=== PATIENT | male | born 1960 | race Caucasian/White ===

== ENCOUNTER 2021-06-10 13:29 | Inpatient (IN) | payer MEDICARE, SELFPAY ==
[2021-06-10] VITALS (10 sets, daily range): BP systolic 93–127; BP diastolic 69–94; PULSE 98–105; RESP 18–36; TEMP 35.2–36.3; O2SAT 90–99; BMI 30.8; BMI 28.4
--- NOTE | 2021-06-10 14:07 | EKG12_ITS ---
Test Reason : Blood Pressure : / mmHG Vent. Rate : 103 BPM Atrial Rate : 103 BPM P-R Int : 170 ms QRS Dur : 156 ms QT Int : 418 ms P-R-T Axes : 070 -75 091 degrees QTc Int : 547 ms Sinus tachycardia with occasional Premature ventricular complexes Left axis deviation Non-specific intra-ventricular conduction block Abnormal ECG Confirmed by CAROL JOSEPH, MACHELLE ([id number]), make up editor GERI CAPELLAN ([id number]) on 06/12/2021 10:31:13 AM Referred By: SABRINA Confirmed By:MACHELLE MEDINA MD
--- NOTE | 2021-06-10 14:08 | EDS_ITS ---
HPI History of Present Illness Chief Complaint: Shortness of Breath Informant: patient Narrative Narrative: 61-year-old male arriving to the emergency department chief complaint of shortness of breath. Patient tells me that he tested positive for Covid a couple weeks ago. He does not know where he tested. He states that he thought he would get better but over the past several days is some progressive worsening of his shortness of breath. He notes feeling off balance/lightheaded as well as confusion. Decreased p.o. He notes leg swelling. He cannot tell me prior medical conditions or medications that he is on. I was able to obtain records from his primary care provider. I see that he tested positive at [facility] having it on the and being reported positive on the . Reportedly his chest x-ray is clear and he was given prescriptions for Augmentin doxycycline and albuterol MDI as well as some Phenergan. [facility] Medical History (Updated 06/10/21 @ 16:[address] Blue Horton DO) Cardiomyopathy Congestive heart failure (CHF) Diabetes HTN (hypertension) Hyperlipidemia Home Medications ascorbic acid (vitamin C) [Vitamin C] 500 mg PO DAILY@0800 05/30/13 [History Last Taken 05/30/13] coenzyme Q10 [Co Q-10] 100 mg PO DAILY 05/30/13 [History Last Taken 05/30/13 08:00] vitamin B complex 1 ea PO DAILY 05/30/13 [History Last Taken 05/30/13 08:00] aspirin 81 mg PO DAILY@0800 #30 tablet 06/01/13 [Rx Last Taken Unknown] atorvastatin 10 mg PO QHS #30 tablet 06/01/13 [Rx Last Taken Unknown] carvedilol 3.125 mg PO BID #60 tablet 06/01/13 [Rx Last Taken 06/07/13] furosemide 40 mg PO BIDLX #60 tablet 06/01/13 [Rx Last Taken 06/07/13] lisinopril 5 mg PO DAILY #60 tablet 06/01/13 [Rx Last Taken Unknown] Allergy/AdvReac Type Severity Reaction Status Date / Time No Known Allergies Allergy Verified 06/10/21 13:34 Social History (Updated 06/10/21 @ 14:[address] Blue Horton DO) Smoking Status: Current every day smoker tobacco type: cigarettes substance use type: does not use ROS ROS ED ROS Narrative Generalized fatigue and lightheadedness Constitutional Constitutional ED: Denies chills, fever(s) or weight loss Eyes Eyes: Denies change in vision or diplopia ENT ENT ED: Reports rhinorrhea; Denies ear pain or sore throat Cardiovascular Cardiovascular: Denies chest pain, orthopnea, palpitations or racing heartbeat Respiratory/Chest Respiratory/Chest: Reports cough, dyspnea and dyspnea on exertion; Denies orth opnea Gastrointestinal Gastrointestinal: Reports nausea; Denies abdominal pain, diarrhea or vomiting Genitourinary Genitourinary ED: Denies dysuria, hematuria or urinary frequency Musculoskeletal Musculoskeletal: Denies arthralgias or myalgias Integumentary Denies abscess or rash Neurologic Neurologic: Denies headache(s) or weakness Psychiatric Psychiatric: Denies anxiety, depression, suicidal ideation or suicidal thoughts Endocrine Endocrinology: Denies polydipsia, polyphagia or polyuria Allergic/Immunologic Allergic/Immunologic ED: Denies mouth swelling, tongue swelling or urticaria EXAM Physical Exam Narrative Exam Narrative: Patient is tachypneic at rest Const Vital Signs: 06/10/21 13:30 06/10/21 13:34 06/10/21 13:44 Temperature 96.2 F L 96.2 F L Temperature Source Temporal Temporal Pulse Rate 104 H 104 H Respiratory Rate 22 H 22 H Respiratory Effort Short of Breath Labored Respiratory Depth Shallow Respiratory Pattern Tachypnea Blood Pressure 127/94 H 127/94 H Blood Pressure Mean 105 105 Pulse Ox 97 97 Oxygen Delivery Method Nasal Cannula Nasal Cannula Nasal Cannula Oxygen Flow Rate (L/min) 2 2 3 06/10/21 14:24 06/10/21 15:18 Temperature 97.3 F L Temperature Source Oral Pulse Rate 103 H Respiratory Rate 30 H Respiratory Effort Respiratory Depth Respiratory Pattern Blood Pressure 104/73 Blood Pressure Mean 83 Pulse Ox 99 94 Oxygen Delivery Method Room Air Nasal Cannula Oxygen Flow Rate (L/min) 3 Positive well nourished and well developed General Appearance ED: well developed HEENT Reports normocephalic, head/scalp atraumatic, TM's clear and moist mucous membranes Negative for trauma Tympanic Membrane ED: Yes TM's clear Eyes PERRL and EOMs intact bilaterally Neck no lymphadenopathy, supple and no JVD Resp normal respiratory effort and clear to auscultation bilaterally Cardio regular rate and no murmurs Rate: tachycardic GI normal to inspection, nondistended, normoactive bowel sounds and non-tender Palpation: soft Back/Spine no CVA tenderness and normal ROM Extremity normal to inspection Extremity Narrative: 2+ pitting edema of the lower extremity bilaterally General Extremety ED: Yes edema General Extremity: edema Neuro oriented x3 and CN's II-XII intact bilaterally Sensorium / Orientation: alert Motor Exam: strength 5/5 throughout Psych mental status grossly normal Mood & Affect: Negative for depressed or tearful Skin no rashes or lesions noted and no wounds MDM MDM MDM Narrative Medical decision making narrative: Basic blood work was obtained. White count 6.9 with a platelet count of 146. Creatinine 1.16. Beta natruretic peptide is elevated at 823 lactic acid is 4.3 which I suspect is elevated due to his hypoxemia rather than a shock state. Total bilirubin is noted to be elevated at 5.2. CT roosters does not demonstrate obvious pulmonary embolism but does show significant pneumonitis consistent with COVID-19 infection. Patient is requiring supplemental oxygen currently about 4 L. He is dyspneic even at rest. With ambulation the patient drops to 86% on 4 L. Patient received dexamethasone. I will discuss with hospitalist regarding admission Lab Data Attestation: I reviewed the patient's lab results. Labs: Laboratory Results - last 24 hr 06/10/21 06/10/21 06/10/21 13:45 13:45 13:45 WBC 6.9 RBC 5.16 Hgb 16.0 Hct 45.3 MCV 87.8 MCH 31.0 MCHC 35.3 RDW Std Deviation 43.8 RDW Coeff of Tony 13.4 Plt Count 146 L MPV 12.3 H Immature Gran % (Auto) 0.900 Neut % (Auto) 88.8 H Lymph % (Auto) 7.8 L O[place]Brien % (Auto) 2.2 Eos % (Auto) 0.0 Baso % (Auto) 0.3 Absolute Neuts (auto) 6.2 Absolute Lymphs (auto) 0.54 L Nucleated RBC % 0 PT 19.5 H INR 1.7 APTT 34.0 Sodium 133 L Potassium 3.6 Chloride 95 L Carbon Dioxide 26.0 Anion Gap 12 BUN 28 H Creatinine 1.16 Estim Creat Clear Calc 69.92 Est GFR (MDRD) Af Amer 83 Est GFR (MDRD) Non-Af 68 BUN/Creatinine Ratio 24.1 H Glucose 239 H Lactic Acid Calcium 8.9 Total Bilirubin 5.20 H AST 72 H ALT 43 Alkaline Phosphatase 86 Troponin I High Sens 33 B-Natriuretic Peptide Total Protein 7.5 Albumin 2.4 L Globulin 5.1 H Albumin/Globulin Ratio 0.5 L 06/10/21 06/10/21 13:45 13:45 WBC RBC Hgb Hct MCV MCH MCHC RDW Std Deviation RDW Coeff of Tony Plt Count MPV Immature Gran % (Auto) Neut % (Auto) Lymph % (Auto) O[place]Brien % (Auto) Eos % (Auto) Baso % (Auto) Absolute Neuts (auto) Absolute Lymphs (auto) Nucleated RBC % PT INR APTT Sodium Potassium Chloride Carbon Dioxide Anion Gap BUN Creatinine Estim Creat Clear Calc Est GFR (MDRD) Af Amer Est GFR (MDRD) Non-Af BUN/Creatinine Ratio Glucose Lactic Acid 4.3 H* Calcium Total Bilirubin AST ALT Alkaline Phosphatase Troponin I High Sens B-Natriuretic Peptide 823.0 H Total Protein Albumin Globulin Albumin/Globulin Ratio Radiography Diagnostic Testing: Clinical Impression(s) from Imaging Studies Chest CTA 06/10/21 14:42 IMPRESSION: Diffuse bilateral pulmonary infiltrates involving both upper and lower lobes. No evidence of pulmonary embolism. Electronically Signed: Inder Melendez MD at 15:26 EST , Service support , EKG Initial EKG: Attestation: I personally reviewed and interpreted this EKG as follows: Comments: Sinus tachycardia with a ventricular rate of 103 bpm. Noted PVCs Discharge Plan Triage Chief Complaint: Shortness of Breath ED Provider: Blue Horton Dx/Rx/DC Orders Clinical Impression: COVID-19, Acute hypoxemic respiratory failure due to COVID-19 Prescriptions: No Action vitamin B complex 1 EACH capsule 1 ea PO DAILY RF: 0 ascorbic acid (vitamin C) [Vitamin C] 500 MG tablet 500 mg PO DAILY@0800 RF: 0 coenzyme Q10 [Co Q-10] 100 MG capsule 100 mg PO DAILY RF: 0 furosemide 40 MG tablet 40 mg PO BIDLX Qty: 60 RF: 0 atorvastatin 10 MG tablet 10 mg PO QHS Qty: 30 RF: 0 aspirin 81 MG tablet 81 mg PO DAILY@0800 Qty: 30 RF: 0 carvedilol 3.125 MG tablet 3.125 mg PO BID Qty: 60 RF: 0 lisinopril 5 MG tablet 5 mg PO DAILY Qty: 60 RF: 0 Primary Care Provider: Care Physician,No Primary Referrals: Care Physician,No Primary [Primary Care Provider] - Disposition Disposition: Acute Care Hospital [facility]
[2021-06-10 14:23] LABS: Absolute Lymphocyte Count 0.54 X10^3/uL (0.83-4.51); Absolute Neutrophil Count 6.2 X10^3/uL (2.0-7.7); Basophil# 0.02 X10^3/uL; Basophil% 0.3 % (0-1); Hematocrit 45.3 % (40-54); Lymphocyte # 0.54 X10^3/ul (0.83-4.51); Lymphocyte % 7.8 % (19-41); Mean Corp Hgb Conc 35.3 g/dL (32-36); Mean Corpuscular Volume 87.8 fL (80-94); Mean Platelet Vol. 12.3 fl (6.2-12.0); Monocyte# 0.15 X10^3/uL; Monocyte% 2.2 % (0-10); NRBC Flagged by Analyzer 0 % (0-5); Neutrophil # 6.17 X10^3/uL (2.7-7.7); Neutrophil % 88.8 % (47-70); POSITIVE DIFFERENTIAL YES; POSITIVE MORPHOLOGY YES; Platelet Count 146 K/mm3 (150-450); RBC Distribution Width CV 13.4 % (11.6-14.6); RBC Distribution Width SD 43.8 fl (35.1-43.9); Red Blood Count 5.16 M/mm3 (4.6-6.2); White Blood Count 6.9 K/mm3 (4.4-11.0)
[2021-06-10 14:24] LABS: Differential Indicated SCAN CRITERIA MET
[2021-06-10 14:25] LABS: International Normalized Ratio 1.7; Prothrombin Time (Protime)PT. 19.5 SECONDS (11.7-14.9)
[2021-06-10 14:35] LABS: ALB/GLOB Ratio 0.5 RATIO (0.9-2.4); AST(SGOT) 72 U/L (15-37); Alanine Aminotransfer ALT/SGPT 43 U/L (16-61); Albumin, Serum 2.4 g/dL (3.2-5.0); Alkaline Phosphatase 86 U/L (45-117); Anion Gap 12 (5-15); BUN 28 mg/dL (7-18); BUN/Creat Ratio 24.1 RATIO (10-20); Calcium,Total 8.9 mg/dL (8.5-10.1); Chloride 95 mmol/L (98-107); Creatinine, Serum 1.16 mg/dL (0.70-1.30); EST Glomerular Filtration Rate 68 mL/min (>60); Est Glom Filt Rate - Afr Amer 83 mL/min (>60); Estimated Creatinine Clearance 69.92 ml/min; Globulin 5.1 g/dL (2.2-4.2); Glucose 239 mg/dL (74-106); Potassium 3.6 mmol/L (3.5-5.1); Protein, Total 7.5 g/dL (6.4-8.2); Sodium Level 133 mmol/L (136-145); Troponin-I HS 33 pg/mL (3.0-78.0)
--- NOTE | 2021-06-10 14:42 | CT_ITS ---
STUDY: CTA CHEST REASON FOR EXAM: Male, 61 years old. covid 19 pulmonary embolism. Shortness of breath. RADIATION DOSAGE (If Supplied By Facility): CTDIvol = ( 15.79 ) mGy, DLP = ( 437.42 ) mGycm TECHNIQUE: The examination was performed with the intravenous administration of IV 100mL Isovue-370. Post-processing of the angiographic images was performed, with multiplanar reformation and 3D reconstruction. Individualized dose optimization techniques were used for this CT. COMPARISON: None. FINDINGS: Normal enhancement of the main pulmonary artery and right and left pulmonary arteries. Normal enhancement of the bilateral peripheral pulmonary arteries. There is no demonstrated pulmonary embolism. There is atherosclerotic calcification of the aortic arch with tortuosity. There is no demonstrated aortic dissection. Normal heart and pericardium. Normal mediastinum. Normal hilar regions. Normal visualized trachea and bronchi. The lungs are well expanded. Diffuse bilateral consolidation involving both lungs worse in the upper lobes. Normal pleura. Normal chest wall structures. Normal osseous structures. Mild adrenal hyperplasia. CT/CTA Chest W/WO Contrast IMPRESSION: Diffuse bilateral pulmonary infiltrates involving both upper and lower lobes. No evidence of pulmonary embolism. Electronically Signed: Inder Melendez MD at 15:26 EST , Service support ,
[2021-06-10 14:46] LABS: Lactic Acid 4.3 mmol/L (0.4-1.9)
[2021-06-10] MEDS: dexAMETHasone 10 MG/ML Vial 6 MG IV (15:19)
[2021-06-10 18:18] LABS: Reflex Lactate? Y
[2021-06-10 19:30] LABS: Lactic Acid 2.8 mmol/L (0.4-1.9)
--- NOTE | 2021-06-10 19:33 | ED.RN ---
Crystal RN from [facility] called with critical lactic of 2.4. Pt pending clean room on [facility].
--- NOTE | 2021-06-10 19:41 | HP.PCM.HOS_ITS ---
HPI - General General Date of Admission: 06/10/21 HPI Narrative INDU ROD, is a 61 M who presents to the hospital with worsening shortness of breath. He started having symptoms approximately 10 days prior to June 03 when he had a positive Covid test on outside hospital. Since then he has been getting progressively more short of breath. He does have a history of heart failure, he had an echo back in 2013 with an EF of 40% however there is no further echoes in our system. His BNP in the ER was elevated to over 800 and he does have some lower extremity edema. He is on Lasix at baseline he has been taking this every day. He followed up with his PCP as an outpatient for his shortness of breath and was started on antibiotics as well as albuterol in the setting of a normal chest x-ray at that time. In the ER he was found to have a low elevated lactic acid of 4.3 this is likely due to the hypoxia as he was in the mid 80s on room air. This has decreased. He was also noted to be a little bit jaundiced and to have an elevated total bilirubin and elevated AST both of which are higher than the last reading in 2013. He denies any abdominal pain. Also of note his INR is elevated to 1.7 despite not being on any Coumadin. [facility] Medical History (Updated 06/10/21 @ 16:[address] Blue Horton, ) Cardiomyopathy Congestive heart failure (CHF) Diabetes HTN (hypertension) Hyperlipidemia Home Medications ascorbic acid (vitamin C) [Vitamin C] 500 mg PO DAILY@0800 05/30/13 [History Last Taken 2 Weeks Ago ~05/27/21] aspirin 81 mg PO DAILY@0800 #30 tablet 06/01/13 [Rx Last Taken 3 Days Ago ~06/07/21] furosemide 40 mg PO BIDLX #60 tablet 06/01/13 [Rx Last Taken 3 Days Ago ~06/07/21] carvedilol 25 mg PO BID 06/10/21 [History Last Taken 3 Days Ago ~06/07/21] glimepiride 1 mg PO BID 06/10/21 [History Last Taken 3 Days Ago ~06/07/21] lisinopril 5 mg PO DAILY 06/10/21 [History Last Taken 3 Days Ago ~06/07/21] metformin 1,000 mg PO BID 06/10/21 [History Last Taken 3 Days Ago ~06/07/21] Allergy/AdvReac Type Severity Reaction Status Date / Time No Known Allergies Allergy Verified 06/10/21 13:34 Family History (Updated 06/10/21 @ 19:[address] Jaun Doe MD) Other COPD (chronic obstructive pulmonary disease) Surgical History no surgical history no surgical history Social History (Updated 06/10/21 @ 14:[address] Blue Horton DO) Smoking Status: Current every day smoker tobacco type: cigarettes substance use type: does not use ROS Constitutional Constitutional: Denies chills, fatigue, fever(s) or malaise Eyes Eyes: Denies blurry vision ENT HEENT: Denies headache(s) or nasal discharge Cardiovascular Cardiovascular: Denies chest pain, dyspnea on exertion or syncope Respiratory/Chest Respiratory/Chest: Reports cough and shortness of breath at rest; Denies s hortness of breath with exertion Gastrointestinal Gastrointestinal: Denies constipation, diarrhea, nausea or vomiting Genitourinary Genitourinary: Denies dysuria Neurologic Neurologic: Denies focal weakness, numbness or tremor(s) Psychiatric Psychiatric: Denies anxiety or depression Vital Signs Vital Signs Vital Signs: 06/10/21 13:30 06/10/21 13:34 06/10/21 13:44 Temperature 96.2 F L 96.2 F L Temperature Source Temporal Temporal Pulse Rate 104 H 104 H Respiratory Rate 22 H 22 H Respiratory Effort Short of Breath Labored Respiratory Depth Shallow Respiratory Pattern Tachypnea Blood Pressure 127/94 H 127/94 H Blood Pressure Mean 105 105 Pulse Ox 97 97 Oxygen Delivery Method Nasal Cannula Nasal Cannula Nasal Cannula Oxygen Flow Rate (L/min) 2 2 3 06/10/21 14:24 06/10/21 15:18 06/10/21 16:13 Temperature 97.3 F L 97.3 F L Temperature Source Oral Axillary Pulse Rate 103 H 103 H Respiratory Rate 30 H 30 H Respiratory Effort Respiratory Depth Respiratory Pattern Blood Pressure 104/73 111/72 Blood Pressure Mean 83 85 Pulse Ox 99 94 95 Oxygen Delivery Method Room Air Nasal Cannula Nasal Cannula Oxygen Flow Rate (L/min) 3 3 06/10/21 16:58 06/10/21 18:06 Temperature 97.3 F L Temperature Source Axillary Pulse Rate 105 H 103 H Respiratory Rate 18 33 H Respiratory Effort Respiratory Depth Respiratory Pattern Blood Pressure 93/69 104/79 Blood Pressure Mean 77 87 Pulse Ox 96 95 Oxygen Delivery Method Nasal Cannula Nasal Cannula Oxygen Flow Rate (L/min) 4 3 Weight Weight: 215 lb Body Mass Index (BMI) 30.8 Physical Exam Const alert, oriented x3 and no apparent distress General Appearance: cooperative HEENT normocephalic and moist oral mucous membranes Eyes PERRL, EOMs intact bilaterally and conjunctivae normal Neck supple and no JVD Resp normal respiratory effort, no retractions and no use of accessory muscles Auscultation: crackles; Negative for rales, rhonchi or wheezes Cardio regular rhythm, S1 normal heart sound, S2 normal heart sound and no murmurs Rate: tachycardic GI soft to palpation, non-tender and non-distended; Negative for hepatosplenomegaly Extremity General Extremity: edema bilateral; Negative for clubbing or cyanosis Skin no rashes or lesions noted General Skin Exam: jaundice Neuro no focal motor deficits and no sensory deficits noted Psych affect normal Appearance: appropriate Results Lab / Micro Data Result Diagrams: 06/10/21 13:45 06/10/21 13:45 Labs: Laboratory Results - last 24 hr 06/10/21 13:45: WBC 6.9, RBC 5.16, Hgb 16.0, Hct 45.3, MCV 87.8, MCH 31.0, MCHC 35.3, RDW Std Deviation 43.8, RDW Coeff of Tony 13.4, Plt Count 146 L, MPV 12.3 H , Immature Gran % (Auto) 0.900, Neut % (Auto) 88.8 H, Lymph % (Auto) 7.8 L, [place] % (Auto) 2.2, Eos % (Auto) 0.0, Baso % (Auto) 0.3, Absolute Neuts (auto) 6.2, Absolute Lymphs (auto) 0.54 L, Nucleated RBC % 0 06/10/21 13:45: PT 19.5 H, INR 1.7, APTT 34.0 06/10/21 13:45: Sodium 133 L, Potassium 3.6, Chloride 95 L, Carbon Dioxide 26.0, Anion Gap 12, BUN 28 H, Creatinine 1.16, Estim Creat Clear Calc 69.92, Est GFR (MDRD) Af Amer 83, Est GFR (MDRD) Non-Af 68, BUN/Creatinine Ratio 24.1 H, Glucose 239 H, Calcium 8.9, Total Bilirubin 5.20 H, AST 72 H, ALT 43, Alkaline Phosphatase 86, Troponin I High Sens 33, Total Protein 7.5, Albumin 2.4 L, Globulin 5.1 H, Albumin/Globulin Ratio 0.5 L 06/10/21 13:45: Lactic Acid 4.3 H* 06/10/21 13:45: B-Natriuretic Peptide 823.0 H 06/10/21 18:31: Lactic Acid 2.8 H* Radiology Impression Chest CTA 06/10/21 14:42 IMPRESSION: Diffuse bilateral pulmonary infiltrates involving both upper and lower lobes. No evidence of pulmonary embolism. Electronically Signed: Inder Melendez MD at 15:26 EST , Service support , Assessment & Plan Assessment/Plan (1) Acute hypoxemic respiratory failure due to COVID-19: PLAN: 1. Acute hypoxic respiratory failure secondary to COVID-19 pneumonia ?He should come out of quarantine on 06/13/2021 ?Since he is outside of the window for remdesivir we will continue with just Decadron ?Currently only on 4 L if he worsens will likely need baricitinib ?Positive test was obtained on 06/03/2021 ?CT of the chest shows significant bilateral pneumonia no PEs 2. Chronic systolic CHF/HTN/HLD ?He had an echo with a heart cath back in 2013 with an EF of 40% ?We will continue with his Lasix IV ?Continue with aspirin, Coreg, lisinopril 3. DM2 ?We will hold his glimepiride and his metformin and place him on sliding scale insulin as well as long-acting insulin ?Accu-Cheks AC at bedtime ?We will make adjustments as Seri 4. Jaundice without abdominal pain and an elevated total bilirubin and INR ?We will repeat a CMP and an INR in the morning ?There is some contrast in the liver from the CTA which was not commented on may be beneficial to discuss with radiology ?He is not complaining of any abdominal pain, if bilirubin remains elevated or continues to climb may benefit from liver specific imaging and a possible GI consult DVT: Lovenox Charges/Coding Visit Charges Inpatient E&M: 35751 Init Hosp L3
[2021-06-10] MEDS: Carvedilol 25 MG Tablet PO (23:17)
[2021-06-10] MEDS: Furosemide 40 MG/4 ML Vial IV (23:17)
[2021-06-10] MEDS: Insulin Lispro 100 UNIT/ML INSULN.PEN SC (23:19)
[2021-06-10] MEDS: 0.9% Saline Lock 10 ML Syringe IV (23:25)
[2021-06-10 23:46] LABS: Bedside Glucose 348 mg/dL (70-110)
[2021-06-11] VITALS (13 sets, daily range): BP systolic 92–107; BP diastolic 60–74; PULSE 76–82; RESP 24–32; TEMP 36.1–36.6; O2SAT 90–96
--- NOTE | 2021-06-11 00:38 | PCS.PANDOC ---
PANDEMIC DOCUMENTATION INITIATED: Date: 02/18/2021 Time: 1900 Emergency documentation initiated 06/10/21 @ 0000
[2021-06-11] MEDS: Insulin Lispro 100 UNIT/ML INSULN.PEN SC ×4 (05:34→22:41)
[2021-06-11 05:38] LABS: Absolute Lymphocyte Count 0.47 X10^3/uL (0.83-4.51); Absolute Neutrophil Count 5.6 X10^3/uL (2.0-7.7); Basophil# 0.02 X10^3/uL; Basophil% 0.3 % (0-1); Hematocrit 40.7 % (40-54); Hemoglobin 14.1 g/dL (13.0-16.5); Lymphocyte # 0.47 X10^3/ul (0.83-4.51); Lymphocyte % 7.4 % (19-41); Mean Corp Hgb Conc 34.6 g/dL (32-36); Mean Corpuscular Hgb 30.2 pg (27.0-32.0); Mean Corpuscular Volume 87.2 fL (80-94); Mean Platelet Vol. 11.9 fl (6.2-12.0); Monocyte# 0.16 X10^3/uL; Monocyte% 2.5 % (0-10); NRBC Flagged by Analyzer 0 % (0-5); Neutrophil # 5.63 X10^3/uL (2.7-7.7); Neutrophil % 89.2 % (47-70); POSITIVE DIFFERENTIAL YES; POSITIVE MORPHOLOGY YES; Platelet Count 109 K/mm3 (150-450); RBC Distribution Width CV 13.4 % (11.6-14.6); RBC Distribution Width SD 42.7 fl (35.1-43.9); Red Blood Count 4.67 M/mm3 (4.6-6.2); White Blood Count 6.3 K/mm3 (4.4-11.0)
[2021-06-11 05:39] LABS: Differential Indicated SCAN CRITERIA MET
[2021-06-11 05:43] LABS: International Normalized Ratio 1.9; Prothrombin Time (Protime)PT. 20.8 SECONDS (11.7-14.9)
[2021-06-11 05:50] LABS: Bedside Glucose 351 mg/dL (70-110)
[2021-06-11 06:07] LABS: Differential Comment SCANNED
[2021-06-11 06:13] LABS: ALB/GLOB Ratio 0.4 RATIO (0.9-2.4); AST(SGOT) 43 U/L (15-37); Alanine Aminotransfer ALT/SGPT 30 U/L (16-61); Albumin, Serum 1.8 g/dL (3.2-5.0); Alkaline Phosphatase 65 U/L (45-117); Anion Gap 11 (5-15); BUN 28 mg/dL (7-18); BUN/Creat Ratio 29.7 RATIO (10-20); Chloride 98 mmol/L (98-107); Creatinine, Serum 0.94 mg/dL (0.70-1.30); EST Glomerular Filtration Rate 87 mL/min (>60); Est Glom Filt Rate - Afr Amer 105 mL/min (>60); Estimated Creatinine Clearance 83.57 ml/min; Globulin 4.2 g/dL (2.2-4.2); Glucose 378 mg/dL (74-106); Potassium 3.7 mmol/L (3.5-5.1); Sodium Level 134 mmol/L (136-145)
--- NOTE | 2021-06-11 07:23 | US_ITS ---
STUDY: ABDOMINAL ULTRASOUND - RIGHT UPPER QUADRANT REASON FOR VISIT: Male, 61 years old elevated bilirubin -- TECHNIQUE: Ultrasound evaluation of the right upper quadrant was performed with real-time and static medina-scale imaging. TECHNICAL QUALITY: Adequate. COMPARISON: None. FINDINGS: Liver: The liver measures 18.6 cm. There is normal echogenicity of the liver. The bile ducts are within normal limits. There is hepatic color flow. The direction of portal flow is hepatopetal. There is no demonstrated mass lesion. Gallbladder: Normal distended gallbladder. The gallbladder wall measures 2 mm. There is a negative sonographic Orellana''s sign. There is no pericholecystic fluid. There are no gallstones. Common Bile Duct (C.B.D.): The common bile duct measures 5 mm. Pancreas: Normal size of the head and body of the pancreas. Limited visualization of the pancreatic tail. There is normal echogenicity of the pancreas. There is no demonstrated pancreatic mass or cyst. Right Kidney: Normal size of the right kidney. The right kidney measures 11.9 x 5.4 x 4.6 cm. Normal renal cortex. The right cortex measures 1.2 cm. There is no demonstrated renal mass or cyst. There is no right hydronephrosis. US/Liver IMPRESSION: Hepatomegaly. Electronically Signed: Mike Schmidt DO at 23:31 EST Tel [phone], Service support ,
[2021-06-11] MEDS: Furosemide 40 MG/4 ML Vial IV ×2 (11:24→17:25)
[2021-06-11] MEDS: Enoxaparin 40 MG/0.4 ML Syringe SC (11:24)
[2021-06-11] MEDS: 0.9% Saline Lock 10 ML Syringe IV ×2 (11:24→17:25)
[2021-06-11 12:00] LABS: Bedside Glucose 446 mg/dL (70-110)
--- NOTE | 2021-06-11 12:50 | CASEMGMT ---
RN CM [employer]PA[employer] SUPERVISOR CM to room to meet with patient for initial transition planning/care coordination assessment. MARIETTA BUTLER introduced self and role at [facility]. Pt voices understanding and consents to assessment at this time. Pt resting in bed in no distress at this time. Pt is A/O at this time and answers all questions appropriately. Care providers, pharmacy, and demographics verified/updated at this time. COVID testing done @ [facility] in [place] 06/03 PCP: Dr Draper. Pt states he also recently saw Christiana Hastings in [place] recently. He is interested in switching PCP's and would like list of local PCP's. RNLakesha, provided w/list of local PCP's to take into pt's room. Pt made aware. Specialists: none Preferred Pharmacy: [facility] [place] Insurance: [employer]hing[employer] Prescription Benefit: None Living Will/HPOA: Pt does not currently have LW/HCPOA and declines info at this time. LNOK:, [place] Living Arrangements: Lives w/ and 29-yr-old son. They are both ill w/COVID. Pt states his informed him she may need to be evaluated d/t worsening symptoms. Son is doing pretty good. Pt independent @ home prior to illness. Transportation: Pt states drives self and states no transportation concerns at this time. also drives DME: Denies having any DME. Encouraged to get a pulse ox. Pt aware he may need O2 @ D/C. Reviewed list of local DME companies. Pt states okay w/[employer]. Made aware approx cost for 30-day supply of O2 is $200. He states this is affordable. Denies need for further DME. HHC/SNF: No hx of either. Does not think he will need HHC. Pt wishes to return home and states has no concerns with going home at time of discharge. CM to follow for home oxygen needs and any further discharge planning/needs. Pt voices no further concerns/needs at this time. Advised pt to ask for CM if any further questions/concerns/needs arise. Voices understanding. PLAN: Home. Follow for any O2 needs @ discharge. No Rx coverage. Follow for cost of meds @ d/c and affordability. Krystal ESPINOZA RN, CM
--- NOTE | 2021-06-11 13:32 | PN.HOSP_ITS ---
Subjective Subjective Breathing ok. No prior history of liver problems. Objective Data Objective Data Vital Signs: Vital Signs Temp Pulse Resp BP Pulse Ox 36.5 C L 80 26 H 97/69 95 06/11/21 12:16 06/11/21 12:16 06/11/21 12:16 06/11/21 12:16 06/11/21 12:45 Oxygen Flow Rate (L/min) 7 Oxygen Delivery Method Nasal Cannula Weight: 86.7 kg Body Mass Index (BMI) 28.4 Intake & Output: Intake and Output for Last 24 Hours 06/09/21 06/10/21 06/11/21 23:59 23:59 23:59 Intake Total 150 / 150 Output Total 1200 / 1200 Balance -1050 / -1050 Lab / Micro Data Result Diagrams: 06/11/21 05:15 06/11/21 05:15 Labs: Laboratory Results - last 24 hr 06/10/21 13:45: WBC 6.9, RBC 5.16, Hgb 16.0, Hct 45.3, MCV 87.8, MCH 31.0, MCHC 35.3, RDW Std Deviation 43.8, RDW Coeff of Tony 13.4, Plt Count 146 L, MPV 12.3 H , Immature Gran % (Auto) 0.900, Neut % (Auto) 88.8 H, Lymph % (Auto) 7.8 L, [place] % (Auto) 2.2, Eos % (Auto) 0.0, Baso % (Auto) 0.3, Absolute Neuts (auto) 6.2, Absolute Lymphs (auto) 0.54 L, Nucleated RBC % 0 06/10/21 13:45: PT 19.5 H, INR 1.7, APTT 34.0 06/10/21 13:45: Sodium 133 L, Potassium 3.6, Chloride 95 L, Carbon Dioxide 26.0, Anion Gap 12, BUN 28 H, Creatinine 1.16, Estim Creat Clear Calc 69.92, Est GFR (MDRD) Af Amer 83, Est GFR (MDRD) Non-Af 68, BUN/Creatinine Ratio 24.1 H, Glucose 239 H, Calcium 8.9, Total Bilirubin 5.20 H, AST 72 H, ALT 43, Alkaline Phosphatase 86, Troponin I High Sens 33, Total Protein 7.5, Albumin 2.4 L, Globulin 5.1 H, Albumin/Globulin Ratio 0.5 L 06/10/21 13:45: Lactic Acid 4.3 H* 06/10/21 13:45: B-Natriuretic Peptide 823.0 H 06/10/21 18:31: Lactic Acid 2.8 H* 06/10/21 23:15: POC Glucose 348 H 06/11/21 05:15: WBC 6.3, RBC 4.67, Hgb 14.1, Hct 40.7, MCV 87.2, MCH 30.2, MCHC 34.6, RDW Std Deviation 42.7, RDW Coeff of Tony 13.4, Plt Count 109 L, MPV 11.9, Immature Gran % (Auto) 0.600, Neut % (Auto) 89.2 H, Lymph % (Auto) 7.4 L, [place] % (Auto) 2.5, Eos % (Auto) 0.0, Baso % (Auto) 0.3, Absolute Neuts (auto) 5.6, Absolute Lymphs (auto) 0.47 L, Nucleated RBC % 0, Differential Comment SCANNED 06/11/21 05:15: PT 20.8 H, INR 1.9 06/11/21 05:15: Sodium 134 L, Potassium 3.7, Chloride 98, Carbon Dioxide 25.0, Anion Gap 11, BUN 28 H, Creatinine 0.94, Estim Creat Clear Calc 83.57, Est GFR (MDRD) Af Amer 105, Est GFR (MDRD) Non-Af 87, BUN/Creatinine Ratio 29.7 H, Glucose 378 H, Calcium 8.0 L, Total Bilirubin 4.00 H, AST 43 H, ALT 30, Alkaline Phosphatase 65, Total Protein 6.0 L, Albumin 1.8 L, Globulin 4.2, Albumin/Globulin Ratio 0.4 L 06/11/21 05:24: POC Glucose 351 H 06/11/21 11:31: POC Glucose 446 H Radiography Diagnostic Testing: Radiology Impression Chest CTA 06/10/21 14:42 IMPRESSION: Diffuse bilateral pulmonary infiltrates involving both upper and lower lobes. No evidence of pulmonary embolism. Electronically Signed: Inder Melendez MD at 15:26 EST , Service support , Physical Exam Const alert and no apparent distress Resp normal respiratory effort, no retractions, no use of accessory muscles and clear to auscultation bilaterally Cardio regular rate, regular rhythm, S1 normal heart sound and S2 normal heart sound GI normal to inspection, nondistended, normoactive bowel sounds, soft to palpation, non-tender and non-distended Skin Skin Narrative: jaundice Assessment & Plan Assessment/Plan (1) Acute hypoxemic respiratory failure due to COVID-19: PLAN: 1. Acute hypoxic respiratory failure secondary to COVID-19 pneumonia ?He should come out of quarantine on 06/13/2021 ?Since he is outside of the window for remdesivir we will continue with just Decadron ?Currently only on 4 L if he worsens will likely need baricitinib ?Positive test was obtained on 06/03/2021 ?CT of the chest shows significant bilateral pneumonia no PEs 2. Chronic systolic CHF/HTN/HLD ?He had an echo with a heart cath back in 2013 with an EF of 40% ?We will continue with his Lasix IV ?Continue with aspirin, Coreg, lisinopril 3. DM2 ?uncontrolled -We will hold his glimepiride and his metformin and place him on sliding scale insulin as well as long-acting insulin ?Accu-Cheks AC at bedtime ?We will make adjustments as Seri 4. Jaundice without abdominal pain and an elevated total bilirubin and INR ?ongoing -We will repeat a CMP and an INR in the morning ?There is some contrast in the liver from the CTA which was not commented on may be beneficial to discuss with radiology ?He is not complaining of any abdominal pain, if bilirubin remains elevated or continues to climb may benefit from liver specific imaging and a possible GI consult -Check US DVT: Lovenox Charges/Coding Visit Charges Inpatient E&M: 52358 Subs Hosp L2
[2021-06-11 16:21] LABS: Bedside Glucose 390 mg/dL (70-110)
[2021-06-11] MEDS: dexAMETHasone 4 MG Tablet 6 MG PO (17:23)
[2021-06-11] MEDS: Aspirin E.C. 81 MG Tablet PO (17:25)
[2021-06-11] MEDS: Ascorbic Acid 500 MG Tablet PO (17:25)
[2021-06-11 23:01] LABS: Bedside Glucose 438 mg/dL (70-110)
[2021-06-12] VITALS (10 sets, daily range): BP systolic 78–120; BP diastolic 46–88; PULSE 75–90; RESP 22–26; TEMP 36.1–36.4; O2SAT 93–98
--- NOTE | 2021-06-12 06:13 | PCM.PN.BLA ---
Progress Note A.m. blood glucose of 475. On high medium correction scale. Extra dose of short acting insulin given. Patient on Lantus 5 units at night. Last Lantus received overnight. Escalate dose of Lantus beginning now.
[2021-06-12 06:19] LABS: Absolute Lymphocyte Count 0.43 X10^3/uL (0.83-4.51); Absolute Neutrophil Count 9.9 X10^3/uL (2.0-7.7); Basophil# 0.02 X10^3/uL; Basophil% 0.2 % (0-1); Hematocrit 39.7 % (40-54); Hemoglobin 14.1 g/dL (13.0-16.5); Lymphocyte # 0.43 X10^3/ul (0.83-4.51); Mean Corp Hgb Conc 35.5 g/dL (32-36); Mean Corpuscular Hgb 30.7 pg (27.0-32.0); Mean Corpuscular Volume 86.3 fL (80-94); Mean Platelet Vol. 11.3 fl (6.2-12.0); Monocyte# 0.36 X10^3/uL; Monocyte% 3.3 % (0-10); NRBC Flagged by Analyzer 0 % (0-5); Neutrophil # 9.89 X10^3/uL (2.7-7.7); Neutrophil % 91.9 % (47-70); POSITIVE DIFFERENTIAL YES; POSITIVE MORPHOLOGY YES; Platelet Count 132 K/mm3 (150-450); RBC Distribution Width CV 13.3 % (11.6-14.6); RBC Distribution Width SD 42.5 fl (35.1-43.9); White Blood Count 10.8 K/mm3 (4.4-11.0)
[2021-06-12] MEDS: Insulin Lispro 100 UNIT/ML INSULN.PEN 14 UNIT SC (06:19)
[2021-06-12 06:33] LABS: Differential Indicated SCAN CRITERIA MET; International Normalized Ratio 1.7; Prothrombin Time (Protime)PT. 19.5 SECONDS (11.7-14.9)
[2021-06-12 06:56] LABS: ALB/GLOB Ratio 0.5 RATIO (0.9-2.4); AST(SGOT) 34 U/L (15-37); Alanine Aminotransfer ALT/SGPT 30 U/L (16-61); Albumin, Serum 1.9 g/dL (3.2-5.0); Alkaline Phosphatase 76 U/L (45-117); Anion Gap 9 (5-15); BUN 35 mg/dL (7-18); BUN/Creat Ratio 30.2 RATIO (10-20); Calcium,Total 8.1 mg/dL (8.5-10.1); Chloride 101 mmol/L (98-107); Creatinine, Serum 1.16 mg/dL (0.70-1.30); EST Glomerular Filtration Rate 68 mL/min (>60); Est Glom Filt Rate - Afr Amer 83 mL/min (>60); Estimated Creatinine Clearance 67.72 ml/min; Glucose 496 mg/dL (74-106); Potassium 3.5 mmol/L (3.5-5.1); Protein, Total 5.9 g/dL (6.4-8.2); Sodium Level 138 mmol/L (136-145)
[2021-06-12 07:17] LABS: Atypical Lymphocyte 1+ %; Differential Comment SCANNED
[2021-06-12 08:36] LABS: Bedside Glucose > 500 mg/dL (70-110)
[2021-06-12 08:36] LABS: Bedside Glucose 475 mg/dL (70-110)
[2021-06-12] MEDS: Aspirin E.C. 81 MG Tablet PO (08:59)
[2021-06-12] MEDS: Ascorbic Acid 500 MG Tablet PO (09:00)
[2021-06-12] MEDS: Carvedilol 25 MG Tablet PO (09:06)
[2021-06-12] MEDS: Lisinopril 5 MG Tablet PO (09:06)
[2021-06-12] MEDS: dexAMETHasone 4 MG Tablet 6 MG PO (09:07)
[2021-06-12] MEDS: Furosemide 40 MG/4 ML Vial IV (09:10)
[2021-06-12] MEDS: 0.9% Saline Lock 10 ML Syringe IV (09:11)
[2021-06-12 11:35] LABS: Bedside Glucose 463 mg/dL (70-110)
[2021-06-12] MEDS: Insulin Lispro 100 UNIT/ML INSULN.PEN SC ×3 (12:26→21:53)
--- NOTE | 2021-06-12 13:32 | PCM.PN.HOSP ---
Subjective Subjective Breathing well. Objective Data Objective Data Vital Signs: Vital Signs Temp Pulse Resp BP Pulse Ox 36.4 C L 90 26 H 120/88 H 94 06/12/21 09:01 06/12/21 09:01 06/12/21 09:01 06/12/21 09:01 06/12/21 09:01 Oxygen Flow Rate (L/min) 7 Oxygen Delivery Method Nasal Cannula Weight: 84 kg Body Mass Index (BMI) 28.4 Intake & Output: Intake and Output for Last 24 Hours 06/10/21 06/11/21 06/12/21 23:59 23:59 23:59 Intake Total 150 / 150 Output Total 1200 / 1200 Balance -1050 / -1050 Medical Nutrition Assessment Dietitian: Malnutrition Criteria Met Start: 06/11/21 17:05 Freq: Status: Active Protocol: Document 06/11/21 17:05 RMA (Rec: 06/11/21 17:06 RMA [id number]) Nutrition Malnutrition Evidence of Malnutrition Exists Yes Malnutrition (severe): Acute Illness/Injury Evidenced By Suboptimal Energy Intake ( Severe),Weight Loss (Severe) Clinical Problem Acute Disease or Injury Related Malnutrition Etiology Severe protein-calorie malnutrition in the context of acute illness related to ongoing poor appetite and inadequate oral intake Signs/Symptoms as evidenced by ~9% wt loss x 1 month and inadequate oral intake meeting less than 50% estimated nutrition needs x past 2 weeks Status Active Problem Recommendation Dietitian Recommendations/Changes Recommend resume PO nutrition as able with Carbohydrate- Controlled/Sodium-Restricted diet; FR as needed. Add 120ml kayleigh glucerna shake TID with meals as diet resumed from NPO. Adjust ONS and diet as able to optimize oral intake when diet advanced. Will d/c glucerna shake w/ medpass for now and add to meal trays due to covid isolation. Lab / Micro Data Result Diagrams: 06/12/21 06:05 06/12/21 06:05 Labs: Laboratory Results - last 24 hr 06/11/21 15:56: POC Glucose 390 H 06/11/21 22:40: POC Glucose 438 H 06/12/21 05:52: POC Glucose > 500 H* 06/12/21 05:54: POC Glucose 475 H* 06/12/21 06:05: WBC 10.8, RBC 4.60, Hgb 14.1, Hct 39.7 L, MCV 86.3, MCH 30.7, MCHC 35.5, RDW Std Deviation 42.5, RDW Coeff of Tony 13.3, Plt Count 132 L, MPV 11.3, Immature Gran % (Auto) 0.600, Neut % (Auto) 91.9 H, Lymph % (Auto) 4.0 L, [place] % (Auto) 3.3, Eos % (Auto) 0.0, Baso % (Auto) 0.2, Absolute Neuts (auto) 9.9 H, Absolute Lymphs (auto) 0.43 L, Nucleated RBC % 0, Differential Comment SCANNED, Atypical Lymphocytes 1+ 06/12/21 06:05: PT 19.5 H, INR 1.7 06/12/21 06:05: Sodium 138, Potassium 3.5, Chloride 101, Carbon Dioxide 28.0, Anion Gap 9, BUN 35 H, Creatinine 1.16, Estim Creat Clear Calc 67.72, Est GFR (MDRD) Af Amer 83, Est GFR (MDRD) Non-Af 68, BUN/Creatinine Ratio 30.2 H, Glucose 496 H*, Calcium 8.1 L, Total Bilirubin 4.00 H, AST 34, ALT 30, Alkaline Phosphatase 76, Total Protein 5.9 L, Albumin 1.9 L, Globulin 4.0, Albumin/Globulin Ratio 0.5 L 06/12/21 06:05: Glucose Cancelled 06/12/21 11:30: POC Glucose 463 H* Radiography Diagnostic Testing: Radiology Impression Liver Ultrasound 06/11/21 07:23 IMPRESSION: Hepatomegaly. Electronically Signed: Mike Schmidt DO at 23:31 EST Tel [phone], Service support , Physical Exam Const alert and no apparent distress HEENT head/scalp atraumatic Head and Scalp: normocephalic Resp normal respiratory effort, no retractions, no use of accessory muscles and clear to auscultation bilaterally Cardio regular rate, regular rhythm, S1 normal heart sound and S2 normal heart sound GI normal to inspection, nondistended, normoactive bowel sounds, soft to palpation, non-tender and non-distended Extremity General Extremity: edema Skin Skin Narrative: jaundice Assessment & Plan Assessment/Plan (1) COVID-19: (2) Acute hypoxemic respiratory failure due to COVID-19: PLAN: 1. Acute hypoxic respiratory failure secondary to COVID-19 pneumonia He should come out of quarantine on 06/13/2021 Since he is outside of the window for remdesivir we will continue with just Decadron On 7L Positive test was obtained on 06/03/2021 CT of the chest shows significant bilateral pneumonia no PEs 2. Chronic systolic CHF/HTN/HLD ?He had an echo with a heart cath back in 2013 with an EF of 40% ?We will continue with his Lasix IV ?Continue with aspirin, Coreg, lisinopril 3. DM2 uncontrolled We will hold his glimepiride and his metformin and place him on sliding scale insulin as well as long-acting insulin Accu-Cheks AC at bedtime We will make adjustments as Seri glargine check a1c 4. Jaundice without abdominal pain and an elevated total bilirubin and INR ongoing US unremarkable concerned for underlying cirrhosis consult GI check acute hep profile, CORKY, NH3 5.DVT: DC Lovenox given coagulopathy. SCDs Charges/Coding Visit Charges Inpatient E&M: 18099 Subs Hosp L2
[2021-06-12 14:44] LABS: Hemoglobin A1c 8.5 % (3.8-5.6)
[2021-06-12 16:01] LABS: Bedside Glucose 495 mg/dL (70-110)
[2021-06-12] MEDS: 0.9% Normal Saline 1,000 ML 150 ML IV (16:18)
--- NOTE | 2021-06-12 17:20 | CON.PCM.GI_ITS ---
HPI Consult Data Date of Consult: 06/12/21 HPI Narrative HPI Narrative: 61-year-old male arriving to the emergency department chief complaint of shortness of breath. Patient tells me that he tested positive for Covid a couple weeks ago. He does not know where he tested. He states that he thought he would get better but over the past several days is some progressive worsening of his shortness of breath. He notes feeling off balance/lightheaded as well as confusion. Decreased p.o. He notes leg swelling. He cannot tell me prior medical conditions or medications that he is on. I was able to obtain records from his primary care provider. I see that he tested positive at [facility] having it on the and being reported positive on the . Reportedly his chest x-ray is clear and he was given prescriptions for Augmentin doxycycline and albuterol MDI as well as some Phenergan. [facility] Medical History (Updated 06/12/21 @ 17:[address] Xiao Friend, DO) Cardiomyopathy Congestive heart failure (CHF) Diabetes HTN (hypertension) Hyperlipidemia Home Medications ascorbic acid (vitamin C) [Vitamin C] 500 mg PO DAILY@0800 05/30/13 [History Last Taken 2 Weeks Ago ~05/27/21] aspirin 81 mg PO DAILY@0800 #30 tablet 06/01/13 [Rx Last Taken 3 Days Ago ~06/07/21] furosemide 40 mg PO BIDLX #60 tablet 06/01/13 [Rx Last Taken 3 Days Ago ~ 1] carvedilol 25 mg PO BID 06/10/21 [History Last Taken 3 Days Ago ~06/07/21] glimepiride 1 mg PO BID 06/10/21 [History Last Taken 3 Days Ago ~06/07/21] lisinopril 5 mg PO DAILY 06/10/21 [History Last Taken 3 Days Ago ~06/07/21] metformin 1,000 mg PO BID 06/10/21 [History Last Taken 3 Days Ago ~06/07/21] Allergy/AdvReac Type Severity Reaction Status Date / Time No Known Allergies Allergy Verified 06/10/21 13:34 Family History (Updated 06/10/21 @ 19:[address] Jaun Doe MD) Other COPD (chronic obstructive pulmonary disease) Surgical History no surgical history Social History (Updated 06/10/21 @ 14:[address] Blue Horton, DO) Smoking Status: Former smoker substance use type: does not use ROS Review of Systems ROS Unobtainable: other Constitutional Constitutional: Denies fatigue, fever(s), poor appetite, weight gain or weight loss ENT HEENT: Denies mouth lesions Cardiovascular Cardiovascular: Denies abdominal bloating, abdominal edema or abdominal pain Respiratory/Chest Respiratory/Chest: Denies change in mental status, change in phlegm color, chest congestion or chest tightness Gastrointestinal Gastrointestinal: Denies belching, bloating, change in bowel habits, change in stool character, chewing difficulty, coffee ground emesis, constipation, cramping, diarrhea, dyspepsia, dysphagia, early satiety, excessive flatus, fecal incontinence, heartburn, hematemesis, hematochezia, hemorrhoids, loose stools, melena, nausea, odynophagia, rectal bleeding, tenesmus, vomiting or weight ch anges Genitourinary Genitourinary: Denies abdominal discomfort, burning urination or itching Musculoskeletal Musculoskeletal: Reports as per HPI; Denies muscle weakness or myalgias Integumentary Integumentary: Denies jaundice Neurologic Neurologic: Denies lack of coordination or weakness Psychiatric Psychiatric: Denies confusion, depression, memory loss, mood swings, paranoia or suicidal ideation Endocrine Endocrinology: Denies systems reviewed and no addt'l complaints, except as documented Hematologic/Lymphatic Hematologic/Lymphatic: Denies anemia, easy bleeding, easy bruising or lymphadenopathy Allergic/Immunologic Allergic/Immunologic: Denies systems reviewed and no addt'l complaints, except as documented Physical Exam Const alert General Appearance: cooperative Orientation / Consciousness: oriented to person HEENT hearing grossly normal bilaterally Head and Scalp: normal to inspection Face and Sinus: face symmetric Nose: external nose normal Mouth: oral and palatal mucosa normal Eyes conjunctivae normal General Eye: normal appearance of both eyes Neck full ROM General: normal visual inspection Lymph Lymphatic: no lymphadenopathy noted Chest inspection of chest normal and palpation of chest normal Chest: symmetrical chest wall rise Resp normal respiratory effort Effort and Inspection: able to speak in complete sentences Cardio regular rate GI non-distended Percussion: normal to percussion Rectal Exam: deferred Neuro Speech: speech normal Gait (Neuro): normal gait Medical Records Data Medical Nutrition Assessment Dietitian: Malnutrition Criteria Met Start: 06/11/21 17:05 Freq: Status: Active Protocol: Document 06/11/21 17:05 RMA (Rec: 06/11/21 17:06 RMA [id number]) Nutrition Malnutrition Evidence of Malnutrition Exists Yes Malnutrition (severe): Acute Illness/Injury Evidenced By Suboptimal Energy Intake ( Severe),Weight Loss (Severe) Clinical Problem Acute Disease or Injury Related Malnutrition Etiology Severe protein-calorie malnutrition in the context of acute illness related to ongoing poor appetite and inadequate oral intake Signs/Symptoms as evidenced by ~9% wt loss x 1 month and inadequate oral intake meeting less than 50% estimated nutrition needs x past 2 weeks Status Active Problem Recommendation Dietitian Recommendations/Changes Recommend resume PO nutrition as able with Carbohydrate- Controlled/Sodium-Restricted diet; FR as needed. Add 120ml kayleigh glucerna shake TID with meals as diet resumed from NPO. Adjust ONS and diet as able to optimize oral intake when diet advanced. Will d/c glucerna shake w/ medpass for now and add to meal trays due to covid isolation. Lab / Micro Data Result Diagrams: 06/12/21 06:05 06/12/21 06:05 Labs: Laboratory Results - last 24 hr 06/11/21 22:40: POC Glucose 438 H 06/12/21 05:52: POC Glucose > 500 H* 06/12/21 05:54: POC Glucose 475 H* 06/12/21 06:05: WBC 10.8, RBC 4.60, Hgb 14.1, Hct 39.7 L, MCV 86.3, MCH 30.7, MCHC 35.5, RDW Std Deviation 42.5, RDW Coeff of Tony 13.3, Plt Count 132 L, MPV 11.3, Immature Gran % (Auto) 0.600, Neut % (Auto) 91.9 H, Lymph % (Auto) 4.0 L, [place] % (Auto) 3.3, Eos % (Auto) 0.0, Baso % (Auto) 0.2, Absolute Neuts (auto) 9.9 H, Absolute Lymphs (auto) 0.43 L, Nucleated RBC % 0, Differential Comment SCANNED, Atypical Lymphocytes 1+ 06/12/21 06:05: PT 19.5 H, INR 1.7 06/12/21 06:05: Sodium 138, Potassium 3.5, Chloride 101, Carbon Dioxide 28.0, Anion Gap 9, BUN 35 H, Creatinine 1.16, Estim Creat Clear Calc 67.72, Est GFR (MDRD) Af Amer 83, Est GFR (MDRD) Non-Af 68, BUN/Creatinine Ratio 30.2 H, Glucose 496 H*, Calcium 8.1 L, Total Bilirubin 4.00 H, AST 34, ALT 30, Alkaline Phosphatase 76, Total Protein 5.9 L, Albumin 1.9 L, Globulin 4.0, Albumin/Globulin Ratio 0.5 L 06/12/21 06:05: Glucose Cancelled 06/12/21 11:30: POC Glucose 463 H* 06/12/21 14:13: Ammonia 24.0 06/12/21 14:13: Hemoglobin A1c 8.5 H 06/12/21 15:48: POC Glucose 495 H* Micro: Microbiology 06/10/21 13:45 Blood Culture (Wb) - Anticubital Left Blood Culture - Preliminary No growth in 48 hours. 06/10/21 13:55 Blood Culture (Wb) - Anticubital Right Blood Culture - Preliminary No growth in 48 hours. Radiology Impression Liver Ultrasound 06/11/21 07:23 IMPRESSION: Hepatomegaly. Electronically Signed: Mike Schmidt DO at 23:31 EST Tel [phone], Service support , Assessment & Plan Assessment/Plan (1) Jaundice: PLAN: I suspect that his jaundice is from hyperbilirubinemia associated with Gilbert's syndrome. Gilbert syndrome is a chronic liver disorder characterized by non-hemolytic unconjugated hyperbilirubinemia due to defect in the hepatic uptake of unconjugated bilirubin. GS is also called simple familial jaundice or icterus intermittent juvenilis, affects 5?10% of general population, being most common in male. There has been report of Covid-19 showing a rapid cl inical improvement and short hospital stay as compared with a Covid-19 patient. This is because bilirubin exerts potent antioxidant effects which might alleviates Covid-19 induced-oxidative stress. In this syndrome patients, the TSB is usually below 3 mg/dl with <20% conjugated bilirubin. Only when associated with other pathological conditions, which increase hemolysis, TSB can be higher, but even then levels are usually below 6 mg/dl. Chronic ultrasound of the liver did not show any signs of cirrhosis or much chronic liver disease. I suspect that he does have some fatty liver disease seco ndary to previous alcohol usage however there is no sign of scarring in the liver. Is very rare syndrome should not have any effect on his liver. I am not sure why he is an elevated INR and low platelets. Those things in itself can be signs of portal hypertension. There also can be signs of an acute phase reactant in a acute infection.
[2021-06-12 17:35] LABS: Glucose 541 mg/dL (74-106)
[2021-06-12] MEDS: Insulin Lispro 100 UNIT/ML INSULN.PEN 10 UNIT SC (18:05)
[2021-06-12 22:06] LABS: Bedside Glucose 409 mg/dL (70-110)
[2021-06-13 03:14] VITALS: PULSE 77; O2SAT 92
[2021-06-13 05:13] VITALS: BP 109/78; PULSE 81; RESP 22; TEMP 36.6; O2SAT 94
[2021-06-13] MEDS: Insulin Lispro 100 UNIT/ML INSULN.PEN SC ×4 (05:18→21:12)
[2021-06-13 05:25] LABS: Bedside Glucose 286 mg/dL (70-110)
[2021-06-13 07:41] LABS: Absolute Lymphocyte Count 0.63 X10^3/uL (0.83-4.51); Absolute Neutrophil Count 13.3 X10^3/uL (2.0-7.7); Basophil# 0.02 X10^3/uL; Basophil% 0.1 % (0-1); Hematocrit 41.9 % (40-54); Hemoglobin 14.3 g/dL (13.0-16.5); Lymphocyte # 0.63 X10^3/ul (0.83-4.51); Lymphocyte % 4.4 % (19-41); Mean Corp Hgb Conc 34.1 g/dL (32-36); Mean Corpuscular Hgb 29.9 pg (27.0-32.0); Mean Corpuscular Volume 87.7 fL (80-94); Mean Platelet Vol. 11.6 fl (6.2-12.0); Monocyte# 0.38 X10^3/uL; Monocyte% 2.6 % (0-10); NRBC Flagged by Analyzer 0.1 % (0-5); Neutrophil # 13.25 X10^3/uL (2.7-7.7); Platelet Count 128 K/mm3 (150-450); RBC Distribution Width CV 13.6 % (11.6-14.6); RBC Distribution Width SD 43.8 fl (35.1-43.9); Red Blood Count 4.78 M/mm3 (4.6-6.2); White Blood Count 14.4 K/mm3 (4.4-11.0)
[2021-06-13 08:06] LABS: International Normalized Ratio 1.9; Prothrombin Time (Protime)PT. 21.3 SECONDS (11.7-14.9)
[2021-06-13 08:26] LABS: ALB/GLOB Ratio 0.5 RATIO (0.9-2.4); AST(SGOT) 35 U/L (15-37); Alanine Aminotransfer ALT/SGPT 29 U/L (16-61); Alkaline Phosphatase 87 U/L (45-117); Anion Gap 7 (5-15); BUN 33 mg/dL (7-18); Calcium,Total 8.3 mg/dL (8.5-10.1); Chloride 107 mmol/L (98-107); Creatinine, Serum 0.87 mg/dL (0.70-1.30); EST Glomerular Filtration Rate 95 mL/min (>60); Est Glom Filt Rate - Afr Amer 115 mL/min (>60); Estimated Creatinine Clearance 90.29 ml/min; Globulin 4.1 g/dL (2.2-4.2); Glucose 247 mg/dL (74-106); Potassium 3.3 mmol/L (3.5-5.1); Protein, Total 6.1 g/dL (6.4-8.2); Sodium Level 143 mmol/L (136-145)
[2021-06-13 10:24] VITALS: BP 116/73; PULSE 92; RESP 22; TEMP 36.7; O2SAT 94
[2021-06-13] MEDS: Carvedilol 6.25 MG Tablet PO ×2 (10:33→21:12)
[2021-06-13] MEDS: dexAMETHasone 4 MG Tablet 6 MG PO (10:33)
[2021-06-13] MEDS: Aspirin E.C. 81 MG Tablet PO (10:33)
[2021-06-13] MEDS: Ascorbic Acid 500 MG Tablet PO (10:33)
[2021-06-13 12:35] LABS: Bedside Glucose 281 mg/dL (70-110)
[2021-06-13 16:31] LABS: Bedside Glucose 254 mg/dL (70-110)
--- NOTE | 2021-06-13 16:40 | PN.HOSP_ITS ---
Subjective Subjective Breathing better, but still on 8l/m. Objective Data Objective Data Vital Signs: Vital Signs Temp Pulse Resp BP Pulse Ox 36.7 C 92 22 H 116/73 94 06/13/21 10:24 06/13/21 10:24 06/13/21 10:24 06/13/21 10:24 06/13/21 10:24 Oxygen Flow Rate (L/min) 8 Oxygen Delivery Method Nasal Cannula Weight: 84.3 kg Body Mass Index (BMI) 28.4 Intake & Output: Intake and Output for Last 24 Hours 06/11/21 06/12/21 06/13/21 23:59 23:59 23:59 Intake Total 150 / 150 1580 / 1580 200 / 200 Output Total 1200 / 1200 Balance -1050 / -1050 1580 / 1580 200 / 200 Medical Nutrition Assessment Dietitian: Malnutrition Criteria Met Start: 06/11/21 17:05 Freq: Status: Active Protocol: Document 06/11/21 17:05 RMA (Rec: 06/11/21 17:06 RMA [id number]) Nutrition Malnutrition Evidence of Malnutrition Exists Yes Malnutrition (severe): Acute Illness/Injury Evidenced By Suboptimal Energy Intake ( Severe),Weight Loss (Severe) Clinical Problem Acute Disease or Injury Related Malnutrition Etiology Severe protein-calorie malnutrition in the context of acute illness related to ongoing poor appetite and inadequate oral intake Signs/Symptoms as evidenced by ~9% wt loss x 1 month and inadequate oral intake meeting less than 50% estimated nutrition needs x past 2 weeks Status Active Problem Recommendation Dietitian Recommendations/Changes Recommend resume PO nutrition as able with Carbohydrate- Controlled/Sodium-Restricted diet; FR as needed. Add 120ml kayleigh glucerna shake TID with meals as diet resumed from NPO. Adjust ONS and diet as able to optimize oral intake when diet advanced. Will d/c glucerna shake w/ medpass for now and add to meal trays due to covid isolation. Lab / Micro Data Result Diagrams: 06/13/21 07:15 06/13/21 07:15 Labs: Laboratory Results - last 24 hr 06/12/21 16:40: Glucose 541 H* 06/12/21 21:52: POC Glucose 409 H 06/13/21 05:17: POC Glucose 286 H 06/13/21 06:55: PT 21.3 H, INR 1.9 06/13/21 07:15: WBC 14.4 H, RBC 4.78, Hgb 14.3, Hct 41.9, MCV 87.7, MCH 29.9, MCHC 34.1, RDW Std Deviation 43.8, RDW Coeff of Tony 13.6, Plt Count 128 L, MPV 11.6, Immature Gran % (Auto) 0.900, Neut % (Auto) 92.0 H, Lymph % (Auto) 4.4 L, [place] % (Auto) 2.6, Eos % (Auto) 0.0, Baso % (Auto) 0.1, Absolute Neuts (auto) 13.3 H, Absolute Lymphs (auto) 0.63 L, Nucleated RBC % 0.1 06/13/21 07:15: Sodium 143, Potassium 3.3 L, Chloride 107, Carbon Dioxide 29.0, Anion Gap 7, BUN 33 H, Creatinine 0.87, Estim Creat Clear Calc 90.29, Est GFR (MDRD) Af Amer 115, Est GFR (MDRD) Non-Af 95, BUN/Creatinine Ratio 38.0 H, Gluc ose 247 H, Calcium 8.3 L, Total Bilirubin 4.60 H, AST 35, ALT 29, Alkaline Phosphatase 87, Total Protein 6.1 L, Albumin 2.0 L, Globulin 4.1, Albumin/Globulin Ratio 0.5 L 06/13/21 12:27: POC Glucose 281 H 06/13/21 16:19: POC Glucose 254 H Micro: Microbiology 06/10/21 13:45 Blood Culture (Wb) - Anticubital Left Blood Culture - Preliminary No growth in 48 hours. 06/10/21 13:55 Blood Culture (Wb) - Anticubital Right Blood Culture - Preliminary No growth in 48 hours. Physical Exam Const alert, oriented x3 and no apparent distress Constitutional Narrative: up in chair. no respiratory distress. Resp normal respiratory effort, no retractions, no use of accessory muscles and clear to auscultation bilaterally Cardio regular rate, regular rhythm, S1 normal heart sound and S2 normal heart sound GI normal to inspection, nondistended, normoactive bowel sounds, non-tender and non-distended Skin Skin Narrative: slight jaundice. Assessment & Plan Assessment/Plan (1) COVID-19: (2) Acute hypoxemic respiratory failure due to COVID-19: PLAN: 1. Acute hypoxic respiratory failure secondary to COVID-19 pneumonia He should come out of quarantine on 06/13/2021 Since he is outside of the window for remdesivir we will continue with just Decadron On 8L Positive test was obtained on 06/03/2021 CT of the chest shows significant bilateral pneumonia no PEs 2. Chronic systolic CHF/HTN/HLD He had an echo with a heart cath back in 2013 with an EF of 40% 3. DM2 uncontrolled and exacerbated by steroids We will hold his glimepiride and his metformin and place him on sliding scale insulin as well as long-acting insulin Accu-Cheks AC at bedtime We will make adjustments as Seri glargine a1c 8.5 4. Hyperbilirubinemia Appreciete GI input. Suspected Gilbert's monitor follow up with GI as outpt US showed hepatomegaly 5. Coagulopathy unclear etiology ?DIC from COVID 19 v portal HTN v hepatic does have some mild thrombocytopenia check fibrinogen and D-dimer (no need for CTA if elevated as he already had one) 6.DVT: DC Lovenox given coagulopathy. SCDs Charges/Coding Visit Charges Inpatient E&M: 11205 Subs Hosp L2
[2021-06-13 16:58] VITALS: BP 111/77; PULSE 93; RESP 22; TEMP 36.6; O2SAT 94
[2021-06-13] MEDS: Furosemide 40 MG Tablet PO (18:03)
--- NOTE | 2021-06-13 19:18 | EX.PCM.PN.GI ---
Subjective Subjective Patient is doing well without any new complaints. He is tolerating diet. He was having yellow urine but that has improved. He is not have any problems breathing. He denies any chest pain or shortness of breath. Objective Data Objective Data Vital Signs: Vital Signs Temp Pulse Resp BP Pulse Ox 97.8 F 93 22 H 111/77 94 06/13/21 16:58 06/13/21 16:58 06/13/21 16:58 06/13/21 16:58 06/13/21 16:58 Oxygen Flow Rate (L/min) 8 Oxygen Delivery Method Nasal Cannula Weight: 185 lb 13.595 oz Body Mass Index (BMI) 28.4 Intake & Output: Intake and Output for Last 24 Hours 06/11/21 06/12/21 06/13/21 23:59 23:59 23:59 Intake Total 150 / 150 1580 / 1580 420 / 420 Output Total 1200 / 1200 Balance -1050 / -1050 1580 / 1580 420 / 420 Medical Nutrition Assessment Dietitian: Malnutrition Criteria Met Start: 06/11/21 17:05 Freq: Status: Active Protocol: Document 06/11/21 17:05 RMA (Rec: 06/11/21 17:06 RMA [id number]) Nutrition Malnutrition Evidence of Malnutrition Exists Yes Malnutrition (severe): Acute Illness/Injury Evidenced By Suboptimal Energy Intake ( Severe),Weight Loss (Severe) Clinical Problem Acute Disease or Injury Related Malnutrition Etiology Severe protein-calorie malnutrition in the context of acute illness related to ongoing poor appetite and inadequate oral intake Signs/Symptoms as evidenced by ~9% wt loss x 1 month and inadequate oral intake meeting less than 50% estimated nutrition needs x past 2 weeks Status Active Problem Recommendation Dietitian Recommendations/Changes Recommend resume PO nutrition as able with Carbohydrate- Controlled/Sodium-Restricted diet; FR as needed. Add 120ml kayleigh glucerna shake TID with meals as diet resumed from NPO. Adjust ONS and diet as able to optimize oral intake when diet advanced. Will d/c glucerna shake w/ medpass for now and add to meal trays due to covid isolation. Lab / Micro Data Result Diagrams: 06/13/21 07:15 06/13/21 07:15 Labs: Laboratory Results - last 24 hr 06/12/21 21:52: POC Glucose 409 H 06/13/21 05:17: POC Glucose 286 H 06/13/21 06:55: PT 21.3 H, INR 1.9 06/13/21 07:15: WBC 14.4 H, RBC 4.78, Hgb 14.3, Hct 41.9, MCV 87.7, MCH 29.9, MCHC 34.1, RDW Std Deviation 43.8, RDW Coeff of Tony 13.6, Plt Count 128 L, MPV 11.6, Immature Gran % (Auto) 0.900, Neut % (Auto) 92.0 H, Lymph % (Auto) 4.4 L, [place] % (Auto) 2.6, Eos % (Auto) 0.0, Baso % (Auto) 0.1, Absolute Neuts (auto) 13.3 H, Absolute Lymphs (auto) 0.63 L, Nucleated RBC % 0.1 06/13/21 07:15: Sodium 143, Potassium 3.3 L, Chloride 107, Carbon Dioxide 29.0, Anion Gap 7, BUN 33 H, Creatinine 0.87, Estim Creat Clear Calc 90.29, Est GFR (MDRD) Af Amer 115, Est GFR (MDRD) Non-Af 95, BUN/Creatinine Ratio 38.0 H, Glucose 247 H, Calcium 8.3 L, Total Bilirubin 4.60 H, AST 35, ALT 29, Alkaline Phosphatase 87, Total Protein 6.1 L, Albumin 2.0 L, Globulin 4.1, Albumin/Globulin Ratio 0.5 L 06/13/21 12:27: POC Glucose 281 H 06/13/21 16:19: POC Glucose 254 H Micro: Microbiology 06/10/21 13:45 Blood Culture (Wb) - Anticubital Left Blood Culture - Preliminary No growth in 48 hours. 06/10/21 13:55 Blood Culture (Wb) - Anticubital Right Blood Culture - Preliminary No growth in 48 hours. Physical Exam Const alert General Appearance: cooperative Orientation / Consciousness: oriented to person HEENT hearing grossly normal bilaterally Head and Scalp: normal to inspection Face and Sinus: face symmetric Nose: external nose normal Mouth: oral and palatal mucosa normal Eyes conjunctivae normal General Eye: normal appearance of both eyes Neck full ROM General: normal visual inspection Lymph Lymphatic: no lymphadenopathy noted Chest inspection of chest normal and palpation of chest normal Chest: symmetrical chest wall rise Resp normal respiratory effort Effort and Inspection: able to speak in complete sentences Cardio regular rate GI non-distended Percussion: normal to percussion Rectal Exam: deferred Neuro Speech: speech normal Gait (Neuro): normal gait Assessment & Plan Assessment/Plan (1) Jaundice: PLAN: Patient is less jaundiced today. He is having problems such as itching and his urine is clearing up. He is doing well from a GI standpoint. (2) Hepatomegaly: PLAN: Talk with him and told him that his enlarged liver is likely secondary to fatty liver disease. As an outpatient we can get an elastography along with biochemical work-up to see if he needs medication recommendations for fatty liver. (3) Gilbert's syndrome: PLAN: I had a conversation with him and explained to him Gilbert's disease in the setting of Covid and a good prognosis it has with. Patient expresses full understanding. Charges/Coding Visit Charges Inpatient E&M: 62841 Subs Hosp L2
[2021-06-13 21:06] VITALS: BP 116/83; PULSE 98; RESP 22; TEMP 36.8; O2SAT 94
[2021-06-13 22:31] LABS: Bedside Glucose 259 mg/dL (70-110)
[2021-06-14] VITALS (20 sets, daily range): BP systolic 77–124; BP diastolic 47–84; PULSE 54–116; RESP 20–28; TEMP 36.3–36.7; O2SAT 87–100
--- NOTE | 2021-06-14 01:20 | NURSING ---
Patient instructed to prone at this time, patient needed lots of encouragement and step by step direction to accomplish this. Patient desated with activity. 02 increased from 8L HF to 10L HF (84%) to now 12L HF. Will continue to monitor.
[2021-06-14 07:15] LABS: Absolute Lymphocyte Count 0.68 X10^3/uL (0.83-4.51); Absolute Neutrophil Count 15.5 X10^3/uL (2.0-7.7); Basophil# 0.02 X10^3/uL; Basophil% 0.1 % (0-1); Eosinophil# 0.02 X10^3/uL; Eosinophils% 0.1 % (0-5); Hematocrit 44.8 % (40-54); Hemoglobin 15.7 g/dL (13.0-16.5); Lymphocyte # 0.68 X10^3/ul (0.83-4.51); Mean Corpuscular Hgb 30.8 pg (27.0-32.0); Mean Platelet Vol. 10.6 fl (6.2-12.0); Monocyte# 0.35 X10^3/uL; Monocyte% 2.1 % (0-10); NRBC Flagged by Analyzer 0.1 % (0-5); Neutrophil # 15.53 X10^3/uL (2.7-7.7); POSITIVE COUNT YES; Platelet Count 90 K/mm3 (150-450); RBC Distribution Width CV 13.9 % (11.6-14.6); RBC Distribution Width SD 44.5 fl (35.1-43.9); Red Blood Count 5.09 M/mm3 (4.6-6.2); White Blood Count 16.9 K/mm3 (4.4-11.0)
[2021-06-14 07:25] LABS: Differential Indicated SCAN CRITERIA MET
[2021-06-14 07:41] LABS: Bedside Glucose 72 mg/dL (70-110)
[2021-06-14 07:41] LABS: Bedside Glucose 69 mg/dL (70-110)
[2021-06-14 07:47] LABS: ALB/GLOB Ratio 0.5 RATIO (0.9-2.4); AST(SGOT) 48 U/L (15-37); Alanine Aminotransfer ALT/SGPT 30 U/L (16-61); Albumin, Serum 2.3 g/dL (3.2-5.0); Alkaline Phosphatase 100 U/L (45-117); Anion Gap 6 (5-15); BUN 28 mg/dL (7-18); BUN/Creat Ratio 34.9 RATIO (10-20); Calcium,Total 8.6 mg/dL (8.5-10.1); Chloride 104 mmol/L (98-107); EST Glomerular Filtration Rate 104 mL/min (>60); Est Glom Filt Rate - Afr Amer 126 mL/min (>60); Estimated Creatinine Clearance 98.19 ml/min; Globulin 4.3 g/dL (2.2-4.2); Glucose 73 mg/dL (74-106); Potassium 3.3 mmol/L (3.5-5.1); Protein, Total 6.6 g/dL (6.4-8.2); Sodium Level 143 mmol/L (136-145)
[2021-06-14 07:56] LABS: International Normalized Ratio 1.7; Prothrombin Time (Protime)PT. 19.4 SECONDS (11.7-14.9)
[2021-06-14 07:59] LABS: Platelet Estimate SLT DEC (ADEQ)
[2021-06-14 08:04] LABS: Fibrinogen 136 mg/dl (203-444)
[2021-06-14 08:08] LABS: D-Dimer Quantitative (DVT/PE) > 20.00 FEU/ug/m (0.27-0.49)
[2021-06-14 08:09] LABS: HEPATITIS B SURFACE AG Negative (Negative); Hepatitis A IgM Antibody Negative (Negative); Hepatitis B Core AB IgM Negative (Negative)
[2021-06-14] MEDS: Aspirin E.C. 81 MG Tablet PO (08:12)
[2021-06-14] MEDS: Furosemide 40 MG Tablet PO ×2 (08:12→18:44)
[2021-06-14] MEDS: Carvedilol 6.25 MG Tablet PO ×2 (08:12→22:40)
[2021-06-14] MEDS: dexAMETHasone 4 MG Tablet 6 MG PO (08:12)
[2021-06-14] MEDS: Ascorbic Acid 500 MG Tablet PO (08:12)
[2021-06-14] MEDS: Insulin Lispro 100 UNIT/ML INSULN.PEN SC ×2 (11:55→18:43)
--- NOTE | 2021-06-14 11:58 | PN.HOSP_ITS ---
Subjective Subjective Breathing ok. Objective Data Objective Data Vital Signs: Vital Signs Temp Pulse Resp BP Pulse Ox 36.4 C L 89 28 H 95/57 L 91 06/14/21 11:48 06/14/21 11:48 06/14/21 11:48 06/14/21 11:48 06/14/21 11:48 Oxygen Flow Rate (L/min) 8 Oxygen Delivery Method High Flow Weight: 84.8 kg Body Mass Index (BMI) 28.4 Intake & Output: Intake and Output for Last 24 Hours 06/12/21 06/13/21 06/14/21 23:59 23:59 23:59 Intake Total 1580 / 1580 420 / 420 120 / 120 Output Total 200 / 200 Balance 1580 / 1580 220 / 220 120 / 120 Medical Nutrition Assessment Dietitian: Malnutrition Criteria Met Start: 06/11/21 1 7:05 Freq: Status: Active Protocol: Document 06/11/21 17:05 RMA (Rec: 06/11/21 17:06 RMA [id number]) Nutrition Malnutrition Evidence of Malnutrition Exists Yes Malnutrition (severe): Acute Illness/Injury Evidenced By Suboptimal Energy Intake ( Severe),Weight Loss (Severe) Clinical Problem Acute Disease or Injury Related Malnutrition Etiology Severe protein-calorie malnutrition in the context of acute illness related to ongoing poor appetite and inadequate oral intake Signs/Symptoms as evidenced by ~9% wt loss x 1 month and inadequate oral intake meeting less than 50% estimated nutrition needs x past 2 weeks Status Active Problem Recommendation Dietitian Recommendations/Changes Recommend resume PO nutrition as able with Carbohydrate- Controlled/Sodium-Restricted diet; FR as needed. Add 120ml kayleigh glucerna shake TID with meals as diet resumed from NPO. Adjust ONS and diet as able to optimize oral intake when diet advanced. Will d/c glucerna shake w/ medpass for now and add to meal trays due to covid isolation. Lab / Micro Data Result Diagrams: 06/14/21 06:41 06/14/21 06:41 Labs: Laboratory Results - last 24 hr 06/13/21 12:27: POC Glucose 281 H 06/13/21 16:19: POC Glucose 254 H 06/13/21 21:11: POC Glucose 259 H 06/14/21 06:25: POC Glucose 69 L 06/14/21 06:37: POC Glucose 72 06/14/21 06:41: WBC 16.9 H, RBC 5.09, Hgb 15.7, Hct 44.8, MCV 88.0, MCH 30.8, MCHC 35.0, RDW Std Deviation 44.5 H, RDW Coeff of Tony 13.9, Plt Count 90 L, MPV 10.6, Immature Gran % (Auto) 1.700 H, Neut % (Auto) 92.0 H, Lymph % (Auto) 4.0 L , [place] % (Auto) 2.1, Eos % (Auto) 0.1, Baso % (Auto) 0.1, Absolute Neuts (auto) 15.5 H, Absolute Lymphs (auto) 0.68 L, Nucleated RBC % 0.1, Platelet Estimate SLT 06/14/21 06:41: PT 19.4 H, INR 1.7, Fibrinogen 136 L, D-Dimer Quant (PE/DVT) > 20.00 H* 06/14/21 06:41: Sodium 143, Potassium 3.3 L, Chloride 104, Carbon Dioxide 33.0 H , Anion Gap 6, BUN 28 H, Creatinine 0.80, Estim Creat Clear Calc 98.19, Est GFR (MDRD) Af Amer 126, Est GFR (MDRD) Non-Af 104, BUN/Creatinine Ratio 34.9 H, Glucose 73 L, Calcium 8.6, Total Bilirubin 7.00 H, AST 48 H, ALT 30, Alkaline Phosphatase 100, Total Protein 6.6, Albumin 2.3 L, Globulin 4.3 H, Albumin/Globulin Ratio 0.5 L Micro: Microbiology 06/10/21 13:45 Blood Culture (Wb) - Anticubital Left Blood Culture - Preliminary No growth in 48 hours. 06/10/21 13:55 Blood Culture (Wb) - Anticubital Right Blood Culture - Preliminary No growth in 48 hours. Physical Exam Const alert and no apparent distress Eyes Eyes Narrative: icterus Resp normal respiratory effort, no retractions, no use of accessory muscles and clear to auscultation bilaterally Cardio regular rate, regular rhythm, S1 normal heart sound and S2 normal heart sound Skin Skin Narrative: jaundice Assessment & Plan Assessment/Plan (1) COVID-19: (2) Acute hypoxemic respiratory failure due to COVID-19: PLAN: 1. Acute hypoxic respiratory failure secondary to COVID-19 pneumonia He should come out of quarantine on 06/13/2021 Since he is outside of the window for remdesivir we will continue with just Decadron On 8L Positive test was obtained on 06/03/2021 CT of the chest shows significant bilateral pneumonia no PEs 2. Chronic systolic CHF/HTN/HLD He had an echo with a heart cath back in 2013 with an EF of 40% 3. DM2 uncontrolled and exacerbated by steroids We will hold his glimepiride and his metformin and place him on sliding scale insulin as well as long-acting insulin Accu-Cheks AC at bedtime We will make adjustments as Seri glargine a1c 8.5 had some low BGT, scale back glargine 4. Hyperbilirubinemia Appreciete GI input. Suspected Gilbert's monitor follow up with GI as outpt US showed hepatomegaly check LDH, haptoglobin 5. Coagulopathy unclear etiology ?DIC from COVID 19 v portal HTN v hepatic does have some mild thrombocytopenia check fibrinogen and D-dimer (no need for CTA if elevated as he already had one) 6.DVT: DC Lovenox given coagulopathy. SCDs Charges/Coding Visit Charges Inpatient E&M: 41241 Subs Hosp L2
--- NOTE | 2021-06-14 12:06 | NURSING ---
This nurse made pt use his I.S x10 reps and his PEP. Pt also assisted into chair at this time. spo2 92% on 9L [place].
[2021-06-14 12:45] LABS: Bedside Glucose 188 mg/dL (70-110)
[2021-06-14 12:49] LABS: ANTINUCLEAR ANTIBODIES DIRECT Negative (Negative)
[2021-06-14 13:02] LABS: LDH 1051 U/L (87-241)
[2021-06-14] MEDS: Potassium Chloride Oral Tablet 20 MEQ 40 MEQ PO (15:10)
[2021-06-14 15:46] LABS: Bedside Glucose 228 mg/dL (70-110)
[2021-06-14 16:20] LABS: Hep C Antibodies <0.1 s/co ratio (0.0-0.9)
[2021-06-14 19:05] LABS: Bedside Glucose 343 mg/dL (70-110)
[2021-06-14] MEDS: 0.9% Saline Lock 10 ML Syringe IV (22:40)
[2021-06-14 23:00] LABS: Bedside Glucose 136 mg/dL (70-110)
[2021-06-15] VITALS (11 sets, daily range): BP systolic 95–108; BP diastolic 61–71; PULSE 50–102; RESP 18–24; TEMP 36.4–37.2; O2SAT 89–95
[2021-06-15 07:00] LABS: Bedside Glucose 71 mg/dL (70-110)
[2021-06-15 07:32] LABS: Absolute Lymphocyte Count 0.69 X10^3/uL (0.83-4.51); Absolute Neutrophil Count 13.4 X10^3/uL (2.0-7.7); Basophil# 0.03 X10^3/uL; Basophil% 0.2 % (0-1); Eosinophil# 0.03 X10^3/uL; Eosinophils% 0.2 % (0-5); Hematocrit 42.1 % (40-54); Hemoglobin 14.3 g/dL (13.0-16.5); Lymphocyte # 0.69 X10^3/ul (0.83-4.51); Lymphocyte % 4.7 % (19-41); Mean Corpuscular Hgb 30.5 pg (27.0-32.0); Mean Corpuscular Volume 89.8 fL (80-94); Mean Platelet Vol. 12.7 fl (6.2-12.0); Monocyte# 0.38 X10^3/uL; Monocyte% 2.6 % (0-10); NRBC Flagged by Analyzer 0.1 % (0-5); Neutrophil # 13.44 X10^3/uL (2.7-7.7); Neutrophil % 90.6 % (47-70); Platelet Count 119 K/mm3 (150-450); RBC Distribution Width CV 14.2 % (11.6-14.6); RBC Distribution Width SD 46.5 fl (35.1-43.9); Red Blood Count 4.69 M/mm3 (4.6-6.2); White Blood Count 14.8 K/mm3 (4.4-11.0)
[2021-06-15 07:52] LABS: International Normalized Ratio 1.6; Prothrombin Time (Protime)PT. 17.9 SECONDS (11.7-14.9)
[2021-06-15 08:07] LABS: ALB/GLOB Ratio 0.5 RATIO (0.9-2.4); AST(SGOT) 43 U/L (15-37); Alanine Aminotransfer ALT/SGPT 26 U/L (16-61); Alkaline Phosphatase 89 U/L (45-117); Anion Gap 5 (5-15); BUN 28 mg/dL (7-18); BUN/Creat Ratio 32.2 RATIO (10-20); Calcium,Total 8.1 mg/dL (8.5-10.1); Chloride 104 mmol/L (98-107); Creatinine, Serum 0.87 mg/dL (0.70-1.30); EST Glomerular Filtration Rate 95 mL/min (>60); Est Glom Filt Rate - Afr Amer 115 mL/min (>60); Estimated Creatinine Clearance 90.29 ml/min; Glucose 66 mg/dL (74-106); Potassium 3.8 mmol/L (3.5-5.1); Sodium Level 142 mmol/L (136-145)
[2021-06-15] MEDS: Aspirin E.C. 81 MG Tablet PO (09:32)
[2021-06-15] MEDS: Furosemide 40 MG Tablet PO ×2 (09:32→17:26)
[2021-06-15] MEDS: dexAMETHasone 4 MG Tablet 6 MG PO (09:33)
[2021-06-15] MEDS: Ascorbic Acid 500 MG Tablet PO (09:33)
[2021-06-15] MEDS: Insulin Lispro 100 UNIT/ML INSULN.PEN SC ×3 (12:06→21:21)
[2021-06-15 12:26] LABS: Bedside Glucose 163 mg/dL (70-110)
--- NOTE | 2021-06-15 13:38 | PN.HOSP_ITS ---
Subjective Subjective Breathing ok. On 11 l/m. Objective Data Objective Data Vital Signs: Vital Signs Temp Pulse Resp BP Pulse Ox 36.7 C 92 18 95/61 92 06/15/21 09:13 06/15/21 09:13 06/15/21 09:13 06/15/21 09:13 06/15/21 09:13 Oxygen Flow Rate (L/min) 11 Oxygen Delivery Method High Flow Weight: 82.3 kg Body Mass Index (BMI) 28.4 Intake & Output: Intake and Output for Last 24 Hours 06/13/21 06/14/21 06/15/21 23:59 23:59 23:59 Intake Total 420 / 420 860 / 860 Output Total 200 / 200 225 / 225 Balance 220 / 220 635 / 635 Medical Nutrition Assessment Dietitian: Malnutrition Criteria Met Start: 06/11/21 17:05 Freq: Status: Active Protocol: Document 06/14/21 15:06 RMA (Rec: 06/14/21 15:06 RMA [id number]) Nutrition Malnutrition Evidence of Malnutrition Exists Yes Malnutrition (severe): Acute Illness/Injury Evidenced By Suboptimal Energy Intake ( Severe),Weight Loss (Severe) Clinical Problem Acute Disease or Injury Related Malnutrition Etiology Severe protein-calorie malnutrition in the context of acute illness related to ongoing poor appetite and inadequate oral intake Signs/Symptoms as evidenced by ~9% wt loss x 1 month and inadequate oral intake meeting less than 50% estimated nutrition needs x past 2 weeks Status Active Problem Recommendation Dietitian Recommendations/Changes 2000 calorie; consistent carbohydrate/cardiac; sodium- restricted diet. Will add 120ml kayleigh glucerna shake TID with meals. Lab / Micro Data Result Diagrams: 06/15/21 06:30 06/15/21 06:30 Labs: Laboratory Results - last 24 hr 06/12/21 14:13: Hepatitis A IgM Ab Negative, Hep Bs Antigen Negative, Hep B Core IgM Ab Negative, Hepatitis C Ab (EIA) <0.1 06/12/21 14:13: WEN-1 Antibody Not Reportable, SS-A/Ro IgG Antibody Not Reportable, SS-B/La IgG Antibody Not Reportable, Sm (Jose) Antibody Not Repo rtable, PIT STEWARD Antibody Not Reportable, Scl-70 Scleroderma Ab Not Reportable, Double Strand DNA Ab Not Reportable, Centromere B Antibody Not Reportable 06/14/21 15:15: POC Glucose 228 H 06/14/21 18:42: POC Glucose 343 H 06/14/21 22:13: POC Glucose 136 H 06/15/21 06:21: POC Glucose 71 06/15/21 06:30: WBC 14.8 H, RBC 4.69, Hgb 14.3, Hct 42.1, MCV 89.8, MCH 30.5, MCHC 34.0, RDW Std Deviation 46.5 H, RDW Coeff of Tony 14.2, Plt Count 119 L, MPV 12.7 H, Immature Gran % (Auto) 1.700 H, Neut % (Auto) 90.6 H, Lymph % (Auto) 4.7 L, [place] % (Auto) 2.6, Eos % (Auto) 0.2, Baso % (Auto) 0.2, Absolute Neuts (auto) 13.4 H, Absolute Lymphs (auto) 0.69 L, Nucleated RBC % 0.1 06/15/21 06:30: PT 17.9 H, INR 1.6 06/15/21 06:30: Sodium 142, Potassium 3.8, Chloride 104, Carbon Dioxide 33.0 H, Anion Gap 5, BUN 28 H, Creatinine 0.87, Estim Creat Clear Calc 90.29, Est GFR (MDRD) Af Amer 115, Est GFR (MDRD) Non-Af 95, BUN/Creatinine Ratio 32.2 H, Glucose 66 L, Calcium 8.1 L, Total Bilirubin 4.80 H, AST 43 H, ALT 26, Alkaline Phosphatase 89, Total Protein 6.0 L, Albumin 2.0 L, Globulin 4.0, Albumin/Globulin Ratio 0.5 L 06/15/21 12:04: POC Glucose 163 H Micro: Microbiology 06/10/21 13:45 Blood Culture (Wb) - Anticubital Left Blood Culture - Preliminary No growth in 48 hours. 06/10/21 13:55 Blood Culture (Wb) - Anticubital Right Blood Culture - Preliminary No growth in 48 hours. Physical Exam Const alert and no apparent distress HEENT Head and Scalp: normocephalic Resp normal respiratory effort and no retractions Resp Narrative: coarse breath sounds bilaterally. Cardio regular rate, regular rhythm, S1 normal heart sound and S2 normal heart sound GI normal to inspection, nondistended, normoactive bowel sounds, soft to palpation, non-tender and non-distended Assessment & Plan Assessment/Plan (1) COVID-19: (2) Acute hypoxemic respiratory failure due to COVID-19: (3) Gilbert's syndrome: (4) Coagulopathy: PLAN: 1. Acute hypoxic respiratory failure secondary to COVID-19 pneumonia He should come out of quarantine on 06/13/2021 Since he is outside of the window for remdesivir we will continue with just Decadron On 8L Positive test was obtained on 06/03/2021 CTA of the chest shows significant bilateral pneumonia no PEs 2. Chronic systolic CHF/HTN/HLD He had an echo with a heart cath back in 2013 with an EF of 40% 3. DM2 uncontrolled and exacerbated by steroids We will hold his glimepiride and his metformin and place him on sliding scale insulin as well as long-acting insulin Accu-Cheks AC at bedtime We will make adjustments as Seri glargine a1c 8.5 had some low BGT, scale back glargine 4. Hyperbilirubinemia Appreciete GI input. Suspected Gilbert's monitor follow up with GI as outpt US showed hepatomegaly check LDH, haptoglobin 5. Coagulopathy slightly improved unclear etiology: ?DIC from COVID 19 v portal HTN v hepatic does have some mild thrombocytopenia fibrinogen low and D-dimer eleveated (no need for CTA if elevated as he already had one) 6.DVT: DC Lovenox given coagulopathy. SCDs Patient stating today but would happen if he went home. [place] will be going home immediately AGAINST MEDICAL ADVICE and if you do so then we will try to arrange oxygen but would not be sufficient given the high levels of oxygen is currently on. Pump he were to go home with oxygen therapy limit and he would not be able to meet the limit with him on oxygen he currently requires. And if he does go home its chance of the of or rehospitalization amongst other issues. When asked if he was going to leave AGAINST MEDICAL ADVICE he did not answer in the affirmative in yes or no. Charges/Coding Visit Charges Inpatient E&M: 48196 Subs Hosp L2
[2021-06-15 17:01] LABS: Bedside Glucose 168 mg/dL (70-110)
[2021-06-15] MEDS: 0.9% Saline Lock 10 ML Syringe IV (21:17)
[2021-06-15 22:55] LABS: Bedside Glucose 312 mg/dL (70-110)
[2021-06-16] VITALS (10 sets, daily range): BP systolic 104–122; BP diastolic 63–74; PULSE 65–99; RESP 18–24; TEMP 36.6–37.4; O2SAT 91–96
[2021-06-16 06:50] LABS: Bedside Glucose 61 mg/dL (70-110)
[2021-06-16 06:51] LABS: Bedside Glucose 85 mg/dL (70-110)
[2021-06-16 08:01] LABS: International Normalized Ratio 1.5; Prothrombin Time (Protime)PT. 17.3 SECONDS (11.7-14.9)
[2021-06-16 08:11] LABS: ALB/GLOB Ratio 0.5 RATIO (0.9-2.4); AST(SGOT) 37 U/L (15-37); Alanine Aminotransfer ALT/SGPT 22 U/L (16-61); Albumin, Serum 1.8 g/dL (3.2-5.0); Alkaline Phosphatase 82 U/L (45-117); Anion Gap 8 (5-15); BUN 26 mg/dL (7-18); BUN/Creat Ratio 33.5 RATIO (10-20); Calcium,Total 7.7 mg/dL (8.5-10.1); Chloride 102 mmol/L (98-107); Creatinine, Serum 0.78 mg/dL (0.70-1.30); EST Glomerular Filtration Rate 109 mL/min (>60); Est Glom Filt Rate - Afr Amer 131 mL/min (>60); Estimated Creatinine Clearance 100.71 ml/min; Globulin 3.7 g/dL (2.2-4.2); Glucose 117 mg/dL (74-106); Potassium 3.7 mmol/L (3.5-5.1); Protein, Total 5.5 g/dL (6.4-8.2); Sodium Level 140 mmol/L (136-145)
[2021-06-16] MEDS: Carvedilol 6.25 MG Tablet PO ×2 (10:35→21:10)
[2021-06-16] MEDS: dexAMETHasone 4 MG Tablet 6 MG PO (10:35)
[2021-06-16] MEDS: Aspirin E.C. 81 MG Tablet PO (10:36)
[2021-06-16] MEDS: Furosemide 40 MG Tablet PO ×2 (10:36→17:25)
[2021-06-16] MEDS: Ascorbic Acid 500 MG Tablet PO (10:36)
[2021-06-16] MEDS: Insulin Lispro 100 UNIT/ML INSULN.PEN SC ×3 (11:23→21:12)
[2021-06-16 12:00] LABS: Bedside Glucose 209 mg/dL (70-110)
[2021-06-16] MEDS: 0.9% Saline Lock 10 ML Syringe IV (13:02)
[2021-06-16] MEDS: Furosemide 20 MG/2 ML VIAL IV (13:02)
--- NOTE | 2021-06-16 15:02 | PCM.PN.HOSP ---
Subjective Subjective No new events. Tolerating oxygen at 8l/m at rest Objective Data Objective Data Vital Signs: Vital Signs Temp Pulse Resp BP Pulse Ox 37.1 C 94 18 104/63 94 06/16/21 10:27 06/16/21 10:27 06/16/21 10:27 06/16/21 10:27 06/16/21 10:29 Oxygen Flow Rate (L/min) 8 Oxygen Delivery Method High Flow Weight: 82 kg Body Mass Index (BMI) 28.4 Intake & Output: Intake and Output for Last 24 Hours 06/14/21 06/15/21 06/16/21 23:59 23:59 23:59 Intake Total 860 / 860 200 / 200 Output Total 225 / 225 200 / 200 Balance 635 / 635 -200 / -200 200 / 200 Medical Nutrition Assessment Dietitian: Malnutrition Criteria Met Start: 06/11/21 17:05 Freq: Status: Active Protocol: Document 06/14/21 15:06 RMA (Rec: 06/14/21 15:06 RMA [id number]) Nutrition Malnutrition Evidence of Malnutrition Exists Yes Malnutrition (severe): Acute Illness/Injury Evidenced By Suboptimal Energy Intake ( Severe),Weight Loss (Severe) Clinical Problem Acute Disease or Injury Related Malnutrition Etiology Severe protein-calorie malnutrition in the context of acute illness related to ongoing poor appetite and inadequate oral intake Signs/Symptoms as evidenced by ~9% wt loss x 1 month and inadequate oral intake meeting less than 50% estimated nutrition needs x past 2 weeks Status Active Problem Recommendation Dietitian Recommendations/Changes 2000 calorie; consistent carbohydrate/cardiac; sodium- restricted diet. Will add 120ml kayleigh glucerna shake TID with meals. Lab / Micro Data Result Diagrams: 06/15/21 06:30 06/16/21 07:23 Labs: Laboratory Results - last 24 hr 06/15/21 15:41: POC Glucose 168 H 06/15/21 21:01: POC Glucose 312 H 06/16/21 06:18: POC Glucose 61 L 06/16/21 06:34: POC Glucose 85 06/16/21 07:23: PT 17.3 H, INR 1.5 06/16/21 07:23: Sodium 140, Potassium 3.7, Chloride 102, Carbon Dioxide 30.0, Anion Gap 8, BUN 26 H, Creatinine 0.78, Estim Creat Clear Calc 100.71, Est GFR (MDRD) Af Amer 131, Est GFR (MDRD) Non-Af 109, BUN/Creatinine Ratio 33.5 H, Glucose 117 H, Calcium 7.7 L, Total Bilirubin 3.80 H, AST 37, ALT 22, Alkaline Phosphatase 82, Total Protein 5.5 L, Albumin 1.8 L, Globulin 3.7, Albumin/Globulin Ratio 0.5 L 06/16/21 11:23: POC Glucose 209 H Micro: Microbiology 06/10/21 13:45 Blood Culture (Wb) - Anticubital Left Blood Culture - Final No growth in 5 days. 06/10/21 13:55 Blood Culture (Wb) - Anticubital Right Blood Culture - Final No growth in 5 days. Physical Exam Const alert and no apparent distress Resp normal respiratory effort, no retractions, no use of accessory muscles and clear to auscultation bilaterally Cardio regular rate, regular rhythm, S1 normal heart sound and S2 normal heart sound GI normal to inspection, nondistended, normoactive bowel sounds, soft to palpation, non-tender and non-distended Extremity General Extremity: edema Assessment & Plan Assessment/Plan (1) COVID-19: (2) Acute hypoxemic respiratory failure due to COVID-19: (3) Gilbert's syndrome: (4) Coagulopathy: PLAN: 1. Acute hypoxic respiratory failure secondary to COVID-19 pneumonia Since he is outside of the window for remdesivir we will continue with just Decadron On 8L Positive test was obtained on 06/03/2021, onset around the . Will dc isolation. CTA of the chest shows significant bilateral pneumonia no PEs Furosemide challenge today as his BP is overall improved 2. Chronic systolic CHF/HTN/HLD He had an echo with a heart cath back in 2013 with an EF of 40% 3. DM2 uncontrolled and exacerbated by steroids We will hold his glimepiride and his metformin and place him on sliding scale insulin as well as long-acting insulin Accu-Cheks AC at bedtime We will make adjustments as Seri glargine a1c 8.5 had some low BGT, scale back glargine 4. Hyperbilirubinemia Appreciate GI input, who suspects Gilbert's slightly improving follow up with GI as outpt US showed hepatomegaly LDH elevated, haptoglobin pending (though I doubt hemolytic anemia) follow up with GI as outpt. 5. Coagulopathy slightly improved suspect a low-grade DIC from COVID 19 rather than portal HTN does have some mild thrombocytopenia fibrinogen low and D-dimer elevated (no need for CTA if elevated as he already had one) 6.DVT: DC Lovenox given coagulopathy. SCDs Charges/Coding Visit Charges Inpatient E&M: 59272 Subs Hosp L2
[2021-06-16 17:25] LABS: Bedside Glucose 314 mg/dL (70-110)
[2021-06-16 23:36] LABS: Bedside Glucose 320 mg/dL (70-110)
[2021-06-17 03:24] VITALS: BP 95/67; PULSE 87; RESP 20; TEMP 36.4; O2SAT 98
[2021-06-17 03:40] VITALS: PULSE 86; O2SAT 95
[2021-06-17 06:15] VITALS: O2SAT 97
[2021-06-17 06:41] LABS: Bedside Glucose 87 mg/dL (70-110)
[2021-06-17 08:05] LABS: ALB/GLOB Ratio 0.4 RATIO (0.9-2.4); AST(SGOT) 34 U/L (15-37); Alanine Aminotransfer ALT/SGPT 23 U/L (16-61); Albumin, Serum 1.9 g/dL (3.2-5.0); Alkaline Phosphatase 92 U/L (45-117); Anion Gap 5 (5-15); BUN 30 mg/dL (7-18); BUN/Creat Ratio 35.5 RATIO (10-20); Calcium,Total 8.2 mg/dL (8.5-10.1); Chloride 102 mmol/L (98-107); Creatinine, Serum 0.85 mg/dL (0.70-1.30); EST Glomerular Filtration Rate 98 mL/min (>60); Est Glom Filt Rate - Afr Amer 119 mL/min (>60); Estimated Creatinine Clearance 92.42 ml/min; Globulin 4.5 g/dL (2.2-4.2); Glucose 67 mg/dL (74-106); Potassium 3.9 mmol/L (3.5-5.1); Protein, Total 6.4 g/dL (6.4-8.2); Sodium Level 139 mmol/L (136-145)
[2021-06-17 08:20] LABS: International Normalized Ratio 1.5
[2021-06-17] MEDS: Furosemide 40 MG Tablet PO ×2 (08:28→16:51)
[2021-06-17] MEDS: Aspirin E.C. 81 MG Tablet PO (08:28)
[2021-06-17] MEDS: Ascorbic Acid 500 MG Tablet PO (08:28)
[2021-06-17] MEDS: Carvedilol 6.25 MG Tablet PO ×2 (08:29→21:04)
[2021-06-17] MEDS: dexAMETHasone 4 MG Tablet 6 MG PO (08:29)
[2021-06-17 08:31] VITALS: BP 103/54; PULSE 105; RESP 20; TEMP 36.7; O2SAT 93
[2021-06-17 11:55] LABS: Bedside Glucose 322 mg/dL (70-110)
[2021-06-17] MEDS: Insulin Lispro 100 UNIT/ML INSULN.PEN SC ×3 (12:24→22:54)
--- NOTE | 2021-06-17 12:28 | PN.HOSP_ITS ---
Subjective Subjective Patient seen and examined. He was alert but appeared weak. He had no active complaints. He was mildly tachycardic. He had been weaned down to 4 L of oxygen at time I reviewed him. Review of systems otherwise negative. Objective Data Objective Data Vital Signs: Vital Signs Temp Pulse Resp BP Pulse Ox 98.0 F 105 H 20 H 103/54 L 93 06/17/21 08:31 06/17/21 08:31 06/17/21 08:31 06/17/21 08:31 06/17/21 08:31 Oxygen Flow Rate (L/min) 4 Oxygen Delivery Method High Flow Weight: 177 lb 14.609 oz Body Mass Index (BMI) 28.4 Intake & Output: Intake and Output for Last 24 Hours 06/15/21 06/16/21 06/17/21 23:59 23:59 23:59 Intake Total 200 / 200 50 / 50 Output Total 200 / 200 Balance -200 / -200 200 / 200 50 / 50 Medical Nutrition Assessment Dietitian: Malnutrition Criteria Met Start: 06/11/21 17:05 Freq: Status: Active Protocol: Document 06/14/21 15:06 RMA (Rec: 06/14/21 15:06 RMA [id number]) Nutrition Malnutrition Evidence of Malnutrition Exists Yes Malnutrition (severe): Acute Illness/Injury Evidenced By Suboptimal Energy Intake ( Severe),Weight Loss (Severe) Clinical Problem Acute Disease or Injury Related Malnutrition Etiology Severe protein-calorie malnutrition in the context of acute illness related to ongoing poor appetite and inadequate oral intake Signs/Symptoms as evidenced by ~9% wt loss x 1 month and inadequate oral intake meeting less than 50% estimated nutrition needs x past 2 weeks Status Active Problem Recommendation Dietitian Recommendations/Changes 2000 calorie; consistent carbohydrate/cardiac; sodium- restricted diet. Will add 120ml kayleigh glucerna shake TID with meals. Lab / Micro Data Result Diagrams: 06/15/21 06:30 06/17/21 07:00 Labs: Laboratory Results - last 24 hr 06/16/21 16:02: POC Glucose 314 H 06/16/21 21:12: POC Glucose 320 H 06/17/21 06:21: POC Glucose 87 06/17/21 07:00: PT 17.0 H, INR 1.5 06/17/21 07:00: Sodium 139, Potassium 3.9, Chloride 102, Carbon Dioxide 32.0, Anion Gap 5, BUN 30 H, Creatinine 0.85, Estim Creat Clear Calc 92.42, Est GFR (MDRD) Af Amer 119, Est GFR (MDRD) Non-Af 98, BUN/Creatinine Ratio 35.5 H, Glucose 67 L, Calcium 8.2 L, Total Bilirubin 3.70 H, AST 34, ALT 23, Alkaline Phosphatase 92, Total Protein 6.4, Albumin 1.9 L, Globulin 4.5 H, Albumin/Globulin Ratio 0.4 L 06/17/21 11:46: POC Glucose 322 H Micro: Microbiology 06/16/21 22:30 Urine, Clean Catch Legionella Antigen - Final 06/16/21 22:30 Urine, Clean Catch Streptococcus pneumoniae Antigen (M - Final 06/10/21 13:45 Blood Culture (Wb) - Anticubital Left Blood Culture - Final No growth in 5 days. 06/10/21 13:55 Blood Culture (Wb) - Anticubital Right Blood Culture - Final No growth in 5 days. Physical Exam Const alert and oriented x3 Orientation / Consciousness: lethargic HEENT head/scalp atraumatic Head and Scalp: normocephalic Mouth: dry mucous membranes Eyes PERRL, EOMs intact bilaterally and conjunctivae normal Neck no lymphadenopathy Resp Resp Narrative: Diminished breath sounds bibasilarly. No wheezes or crackles. On 4 L of oxygen. Cardio regular rate, regular rhythm, S1 normal heart sound, S2 normal heart sound and no murmurs GI normal to inspection, nondistended, normoactive bowel sounds, soft to palpation, non-tender and non-distended Extremity normal to inspection, full ROM and no clubbing, cyanosis or edema Peripheral Pulses: Yes pulses 2+ throughout Skin no rashes or lesions noted Neuro oriented x3, CN's II-XII intact bilaterally and moves all extremities Sensorium / Orientation: awake and alert Psych affect normal Assessment & Plan Assessment/Plan (1) Acute hypoxemic respiratory failure due to COVID-19: PLAN: #Acute hypoxic respiratory failure due to COVID-19 pneumonia * Has been weaned down to 4 L of oxygen today * Titrate oxygen to maintain saturation above 90%. On Decadron. * Breathing treatments bronchodilators. Out of isolation. * #Type 2 diabetes mellitus * Blood sugars poorly controlled as he has been on steroids. Glimepiride and Metformin on hold and patient on long-acting insulin. Also on insulin sliding scale. Accu-Cheks AC at bedtime. * A1c was 8.5. * On Lantus 20 units twice daily. * #Hyperbilirubinemia * Ultrasound done showed hepatomegaly and GI was consulted who suspected it was Gilbert's syndrome. * follow up with gastroenterology on outpatient basis * Bilirubin today is 3.7. * #Hypercoagulopathy * was thought to be due to a low grade DIC. Fibrinogen as low, and D dimer elevated, with mild thrombocytopenia * INR today is 1.5. Will trend. * Liver disease may also be playing a role * #Heart failure with preserved ejection fraction: * On furosemide 40 mg twice daily. Monitor intake and output. Also on carvedilol. * has known EF of 40% * DVT prophylaxis: SCDs Charges/Coding Visit Charges Inpatient E&M: 97803 Subs Hosp L2
[2021-06-17 15:36] VITALS: BP 105/55; PULSE 105; RESP 20; TEMP 37.1; O2SAT 93
[2021-06-17 17:11] LABS: Bedside Glucose 311 mg/dL (70-110)
[2021-06-17 20:54] VITALS: BP 127/79; PULSE 95; RESP 20; TEMP 37.2; O2SAT 92
[2021-06-17 21:11] LABS: Bedside Glucose > 500 mg/dL (70-110)
[2021-06-17 22:46] LABS: Glucose 515 mg/dL (74-106)
[2021-06-18] VITALS (9 sets, daily range): BP systolic 99–120; BP diastolic 66–75; PULSE 53–102; RESP 18–22; TEMP 36.1–37.4; O2SAT 4–97
[2021-06-18 05:07] LABS: Absolute Lymphocyte Count 0.64 X10^3/uL (0.83-4.51); Absolute Neutrophil Count 13.5 X10^3/uL (2.0-7.7); Basophil# 0.02 X10^3/uL; Basophil% 0.1 % (0-1); Eosinophil# 0.01 X10^3/uL; Eosinophils% 0.1 % (0-5); Hematocrit 39.7 % (40-54); Hemoglobin 13.2 g/dL (13.0-16.5); Lymphocyte # 0.64 X10^3/ul (0.83-4.51); Lymphocyte % 4.2 % (19-41); Mean Corp Hgb Conc 33.2 g/dL (32-36); Mean Corpuscular Hgb 30.1 pg (27.0-32.0); Mean Corpuscular Volume 90.4 fL (80-94); Mean Platelet Vol. 10.6 fl (6.2-12.0); Monocyte# 0.86 X10^3/uL; Monocyte% 5.7 % (0-10); NRBC Flagged by Analyzer 0 % (0-5); Neutrophil # 13.52 X10^3/uL (2.7-7.7); Neutrophil % 89.1 % (47-70); Platelet Count 196 K/mm3 (150-450); RBC Distribution Width CV 14.1 % (11.6-14.6); RBC Distribution Width SD 46.4 fl (35.1-43.9); Red Blood Count 4.39 M/mm3 (4.6-6.2); White Blood Count 15.2 K/mm3 (4.4-11.0)
[2021-06-18 05:19] LABS: International Normalized Ratio 1.4; Prothrombin Time (Protime)PT. 16.5 SECONDS (11.7-14.9)
[2021-06-18 05:31] LABS: ALB/GLOB Ratio 0.4 RATIO (0.9-2.4); AST(SGOT) 27 U/L (15-37); Alanine Aminotransfer ALT/SGPT 25 U/L (16-61); Albumin, Serum 1.7 g/dL (3.2-5.0); Alkaline Phosphatase 104 U/L (45-117); Anion Gap 5 (5-15); BUN 28 mg/dL (7-18); BUN/Creat Ratio 34.7 RATIO (10-20); Chloride 102 mmol/L (98-107); Creatinine, Serum 0.81 mg/dL (0.70-1.30); EST Glomerular Filtration Rate 104 mL/min (>60); Est Glom Filt Rate - Afr Amer 125 mL/min (>60); Estimated Creatinine Clearance 96.98 ml/min; Globulin 4.4 g/dL (2.2-4.2); Glucose 240 mg/dL (74-106); Potassium 4.1 mmol/L (3.5-5.1); Protein, Total 6.1 g/dL (6.4-8.2); Sodium Level 137 mmol/L (136-145)
[2021-06-18] MEDS: Insulin Lispro 100 UNIT/ML INSULN.PEN SC ×4 (06:32→21:01)
[2021-06-18 06:40] LABS: Bedside Glucose 202 mg/dL (70-110)
[2021-06-18] MEDS: Aspirin E.C. 81 MG Tablet PO (10:06)
[2021-06-18] MEDS: dexAMETHasone 4 MG Tablet 6 MG PO (10:06)
[2021-06-18] MEDS: Ascorbic Acid 500 MG Tablet PO (10:07)
[2021-06-18] MEDS: Furosemide 40 MG Tablet PO (10:07)
[2021-06-18 11:35] LABS: Bedside Glucose 270 mg/dL (70-110)
--- NOTE | 2021-06-18 14:51 | PN.HOSP_ITS ---
Subjective Subjective Patient seen and examined. He is feeling better today. His shortness of breath is improved. He is on 4 L of oxygen. Review of systems otherwise negative. Objective Data Objective Data Vital Signs: Vital Signs Temp Pulse Resp BP Pulse Ox 97.0 F L 102 H 18 107/70 95 06/18/21 14:06 06/18/21 14:06 06/18/21 14:06 06/18/21 14:06 06/18/21 14:06 Oxygen Flow Rate (L/min) 4 Oxygen Delivery Method High Flow Weight: 182 lb 15.739 oz Body Mass Index (BMI) 28.4 Intake & Output: Intake and Output for Last 24 Hours 06/16/21 06/17/21 06/18/21 23:59 23:59 23:59 Intake Total 200 / 200 580 / 830 550 / 550 Output Total 300 / 600 550 / 550 Balance 200 / 200 280 / 230 0 / 0 Medical Nutrition Assessment Dietitian: Malnutrition Criteria Met Start: 06/11/21 17:05 Freq: Status: Active Protocol: Document 06/14/21 15:06 RMA (Rec: 06/14/21 15:06 RMA [id number]) Nutrition Malnutrition Evidence of Malnutrition Exists Yes Malnutrition (severe): Acute Illness/Injury Evidenced By Suboptimal Energy Intake ( Severe),Weight Loss (Severe) Clinical Problem Acute Disease or Injury Related Malnutrition Etiology Severe protein-calorie malnutrition in the context of acute illness related to ongoing poor appetite and inadequate oral intake Signs/Symptoms as evidenced by ~9% wt loss x 1 month and inadequate oral intake meeting less than 50% estimated nutrition needs x past 2 weeks Status Active Problem Recommendation Dietitian Recommendations/Changes 2000 calorie; consistent carbohydrate/cardiac; sodium- restricted diet. Will add 120ml kayleigh glucerna shake TID with meals. Lab / Micro Data Result Diagrams: 06/18/21 04:54 06/18/21 04:54 Labs: Laboratory Results - last 24 hr 06/17/21 16:49: POC Glucose 311 H 06/17/21 21:03: POC Glucose > 500 H* 06/17/21 21:42: Glucose 515 H* 06/18/21 04:54: PT 16.5 H, INR 1.4 06/18/21 04:54: Sodium 137, Potassium 4.1, Chloride 102, Carbon Dioxide 30.0, Anion Gap 5, BUN 28 H, Creatinine 0.81, Estim Creat Clear Calc 96.98, Est GFR (MDRD) Af Amer 125, Est GFR (MDRD) Non-Af 104, BUN/Creatinine Ratio 34.7 H, Glucose 240 H, Calcium 8.0 L, Total Bilirubin 2.70 H, AST 27, ALT 25, Alkaline Phosphatase 104, Total Protein 6.1 L, Albumin 1.7 L, Globulin 4.4 H, Albumin/Globulin Ratio 0.4 L 06/18/21 04:54: WBC 15.2 H, RBC 4.39 L, Hgb 13.2, Hct 39.7 L, MCV 90.4, MCH 30.1, MCHC 33.2, RDW Std Deviation 46.4 H, RDW Coeff of Tony 14.1, Plt Count 196, MPV 10.6, Immature Gran % (Auto) 0.800, Neut % (Auto) 89.1 H, Lymph % (Auto) 4.2 L, [place]ady % (Auto) 5.7, Eos % (Auto) 0.1, Baso % (Auto) 0.1, Absolute Neuts (auto) 13.5 H, Absolute Lymphs (auto) 0.64 L, Nucleated RBC % 0 06/18/21 06:31: POC Glucose 202 H 06/18/21 11:26: POC Glucose 270 H Micro: Microbiology 06/16/21 22:30 Urine, Clean Catch Legionella Antigen - Final 06/16/21 22:30 Urine, Clean Catch Streptococcus pneumoniae Antigen (M - Final 06/10/21 13:45 Blood Culture (Wb) - Anticubital Left Blood Culture - Final No growth in 5 days. 06/10/21 13:55 Blood Culture (Wb) - Anticubital Right Blood Culture - Final No growth in 5 days. Physical Exam Const alert, oriented x3 and no apparent distress General Appearance: cooperative Exam Limitations: no limitations HEENT normocephalic, head/scalp atraumatic and moist oral mucous membranes Head and Scalp: normocephalic Eyes PERRL, EOMs intact bilaterally and conjunctivae normal Neck no lymphadenopathy, supple and no JVD Resp Resp Narrative: Diminished breath sounds bibasilarly. No wheezes or crackles. On 4 L of oxygen. Auscultation: Negative for rales, rhonchi or wheezes Cardio regular rate, regular rhythm, S1 normal heart sound, S2 normal heart sound and no murmurs Rate: tachycardic GI normal to inspection, nondistended, normoactive bowel sounds, soft to palpation, non-tender and non-distended; Negative for hepatosplenomegaly Extremity normal to inspection, full ROM and no clubbing, cyanosis or edema General Extremity: edema bilateral; Negative for clubbing or cyanosis Peripheral Pulses: Yes pulses 2+ throughout Skin no rashes or lesions noted General Skin Exam: jaundice Neuro oriented x3, CN's II-XII intact bilaterally, moves all extremities, no focal motor deficits and no sensory deficits noted Sensorium / Orientation: awake and alert Psych affect normal Appearance: appropriate Assessment & Plan Assessment/Plan (1) Acute hypoxemic respiratory failure due to COVID-19: PLAN: #Acute hypoxic respiratory failure due to COVID-19 pneumonia * still on 4L of oxygen. * Titrate oxygen to maintain saturation above 90%. On Decadron. * Breathing treatments bronchodilators. Out of isolation. * #Type 2 diabetes mellitus * Blood sugars poorly controlled as he has been on steroids. Glimepiride and Metformin on hold and patient on long-acting insulin. Also on insulin sliding scale. Accu-Cheks AC at bedtime. * A1c was 8.5. * On Lantus 20 units twice daily. * #Hyperbilirubinemia * Ultrasound done showed hepatomegaly and GI was consulted who suspected it was Gilbert's syndrome. * follow up with gastroenterology on outpatient basis * Bilirubin today is 2.7. * #Hypercoagulopathy * was thought to be due to a low grade DIC. Fibrinogen as low, and D dimer elevated, with mild thrombocytopenia * Liver disease may also be playing a role * #Heart failure with preserved ejection fraction: * On furosemide 40 mg twice daily. Monitor intake and output. Also on carvedilol. * has known EF of 40% * DVT prophylaxis: SCDs Disposition: for likely DC home tomorrow Charges/Coding Visit Charges Inpatient E&M: 51108 Subs Hosp L2
[2021-06-18 17:06] LABS: Bedside Glucose 296 mg/dL (70-110)
[2021-06-18 21:10] LABS: Bedside Glucose 316 mg/dL (70-110)
[2021-06-19] VITALS (8 sets, daily range): BP systolic 103–123; BP diastolic 60–74; PULSE 89–99; RESP 18–20; TEMP 36.6–36.7; O2SAT 87–100
[2021-06-19 06:13] LABS: Absolute Lymphocyte Count 0.83 X10^3/uL (0.83-4.51); Absolute Neutrophil Count 12.3 X10^3/uL (2.0-7.7); Basophil# 0.01 X10^3/uL; Basophil% 0.1 % (0-1); Eosinophil# 0.02 X10^3/uL; Eosinophils% 0.1 % (0-5); Hematocrit 37.6 % (40-54); Hemoglobin 12.5 g/dL (13.0-16.5); Lymphocyte # 0.83 X10^3/ul (0.83-4.51); Lymphocyte % 5.8 % (19-41); Mean Corp Hgb Conc 33.2 g/dL (32-36); Mean Corpuscular Hgb 30.4 pg (27.0-32.0); Mean Corpuscular Volume 91.5 fL (80-94); Mean Platelet Vol. 10.9 fl (6.2-12.0); Monocyte# 1.02 X10^3/uL; Monocyte% 7.1 % (0-10); NRBC Flagged by Analyzer 0 % (0-5); Neutrophil # 12.32 X10^3/uL (2.7-7.7); Neutrophil % 86.2 % (47-70); Platelet Count 240 K/mm3 (150-450); Red Blood Count 4.11 M/mm3 (4.6-6.2); White Blood Count 14.3 K/mm3 (4.4-11.0)
[2021-06-19 06:25] LABS: International Normalized Ratio 1.4; Prothrombin Time (Protime)PT. 16.1 SECONDS (11.7-14.9)
[2021-06-19 06:31] LABS: Bedside Glucose 141 mg/dL (70-110)
[2021-06-19 06:54] LABS: ALB/GLOB Ratio 0.3 RATIO (0.9-2.4); AST(SGOT) 24 U/L (15-37); Alanine Aminotransfer ALT/SGPT 27 U/L (16-61); Albumin, Serum 1.5 g/dL (3.2-5.0); Alkaline Phosphatase 102 U/L (45-117); Anion Gap 4 (5-15); BUN 26 mg/dL (7-18); Chloride 104 mmol/L (98-107); Creatinine, Serum 0.72 mg/dL (0.70-1.30); EST Glomerular Filtration Rate 118 mL/min (>60); Est Glom Filt Rate - Afr Amer 142 mL/min (>60); Globulin 4.4 g/dL (2.2-4.2); Glucose 161 mg/dL (74-106); Protein, Total 5.9 g/dL (6.4-8.2); Sodium Level 139 mmol/L (136-145)
[2021-06-19] MEDS: dexAMETHasone 4 MG Tablet 6 MG PO (10:11)
[2021-06-19] MEDS: Carvedilol 6.25 MG Tablet PO ×2 (10:11→21:54)
[2021-06-19] MEDS: Aspirin E.C. 81 MG Tablet PO (10:12)
[2021-06-19] MEDS: Ascorbic Acid 500 MG Tablet PO (10:12)
[2021-06-19] MEDS: Furosemide 40 MG Tablet PO ×2 (10:12→17:03)
--- NOTE | 2021-06-19 11:30 | PN.HOSP_ITS ---
Subjective Subjective Patient seen and examined. He felt well and had no active complaints. Review of systems is otherwise negative. He was on 4L of oxygen at time of review. He has otherwise remained hemodynamically stable. Objective Data Objective Data Vital Signs: Vital Signs Temp Pulse Resp BP Pulse Ox 97.8 F 99 20 H 106/62 90 06/19/21 10:08 06/19/21 10:08 06/19/21 10:08 06/19/21 10:08 06/19/21 10:08 Oxygen Flow Rate (L/min) [ 8 AMBULATING with Oxygen #2] Oxygen Flow Rate (L/min) [ 4 AMBULATING with Oxygen #1] Oxygen Flow Rate (L/min) [At 4 REST with Oxygen] Oxygen Flow Rate (L/min) 4 Oxygen Delivery Method Nasal Cannula Weight: 182 lb 8.684 oz Body Mass Index (BMI) 28.4 Intake & Output: Intake and Output for Last 24 Hours 06/17/21 06/18/21 06/19/21 23:59 23:59 23:59 Intake Total 580 / 830 550 / 550 Output Total 300 / 600 550 / 550 Balance 280 / 230 0 / 0 Medical Nutrition Assessment Dietitian: Malnutrition Criteria Met Start: 06/11/21 17:05 Freq: Status: Active Protocol: Document 06/14/21 15:06 RMA (Rec: 06/14/21 15:06 RMA [id number]) Nutrition Malnutrition Evidence of Malnutrition Exists Yes Malnutrition (severe): Acute Illness/Injury Evidenced By Suboptimal Energy Intake ( Severe),Weight Loss (Severe) Clinical Problem Acute Disease or Injury Related Malnutrition Etiology Severe protein-calorie malnutrition in the context of acute illness related to ongoing poor appetite and inadequate oral intake Signs/Symptoms as evidenced by ~9% wt loss x 1 month and inadequate oral intake meeting less than 50% estimated nutrition needs x past 2 weeks Status Active Problem Recommendation Dietitian Recommendations/Changes 2000 calorie; consistent carbohydrate/cardiac; sodium- restricted diet. Will add 120ml kayleigh glucerna shake TID with meals. Lab / Micro Data Result Diagrams: 06/19/21 05:58 06/19/21 05:58 Labs: Laboratory Results - last 24 hr 06/18/21 11:26: POC Glucose 270 H 06/18/21 16:43: POC Glucose 296 H 06/18/21 21:00: POC Glucose 316 H 06/19/21 05:58: PT 16.1 H, INR 1.4 06/19/21 05:58: Sodium 139, Potassium 4.0, Chloride 104, Carbon Dioxide 31.0, An ion Gap 4 L, BUN 26 H, Creatinine 0.72, Estim Creat Clear Calc 109.10, Est GFR (MDRD) Af Amer 142, Est GFR (MDRD) Non-Af 118, BUN/Creatinine Ratio 36.0 H, Glucose 161 H, Calcium 8.0 L, Total Bilirubin 2.50 H, AST 24, ALT 27, Alkaline Phosphatase 102, Total Protein 5.9 L, Albumin 1.5 L, Globulin 4.4 H, Albumin/Globulin Ratio 0.3 L 06/19/21 05:58: WBC 14.3 H, RBC 4.11 L, Hgb 12.5 L, Hct 37.6 L, MCV 91.5, MCH 30.4, MCHC 33.2, RDW Std Deviation 47.0 H, RDW Coeff of Tony 14.0, Plt Count 240, MPV 10.9, Immature Gran % (Auto) 0.700, Neut % (Auto) 86.2 H, Lymph % (Auto) 5.8 L, [place] % (Auto) 7.1, Eos % (Auto) 0.1, Baso % (Auto) 0.1, Absolute Neuts (auto) 12.3 H, Absolute Lymphs (auto) 0.83, Nucleated RBC % 0 06/19/21 06:25: POC Glucose 141 H Micro: Microbiology 06/16/21 22:30 Urine, Clean Catch Legionella Antigen - Final 06/16/21 22:30 Urine, Clean Catch Streptococcus pneumoniae Antigen (M - Final 06/10/21 13:45 Blood Culture (Wb) - Anticubital Left Blood Culture - Final No growth in 5 days. 06/10/21 13:55 Blood Culture (Wb) - Anticubital Right Blood Culture - Final No growth in 5 days. Physical Exam Const alert, oriented x3 and no apparent distress General Appearance: cooperative Exam Limitations: no limitations HEENT normocephalic, head/scalp atraumatic and moist oral mucous membranes Head and Scalp: normocephalic Eyes PERRL, EOMs intact bilaterally and conjunctivae normal Eyes Narrative: icterus Neck no lymphadenopathy, supple and no JVD Resp normal respiratory effort, no retractions, no use of accessory muscles and clear to auscultation bilaterally Resp Narrative: Diminished breath sounds bibasilarly. No wheezes or crackles. still on 4 L of oxygen. Auscultation: Negative for rales, rhonchi or wheezes Cardio regular rate, regular rhythm, S1 normal heart sound, S2 normal heart sound and no murmurs Rate: tachycardic GI normal to inspection, nondistended, normoactive bowel sounds, soft to palpation, non-tender and non-distended; Negative for hepatosplenomegaly Extremity normal to inspection, full ROM and no clubbing, cyanosis or edema General Extremity: edema bilateral; Negative for clubbing or cyanosis Peripheral Pulses: Yes pulses 2+ throughout Skin no rashes or lesions noted Skin Narrative: jaundice General Skin Exam: jaundice Neuro oriented x3, CN's II-XII intact bilaterally, moves all extremities, no focal motor deficits and no sensory deficits noted Sensorium / Orientation: awake and alert Psych affect normal Appearance: appropriate Assessment & Plan Assessment/Plan (1) Acute hypoxemic respiratory failure due to COVID-19: PLAN: #Acute hypoxic respiratory failure due to COVID-19 pneumonia * still on 4L of oxygen. * Titrate oxygen to maintain saturation above 90%. On Decadron. * Breathing treatments bronchodilators. Out of isolation. * failed walking pulse ox today, as he required 8L of oxygen with ambulation. * #Type 2 diabetes mellitus * Blood sugars poorly controlled as he has been on steroids. Glimepiride and Metformin on hold and patient on long-acting insulin. Also on insulin sliding scale. Accu-Cheks AC at bedtime. * A1c was 8.5. * On Lantus 20 units twice daily. * #Hyperbilirubinemia * Ultrasound done showed hepatomegaly and GI was consulted who suspected it was Gilbert's syndrome. * follow up with gastroenterology on outpatient basis * Bilirubin today is 2.5. * #Hypercoagulopathy * was thought to be due to a low grade DIC. Fibrinogen as low, and D dimer elevated, with mild thrombocytopenia * Liver disease may also be playing a role * #Heart failure with preserved ejection fraction: * On furosemide 40 mg twice daily. Monitor intake and output. Also on carvedilol. * has known EF of 40% * DVT prophylaxis: SCDs Disposition: failed walking pulse ox today, as he required 8L of oxygen with ambulation. Will therefore hold off on discharge today. Charges/Coding Visit Charges Inpatient E&M: 49542 Subs Hosp L2
[2021-06-19 11:56] LABS: Bedside Glucose 255 mg/dL (70-110)
[2021-06-19] MEDS: Insulin Lispro 100 UNIT/ML INSULN.PEN SC ×3 (13:04→21:55)
[2021-06-19 15:04] LABS: Haptoglobin 43
[2021-06-19 17:10] LABS: Bedside Glucose 390 mg/dL (70-110)
[2021-06-19 20:25] LABS: Bedside Glucose > 500 mg/dL (70-110)
[2021-06-19 21:10] LABS: Glucose 460 mg/dL (74-106)
[2021-06-20] VITALS (7 sets, daily range): BP systolic 96–108; BP diastolic 64–78; PULSE 70–93; RESP 18–20; TEMP 36.3–37; O2SAT 80–99
[2021-06-20 03:26] LABS: Bedside Glucose 256 mg/dL (70-110)
[2021-06-20 05:04] LABS: Absolute Lymphocyte Count 1.06 X10^3/uL (0.83-4.51); Absolute Neutrophil Count 12.6 X10^3/uL (2.0-7.7); Basophil# 0.03 X10^3/uL; Basophil% 0.2 % (0-1); Hematocrit 36.2 % (40-54); Hemoglobin 11.9 g/dL (13.0-16.5); Lymphocyte # 1.06 X10^3/ul (0.83-4.51); Lymphocyte % 7.1 % (19-41); Mean Corp Hgb Conc 32.9 g/dL (32-36); Mean Corpuscular Hgb 30.1 pg (27.0-32.0); Mean Corpuscular Volume 91.4 fL (80-94); Mean Platelet Vol. 10.3 fl (6.2-12.0); Monocyte# 1.07 X10^3/uL; Monocyte% 7.2 % (0-10); NRBC Flagged by Analyzer 0 % (0-5); Neutrophil # 12.61 X10^3/uL (2.7-7.7); Neutrophil % 84.8 % (47-70); Platelet Count 252 K/mm3 (150-450); RBC Distribution Width CV 13.6 % (11.6-14.6); RBC Distribution Width SD 46.2 fl (35.1-43.9); Red Blood Count 3.96 M/mm3 (4.6-6.2); White Blood Count 14.9 K/mm3 (4.4-11.0)
[2021-06-20] MEDS: Insulin Lispro 100 UNIT/ML INSULN.PEN SC ×3 (06:38→21:38)
[2021-06-20 06:45] LABS: Bedside Glucose 175 mg/dL (70-110)
[2021-06-20] MEDS: dexAMETHasone 4 MG Tablet 6 MG PO (09:23)
[2021-06-20] MEDS: Carvedilol 6.25 MG Tablet PO (09:23)
[2021-06-20] MEDS: Ascorbic Acid 500 MG Tablet PO (09:23)
[2021-06-20] MEDS: Aspirin E.C. 81 MG Tablet PO (09:24)
[2021-06-20] MEDS: Furosemide 40 MG Tablet PO ×2 (09:24→16:57)
[2021-06-20 11:45] LABS: Bedside Glucose 378 mg/dL (70-110)
--- NOTE | 2021-06-20 14:26 | CASEMGMT ---
Addendum entered by Elsie Valdivia 06/20/21 14:30: TC to [facility], received information that pt is to be billed for services and then pt will submit the bill. No preauths are needed. This is not an insurance, it is a cost sharing benefit. Original Note: MARIETTA BUTLER in to pt room to discuss dc planning. Pt states he would like to go directly home as he is not sure that his insurance covers therapy in a SNF. He states he has been up in the halls using walker but gets very sob. Received order for therapy. MARIETTA BUTLER to follow.
--- NOTE | 2021-06-20 14:48 | PN.HOSP_ITS ---
Subjective Subjective Patient seen and examined. He has no active complaints and wants to go home. He was on 3L of oxygen at time of review. He has otherwise remained hemodynamically stable. However, he got easily tired with walking pulse ox and was saturating at 86% on 6L of oxygen. Patient therefore cannot be discharged home today. Objective Data Objective Data Vital Signs: Vital Signs Temp Pulse Resp BP Pulse Ox 98.3 F 90 20 H 102/78 98 06/20/21 08:27 06/20/21 09:00 06/20/21 09:00 06/20/21 08:27 06/20/21 12:54 Oxygen Flow Rate (L/min) [ 4 AMBULATING with Oxygen #2] Oxygen Flow Rate (L/min) [ 6 AMBULATING with Oxygen #1] Oxygen Flow Rate (L/min) [At 4 REST with Oxygen] Oxygen Flow Rate (L/min) 3 Oxygen Delivery Method Nasal Cannula Weight: 180 lb 1.883 oz Body Mass Index (BMI) 28.4 Intake & Output: Intake and Output for Last 24 Hours 06/18/21 06/19/21 06/20/21 23:59 23:59 23:59 Intake Total 550 / 550 Output Total 550 / 550 Balance 0 / 0 Medical Nutrition Assessment Dietitian: Malnutrition Criteria Met Start: 06/11/21 17:05 Freq: Status: Active Protocol: Document 06/19/21 16:16 [email or web address] (Rec: 06/19/21 16:16 [email or web address] [id number]) Nutrition Malnutrition Evidence of Malnutrition Exists Yes Malnutrition (severe): Acute Illness/Injury Evidenced By Suboptimal Energy Intake ( Severe),Weight Loss (Severe) Clinical Problem Acute Disease or Injury Related Malnutrition Etiology Severe protein-calorie malnutrition in the context of acute illness related to ongoing poor appetite and inadequate oral intake Signs/Symptoms as evidenced by ~5.3% wt loss since adm and inadequate oral intake meeting <50% estimated nutrition needs x past 2 weeks Status Active Problem Recommendation Dietitian Recommendations/Changes Will change diet to liberal CHO CONTROL / No Added Salt d/ t s/s of malnutrition Will continue 120ml kayleigh or strawberry glucerna shake TID with meals. Will provide fortified pudding w/ lunch and dinner for increased nutrition if consumed. Lab / Micro Data Result Diagrams: 06/20/21 04:54 06/19/21 20:42 Labs: Laboratory Results - last 24 hr 06/14/21 : Haptoglobin 43 06/19/21 17:01: POC Glucose 390 H 06/19/21 20:20: POC Glucose > 500 H* 06/19/21 20:42: Glucose 460 H* 06/20/21 03:13: POC Glucose 256 H 06/20/21 04:54: WBC 14.9 H, RBC 3.96 L, Hgb 11.9 L, Hct 36.2 L, MCV 91.4, MCH 30.1, MCHC 32.9, RDW Std Deviation 46.2 H, RDW Coeff of Tony 13.6, Plt Count 252, MPV 10.3, Immature Gran % (Auto) 0.700, Neut % (Auto) 84.8 H, Lymph % (Auto) 7.1 L, [place] % (Auto) 7.2, Eos % (Auto) 0.0, Baso % (Auto) 0.2, Absolute Neuts (auto) 12.6 H, Absolute Lymphs (auto) 1.06, Nucleated RBC % 0 06/20/21 06:37: POC Glucose 175 H 06/20/21 11:21: POC Glucose 378 H Micro: Microbiology 06/16/21 22:30 Urine, Clean Catch Legionella Antigen - Final 06/16/21 22:30 Urine, Clean Catch Streptococcus pneumoniae Antigen (M - Final 06/10/21 13:45 Blood Culture (Wb) - Anticubital Left Blood Culture - Final No growth in 5 days. 06/10/21 13:55 Blood Culture (Wb) - Anticubital Right Blood Culture - Final No growth in 5 days. Physical Exam Const alert, oriented x3 and no apparent distress General Appearance: cooperative Orientation / Consciousness: lethargic Exam Limitations: no limitations HEENT normocephalic, head/scalp atraumatic and moist oral mucous membranes Head and Scalp: normocephalic Eyes PERRL, EOMs intact bilaterally and conjunctivae normal Neck no lymphadenopathy, supple and no JVD Resp normal respiratory effort, no retractions, no use of accessory muscles and clear to auscultation bilaterally Resp Narrative: Diminished breath sounds bibasilarly. No wheezes or crackles. on 3 L of oxygen. Auscultation: Negative for rales, rhonchi or wheezes Cardio regular rate, regular rhythm, S1 normal heart sound, S2 normal heart sound and no murmurs Rate: tachycardic GI normal to inspection, nondistended, normoactive bowel sounds, soft to palpation, non-tender and non-distended; Negative for hepatosplenomegaly Extremity normal to inspection, full ROM and no clubbing, cyanosis or edema General Extremity: edema bilateral; Negative for clubbing or cyanosis Peripheral Pulses: Yes pulses 2+ throughout Skin no rashes or lesions noted Skin Narrative: jaundice General Skin Exam: jaundice Neuro oriented x3, CN's II-XII intact bilaterally, moves all extremities, no focal motor deficits and no sensory deficits noted Sensorium / Orientation: awake and alert Psych affect normal Appearance: appropriate Assessment & Plan Assessment/Plan (1) Acute hypoxemic respiratory failure due to COVID-19: PLAN: #Acute hypoxic respiratory failure due to COVID-19 pneumonia * still on 4L of oxygen. * Titrate oxygen to maintain saturation above 90%. On Decadron. * Breathing treatments bronchodilators. Out of isolation. * failed walking pulse ox again today, as he was saturating at only 86% even on 6L of oxygen. * #Type 2 diabetes mellitus * Blood sugars poorly controlled as he has been on steroids. Glimepiride and Metformin on hold and patient on long-acting insulin. Also on insulin sliding scale. Accu-Cheks AC at bedtime. * A1c was 8.5. * On Lantus 20 units twice daily. * #Hyperbilirubinemia * Ultrasound done showed hepatomegaly and GI was consulted who suspected it was Gilbert's syndrome. * follow up with gastroenterology on outpatient basis * . * #Hypercoagulopathy * was thought to be due to a low grade DIC. Fibrinogen as low, and D dimer elevated, with mild thrombocytopenia * Liver disease may also be playing a role * stable * #Heart failure with preserved ejection fraction: * On furosemide 40 mg twice daily. Monitor intake and output. Also on carvedilol. * has known EF of 40% * DVT prophylaxis: SCDs Disposition: failed walking pulse ox again today. PT/OT to evaluate to see if he will benefit from placement. Charges/Coding Visit Charges Inpatient E&M: 66685 Subs Hosp L2
[2021-06-20] MEDS: Insulin Lispro 100 UNIT/ML INSULN.PEN 15 UNIT SC (16:56)
[2021-06-20 17:01] LABS: Bedside Glucose 466 mg/dL (70-110)
[2021-06-20 17:42] LABS: Glucose 472 mg/dL (74-106)
[2021-06-20 18:05] LABS: Bedside Glucose 472 mg/dL (70-110)
[2021-06-20] MEDS: Insulin Lispro 100 UNIT/ML INSULN.PEN 20 UNIT SC (19:11)
[2021-06-20 21:46] LABS: Bedside Glucose 272 mg/dL (70-110)
[2021-06-21 03:26] VITALS: BP 108/68; PULSE 72; RESP 20; TEMP 36.3; O2SAT 96
[2021-06-21 06:32] LABS: Absolute Lymphocyte Count 1.43 X10^3/uL (0.83-4.51); Absolute Neutrophil Count 14.7 X10^3/uL (2.0-7.7); Basophil# 0.04 X10^3/uL; Basophil% 0.2 % (0-1); Eosinophil# 0.05 X10^3/uL; Eosinophils% 0.3 % (0-5); Hematocrit 39.4 % (40-54); Hemoglobin 12.8 g/dL (13.0-16.5); Lymphocyte # 1.43 X10^3/ul (0.83-4.51); Lymphocyte % 8.1 % (19-41); Mean Corp Hgb Conc 32.5 g/dL (32-36); Mean Corpuscular Hgb 29.7 pg (27.0-32.0); Mean Corpuscular Volume 91.4 fL (80-94); Mean Platelet Vol. 10.4 fl (6.2-12.0); Monocyte# 1.25 X10^3/uL; Monocyte% 7.1 % (0-10); NRBC Flagged by Analyzer 0 % (0-5); Neutrophil # 14.71 X10^3/uL (2.7-7.7); Neutrophil % 83.2 % (47-70); Platelet Count 286 K/mm3 (150-450); RBC Distribution Width CV 13.6 % (11.6-14.6); RBC Distribution Width SD 45.8 fl (35.1-43.9); Red Blood Count 4.31 M/mm3 (4.6-6.2); White Blood Count 17.7 K/mm3 (4.4-11.0)
[2021-06-21 08:03] VITALS: RESP 18; O2SAT 94
[2021-06-21 08:07] VITALS: O2SAT 91; O2SAT 94
[2021-06-21 08:25] VITALS: BP 110/74; PULSE 86; RESP 20; TEMP 36.6; O2SAT 94
--- NOTE | 2021-06-21 09:52 | CASEMGMT ---
Addendum entered by Elsie Valdivia 06/21/21 16:00: 1230- Faxed referral to [facility] [place], emailed Gila for acceptance. Addendum entered by Elsie Valdivia 06/21/21 11:28: made aware of pt request. Addendum entered by Elsie Valdivia 06/21/21 11:25: MARIETTA BUTLER back into the pt room. Pt states he has spoke with his and is asking to stay a couple of more nights until she is out of quarantine and feeling better. Pt aware he did not qualify for home O2 and is ready for dc. Discussed HHC again, he declines the need for it if he is not going to be on O2. Explained what HHC could offer, pt declined. Provided pt with local DME companies for his walker. Pt denies preference. Original Note: MARIETTA BUTLER in to pt room. Pt sitting up in chair. Discussed dc planning. Pt did not qualify for home O2. Pt does not have a pulse ox at home. Encouraged pt to purchase pulse ox at pharmacy. Pt would like a walker for home. Patient was provided a list of HHC providers including quality and resource use data and consistent with the patient?s preferred geographic region and medical needs. Pt states he would like to discuss with his . He is unsure how his insurance covers this. Explained to him what this MARIETTA BUTLER learned from phone call to insurance yesterday, that pt would be billed and then he would be responsible to submit the bill to his insurance. MARIETTA BUTLER to check back.
[2021-06-21] MEDS: Furosemide 40 MG Tablet PO (10:55)
[2021-06-21] MEDS: dexAMETHasone 4 MG Tablet 6 MG PO (10:55)
[2021-06-21] MEDS: Carvedilol 6.25 MG Tablet PO (10:56)
[2021-06-21] MEDS: Aspirin E.C. 81 MG Tablet PO (10:56)
[2021-06-21] MEDS: Ascorbic Acid 500 MG Tablet PO (10:57)
[2021-06-21 11:10] LABS: Bedside Glucose 262 mg/dL (70-110)
--- NOTE | 2021-06-21 11:57 | NURSING ---
spoke w/ about pt d/c-pt awaiting a walker for home-reviewed home care w/ -instructed her to call his PCP and get him an appt early next week (prior to holiday) for reyna-pt has been off o2 since 729 this am and pox ranges from 91-96 on room air, with or without activity
--- NOTE | 2021-06-21 12:10 | PCM.DC.SUM ---
Providers Date of Admission: 06/10/21 Primary Care Physician: Dr. Alana Draper MD Consultations 06/12/21 10:37 Consult: Gastroenterology Routine Consulting Provider: [facility] Reason for Consult: abnormal bilirubin and INR EMERGENT Consult: No MD Notified: Yes Date Notified: 06/12/21 Time Notified: 10:37 Method of Notification: Text Reason For Visit: COVID Diagnosis Discharge Diagnosis (1) Acute hypoxemic respiratory failure due to COVID-19: Status: Acute Code(s): U07.1 - COVID-19; J96.01 - Acute respiratory failure with hypoxia Medications at Discharge Home Medications ascorbic acid (vitamin C) [Vitamin C] 500 mg PO DAILY@0800 05/30/13 aspirin 81 mg PO DAILY@0800 #30 tablet 06/01/13 furosemide 40 mg PO BIDLX #60 tablet 06/01/13 carvedilol 25 mg PO BID 06/10/21 glimepiride 1 mg PO BID 06/10/21 lisinopril 5 mg PO DAILY 06/10/21 metformin 1,000 mg PO BID 06/10/21 Hospital Course Operations None Procedures None Summary of Care Provided Minutes Spent on Discharge: 45 Hospital Course: Patient is a 61-year-old male with a past medical history as outlined was admitted through the ED on 06/10/2021 with a complaint of worsening shortness of breath. His symptoms started about 10 days prior on June 03 with a complaint of shortness of breath and had a positive Covid test done on outpatient basis. He was saturating in the 80s on room air in the ED. He was also noted to be jaundiced with elevated bilirubin and AST and INR was also 1.7. CTA of the chest showed diffuse bilateral pulmonary infiltrates involving both upper and lower lobes but no evidence of pulmonary embolism. He was admitted and managed for acute hypoxic respiratory failure due to COVID-19 pneumonia. He was outside window for remdesivir. He completed a course of Decadron. Ultrasound done of the liver showed hepatomegaly and GI was consulted. GI thought it could possibly be Gilbert's syndrome and recommended follow-up on outpatient basis. Was also thought to possibly have low-grade DIC as his fibrinogen was low and D-dimer was elevated and he also had some mild thrombocytopenia. Patient had a long protracted course of respiratory failure and was gradually weaned off of oxygen. Was gradually weaned to room air and on 06/21/2021, he had a walking pulse ox and he did not require any home oxygen. Patient remained stable and was discharged home on 06/21/2021 and is to follow-up with us PCP and gastroenterology. Patient seen and examined prior to discharge. He had no complaints and felt much better. Review of systems otherwise negative. Labs and vitals reviewed. Home medication reviewed and reconciled. Physical Exam Const alert, oriented x3 and no apparent distress Constitutional Narrative: up in chair. no respiratory distress. General Appearance: cooperative Orientation / Consciousness: lethargic Exam Limitations: no limitations HEENT normocephalic, head/scalp atraumatic and moist oral mucous membranes Eyes PERRL, EOMs intact bilaterally and conjunctivae normal Eyes Narrative: icterus Neck no lymphadenopathy, supple and no JVD Resp normal respiratory effort, no retractions, no use of accessory muscles and clear to auscultation bilaterally Resp Narrative: Diminished breath sounds bibasilarly. No wheezes or crackles. on room air. Auscultation: Negative for rales, rhonchi or wheezes Cardio regular rate, regular rhythm, S1 normal heart sound, S2 normal heart sound and no murmurs Rate: tachycardic GI normal to inspection, nondistended, normoactive bowel sounds, soft to palpation, non-tender and non-distended; Negative for hepatosplenomegaly Extremity normal to inspection, full ROM and no clubbing, cyanosis or edema General Extremity: edema bilateral; Negative for clubbing or cyanosis Skin no rashes or lesions noted Skin Narrative: jaundice General Skin Exam: jaundice Neuro oriented x3, CN's II-XII intact bilaterally, moves all extremities, no focal motor deficits and no sensory deficits noted Sensorium / Orientation: awake and alert Psych affect normal Appearance: appropriate Medical Records Data Medical Nutrition Assessment Dietitian: Malnutrition Criteria Met Start: 06/11/21 17:05 Freq: Status: Active Protocol: Document 06/19/21 16:16 JEIMY (Rec: 06/19/21 16:16 [email or web address] [id number]) Nutrition Malnutrition Evidence of Malnutrition Exists Yes Malnutrition (severe): Acute Illness/Injury Evidenced By Suboptimal Energy Intake ( Severe),Weight Loss (Severe) Clinical Problem Acute Disease or Injury Related Malnutrition Etiology Severe protein-calorie malnutrition in the context of acute illness related to ongoing poor appetite and inadequate oral intake Signs/Symptoms as evidenced by ~5.3% wt loss since adm and inadequate oral intake meeting <50% estimated nutrition needs x past 2 weeks Status Active Problem Recommendation Dietitian Recommendations/Changes Will change diet to liberal CHO CONTROL / No Added Salt d/ t s/s of malnutrition Will continue 120ml kayleigh or strawberry glucerna shake TID with meals. Will provide fortified pudding w/ lunch and dinner for increased nutrition if consumed. Weight / BMI Weight Weight: 186 lb 8.177 oz Body Mass Index (BMI) 28.4 ABG / Lab / Microbiology Data Result Diagrams: 06/21/21 06:15 06/20/21 17:20 Laboratory: Laboratory Results - last 24 hr 06/20/21 16:50: POC Glucose 466 H* 06/20/21 17:20: Glucose 472 H* 06/20/21 17:55: POC Glucose 472 H* 06/20/21 21:38: POC Glucose 272 H 06/21/21 06:15: WBC 17.7 H, RBC 4.31 L, Hgb 12.8 L, Hct 39.4 L, MCV 91.4, MCH 29.7, MCHC 32.5, RDW Std Deviation 45.8 H, RDW Coeff of Tony 13.6, Plt Count 286, MPV 10.4, Immature Gran % (Auto) 1.100 H, Neut % (Auto) 83.2 H, Lymph % (Auto) 8.1 L, [place] % (Auto) 7.1, Eos % (Auto) 0.3, Baso % (Auto) 0.2, Absolute Neuts (auto) 14.7 H, Absolute Lymphs (auto) 1.43, Nucleated RBC % 0 06/21/21 11:01: POC Glucose 262 H Microbiology: Microbiology 06/16/21 22:30 Urine, Clean Catch Legionella Antigen - Final 06/16/21 22:30 Urine, Clean Catch Streptococcus pneumoniae Antigen (M - Final 06/10/21 13:45 Blood Culture (Wb) - Anticubital Left Blood Culture - Final No growth in 5 days. 06/10/21 13:55 Blood Culture (Wb) - Anticubital Right Blood Culture - Final No growth in 5 days. D/C Instructions Discharge Diet: Low fat / Low cholesterol Discharge Activity: Return to Normal Activity Weight Bearing Status: Weight bearing as tolerated Call your doctor if you observe: Fever of 101 or Higher, Shortness of breath, Dizziness, Swelling in the ankles, Chest pain and Increased palpitations (irregular heartbeat) Meaningful Use Info Meaningful Use Diagnoses (Choose all that apply): None applicable Discharge Plan Admission Admit Date/Time: 06/10/21 16:58 Primary Reason for Your Visit: acute hypoxic respiratory failure due to covid Attending Provider: Alison Barr Primary Care Provider: Alana Draper Discharge Orders/Prescriptions Prescriptions: Continued ascorbic acid (vitamin C) [Vitamin C] 500 MG tablet 500 mg PO DAILY@0800 RF: 0 furosemide 40 MG tablet 40 mg PO BIDLX Qty: 60 RF: 0 aspirin 81 MG tablet 81 mg PO DAILY@0800 Qty: 30 RF: 0 carvedilol 12.5 mg tablet 25 mg PO BID RF: 0 glimepiride 1 mg tablet 1 mg PO BID RF: 0 metformin 500 mg tablet extended release 24 hr 1,000 mg PO BID RF: 0 lisinopril 5 MG tablet 5 mg PO DAILY RF: 0 Referrals / Follow Up: Alana Draper MD [Primary Care Provider] - Within 2 Weeks Dameon Carrion DO [STAFF PHYSICIAN] - Within 1 Month Care Physician,No Primary [NON-STAFF] - Disposition Disposition (needs filled in before D/C Order can be placed): Home, Self Care Charges/Coding Visit Charges Inpatient E&M: 61939 Disch Hosp
--- NOTE | 2021-06-21 14:08 | NURSING ---
still awaiting abdi from supplier to come for pt d/c
[2021-06-21 18:15] LABS: Bedside Glucose 127 mg/dL (70-110)
== END 2021-06-21 16:24 | disposition home or self-care (01) | DRG 177 ==
LOC: ED 16:19 → MS3 17:58
PROVIDERS: Admitting Provider Family Medicine; Emergency Provider Emergency Medicine; PCP Internal Medicine; Visit Provider Student in an Organized Health Care Education/Training Program
DX: U07.1 COVID-19 (principal); J12.82 Pneumonia due to coronavirus disease 2019; J96.01 Acute respiratory failure with hypoxia; E43 Unspecified severe protein-calorie malnutrition; D65 Disseminated intravascular coagulation [defibrination syndrome]; I50.32 Chronic diastolic (congestive) heart failure; R17 Unspecified jaundice; E80.4 Gilbert syndrome; I11.0 Hypertensive heart disease with heart failure; E11.65 Type 2 diabetes mellitus with hyperglycemia; T38.0X5A Adverse effect of glucocorticoids and synthetic analogues, initial encounter; E78.5 Hyperlipidemia, unspecified; F17.210 Nicotine dependence, cigarettes, uncomplicated; R16.0 Hepatomegaly, not elsewhere classified; Z79.82 Long term (current) use of aspirin; Z79.4 Long term (current) use of insulin; Z79.84 Long term (current) use of oral hypoglycemic drugs; Z79.899 Other long term (current) drug therapy
CPT/HCPCS: 36415; 71275; 76705; 80053; 80074; 82140; 82947; 82962; 83010; 83036; 83605; 83615; 83880; 84484; 85025; 85379; 85384; 85610; 85730; 86038; 86225; 86235; 87040; 87449; 93005; 94667; 94668; 94762; 97162; 97802; 99251; 99285; 99406; J7030; Q9967; A4216; G0463; J1940

== ENCOUNTER 2021-09-06 16:51 | Emergency (ER) | payer SELFPAY ==
[2021-09-06] VITALS (7 sets, daily range): BP systolic 100–117; BP diastolic 76–87; PULSE 83–96; RESP 14–20; TEMP 36–36.5; O2SAT 96–98; BMI 31.0
--- NOTE | 2021-09-06 17:14 | EKG12_ITS ---
Test Reason : SOB Blood Pressure : / mmHG Vent. Rate : 091 BPM Atrial Rate : 091 BPM P-R Int : 190 ms QRS Dur : 152 ms QT Int : 426 ms P-R-T Axes : 074 257 066 degrees QTc Int : 523 ms Sinus rhythm with occasional Premature ventricular complexes Non-specific intra-ventricular conduction block Inferior infarct , age undetermined Abnormal ECG Confirmed by MANA JOSEPH, BRI ([id number]), loan expeditor GERI CAPELLAN ([id number]) on 09/09/2021 10:56:31 AM Referred By: TL Confirmed By:BRI ADAIR MD
--- NOTE | 2021-09-06 17:15 | ED.VIS.DYS ---
HPI History of Present Illness Chief Complaint: Shortness of Breath Informant: patient Narrative Narrative: Patient presents progressive dyspnea for 2 weeks. No cough. States increased swelling legs into his abdomen. History of CHF on Lasix twice a day with no missed doses. Denies any liver cirrhosis history. Patient used to see cardiology Dr. Mariano in the past. Denies any chest pains. He does admit to orthopnea along with exertional dyspnea. No recent travel, surgeries, or immobilizations. No history of PE or DVT. Normal bowel movements with denies any black tarry or bloody stools. No home oxygen. Reports baseline typical weight is 210 pounds. He does not check his weight often. Prior similar symptoms: Yes PFSH [facility] Medical History (Updated 09/06/21 @ 20:[address] Wayne Cornejo DO) Cardiomyopathy Coagulopathy Congestive heart failure (CHF) Diabetes Gilbert's syndrome Hepatomegaly HTN (hypertension) Hyperlipidemia Jaundice Home Medications ascorbic acid (vitamin C) [Vitamin C] 500 mg PO DAILY@0800 05/30/13 [History Last Taken 2 Weeks Ago ~05/27/21] aspirin 81 mg PO DAILY@0800 #30 tablet 06/01/13 [Rx Last Taken 3 Days Ago ~06/07/21] furosemide 40 mg PO BIDLX #60 tablet 06/01/13 [Rx Last Taken 3 Days Ago ~06/07/21] carvedilol 25 mg PO BID 06/10/21 [History Last Taken 3 Days Ago ~06/07/21] glimepiride 1 mg PO BID 06/10/21 [History Last Taken 3 Days Ago ~06/07/21] lisinopril 5 mg PO DAILY 06/10/21 [History Last Taken 3 Days Ago ~06/07/21] metformin 1,000 mg PO BID 06/10/21 [History Last Taken 3 Days Ago ~06/07/21] Allergy/AdvReac Type Severity Reaction Status Date / Time No Known Allergies Allergy Verified 09/06/21 16:54 Family History (Updated 06/10/21 @ 19:[address] Jaun Doe MD) Other COPD (chronic obstructive pulmonary disease) Social History (Updated 06/10/21 @ 14:[address] Blue Horton DO) Smoking Status: Former smoker substance use type: does not use ROS ROS ED Constitutional Constitutional ED: Denies chills, fever(s) or sweats Eyes Eyes: Denies change in vision ENT ENT ED: Denies dysphagia or sore throat Cardiovascular Cardiovascular: Reports orthopnea; Denies chest pain, leg edema, palpitations or racing heartbeat Respiratory/Chest Respiratory/Chest: Reports dyspnea, dyspnea on exertion and orthopnea; Denies cough Gastrointestinal Gastrointestinal: Denies abdominal pain, diarrhea, nausea or vomiting Genitourinary Genitourinary ED: Denies dysuria, hematuria or urinary frequency Musculoskeletal Musculoskeletal: Denies back pain, extremity pain or neck pain Integumentary Denies rash or wounds Neurologic Neurologic: Denies headache(s), paresthesias or weakness EXAM Physical Exam Const Vital Signs: 09/06/21 16:52 09/06/21 17:09 09/06/21 17:10 Temperature 97.7 F L 97.7 F L Temperature Source Temporal Temporal Pulse Rate 96 90 Respiratory Rate 18 20 H Respiratory Effort Short of Breath Labored Respiratory Depth Normal Respiratory Pattern Normal Blood Pressure 100/76 100/76 Blood Pressure Mean 84 84 Pulse Ox 97 96 Oxygen Delivery Method Room Air Room Air Room Air 09/06/21 18:10 09/06/21 19:04 09/06/21 20:14 Temperature 96.8 F L Temperature Source Temporal Pulse Rate 93 83 83 Respiratory Rate 18 17 14 Respiratory Effort Respiratory Depth Respiratory Pattern Blood Pressure 104/81 H 117/87 H Blood Pressure Mean 88 Pulse Ox 96 96 98 Oxygen Delivery Method Room Air Room Air Positive well nourished and well developed General Appearance ED: well developed and NAD HEENT Reports moist mucous membranes normocephalic and atraumatic Eyes PERRL, EOMs intact bilaterally and conjunctivae normal Eyes Narrative: Mild pallor conjunctiva General Eye ED: Yes normal appearance of both eyes Neck no lymphadenopathy and supple General: Negative for tenderness Chest Wall Chest: Negative for tenderness Resp normal respiratory effort and normal air movement Effort and Inspection: symmetric chest movement; Negative for respiratory distress Cardio regular rate, regular rhythm and no murmurs Peripheral Pulses: pulses 2+ throughout GI normal to inspection, nondistended, normoactive bowel sounds and non-tender Palpation: Negative for guarding or rebound tenderness present Back/Spine no CVA tenderness and no thoracic nor lumbar tenderness Extremity normal to inspection Extremity Narrative: 2+ lower extremity pitting edema bilaterally. General Extremety ED: Yes edema; Negative for tenderness General Extremity: edema Neuro oriented x3 and no sensory deficits noted Sensorium / Orientation: awake and alert Skin no rashes or lesions noted and no wounds MDM MDM MDM Narrative Medical decision making narrative: Patient EKG with chronic findings. Approximately 10 pound weight gain from his baseline. He has had 2+ pitting edema. CHF work-up initiated BNP 828 creatinine 1.35 today. Is a hemolyzed potassium 5.8 rechecked at 3.7 hemoglobin 15.6. Chest x-ray reviewed by myself and read by radiology notes a right pleural effusion. Pulse ox at 97%, he was ambulated pulse ox down to 92% with mild dyspnea. Is not hypoxic this time. Is currently on Lasix 40 mg twice a day. Currently not hypoxic therefore plan will to try outpatient therapy. He is given 40 mg IV Lasix discussed increasing his Lasix to 80 mg twice a day for next 3 to 5 days. Discussed if significant improvement to go back down to 40 mg twice a day. Strict return precautions discussed with the patient. Patient understands agrees with plan. All questions were answered. Lab Data Attestation: I reviewed the patient's lab results. Labs: Laboratory Results - last 24 hr 09/06/21 09/06/21 09/06/21 17:19 17:19 17:19 WBC 10.4 RBC 5.14 Hgb 15.6 Hct 48.1 MCV 93.6 MCH 30.4 MCHC 32.4 RDW Std Deviation 50.7 H RDW Coeff of Tony 14.8 H Plt Count 289 MPV 10.3 Immature Gran % (Auto) 0.600 Neut % (Auto) 71.9 H Lymph % (Auto) 16.2 L [place] % (Auto) 9.6 Eos % (Auto) 0.8 Baso % (Auto) 0.9 Absolute Neuts (auto) 7.5 Absolute Lymphs (auto) 1.68 Nucleated RBC % 0 Sodium 136 Potassium 5.8 H Chloride 107 Carbon Dioxide 24.0 Anion Gap 5 BUN 26 H Creatinine 1.35 H Estim Creat Clear Calc 58.19 Est GFR (MDRD) Af Amer 69 Est GFR (MDRD) Non-Af 57 L BUN/Creatinine Ratio 19.3 Glucose 165 H Calcium 8.9 Total Bilirubin 1.20 H AST 59 H ALT 22 Alkaline Phosphatase 72 Troponin I High Sens 18 B-Natriuretic Peptide 820.5 H Total Protein 7.1 Albumin 2.9 L Globulin 4.2 Albumin/Globulin Ratio 0.7 L 09/06/21 19:03 WBC RBC Hgb Hct MCV MCH MCHC RDW Std Deviation RDW Coeff of Tony Plt Count MPV Immature Gran % (Auto) Neut % (Auto) Lymph % (Auto) [place] % (Auto) Eos % (Auto) Baso % (Auto) Absolute Neuts (auto) Absolute Lymphs (auto) Nucleated RBC % Sodium Potassium 3.7 Chloride Carbon Dioxide Anion Gap BUN Creatinine Estim Creat Clear Calc Est GFR (MDRD) Af Amer Est GFR (MDRD) Non-Af BUN/Creatinine Ratio Glucose Calcium Total Bilirubin AST ALT Alkaline Phosphatase Troponin I High Sens B-Natriuretic Peptide Total Protein Albumin Globulin Albumin/Globulin Ratio Radiography Chest X-Ray - ED: 1 View, Read by ED Physician and Read by Radiologist Diagnostic Testing: Clinical Impression(s) from Imaging Studies Chest X-Ray 09/06/21 17:25 IMPRESSION: 1. Mild cardiomegaly. 2. Right pleural effusion and atelectasis not previously seen.. Electronically Signed: Russell Majano DO at 18:04 EST Reading Location ID and State: [address] [place] [address] Tel [phone], Service support , EKG Initial EKG: Attestation: I personally reviewed and interpreted this EKG as follows: Comments: Sinus rhythm 91, widening QRS consistent with left bundle branch block however similar findings from June 2021. Discharge Plan Triage Chief Complaint: Shortness of Breath ED Provider: Wayne Cornejo Dx/Rx/DC Orders Clinical Impression: CHF (congestive heart failure), Dyspnea, Pleural effusion on right, Acute renal insufficiency Instructions: Heart Failure Dc Prescriptions: No Action ascorbic acid (vitamin C) [Vitamin C] 500 MG tablet 500 mg PO DAILY@0800 RF: 0 furosemide 40 MG tablet 40 mg PO BIDLX Qty: 60 RF: 0 aspirin 81 MG tablet 81 mg PO DAILY@0800 Qty: 30 RF: 0 carvedilol 12.5 mg tablet 25 mg PO BID RF: 0 glimepiride 1 mg tablet 1 mg PO BID RF: 0 metformin 500 mg tablet extended release 24 hr 1,000 mg PO BID RF: 0 lisinopril 5 MG tablet 5 mg PO DAILY RF: 0 Primary Care Provider: Gil Sevilla Referrals: Gil Sevilla MD [Primary Care Provider] - 3-5 Days Activity Restrictions/Additional Instructions: Chest x-ray right pleural effusion, creatinine 1.35 today. BNP 820. With ambulation your oxygen stable at 92%. Status post IV Lasix in the ED. Increase your oral Lasix at home to 80 mg (2 tabs ) twice a day for the next 3 to 5 days, especially improved go back to 1 tab twice a day. If symptoms worsen after the weekend return to the ED for reevaluation. Disposition Disposition: Home, Self Care Discharge Date/Time: 09/06/21 20:21
--- NOTE | 2021-09-06 17:25 | RAD_ITS ---
STUDY: X-RAY CHEST REASON FOR EXAM: Male, 61 years old. Shortness of breath since June when he had COVID. Swelling of the legs and abdomen. TECHNIQUE: Single AP portable view of the chest. COMPARISON: 06/01/2013. FINDINGS: Small right pleural effusion with subsegmental atelectasis. Lungs appear otherwise clear. Mild cardiomegaly. Normal mediastinum and adin. Normal visualized pulmonary arteries. Normal visualized aortic arch and descending thoracic aorta. Normal visualized thoracic spine. Normal visualized ribs, clavicles, and shoulders. There is no demonstrated abnormality of the visualized soft tissue structures of the upper abdomen. RAD/Chest 1 View (Portable) IMPRESSION: 1. Mild cardiomegaly. 2. Right pleural effusion and atelectasis not previously seen.. Electronically Signed: Russell Majano DO at 18:04 EST ,
[2021-09-06 17:34] LABS: Absolute Lymphocyte Count 1.68 X10^3/uL (0.83-4.51); Absolute Neutrophil Count 7.5 X10^3/uL (2.0-7.7); Basophil# 0.09 X10^3/uL; Basophil% 0.9 % (0-1); Eosinophil# 0.08 X10^3/uL; Eosinophils% 0.8 % (0-5); Hematocrit 48.1 % (40-54); Hemoglobin 15.6 g/dL (13.0-16.5); Lymphocyte # 1.68 X10^3/ul (0.83-4.51); Lymphocyte % 16.2 % (19-41); Mean Corp Hgb Conc 32.4 g/dL (32-36); Mean Corpuscular Hgb 30.4 pg (27.0-32.0); Mean Corpuscular Volume 93.6 fL (80-94); Mean Platelet Vol. 10.3 fl (6.2-12.0); Monocyte% 9.6 % (0-10); NRBC Flagged by Analyzer 0 % (0-5); Neutrophil # 7.47 X10^3/uL (2.7-7.7); Neutrophil % 71.9 % (47-70); Platelet Count 289 K/mm3 (150-450); RBC Distribution Width CV 14.8 % (11.6-14.6); RBC Distribution Width SD 50.7 fl (35.1-43.9); Red Blood Count 5.14 M/mm3 (4.6-6.2); White Blood Count 10.4 K/mm3 (4.4-11.0)
[2021-09-06 18:03] LABS: BNP,B-Type NATRIURETIC PEPTIDE 820.5 pg/mL (0-100)
[2021-09-06 18:29] LABS: ALB/GLOB Ratio 0.7 RATIO (0.9-2.4); AST(SGOT) 59 U/L (15-37); Alanine Aminotransfer ALT/SGPT 22 U/L (16-61); Albumin, Serum 2.9 g/dL (3.2-5.0); Alkaline Phosphatase 72 U/L (45-117); Anion Gap 5 (5-15); BUN 26 mg/dL (7-18); BUN/Creat Ratio 19.3 RATIO (10-20); Calcium,Total 8.9 mg/dL (8.5-10.1); Chloride 107 mmol/L (98-107); Creatinine, Serum 1.35 mg/dL (0.70-1.30); EST Glomerular Filtration Rate 57 mL/min (>60); Est Glom Filt Rate - Afr Amer 69 mL/min (>60); Estimated Creatinine Clearance 58.19 ml/min; Globulin 4.2 g/dL (2.2-4.2); Glucose 165 mg/dL (74-106); Potassium 5.8 mmol/L (3.5-5.1); Protein, Total 7.1 g/dL (6.4-8.2); Sodium Level 136 mmol/L (136-145); Troponin-I HS 18 pg/mL (3.0-78.0)
[2021-09-06 19:28] LABS: Potassium 3.7 mmol/L (3.5-5.1)
[2021-09-06] MEDS: Furosemide 40 MG/4 ML Vial IV (20:12)
== END 2021-09-06 20:21 | disposition home or self-care (01) ==
PROVIDERS: Emergency Provider Emergency Medicine; PCP Internal Medicine; Visit Provider Emergency Medicine
DX: I11.0 Hypertensive heart disease with heart failure (principal); I50.9 Heart failure, unspecified; E11.9 Type 2 diabetes mellitus without complications; N28.9 Disorder of kidney and ureter, unspecified; E78.5 Hyperlipidemia, unspecified; Z79.82 Long term (current) use of aspirin; Z79.84 Long term (current) use of oral hypoglycemic drugs; Z79.899 Other long term (current) drug therapy; Z87.891 Personal history of nicotine dependence
CPT/HCPCS: 36415; 71045; 80053; 83880; 84132; 84484; 85025; 87426; 93005; 96374; 99285; A4216; J1940

== ENCOUNTER 2021-10-03 16:47 | Inpatient (IN) | payer SELFPAY ==
[2021-10-03] VITALS (8 sets, daily range): BP systolic 94–106; BP diastolic 73–92; PULSE 65–109; RESP 14–97; TEMP 36.1–36.8; O2SAT 17–98; BMI 28.6
--- NOTE | 2021-10-03 17:30 | EKG12_ITS ---
Test Reason : Blood Pressure : / mmHG Vent. Rate : 082 BPM Atrial Rate : 082 BPM P-R Int : 182 ms QRS Dur : 140 ms QT Int : 428 ms P-R-T Axes : 075 268 071 degrees QTc Int : 500 ms Sinus rhythm with Blocked Premature atrial complexes with Premature supraventricular complexes Non-specific intra-ventricular conduction block Inferior infarct , age undetermined Abnormal ECG Confirmed by MANA JOSEPH, BRI ([id number]), editorial assistant GERI CAPELLAN ([id number]) on 10/04/2021 2:47:13 PM Referred By: CHRISTINA Confirmed By:BRI ADAIR MD
--- NOTE | 2021-10-03 17:32 | EDS_ITS ---
HPI History of Present Illness Chief Complaint: Shortness of Breath Informant: patient Onset/Context/Timing Onset: Month(s) Narrative Narrative: Patient states he was having an outpatient echocardiogram done at [facility] today. They told her it was abnormal and he needed to come to the emergency room. Patient reports shortness of breath since having COVID in May or June of last year. He denies chest pain. [facility] Medical History Cardiomyopathy Coagulopathy Congestive heart failure (CHF) Diabetes Gilbert's syndrome Hepatomegaly HTN (hypertension) Hyperlipidemia Jaundice Home Medications ascorbic acid (vitamin C) [Vitamin C] 500 mg PO DAILY@0800 05/30/13 [History Last Taken 10/02/21] aspirin 81 mg PO DAILY@0800 #30 tablet 06/01/13 [Rx Last Taken 10/02/21] furosemide 40 mg PO BIDLX #60 tablet 06/01/13 [Rx Last Taken 10/02/21] metformin 1,000 mg PO BID 06/10/21 [History Last Taken 10/02/21] cephalexin 500 mg PO TID 10/03/21 [History Last Taken 10/02/21] glimepiride 4 mg PO DAILY 10/03/21 [History Last Taken 10/02/21] spironolactone 25 mg PO BID 10/03/21 [History Last Taken 10/02/21] Allergy/AdvReac Type Severity Reaction Status Date / Time No Known Allergies Allergy Verified 10/03/21 16:55 Family History Other COPD (chronic obstructive pulmonary disease) Social History Smoking Status: Former smoker substance use type: does not use ROS ROS ED Constitutional Constitutional ED: Denies chills or fever(s) Eyes Eyes: Denies change in vision ENT ENT ED: Denies sore throat Cardiovascular Cardiovascular: Denies chest pain Respiratory/Chest Respiratory/Chest: Reports dyspnea; Denies cough Gastrointestinal Gastrointestinal: Denies abdominal pain, nausea or vomiting Genitourinary Genitourinary ED: Denies dysuria Musculoskeletal Musculoskeletal: Denies back pain Integumentary Reports other Details: Right lower extremity wounds ; Denies rash Neurologic Neurologic: Denies headache(s) or weakness Allergic/Immunologic Allergic/Immunologic ED: Denies urticaria EXAM Physical Exam Const Vital Signs: 10/03/21 16:54 10/03/21 17:47 10/03/21 19:43 Temperature 97.0 F L Temperature Source Temporal Pulse Rate 99 107 H 109 H Respiratory Rate 14 16 18 Respiratory Effort Normal Non-Labored Respiratory Depth Normal Respiratory Pattern Normal Blood Pressure 103/75 94/73 106/92 H Blood Pressure Mean 84 80 96 Pulse Ox 95 98 95 Oxygen Delivery Method Room Air Room Air Room Air Positive well nourished and well developed General Appearance ED: well developed HEENT Reports moist mucous membranes Eyes PERRL and EOMs intact bilaterally Neck supple Chest Wall inspection of chest normal and palpation of chest normal Resp normal respiratory effort and clear to auscultation bilaterally Cardio Rate: tachycardic Rhythm: abnormal rhythm GI non-tender Palpation: soft Extremity Extremity Narrative: Mild edema to the lower extremities. Scabbed wounds to the right lower extremity without sign of secondary infection. Neuro oriented x3 Sensorium / Orientation: alert Psych mental status grossly normal MDM MDM MDM Narrative Medical decision making narrative: Patient placed on security monitor. EKG, chest x-ray, lab work obtained. Lab Data Attestation: I reviewed the patient's lab results. Labs: Laboratory Results - last 24 hr 10/03/21 10/03/21 10/03/21 18:00 18:00 18:00 WBC 8.5 RBC 5.36 Hgb 15.2 Hct 45.8 MCV 85.4 MCH 28.4 MCHC 33.2 RDW Std Deviation 45.8 H RDW Coeff of Tony 14.6 Plt Count 299 MPV 10.1 Immature Gran % (Auto) 0.200 Neut % (Auto) 76.0 H Lymph % (Auto) 12.7 L [place] % (Auto) 9.8 Eos % (Auto) 0.7 Baso % (Auto) 0.6 Absolute Neuts (auto) 6.4 Absolute Lymphs (auto) 1.08 Nucleated RBC % 0 PT 16.6 H INR 1.4 APTT 31.7 D-Dimer Quant (PE/DVT) 3.53 H* Sodium 140 Potassium 3.9 Chloride 103 Carbon Dioxide 27.0 Anion Gap 10 BUN 21 H Creatinine 1.27 Estim Creat Clear Calc 63.87 Est GFR (MDRD) Af Amer 74 Est GFR (MDRD) Non-Af 61 BUN/Creatinine Ratio 16.5 Glucose 214 H Calcium 9.3 Troponin I High Sens 22 B-Natriuretic Peptide 10/03/21 18:00 WBC RBC Hgb Hct MCV MCH MCHC RDW Std Deviation RDW Coeff of Tony Plt Count MPV Immature Gran % (Auto) Neut % (Auto) Lymph % (Auto) [place] % (Auto) Eos % (Auto) Baso % (Auto) Absolute Neuts (auto) Absolute Lymphs (auto) Nucleated RBC % PT INR APTT D-Dimer Quant (PE/DVT) Sodium Potassium Chloride Carbon Dioxide Anion Gap BUN Creatinine Estim Creat Clear Calc Est GFR (MDRD) Af Amer Est GFR (MDRD) Non-Af BUN/Creatinine Ratio Glucose Calcium Troponin I High Sens B-Natriuretic Peptide 1849.0 H Radiography Chest X-Ray - ED: 1 View and - (Loculated effusion on the right lung.) Diagnostic Testing: Clinical Impression(s) from Imaging Studies Chest X-Ray 10/03/21 18:21 IMPRESSION: Pulmonary findings appear worse. Electronically Signed: Jose Carlos Orozco MD at 18:42 EDT , Chest CTA 10/03/21 19:01 IMPRESSION: Suspect segmental pulmonary embolus within right upper lobe pulmonary artery. Mediastinal lymphadenopathy is nonspecific. Diffuse heterogeneous appearance of right lung with scarring/atelectasis and moderate loculated effusion. Pneumonia should be excluded clinically. Electronically Signed: Archie Wallace MD at 20:43 EDT , ADDENDUM: 10/03/212100 IMPRESSION: Suspect segmental pulmonary embolus within right upper lobe pulmonary artery. Mediastinal lymphadenopathy is nonspecific. Diffuse heterogeneous appearance of right lung with scarring/atelectasis and moderate loculated effusion. Pneumonia should be excluded clinically. N.B. : The above Results were Read Back by Archie Wallace MD to Keyonna Reardon MD, and understanding confirmed on 10/03/2021 20:54:17 (ET). Electronically Signed: Archie Wallace MD at 20:43 EDT , EKG Initial EKG: Attestation: I personally reviewed and interpreted this EKG as follows: Interpretation: Sinus Rhythm (Sinus at 82 with PACs. No acute ischemia.) Treatment and Re-Evaluation Narrative: Lab work reveals normal CBC and chemistry studies. BNP is 1800. Troponin is normal at 22. D-dimer is elevated at 3.5. CTA of the chest is ob tained. This does reveal evidence of a segmental PE in the right upper lobe. There is a moderate loculated effusion on the right. Test results are discussed with the patient. He has had significant dyspnea at home especially with any exertion. His BNP is elevated with a loculated effusion. He will be given a dose of Lasix to see if we can diurese any of this fluid off. He is also given a dose of Lovenox for PE. I will discuss with hospitalist regarding observation overnight for treatment and evaluation for improvement. Discharge Plan Triage Chief Complaint: Shortness of Breath ED Provider: Keyonna Lopez Dx/Rx/DC Orders Clinical Impression: Pulmonary embolism, Loculated pleural effusion, Dyspnea Prescriptions: No Action ascorbic acid (vitamin C) [Vitamin C] 500 MG tablet 500 mg PO DAILY@0800 RF: 0 furosemide 40 MG tablet 40 mg PO BIDLX Qty: 60 RF: 0 aspirin 81 MG tablet 81 mg PO DAILY@0800 Qty: 30 RF: 0 metformin 500 mg tablet extended release 24 hr 1,000 mg PO BID RF: 0 spironolactone 25 mg tablet 25 mg PO BID RF: 0 cephalexin 500 mg capsule 500 mg PO TID RF: 0 glimepiride 4 mg tablet 4 mg PO DAILY RF: 0 Primary Care Provider: Gil Sevilla Referrals: Gil Sevilla MD [Primary Care Provider] - Disposition Disposition: Acute Care Hospital [facility]
[2021-10-03 18:13] LABS: Absolute Lymphocyte Count 1.08 X10^3/uL (0.83-4.51); Absolute Neutrophil Count 6.4 X10^3/uL (2.0-7.7); Basophil# 0.05 X10^3/uL; Basophil% 0.6 % (0-1); Eosinophil# 0.06 X10^3/uL; Eosinophils% 0.7 % (0-5); Hematocrit 45.8 % (40-54); Hemoglobin 15.2 g/dL (13.0-16.5); Lymphocyte # 1.08 X10^3/ul (0.83-4.51); Lymphocyte % 12.7 % (19-41); Mean Corp Hgb Conc 33.2 g/dL (32-36); Mean Corpuscular Hgb 28.4 pg (27.0-32.0); Mean Corpuscular Volume 85.4 fL (80-94); Mean Platelet Vol. 10.1 fl (6.2-12.0); Monocyte# 0.83 X10^3/uL; Monocyte% 9.8 % (0-10); NRBC Flagged by Analyzer 0 % (0-5); Neutrophil # 6.44 X10^3/uL (2.7-7.7); Platelet Count 299 K/mm3 (150-450); RBC Distribution Width CV 14.6 % (11.6-14.6); RBC Distribution Width SD 45.8 fl (35.1-43.9); Red Blood Count 5.36 M/mm3 (4.6-6.2); White Blood Count 8.5 K/mm3 (4.4-11.0)
--- NOTE | 2021-10-03 18:21 | RAD_ITS ---
STUDY: X-RAY CHEST REASON FOR EXAM: Male, 61 years old. CHEST PAIN sob TECHNIQUE: XR Chest 1 View COMPARISON: 3.4. FINDINGS: There is a right pleural effusions. There is a right infiltrates. There is moderate cardiac enlargement. Normal mediastinum and adin. Normal visualized pulmonary arteries. There is atherosclerotic calcification of the aortic arch with tortuosity. There are diffuse degenerative changes of the visualized thoracic spine. There is degenerative osteoarthritis of the bilateral shoulders. There is no demonstrated abnormality of the visualized soft tissue structures of the upper abdomen. RAD/Chest 1 View (Portable) IMPRESSION: Pulmonary findings appear worse. Electronically Signed: Jose Carlos Orozco MD at 18:42 EDT ,
[2021-10-03 18:24] LABS: International Normalized Ratio 1.4; Prothrombin Time (Protime)PT. 16.6 SECONDS (11.7-14.9)
[2021-10-03 18:25] LABS: Partial Thromboplast Time 31.7 Seconds (24.1-36.2)
[2021-10-03 18:35] LABS: Anion Gap 10 (5-15); BUN 21 mg/dL (7-18); BUN/Creat Ratio 16.5 RATIO (10-20); Calcium,Total 9.3 mg/dL (8.5-10.1); Chloride 103 mmol/L (98-107); Creatinine, Serum 1.27 mg/dL (0.70-1.30); EST Glomerular Filtration Rate 61 mL/min (>60); Est Glom Filt Rate - Afr Amer 74 mL/min (>60); Estimated Creatinine Clearance 63.87 ml/min; Glucose 214 mg/dL (74-106); Potassium 3.9 mmol/L (3.5-5.1); Sodium Level 140 mmol/L (136-145); Troponin-I HS 22 pg/mL (3.0-78.0)
--- NOTE | 2021-10-03 19:01 | CT_ITS ---
We are attempting to reach an attending provider to discuss findings. An addendum with communication details will be sent when the communication is complete. STUDY: CTA CHEST REASON FOR EXAM: Male, 61 years old. Sob RADIATION DOSAGE (If Supplied By Facility): CTDIvol = ( 18.40 ) mGy, DLP = ( 446.37 ) mGycm TECHNIQUE: The examination was performed with the intravenous administration of IV 100mL Isovue-370. Post-processing of the angiographic images was performed, with multiplanar reformation and 3D reconstruction. Individualized dose optimization techniques were used for this CT. COMPARISON: 06/10/2021 FINDINGS: Normal enhancement of the main pulmonary artery and right and left pulmonary arteries. Normal enhancement of the bilateral peripheral pulmonary arteries. Heterogeneous opacification of branch of the pulmonary artery to the anterior right upper lobe best seen series 2 image 120. Normal thoracic aorta and visualized great vessels. Limited evaluation for dissection based on poor opacification of the aorta. There is cardiomegaly. Multiple enlarged lymph nodes are noted predominantly within the superior right mediastinum. Normal hilar regions. Normal visualized trachea and bronchi. Extensive consolidation and atelectasis of the right lung with a moderate right effusion and loculated fluid collections. Small left effusion. Normal chest wall structures. Normal osseous structures. Upper abdomen demonstrates small amount of ascites and cirrhosis. CT/CTA Chest W/WO Contrast IMPRESSION: Suspect segmental pulmonary embolus within right upper lobe pulmonary artery. Mediastinal lymphadenopathy is nonspecific. Diffuse heterogeneous appearance of right lung with scarring/atelectasis and moderate loculated effusion. Pneumonia should be excluded clinically. Electronically Signed: Archie Wallace MD at 20:43 EDT ,
[2021-10-03 19:19] LABS: D-Dimer Quantitative (DVT/PE) 3.53 FEU/ug/m (0.27-0.49)
--- NOTE | 2021-10-03 21:51 | PCM.HP.STD ---
[facility] - General General Date of Admission: 10/03/21 HPI Narrative INDU ROD, is a 61 M with a significant history of congestive heart failure diagnosed many years ago who presents to the emergency department with persistent shortness of breath that started from late May to June 2021 with developing covid. He also reported that with Covid he developed Covid toes. Because of his persistent shortness of breath, his PCP ordered an echocardiogram that was done on the same day of presentation. Reportedly information technology account manager realized that patient ejection fraction had dropped from previous value. Patient was short of breath while echocardiogram was being done. Also reportedly patient was found to be in A. fib. Patient was instructed come to emergency department. At the emergent department CTA found the patient has a loculated pleural effusion and pulmonary embolism. [facility] Medical History Cardiomyopathy Coagulopathy Congestive heart failure (CHF) CPAP (continuous positive airway pressure) dependence Diabetes Former smoker Gilbert's syndrome Hepatomegaly HTN (hypertension) Hyperlipidemia Jaundice Sleep apnea Home Medications ascorbic acid (vitamin C) [Vitamin C] 500 mg PO DAILY@0800 05/30/13 [History Last Taken 10/02/21 500 mg] aspirin 81 mg PO DAILY@0800 #30 tablet 06/01/13 [Rx Last Taken 10/02/21 81 mg] furosemide 40 mg PO BIDLX #60 tablet 06/01/13 [Rx Last Taken 10/02/21 40 mg] metformin 1,000 mg PO BID 06/10/21 [History Last Taken 10/02/21 500 mg] cephalexin 500 mg PO TID 10/03/21 [History Last Taken 10/02/21 500 mg] glimepiride 4 mg PO DAILY 10/03/21 [History Last Taken 10/02/21 4 mg] spironolactone 25 mg PO BID 10/03/21 [History Last Taken 10/02/21 25 mg] Allergy/AdvReac Type Severity Reaction Status Date / Time No Known Allergies Allergy Verified 10/03/21 16:55 Family History Other COPD (chronic obstructive pulmonary disease) Surgical History no surgical history no surgical history Social History Smoking Status: Former smoker substance use type: does not use ROS ROS Narrative Constitutional: Reports fatigue and anorexia. Reports that he has gained about 2030 pounds in the past 2 to 3 weeks. Denies fever, chills. Eyes: Denies blurry vision, change in eye color, change in vision, discharge from eye(s), double vision, erythema, eye pain, loss of vision or other HEENT: Denies abnormal hearing, dysphagia, ear pain, epistaxis, headache(s), hearing loss, nasal congestion, nasal discharge, post nasal drip, sinus pressure, sore throat or other Cardiovascular: Denies chest pain or palpitations. Reports orthopnea and paroxysmal nocturnal dyspnea Respiratory/Chest: Denies cough, excessive phlegm production. Reports shortness of breath. Reports bilateral leg swelling and abdominal swelling. Gastrointestinal: Denies abdominal pain, coffee ground emesis, constipation, diarrhea, dyspepsia, hematemesis, hematochezia, loose stools, melena, nausea, vomiting or other Genitourinary: Denies burning urination, difficulty urinating, dysuria, hematuria, nocturia, urinary frequency, urinary hesitancy, urinary incontinence, urinary urgency or other Musculoskeletal: Denies arthralgias, back pain, joint pain, joint stiffness, joint swelling, myalgias, neck pain or other Neurologic: Denies abnormal gait, abnormal speech, confusion, disequilibrium, dizziness, focal weakness, headache(s), numbness, paresthesias, seizure-like activity, seizures, syncope, tingling, tremor(s) or other Psychiatric: Denies anxiety, depression, homicidal ideation, suicidal ideation or other Endocrinology: Denies change in body appearance, cold intolerance, excessive sweating, heat intolerance, polydipsia, polyuria or other Hematologic/Lymphatic: Denies anemia, easy bleeding, easy bruising, lymphadenopathy or other Integumentary: Reports wounds on right leg. Allergic/Immunologic: Denies rhinitis, hives, eczema, or other Vital Signs Vital Signs Vital Signs: 10/03/21 16:54 10/03/21 17:47 10/03/21 19:43 Temperature 97.0 F L Temperature Source Temporal Pulse Rate 99 107 H 109 H Respiratory Rate 14 16 18 Respiratory Effort Normal Non-Labored Respiratory Depth Normal Respiratory Pattern Normal Blood Pressure 103/75 94/73 106/92 H Blood Pressure Mean 84 80 96 Pulse Ox 95 98 95 Oxygen Delivery Method Room Air Room Air Room Air Weight Weight: 95 kg Body Mass Index (BMI) 30.0 Physical Exam Narrative Physical exam: General: Well-nourished, well-developed. Head: Normocephalic, atraumatic, no tenderness Eyes: Vision is grossly intact. EOMI ENT, no trauma, moist mucous membranes, no rhinorrhea Neck: Nontender, full range of motion, no spinal tenderness, deformities, step-off CVS: Regular rate and rhythm. S1-S2 present. No murmur, gallop or rub. Respiratory : Rales. Chest wall nontender, no wheezing Abdomen: Soft, nontender, nondistended, normal bowel sounds, no masses : Deferred Back: Nontender, no CVA tenderness, no midline spinal tenderness, deformities, step-offs Extremities: 2+ edema on bilateral legs. Nontender full range of motion, no trauma Skin: Wounds and erythema of right leg. Normal color Neuro: Alert, oriented, cranial nerves II through XII grossly intact. Psychiatry: Normal mood. Normal affect. Not depressed. Not anxious. Results Lab / Micro Data Result Diagrams: 10/03/21 18:00 10/03/21 18:00 Labs: Laboratory Results - last 24 hr 10/03/21 18:00: WBC 8.5, RBC 5.36, Hgb 15.2, Hct 45.8, MCV 85.4, MCH 28.4, MCHC 33.2, RDW Std Deviation 45.8 H, RDW Coeff of Tony 14.6, Plt Count 299, MPV 10.1, Immature Gran % (Auto) 0.200, Neut % (Auto) 76.0 H, Lymph % (Auto) 12.7 L, [place] % (Auto) 9.8, Eos % (Auto) 0.7, Baso % (Auto) 0.6, Absolute Neuts (auto) 6.4, Absolute Lymphs (auto) 1.08, Nucleated RBC % 0 10/03/21 18:00: PT 16.6 H, INR 1.4, APTT 31.7, D-Dimer Quant (PE/DVT) 3.53 H* 10/03/21 18:00: Sodium 140, Potassium 3.9, Chloride 103, Carbon Dioxide 27.0, Anion Gap 10, BUN 21 H, Creatinine 1.27, Estim Creat Clear Calc 63.87, Est GFR (MDRD) Af Amer 74, Est GFR (MDRD) Non-Af 61, BUN/Creatinine Ratio 16.5, Glucose 214 H, Calcium 9.3, Troponin I High Sens 22 10/03/21 18:00: B-Natriuretic Peptide 1849.0 H Radiology Impression Chest X-Ray 10/03/21 18:21 IMPRESSION: Pulmonary findings appear worse. Electronically Signed: Jose Carlos Orozco MD at 18:42 EDT , Chest CTA 10/03/21 19:01 IMPRESSION: Suspect segmental pulmonary embolus within right upper lobe pulmonary artery. Mediastinal lymphadenopathy is nonspecific. Diffuse heterogeneous appearance of right lung with scarring/atelectasis and moderate loculated effusion. Pneumonia should be excluded clinically. Electronically Signed: Archie Wallace MD at 20:43 EDT , ADDENDUM: 10/03/21 210 IMPRESSION: Suspect segmental pulmonary embolus within right upper lobe pulmonary artery. Mediastinal lymphadenopathy is nonspecific. Diffuse heterogeneous appearance of right lung with scarring/atelectasis and moderate loculated effusion. Pneumonia should be excluded clinically. N.B. : The above Results were Read Back by Archie Wallace MD to Keyonna Reardon MD, and understanding confirmed on 10/03/2021 20:54:17 (ET). Electronically Signed: Archie Wallace MD at 20:43 EDT , Assessment & Plan Assessment/Plan (1) Pulmonary embolism: QUALIFIERS: Acute cor pulmonale presence: without acute cor pulmonale Chronicity: acute Pulmonary embolism type: other Qualified Code(s): I26.99 - Other pulmonary embolism without acute cor pulmonale (2) Loculated pleural effusion: (3) CHF (congestive heart failure): QUALIFIERS: Heart failure chronicity: acute Heart failure type: systolic Qualified Code(s): I50.21 - Acute systolic (congestive) heart failure PLAN: Pulmonary embolism D-dimer on presentation was 3.53 Chest CTA was visualized and independently interpreted and agree radiology interpretation. Received Lovenox at the emergency department. Follow-up echocardiogram reportedly done outpatient. Hold on anticoagulation for now for thoracentesis and consider resuming. Chest x-ray was visualized and independently interpreted. Chest x-ray showed right pleural effusion; opacity and consolidation of right lung. Previous chest x-ray images reviewed showed chronic right-sided pleural effusion. Acute Congestive heart failure with loculated pleural effusion Order to obtain records from where patient had his echocardiogram on 10/02/2021. Review of labs showed BNP of 1,849. His BNP on 09/06/2021 was 820.5. Review of record showed an echocardiogram on 11/11/2013: Ejection fraction was 40%. Echocardiogram on 07/26/2013 showed ejection fraction of 30%. Thoracentesis with fluid studies and cytology ordered for diagnostic and therapeutic purposes. Serum LDH and protein ordered. Lasix IV push received in the emergency department and continued. Supplement potassium. Continue Aldactone. Fluid restriction ordered. Strict intake and output. Daily weights. John wrap to bilateral lower legs. Review of records show that previously patient was on lisinopril 5 mg and Coreg 25 mg twice daily. Unclear while patient does not have this on home med list. Blood pressures are soft. Lisinopril 12.5 mg ordered. Coreg 3.125 mg twice daily ordered. Right leg wounds infection and cellulitis Patient stated that this is from COVID Continue home antibiotics Diabetes mellitus Patient with hyperglycemia on presentation Glimepiride continued. Hold Metformin. Accu-Chek QA [facility] with correction scale insulin ordered. DVT prophylaxis Patient is here for acute PE. Treatment as in PE. Charges/Coding Visit Charges OBSV E&M: 74524 Initial observation care L3
[2021-10-03] MEDS: Enoxaparin 100 MG/ML Syringe 90 MG SC (22:32)
[2021-10-03] MEDS: Furosemide 40 MG/4 ML Vial IV (22:32)
--- NOTE | 2021-10-03 23:05 | EKG12_ITS ---
Test Reason : ADMIT EKG Blood Pressure : / mmHG Vent. Rate : 100 BPM Atrial Rate : 100 BPM P-R Int : 182 ms QRS Dur : 146 ms QT Int : 408 ms P-R-T Axes : 065 257 072 degrees QTc Int : 526 ms Normal sinus rhythm Non-specific intra-ventricular conduction block Abnormal ECG Confirmed by CAROL JOSEPH, MACHELLE ([id number]), metropolitan editor GARTH ERVIN ([id number]) on 10/08/2021 1:16:23 PM Referred By: DR PATTON Confirmed By:MACHELLE MEDINA MD
[2021-10-04] VITALS (15 sets, daily range): BP systolic 84–119; BP diastolic 60–87; PULSE 78–120; RESP 12–20; TEMP 36.3–36.7; O2SAT 93–99
--- NOTE | 2021-10-04 01:27 | US_ITS ---
PROCEDURE: ULTRASOUND GUIDED THORACENTESIS. DATE: 10/04/2021. INDICATION: Male, 61 years old. Right pleural effusion. PHYSICIAN: Inder Melendez M.D. PROCEDURE: The risks, benefits, and alternatives to the procedure were explained to the patient. The specific risks of bleeding, infection, and pneumothorax requiring chest tube insertion were discussed and accepted. Written informed consent was obtained. Ultrasonographic evaluation of the right lower pleural space was carried out. An adequate pocket was identified. The patient was placed in the sitting, upright position. The overlying skin was prepped and draped in sterile fashion. 1% lidocaine was administered subcutaneously for local anesthesia. Under ultrasound guidance, a5 Dominican thoracentesis needle/catheter system was advanced into the right posterior lower pleural fluid collection. Approximately 250 mL of gloria-colored fluid was drained. The catheter was removed, and a sterile dressing was applied. A specimen was collected and sent to the laboratory for analysis, as requested by the referring clinician. The patient tolerated the procedure well. A chest x-ray was ordered. US/Thoracentesis W US IMPRESSION: Ultrasound-guided right thoracentesis. Electronically Signed: Inder Melendez MD at 13:56 EDT ,
[2021-10-04] MEDS: Cephalexin 500 MG Capsule PO ×3 (06:14→21:15)
[2021-10-04] MEDS: Insulin Lispro 100 UNIT/ML INSULN.PEN SC ×4 (06:35→21:24)
[2021-10-04 06:46] LABS: Bedside Glucose 166 mg/dL (74-106)
[2021-10-04 07:12] LABS: Absolute Lymphocyte Count 1.51 X10^3/uL (0.83-4.51); Absolute Neutrophil Count 5.3 X10^3/uL (2.0-7.7); Basophil# 0.07 X10^3/uL; Basophil% 0.9 % (0-1); Eosinophil# 0.03 X10^3/uL; Eosinophils% 0.4 % (0-5); Hematocrit 47.5 % (40-54); Hemoglobin 15.4 g/dL (13.0-16.5); Lymphocyte # 1.51 X10^3/ul (0.83-4.51); Lymphocyte % 19.1 % (19-41); Mean Corp Hgb Conc 32.4 g/dL (32-36); Mean Corpuscular Hgb 27.8 pg (27.0-32.0); Mean Corpuscular Volume 85.9 fL (80-94); Mean Platelet Vol. 10.5 fl (6.2-12.0); Monocyte% 12.6 % (0-10); NRBC Flagged by Analyzer 0 % (0-5); Neutrophil # 5.26 X10^3/uL (2.7-7.7); Neutrophil % 66.5 % (47-70); Platelet Count 295 K/mm3 (150-450); RBC Distribution Width CV 14.7 % (11.6-14.6); Red Blood Count 5.53 M/mm3 (4.6-6.2); White Blood Count 7.9 K/mm3 (4.4-11.0)
[2021-10-04 07:43] LABS: ALB/GLOB Ratio 0.8 RATIO (0.9-2.4); Globulin 3.9 g/dL (2.2-4.2); LDH 221 U/L (87-241)
[2021-10-04] MEDS: Aspirin E.C. 81 MG Tablet PO (08:40)
[2021-10-04] MEDS: Potassium Chloride Oral Tablet 20 MEQ 40 MEQ PO (08:40)
[2021-10-04] MEDS: Spironolactone 25 MG Tablet PO (08:40)
[2021-10-04] MEDS: Furosemide 40 MG/4 ML Vial IV (08:41)
[2021-10-04] MEDS: Glimepiride 4 MG Tablet PO (08:41)
[2021-10-04] MEDS: Lisinopril 2.5 MG Tablet PO (08:41)
[2021-10-04] MEDS: Ascorbic Acid 500 MG Tablet PO (08:41)
[2021-10-04] MEDS: Carvedilol 3.125 MG TABLET PO (08:41)
[2021-10-04] MEDS: Glucerna Shake 120 ML LIQUID PO ×4 (08:49→21:14)
[2021-10-04 09:02] LABS: Anion Gap 7 (5-15); BUN 22 mg/dL (7-18); BUN/Creat Ratio 18.8 RATIO (10-20); Calcium,Total 9.1 mg/dL (8.5-10.1); Chloride 102 mmol/L (98-107); Creatinine, Serum 1.17 mg/dL (0.70-1.30); EST Glomerular Filtration Rate 68 mL/min (>60); Est Glom Filt Rate - Afr Amer 82 mL/min (>60); Estimated Creatinine Clearance 69.33 ml/min; Glucose 149 mg/dL (74-106); Potassium 3.6 mmol/L (3.5-5.1); Sodium Level 139 mmol/L (136-145)
--- NOTE | 2021-10-04 10:23 | PCM.PN.HOSP ---
Documented by User: Jorge A CARVER 10/04/21 10:58 Subjective Subjective Patient is a 61-year-old male comfortably resting in bed, alert and orient x3. Patient reports that his shortness of breath has improved as he is no longer requiring oxygen to assist him in breathing. Denies development of any new symptoms overnight. Does not appear in acute distress. Objective Data Objective Data Vital Signs: Vital Signs Temp Pulse Resp BP Pulse Ox 97.3 F L 94 18 114/87 H 93 10/04/21 08:34 10/04/21 08:34 10/04/21 08:34 10/04/21 08:34 10/04/21 08:34 Oxygen Delivery Method Room Air Weight: 200 lb 2.876 oz Body Mass Index (BMI) 28.6 Intake & Output: Intake and Output for Last 24 Hours 10/02/21 10/03/21 10/04/21 23:59 23:59 23:59 Intake Total 200 / 200 940 / 940 Output Total 225 / 225 Balance 200 / 200 715 / 715 Lab / Micro Data Result Diagrams: 10/04/21 05:50 10/04/21 05:50 Labs: Laboratory Results - last 24 hr 10/03/21 18:00: WBC 8.5, RBC 5.36, Hgb 15.2, Hct 45.8, MCV 85.4, MCH 28.4, MCHC 33.2, RDW Std Deviation 45.8 H, RDW Coeff of Tony 14.6, Plt Count 299, MPV 10.1, Immature Gran % (Auto) 0.200, Neut % (Auto) 76.0 H, Lymph % (Auto) 12.7 L, [place] % (Auto) 9.8, Eos % (Auto) 0.7, Baso % (Auto) 0.6, Absolute Neuts (auto) 6.4, Absolute Lymphs (auto) 1.08, Nucleated RBC % 0 10/03/21 18:00: PT 16.6 H, INR 1.4, APTT 31.7, D-Dimer Quant (PE/DVT) 3.53 H* 10/03/21 18:00: Sodium 140, Potassium 3.9, Chloride 103, Carbon Dioxide 27.0, Anion Gap 10, BUN 21 H, Creatinine 1.27, Estim Creat Clear Calc 63.87, Est GFR (MDRD) Af Amer 74, Est GFR (MDRD) Non-Af 61, BUN/Creatinine Ratio 16.5, Glucose 214 H, Calcium 9.3, Troponin I High Sens 22 10/03/21 18:00: B-Natriuretic Peptide 1849.0 H 10/04/21 05:50: WBC 7.9, RBC 5.53, Hgb 15.4, Hct 47.5, MCV 85.9, MCH 27.8, MCHC 32.4, RDW Std Deviation 46.0 H, RDW Coeff of Tony 14.7 H, Plt Count 295, MPV 10.5, Immature Gran % (Auto) 0.500, Neut % (Auto) 66.5, Lymph % (Auto) 19.1, [place] % (Auto) 12.6 H, Eos % (Auto) 0.4, Baso % (Auto) 0.9, Absolute Neuts (auto) 5.3, Absolute Lymphs (auto) 1.51, Nucleated RBC % 0 10/04/21 05:50: Sodium 139, Potassium 3.6, Chloride 102, Carbon Dioxide 30.0, Anion Gap 7, BUN 22 H, Creatinine 1.17, Estim Creat Clear Calc 69.33, Est GFR (MDRD) Af Amer 82, Est GFR (MDRD) Non-Af 68, BUN/Creatinine Ratio 18.8, Glucose 149 H, Calcium 9.1 10/04/21 05:50: Lactate Dehydrogenase 221, Total Protein 7.0, Globulin 3.9, Albumin/Globulin Ratio 0.8 L 10/04/21 06:32: POC Glucose 166 H Radiography Diagnostic Testing: Radiology Impression Chest X-Ray 10/03/21 18:21 IMPRESSION: Pulmonary findings appear worse. Electronically Signed: Jose Carlos Orozco MD at 18:42 EDT , Chest CTA 10/03/21 19:01 IMPRESSION: Suspect segmental pulmonary embolus within right upper lobe pulmonary artery. Mediastinal lymphadenopathy is nonspecific. Diffuse heterogeneous appearance of right lung with scarring/atelectasis and moderate loculated effusion. Pneumonia should be excluded clinically. Electronically Signed: Archie Wallace MD at 20:43 EDT , ADDENDUM: 10/03/212100 IMPRESSION: Suspect segmental pulmonary embolus within right upper lobe pulmonary artery. Mediastinal lymphadenopathy is nonspecific. Diffuse heterogeneous appearance of right lung with scarring/atelectasis and moderate loculated effusion. Pneumonia should be excluded clinically. N.B. : The above Results were Read Back by Archie Wallace MD to Keyonna Reardon MD, and understanding confirmed on 10/03/2021 20:54:17 (ET). Electronically Signed: Archie Wallace MD at 20:43 EDT , Physical Exam Const alert, oriented x3 and no apparent distress HEENT head/scalp atraumatic and moist oral mucous membranes Head and Scalp: normocephalic Eyes PERRL, EOMs intact bilaterally and conjunctivae normal Neck no lymphadenopathy, supple and no JVD Resp normal air movement, no retractions and no use of accessory muscles Effort and Inspection: labored Auscultation: diminished lung sounds Cardio regular rate, regular rhythm and no JVD GI normal to inspection, nondistended, normoactive bowel sounds Extremity normal to inspection, full ROM and no clubbing, cyanosis or edema Skin no rashes or lesions noted Neuro CN's II-XII intact bilaterally Psych affect normal Assessment & Plan Assessment/Plan (1) Dyspnea: (2) Loculated pleural effusion: (3) Pulmonary embolism: QUALIFIERS: Acute cor pulmonale presence: without acute cor pulmonale Chronicity: acute Pulmonary embolism type: other Qualified Code(s): I26.99 - Other pulmonary embolism without acute cor pulmonale PLAN: Day 1 Discharge planning: Current plan is for patient to discharge home when medically ready. 1) acute on chronic HFrEF with loculated pleural effusion Previous echocardiogram from 2013 demonstrated an EF of 40% with moderate global left ventricular systolic dysfunction, no comment on diastolic dysfunction. Chest x-ray with moderate cardiomegaly and right-sided pleural effusion with infiltrates on the ipsilateral side. Scheduled for thoracentesis on 10/04 at 1300. We will continue Lasix, Coreg, lisinopril and spironolactone. Supplement oxygen as needed, wean as tolerated. Thoracentesis with fluid studies and cytology ordered for diagnostic and therapeutic purposes. Serum LDH and protein ordered. 2) pulmonary embolism CT-A with suspected segmental PE with in right upper lobe pulmonary artery. Was initiated on Lovenox on admission, Lovenox held given pleural effusion. Will anticoagulate after procedure. 3) RLE cellulitis Continue home Keflex. 4) DM2 Patient's home glimepiride continued, Accu-Cheks assigned scale insulin ordered, hold metformin. DVT prophylaxis - SCDs. Patient seen by Jorge A Ching PA-C, under the supervision of Dr. Braga. Time spent on patient care: 10 minutes. Documented by User: Dr. Yolanda Braga MD 10/04/21 17:10 Objective Data Lab / Micro Data Result Diagrams: 10/04/21 05:50 10/04/21 05:50 Charges/Coding Addendum Addendum: This patient was seen in conjunction with MEHUL Sam. I have independently interviewed and examined the patient and reviewed pertinent historical, laboratory, and other data. Please refer to MEHUL Sam's note for his patient's presentation, findings, and recommendations. I have reviewed and his note and concur with his documentation Patient was seen and examined. He underwent thoracocentesis today. 250 mils of gloria-colored fluid were drained. Postprocedure, he denied any chest pain or dizziness. Informed by case management and patient is unable to afford copayment of any novel oral anticoagulants at discharge Gen: Looks in some discomfort, disabled, not pale, not jaundiced CVS:HS I +II, regular, no murmurs RESP: Diminished at lung bases GI: BS present and normal, soft, nontender, no palpable organs EXT:No edema ASSESSMENT: 1. Acute hypoxic respiratory failure 2. Acute PE 3. Acute on chronic heart failure with reduced EF, previous EF of 30%(2013) 4. Loculated pleural effusion 5. Bilateral leg cellulitis/ulcers 6. Type II DM Plan: Will get 2d-echo Continue on therapeutic Lovenox Start warfarin 10 mg p.o. x1 Daily INR Encourage use of incentive spirometer Continue IV Lasix 20 mg IV twice daily Continue with Coreg with holding parameters Repeat 2d-ECHO Visit Charges Inpatient E&M: 84024 Subs Hosp L2
--- NOTE | 2021-10-04 11:08 | CASEMGMT ---
MAR[place]ET[place] BUTLER assesment: Face to Face with patient for initial transition planning/care coordination assessment. RN CARRIE introduced self and role at [facility], pt voices understanding and consents to assessment. Pt is sitting up in bed on room air. Pt is A/Ox4 and answers all questions appropriately. Care providers, pharmacy, and demographics verified. Presentation: Pt sent from [place] for 'abn ECHO'-pt isn't sure why he had ECHO in 1st place but c/o lethargy/SOB Admitting dx: CHF, Loculated pleural effusion, PE PCP: Roel Specialists: None Preferred Pharmacy: [facility] Insurance: [facility] [employer] Prescription Benefit: Self pay-Dr. Braga updated as pt will need to go on anti-coag and she states she will likely start pt on coumadin d/t same but pt may also need lovenox at discharge. CM to follow. Living Will/HPOA: Pt states no LW/HPOA but would like AD info and this was provided with [employer] card. LNOK: Mague Bonner, Living Arrangements: Pt lives in 2 story house and states no concerns at home. Pt is independent with ADL's. Transportation: Pt drives self and states no transportation concerns. DME/HHC: Pt states no current DME or need for any further DME. Pt states no hx of HHC or SNF in the past. Pt states no concerns with going home at time of discharge. Pt works multimedia coordinator. Pt does not smoke cigarettes or drink ETOH. Pt voices no further concerns/needs. CM to follow for any further discharge planning/needs. Advised pt to ask for CM if any further questions/concerns/needs arise, voices understanding. Pt Goal: Home Plan[place] BUTL[place]
[2021-10-04 11:56] LABS: Bedside Glucose 220 mg/dL (74-106)
[2021-10-04] MEDS: Lidocaine 2% (20 ml mdv) 20 ML Vial INFILT (13:05)
--- NOTE | 2021-10-04 13:15 | RAD_ITS ---
STUDY: X-RAY CHEST REASON FOR EXAM: Male, 61 years old. Post thora TECHNIQUE: AP inspiration and expiration views following a right thoracentesis. COMPARISON: Comparison is made with prior study of 10/03/2021. FINDINGS: The patient is status post right thoracentesis. No evidence of pneumothorax. Residual pleural parenchymal changes in the right hemithorax. RAD/Chest Insp/Exp 2 View IMPRESSION: No evidence of pneumothorax on the post right thoracentesis examination. Electronically Signed: Inder Melendez MD at 13:34 EDT ,
--- NOTE | 2021-10-04 13:15 | FLU_PTH ---
PATIENT: INDU ROD LOC: [facility] U#:[id number] AGE/SX: 61/M ROOM: [facility] RE10/03/[address]: Dr. Yolanda Braga MD : 1960 BED: 1 DIS: 10/07/2021 SPEC #: [id number] RECD: 10/04/21 13:27 STATUS: [place] #: [id number] AMBER: 10/04/21 13:[address]: Yolanda Braga DEPT: CYTOLOGY RECD BY: Nilam Yepez ENTERED: 10/07/21 12:18 SP TYPE: Fluid OTHR DR: MD Dr. Casa Vazquez MD Dr. Victor Velasquez, MD Tissues: Pleural fluid, NOS Procedures: Special Stain Group II Surgery Specimen Level IV Cytospin Fluid HEADER OPERATION: Ultrasound-guided thoracentesis, right PRE-OP DIAGNOSIS: Right pleural effusion TISSUE SUBMITTED: Thoracentesis fluid for cytology DIAGNOSIS CYTOLOGY Thoracentesis fluid for cytology (cytospin and cell block): Negative for malignant cells. See comment. LIU:rodo 10/08/2021 COMMENT Clinical correlation and appropriate follow up are necessary. CYTOLOGY STUDY Slides are reviewed. CYTOLOGY GROSS Received is 100 ml of red cloudy fluid labeled with the patient's name and and designated per the requisition as thoracentesis. Submitted for cytology preparation including cell block. / rodo 10/07/2021 TC:5 CPT: 05037, 51166
[2021-10-04 13:29] LABS: Cytology, Body Fluid / CSF SEE PATHOLOGY REPORT
[2021-10-04 13:56] LABS: Body Fluid Mononuclear WBC # 0.189 10^3/uL; Body Fluid Mononuclear WBC % 96.4 %; Body Fluid Polynuclear WBC # 0.007 10^3/uL; Body Fluid Polynuclear WBC % 3.6 %; Body Fluid Total Cells Counted 0.197 10^3/ul; Red Cell Count/Body Fluid 0.006 10^6/ul; White Blood Count/Body Fluid 0.196 10^3/uL
[2021-10-04 14:03] LABS: Auto B Fluid Analyzer BKGD Ct COUNTS W/IN LIMITS (W/IN LIMITS); Source- Body Fluid THORACENTESIS
[2021-10-04 14:04] LABS: Appearance/Body Fluid SL CLDY; Color/Body Fluid YELLOW
[2021-10-04 14:42] LABS: Lymphocytes 98 %; Monocytes 1 %; Neutrophil (Segs) 1 %
[2021-10-04 15:16] LABS: Glucose, Body Fluid 139 mg/dL (40-70); LDH,Body Fluid 70 Units/l (Not Establ.); Protein, Body Fluid 1.1 g/dL (Not Establ.)
[2021-10-04 16:41] LABS: Bedside Glucose 247 mg/dL (74-106)
--- NOTE | 2021-10-04 17:04 | ECHOCS_ITS ---
Reason For Study: Dyspnea/SOB Procedure This was a 2D Doppler, Color Flow transthoracic echocardiogram. The study was technically difficult. Contrast injection was performed. Exam performed portable in patient room. Left Ventricle Moderately dilated left ventricle. Apical false tendon noted. Severe global left ventricular systolic dysfunction. The estimated ejection fraction is 15 %. Unable to assess diastolic dysfunction. Right Ventricle Normal RV size. Mild global right ventricular systolic dysfunction. Atria The left atrium is moderately enlarged. The right atrium is moderately enlarged. No doppler evidence for ASD. Mitral Valve There is no mitral annular calcification. Mild diffuse mitral valve thickening. Mild papillary muscle dysfunction of the mitral valve. Moderate (2+) mitral valve insufficiency. Tricuspid Valve Poor coaptation of the tricuspid valve apparatus. Moderately severe (3+) tricuspid valve insufficiency. Right ventricular systolic pressure estimated to be 56 mmHg. Aortic Valve Trisinus/trileaflet aortic valve. Mild diffuse aortic valve thickening. Pulmonic Valve The pulmonic valve is not well visualized. Great Vessels Normal sized aortic root. Pericardium/Pleural Trivial pericardial effusion. There are no echocardiographic indications of cardiac tamponade. Medication Diluted definity 4ml given slow IV push to enhance endocardial definition. MMode/2D Measurements & Calculations LVIDd: 5.7 cm IVSd: 1.2 cm Ao root diam: 2.8 cm LVIDs: 5.6 cm LVPWd: 1.0 cm RVDd: 4.6 cm FS: 1.7 % LAV(MOD-bp): 91.7 ml LVAd ap4: 44.6 cm2 SV(MOD-sp4): 20.4 ml LAV(MOD-bp) Indexed: 43.9 ml/m2 LVLd ap4: 9.1 cm LAV(MOD-sp2): 90.0 ml EDV(MOD-sp4): 179.4 ml LAV(MOD-sp4): 91.7 ml EDV(sp4-el): 186.1 ml LVAs ap4: 40.5 cm2 LVLs ap4: 8.5 cm ESV(MOD-sp4): 159.0 ml ESV(sp4-el): 163.0 ml EF(MOD-sp4): 11.4 % EF(sp4-el): 12.4 % SV(sp4-el): 23.1 ml LA A4 area: 27.7 cm2 LA dimension(2D): 5.3 cm RA A4 area: 26.1 cm2 Doppler Measurements & Calculations MV E max rita: 70.0 cm/sec Ao V2 max: 91.5 cm/sec LV V1 max: 62.7 cm/sec Ao max P.3 mmHg LV V1 max P.6 mmHg Ao V2 mean: 66.7 cm/sec Ao mean P.9 mmHg Ao V2 VTI: 11.8 cm PA V2 max: 56.9 cm/sec TR max rita: 318.4 cm/sec TR max P.5 mmHg ECHO/Echo Complete W/ Contrast Interpretation Summary The study was technically difficult. Contrast injection was performed. Moderately dilated left ventricle. Severe global left ventricular systolic dysfunction. The estimated ejection fraction is 15 %. Apical false tendon noted. Mild global right ventricular systolic dysfunction. The left atrium is moderately enlarged. The right atrium is moderately enlarged. Mild diffuse mitral valve thickening. Mild papillary muscle dysfunction of the mitral valve. Moderate (2+) mitral valve insufficiency. Moderately severe (3+) tricuspid valve insufficiency. Mild diffuse aortic valve thickening. Trivial pericardial effusion. There are no echocardiographic indications of cardiac tamponade. Right ventricular systolic pressure estimated to be 56 mmHg c/w pulmonary hyper tension. Unable to assess diastolic dysfunction. Comment: 2D echocardiographic and contrast enhanced images appearing compatible with a left ventricular apical thrombus. Ordering Physician: Yolanda Braga Referring Physician: Gil Sevilla Performed By: Lety Stoddard, RDCS, RVT
[2021-10-04] MEDS: Enoxaparin 100 MG/ML Syringe 90 MG SC (17:46)
[2021-10-04] MEDS: Spironolactone 25 MG Tablet 12.5 MG PO (21:16)
[2021-10-04 23:51] LABS: Bedside Glucose 210 mg/dL (74-106)
[2021-10-05] VITALS (10 sets, daily range): BP systolic 92–108; BP diastolic 71–78; PULSE 85–106; RESP 18; TEMP 36.5–36.8; O2SAT 93–100
[2021-10-05] MEDS: 0.9% Saline Lock 10 ML Syringe IV ×2 (00:23→09:25)
--- NOTE | 2021-10-05 01:39 | NURSING ---
Pt c/o feeling sob when lying down flat in bed assessment completed lungs sounds diminished anterior and posterior. Sp02 96 RA applied oxygen for comfort 2L denies chest pain or cough pt states this has been going on for awhile. Pt has been up and down in the chair will continue to monitor.
[2021-10-05] MEDS: Enoxaparin 100 MG/ML Syringe 90 MG SC ×2 (06:06→17:05)
[2021-10-05] MEDS: Cephalexin 500 MG Capsule PO ×3 (06:06→21:50)
[2021-10-05] MEDS: Insulin Lispro 100 UNIT/ML INSULN.PEN SC ×4 (06:11→21:50)
[2021-10-05 06:21] LABS: Bedside Glucose 154 mg/dL (74-106)
[2021-10-05 06:31] LABS: Absolute Lymphocyte Count 1.46 X10^3/uL (0.83-4.51); Absolute Neutrophil Count 5.1 X10^3/uL (2.0-7.7); Basophil# 0.07 X10^3/uL; Basophil% 0.9 % (0-1); Eosinophil# 0.08 X10^3/uL; Eosinophils% 1.1 % (0-5); Hematocrit 45.8 % (40-54); Hemoglobin 14.9 g/dL (13.0-16.5); Lymphocyte # 1.46 X10^3/ul (0.83-4.51); Lymphocyte % 19.3 % (19-41); Mean Corp Hgb Conc 32.5 g/dL (32-36); Mean Corpuscular Hgb 27.8 pg (27.0-32.0); Mean Corpuscular Volume 85.4 fL (80-94); Mean Platelet Vol. 10.6 fl (6.2-12.0); Monocyte# 0.83 X10^3/uL; NRBC Flagged by Analyzer 0 % (0-5); Neutrophil # 5.09 X10^3/uL (2.7-7.7); Neutrophil % 67.3 % (47-70); Platelet Count 264 K/mm3 (150-450); RBC Distribution Width CV 14.7 % (11.6-14.6); RBC Distribution Width SD 45.5 fl (35.1-43.9); Red Blood Count 5.36 M/mm3 (4.6-6.2); White Blood Count 7.6 K/mm3 (4.4-11.0)
[2021-10-05 06:43] LABS: International Normalized Ratio 1.4; Prothrombin Time (Protime)PT. 16.1 SECONDS (11.7-14.9)
[2021-10-05 06:59] LABS: Anion Gap 7 (5-15); BUN 25 mg/dL (7-18); BUN/Creat Ratio 21.4 RATIO (10-20); Calcium,Total 8.7 mg/dL (8.5-10.1); Chloride 105 mmol/L (98-107); Creatinine, Serum 1.17 mg/dL (0.70-1.30); EST Glomerular Filtration Rate 67 mL/min (>60); Est Glom Filt Rate - Afr Amer 82 mL/min (>60); Estimated Creatinine Clearance 69.33 ml/min; Glucose 139 mg/dL (74-106); Sodium Level 139 mmol/L (136-145)
[2021-10-05] MEDS: Glucerna Shake 120 ML LIQUID PO ×3 (09:17→17:12)
[2021-10-05] MEDS: Spironolactone 25 MG Tablet 12.5 MG PO ×2 (09:20→21:50)
[2021-10-05] MEDS: Aspirin E.C. 81 MG Tablet PO (09:21)
[2021-10-05] MEDS: Glimepiride 4 MG Tablet PO (09:21)
[2021-10-05] MEDS: Furosemide 20 MG/2 ML VIAL IV (09:21)
[2021-10-05] MEDS: Ascorbic Acid 500 MG Tablet PO (09:21)
[2021-10-05] MEDS: Carvedilol 3.125 MG TABLET PO (09:21)
[2021-10-05] MEDS: Potassium Chloride Oral Tablet 20 MEQ 40 MEQ PO (09:21)
--- NOTE | 2021-10-05 10:10 | RAD_ITS ---
STUDY: X-RAY CHEST REASON FOR EXAM: Male, 61 years old. Shortness of breath TECHNIQUE: Single AP portable view of the chest. COMPARISON: 10/04/2021. FINDINGS: Persistent right lower lung infiltrates and atelectatic changes unchanged prior examination. Moderate right pleural effusion. The left lung is essentially clear. Stable cardiomediastinal silhouette Unchanged osseous structures. There is no demonstrated abnormality of the visualized soft tissue structures of the upper abdomen. RAD/Chest 1 View (Portable) IMPRESSION: No significant change since the previous exam. Electronically Signed: Cody Frazier MD at 10:29 EDT ,
--- NOTE | 2021-10-05 11:02 | PCM.PN.HOSP ---
Documented by User: Jorge A CARVER 10/05/21 11:09 Subjective Subjective Patient is a 61-year-old male comfortably resting in bed, alert and oriented x3. Patient denies development of any new symptoms overnight. Does not appear in acute distress. Objective Data Objective Data Vital Signs: Vital Signs Temp Pulse Resp BP Pulse Ox 98.2 F 85 18 95/74 100 10/05/21 09:09 10/05/21 09:09 10/05/21 09:09 10/05/21 09:09 10/05/21 09:09 Oxygen Flow Rate (L/min) 2 Oxygen Delivery Method [5] Room Air Oxygen Delivery Method [4] Room Air Oxygen Delivery Method [3] Room Air Oxygen Delivery Method [2] Room Air Oxygen Delivery Method [1 ( Room Air Initial Baseline)] Oxygen Delivery Method Nasal Cannula Weight: 199 lb 15.348 oz Body Mass Index (BMI) 28.6 Intake & Output: Intake and Output for Last 24 Hours 10/03/21 10/04/21 10/05/21 23:59 23:59 23:59 Intake Total 200 / 200 2260 / 2260 120 / 120 Output Total 1550 / 1550 250 / 250 Balance 200 / 200 710 / 710 -130 / -130 Medical Nutrition Assessment Dietitian: Malnutrition Criteria Met Start: 10/04/21 14:39 Freq: Status: Active Protocol: Document 10/04/21 14:40 JEIMY (Rec: 10/04/21 14:40 [facility] [id number]) Nutrition Malnutrition Evidence of Malnutrition Exists Yes Malnutrition (moderate): Chronic Evidenced By Suboptimal Energy Intake ( Severe),Physical Changes ( Moderate) Clinical Problem Chronic Disease or Condition Related Malnutrition Etiology related to having COVID and Dec w/ pt still with decreased appetite making it difficult to consume adequate nutrition Signs/Symptoms as evidenced by pt self report of only eating ~ 50% of usual since COVID and possible wt loss that has been masked by fluid status. NFPA indicates fat/muscle loss in tempral/ orbital areas and clavicle/ acromion areas. Status Active Problem Unintended Weight Gain Etiology related to CHF and stomach bloated Signs/Symptoms as evidenced by wt gain of at least 7.3% in past 2-3 wks - wt gain likely fluid. Status Active Problem Recommendation Dietitian Recommendations/Changes Change diet to CHO Control ( limit to 3-4 cho/meal) / Cardiac, Sodium Restricted - small portions per pt request Rec fluid restriction if indicated. Will continue ONS w/ medpass 4x/day Lab / Micro Data Result Diagrams: 10/05/21 05:38 10/05/21 05:38 Labs: Laboratory Results - last 24 hr 10/04/21 11:38: POC Glucose 220 H 10/04/21 13:15: Fluid Glucose 139 H, Fluid Total Protein 1.1, Fluid LDH 70 10/04/21 13:15: Fluid Source THORACENTESIS, Fluid Color YELLOW, Fluid Appearance SL CLDY, Fluid WBC 0.196, Fluid RBC 0.006, Fluid Tot Cell Count 0.197, Fld Polynuclear WBCs # 0.007, Fld Polynuclear WBCs % 3.6, Fluid Mononuclear WBCs 0.189, Fld Mononuclear WBCs % 96.4, Fluid Neutrophils 1, Fluid Lymphocytes 98, Fluid Monocytes 1, Fl Pathologist Comment May follow, Fluid Comment 2 SEE COMMENT 10/04/21 16:21: POC Glucose 247 H 10/04/21 21:22: POC Glucose 210 H 10/05/21 05:38: WBC 7.6, RBC 5.36, Hgb 14.9, Hct 45.8, MCV 85.4, MCH 27.8, MCHC 32.5, RDW Std Deviation 45.5 H, RDW Coeff of Tony 14.7 H, Plt Count 264, MPV 10.6, Immature Gran % (Auto) 0.400, Neut % (Auto) 67.3, Lymph % (Auto) 19.3, [place] % (Auto) 11.0 H, Eos % (Auto) 1.1, Baso % (Auto) 0.9, Absolute Neuts (auto) 5.1, Absolute Lymphs (auto) 1.46, Nucleated RBC % 0 10/05/21 05:38: Sodium 139, Potassium 4.0, Chloride 105, Carbon Dioxide 27.0, Anion Gap 7, BUN 25 H, Creatinine 1.17, Estim Creat Clear Calc 69.33, Est GFR (MDRD) Af Amer 82, Est GFR (MDRD) Non-Af 67, BUN/Creatinine Ratio 21.4 H, Glucose 139 H, Calcium 8.7, Magnesium 2.0 10/05/21 05:38: PT 16.1 H, INR 1.4 10/05/21 06:10: POC Glucose 154 H Radiography Diagnostic Testing: Radiology Impression Thoracentesis Ultrasound 10/04/21 01:27 IMPRESSION: Ultrasound-guided right thoracentesis. Electronically Signed: Inder Melendez MD at 13:56 EDT , Chest X-Ray 10/04/21 13:15 IMPRESSION: No evidence of pneumothorax on the post right thoracentesis examination. Electronically Signed: Inder Melendez MD at 13:34 EDT , Chest X-Ray 10/05/21 10:10 IMPRESSION: No significant change since the previous exam. Electronically Signed: Cody Frazier MD at 10:29 EDT , Physical Exam Const alert, oriented x3 and no apparent distress HEENT head/scalp atraumatic and moist oral mucous membranes Head and Scalp: normocephalic Eyes PERRL, EOMs intact bilaterally and conjunctivae normal Neck no lymphadenopathy, supple and no JVD Resp normal respiratory effort, no retractions and no use of accessory muscles Cardio regular rate, regular rhythm and no JVD GI normal to inspection, nondistended, normoactive bowel sounds and soft to palpation Extremity normal to inspection, full ROM and no clubbing, cyanosis or edema Skin no rashes or lesions noted, no wounds and skin turgor normal Neuro CN's II-XII intact bilaterally Psych affect normal Assessment & Plan Assessment/Plan (1) CHF (congestive heart failure): QUALIFIERS: Heart failure chronicity: acute Heart failure type: systolic Qualified Code(s): I50.21 - Acute systolic (congestive) heart failure (2) Pulmonary embolism: QUALIFIERS: Acute cor pulmonale presence: without acute cor pulmonale Chronicity: acute Pulmonary embolism type: other Qualified Code(s): I26.99 - Other pulmonary embolism without acute cor pulmonale (3) Loculated pleural effusion: (4) Dyspnea: PLAN: Day 2 Discharge planning: Current plan is for patient to discharge home when medically ready. 1) acute on chronic HFrEF with loculated pleural effusion Currently satting 96% on 2 L via nasal cannula. Previous echocardiogram from 2013 demonstrated an EF of 40% with moderate global left ventricular systolic dysfunction, no comment on diastolic dysfunction. Successful diagnostic/therapeutic thoracentesis completed on 10/04, fluid results pending. Updated echocardiogram ordered. We will continue Lasix, Coreg, lisinopril and spironolactone. Supplement oxygen as needed, wean as tolerated. 2) pulmonary embolism CT-A with suspected segmental PE with in right upper lobe pulmonary artery. Currently bridging from Lovenox to Coumadin, as patient does not have prescription coverage for NOAC. INR is subtherapeutic at 1.4, will continue to bridge until therapeutic. 3) RLE cellulitis Continue home Keflex. 4) DM2 Patient's home glimepiride continued, Accu-Cheks assigned scale insulin ordered, hold metformin. DVT prophylaxis - SCDs. Patient seen by Jorge A Ching PA-C, under the supervision of Dr. Braga. Time spent on patient care: 9 minutes. Documented by User: Dr. Yolanda Braga MD 10/05/21 13:26 Objective Data Lab / Micro Data Result Diagrams: 10/05/21 05:38 10/05/21 05:38 Charges/Coding Addendum Addendum: This patient was seen in conjunction with MEHUL Sam. I have independently interviewed and examined the patient and reviewed pertinent historical, laboratory, and other data. Please refer to MEHUL Sam's note for his patient's presentation, findings, and recommendations. I have reviewed and his note and concur with his documentation Patient was seen and examined. He denied any new complaints. His INR is subtherapeutic at 1.4. 2D echo is pending. Gen: Looks in some discomfort, disabled, not pale, not jaundiced CVS:HS I +II, regular, no murmurs RESP: Diminished at lung bases GI: BS present and normal, soft, nontender, no palpable organs EXT:No edema ASSESSMENT: 1. Acute hypoxic respiratory failure 2. Acute PE 3. Acute on chronic heart failure with reduced EF, previous EF of 30%(2013) 4. Loculated pleural effusion 5. Bilateral leg cellulitis/ulcers 6. Type II DM Plan: Continue on therapeutic Lovenox Warfarin 10 mg p.o. x1 Daily INR Encourage use of incentive spirometer Switch to oral lasix 40mg daily Dc Coreg Visit Charges Inpatient E&M: 39902 Subs Hosp L2
[2021-10-05 11:46] LABS: Bedside Glucose 244 mg/dL (74-106)
[2021-10-05 17:11] LABS: Bedside Glucose 231 mg/dL (74-106)
--- NOTE | 2021-10-05 18:24 | NURSING ---
Reviewed charting with Thee Koroma RN
[2021-10-05] MEDS: MELATONIN 3 MG TABLET PO (21:50)
[2021-10-05 22:01] LABS: Bedside Glucose 235 mg/dL (74-106)
[2021-10-06] VITALS (9 sets, daily range): BP systolic 96–106; BP diastolic 82–88; PULSE 88–104; RESP 18–20; TEMP 36.3–36.7; O2SAT 92–99
[2021-10-06] MEDS: Cephalexin 500 MG Capsule PO ×3 (06:42→21:43)
[2021-10-06] MEDS: Enoxaparin 100 MG/ML Syringe 90 MG SC ×2 (06:42→17:01)
[2021-10-06] MEDS: Insulin Lispro 100 UNIT/ML INSULN.PEN SC ×4 (06:44→21:43)
[2021-10-06 06:51] LABS: Bedside Glucose 178 mg/dL (74-106)
[2021-10-06 07:03] LABS: International Normalized Ratio 1.4; Prothrombin Time (Protime)PT. 16.9 SECONDS (11.7-14.9)
[2021-10-06 07:22] LABS: Anion Gap 7 (5-15); BUN 28 mg/dL (7-18); BUN/Creat Ratio 26.7 RATIO (10-20); Calcium,Total 8.8 mg/dL (8.5-10.1); Chloride 103 mmol/L (98-107); Creatinine, Serum 1.05 mg/dL (0.70-1.30); EST Glomerular Filtration Rate 76 mL/min (>60); Est Glom Filt Rate - Afr Amer 93 mL/min (>60); Estimated Creatinine Clearance 77.25 ml/min; Glucose 167 mg/dL (74-106); Potassium 3.9 mmol/L (3.5-5.1); Sodium Level 136 mmol/L (136-145)
[2021-10-06] MEDS: Potassium Chloride Oral Tablet 20 MEQ 40 MEQ PO (09:33)
[2021-10-06] MEDS: Spironolactone 25 MG Tablet 12.5 MG PO ×2 (09:33→21:43)
[2021-10-06] MEDS: Glucerna Shake 120 ML LIQUID 60 ML PO ×4 (09:33→21:47)
[2021-10-06] MEDS: Ascorbic Acid 500 MG Tablet PO (09:33)
[2021-10-06] MEDS: Glimepiride 4 MG Tablet PO (09:33)
[2021-10-06] MEDS: Aspirin E.C. 81 MG Tablet PO (09:33)
[2021-10-06] MEDS: 0.9% Saline Lock 10 ML Syringe IV ×2 (09:38→12:09)
[2021-10-06] MEDS: Furosemide 40 MG/4 ML Vial IV (09:50)
--- NOTE | 2021-10-06 10:07 | PN.HOSP_ITS ---
Documented by User: Jorge A CARVER 10/06/21 10:25 Subjective Subjective Patient is a 61-year-old male comfortably resting in a chair, alert and orient x3. Patient denies development of any new symptoms overnight. Does not appear in acute distress. Objective Data Objective Data Vital Signs: Vital Signs Temp Pulse Resp BP Pulse Ox 97.5 F L 93 18 96/84 H 95 10/06/21 09:28 10/06/21 09:28 10/06/21 09:28 10/06/21 09:28 10/06/21 09:28 Oxygen Flow Rate (L/min) 2 Oxygen Delivery Method [5] Room Air Oxygen Delivery Method [4] Room Air Oxygen Delivery Method [3] Room Air Oxygen Delivery Method [2] Room Air Oxygen Delivery Method [1 ( Room Air Initial Baseline)] Oxygen Delivery Method Room Air Weight: 202 lb 2.622 oz Body Mass Index (BMI) 28.6 Intake & Output: Intake and Output for Last 24 Hours 10/04/21 10/05/21 10/06/21 23:59 23:59 23:59 Intake Total 2260 / 2260 1400 / 1400 240 / 240 Output Total 1550 / 1550 675 / 675 250 / 250 Balance 710 / 710 725 / 725 -10 / -10 Medical Nutrition Assessment Dietitian: Malnutrition Criteria Met Start: 10/04/21 14:39 Freq: Status: Active Protocol: Document 10/05/21 13:59 AG (Rec: 10/05/21 13:59 AG [id number]) Nutrition Malnutrition Evidence of Malnutrition Exists Yes Malnutrition (moderate): Chronic Evidenced By Suboptimal Energy Intake ( Moderate),Physical Changes ( Mild) Clinical Problem Chronic Disease or Condition Related Malnutrition Etiology moderate, chronic malnutrition r/t inadequate energy intake s/p COVID infection and hospitalization Signs/Symptoms as evidenced by estimated PO intake meeting <75% of estimated energy needs x 3 months; mild muscle wasting/ fat loss evident in orbital, temporal, clavicle, and acromion areas Status Active Problem Unintended Weight Gain Etiology r/t fluid retention Signs/Symptoms as evidenced by reports of 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 Status Active Problem Recommendation Dietitian Recommendations/Changes Will adjust diet to carbohydrate controlled, cardiac and continue glucerna 120mL 4x/day w/ medpass d/t malnutrition. Lab / Micro Data Result Diagrams: 10/05/21 05:38 10/06/21 05:55 Labs: Laboratory Results - last 24 hr 10/05/21 11:43: POC Glucose 244 H 10/05/21 16:58: POC Glucose 231 H 10/05/21 21:46: POC Glucose 235 H 10/06/21 05:55: Sodium 136, Potassium 3.9, Chloride 103, Carbon Dioxide 26.0, Anion Gap 7, BUN 28 H, Creatinine 1.05, Estim Creat Clear Calc 77.25, Est GFR (MDRD) Af Amer 93, Est GFR (MDRD) Non-Af 76, BUN/Creatinine Ratio 26.7 H, Glucose 167 H, Calcium 8.8 10/06/21 05:55: PT 16.9 H, INR 1.4 10/06/21 06:39: POC Glucose 178 H Radiography Diagnostic Testing: Radiology Impression Echocardiogram 10/04/21 17:04 Interpretation Summary The study was technically difficult. Contrast injection was performed. Moderately dilated left ventricle. Severe global left ventricular systolic dysfunction. The estimated ejection fraction is 15 %. Apical false tendon noted. Mild global right ventricular systolic dysfunction. The left atrium is moderately enlarged. The right atrium is moderately enlarged. Mild diffuse mitral valve thickening. Mild papillary muscle dysfunction of the mitral valve. Moderate (2+) mitral valve insufficiency. Moderately severe (3+) tricuspid valve insufficiency. Mild diffuse aortic valve thickening. Trivial pericardial effusion. There are no echocardiographic indications of cardiac tamponade. Right ventricular systolic pressure estimated to be 56 mmHg c/w pulmonary hypertension. Unable to assess diastolic dysfunction. Comment: 2D echocardiographic and contrast enhanced images appearing compatible with a left ventricular apical thrombus. Ordering Physician: Yolanda Braga Referring Physician: Gil Sevilla Performed By: Lety Stoddard, ALETA, RVT Chest X-Ray 10/05/21 10:10 IMPRESSION: No significant change since the previous exam. Electronically Signed: Cody Frazier MD at 10:29 EDT , Physical Exam Const alert, oriented x3 and no apparent distress HEENT head/scalp atraumatic and moist oral mucous membranes Head and Scalp: normocephalic Eyes PERRL, EOMs intact bilaterally and conjunctivae normal Neck no lymphadenopathy, supple and no JVD Resp normal respiratory effort, no retractions and no use of accessory muscles Cardio regular rate, regular rhythm and no JVD GI normal to inspection, nondistended, normoactive bowel sounds Extremity Extremity Narrative: Ulcers about the lower extremities bilaterally, bilateral lower extremity cellulitis appears stable at this time. Skin Skin Narrative: Ulcers about the lower extremities bilaterally, appears stable. Neuro CN's II-XII intact bilaterally Psych affect normal Assessment & Plan Assessment/Plan (1) CHF (congestive heart failure): QUALIFIERS: Heart failure chronicity: acute Heart failure type: systolic Qualified Code(s): I50.21 - Acute systolic (congestive) heart failure (2) Dyspnea: (3) Loculated pleural effusion: PLAN: Day 3 Discharge planning: Current plan is for patient to discharge home when medically ready. 1) acute on chronic HFrEF with loculated pleural effusion Updated echocardiogram obtained on 10/04 demonstrated severe global left ventricular systolic dysfunction, an EF of 15%, and RVSP of 56 mmHg consistent with pulmonary hypertension and a new left ventricular apical thrombus. EF is noticeably worse from prior study obtained in 2014. Patient underwent diagnostic/therapeutic thoracentesis for right-sided pleural effusion on 10/04, fluid is transudative of by lights criteria likely secondary to patient's ongoing CHF. Will decrease Lasix to 40 mg p.o. twice daily. Continue Coreg, lisinopril and spironolactone. Cardiology consulted to establish care, Dr. Dominguez to see patient. 2) pulmonary embolism CT-A with suspected segmental PE with in right upper lobe pulmonary artery. Currently bridging from Lovenox to Coumadin. INR is still 1.4, same as yesterday. Will increase Coumadin to 15 mg p.o. daily and continue to trend INR. 3) RLE cellulitis Continue home Keflex. 4) DM2 Blood sugars are well controlled at this time. Patient's home glimepiride continued, Accu-Cheks assigned scale insulin ordered, hold metformin. DVT prophylaxis -not indicated, on therapeutic Lovenox to Coumadin bridge. Patient seen by Jorge A Ching PA-C, under the supervision of Dr. Braga. Time spent on patient care: 10 minutes. Documented by User: Dr. Yolanda Braga MD 10/06/21 12:29 Objective Data Lab / Micro Data Result Diagrams: 10/05/21 05:38 10/06/21 05:55 Charges/Coding Addendum Addendum: This patient was seen in conjunction with MEHUL Sam. I have independently interviewed and examined the patient and reviewed pertinent historical, laboratory, and other data. Please refer to MEHUL Sam's note for his patient's presentation, findings, and recommendations. I have reviewed and his note and concur with his documentation Patient was seen and examined. No new complaints. His INR remains subtherapeutic at 1.4. 2D echo showed EF of 15%, +3 tricuspid valve insufficiency, left apical thrombus Gen: Looks in some discomfort, disheveled, not pale, not jaundiced CVS:HS I +II, regular, no murmurs RESP: Diminished at lung bases GI: BS present and normal, soft, nontender, no palpable organs EXT:bilateral leg edema, chronic wounds on left lower leg ASSESSMENT: 1. Acute hypoxic respiratory failure 2. Acute PE 3. New apical thrombus, seen on 2d-echo 4. Acute on chronic heart failure with reduced EF, EF 15% 5. Loculated pleural effusion s/p thoracocentesis 6. Bilateral leg cellulitis/ulcers 7. Type II DM Plan: Continue on therapeutic Lovenox Warfarin 15mg PO x1 Daily INR Encourage use of incentive spirometer Time spent coordinating patient's care, discussing with nursing, discussing with cardiology: 25 minutes Visit Charges Inpatient E&M: [id number] Subs Hosp L2
[2021-10-06 11:41] LABS: Bedside Glucose 285 mg/dL (74-106)
[2021-10-06] MEDS: Ondansetron 4 MG/2 ML Vial IV (12:07)
--- NOTE | 2021-10-06 12:21 | PCM.CONS.C ---
Assessment & Plan Assessment/Plan (1) Cardiomyopathy: PLAN: The patient has a history of a non-CAD related cardiomyopathy. He has undergone noninvasive and invasive cardiovascular evaluation as noted above. At the present time it appears that both his recent [facility] and [facility] echocardiographic findings demonstrate severely diminished LV systolic function/LVEF with concerns of a left ventricular apical thrombus, continued evidence of valvular heart disease, and elevated RV systolic pressures. At the present time the patient will need to continue medical management with an attempt to optimize his medications as best as possible including agents such as beta-blockers and afterload reducing agents and diuretic agents-such as spironolactone/Aldactone in addition to other medications that may be required to assist with his clinical course. In the past there had been a discussion of possible ICD placement, however, as his LV systolic function/LVEF appeared to improve based upon his Nov, 2013 transthoracic echocardiogram, this was placed on hold. However, his overall LV systolic function/LVEF has significantly decreased and thus he does need to be considered once again for ICD placement which depending upon his electrocardiogram potentially could include consideration for a biventricular ICD. He also can be considered for a referral to a tertiary care center advanced heart failure team for consideration as to whether or not he is a candidate for additional therapies such as a ventricular assist device or a cardiac transplantation. (2) CHF (congestive heart failure): QUALIFIERS: Heart failure type: systolic Heart failure chronicity: acute Qualified Code(s): I50.21 - Acute systolic (congestive) heart failure PLAN: The patient does have symptoms and objective findings compatible with acute on chronic systolic mediated CHF. He will continue medical management with his diuretic therapy with adjustment over time. Hopefully as his volume status improves and his vital signs stabilized he can reinitiate medication such as beta-blockers as well as afterload reducing agents. He may also need follow-up chest x-rays to monitor his right-sided pleural effusion status post medical management and thoracentesis. (3) Left ventricular thrombus: PLAN: He will need to continue anticoagulant therapy. Over time follow-up echocardiographic studies should be considered to monitor his left ventricular wall motion, systolic function, and left ventricular apical thrombus. (4) Loculated pleural effusion: PLAN: Again he will need continued medical management as well as consideration for future follow-up chest x-rays to monitor his pleural effusion. (5) Pulmonary embolism: QUALIFIERS: Pulmonary embolism type: other Chronicity: acute Acute cor pulmonale presence: without acute cor pulmonale Qualified Code(s): I26.99 - Other pulmonary embolism without acute cor pulmonale PLAN: He will need to continue medical management with anticoagulant therapy. (6) HLD (hyperlipidemia): PLAN: He should continue risk factor evaluation care as deemed appropriate. (7) HTN (hypertension): PLAN: As his blood pressure stabilizes his medications can be adjusted to hopefully optimize his cardiovascular therapy. (8) Dyspnea: PLAN: He does note that his breathing has improved somewhat since his hospitalization. He will continue medical management and follow-up. Addt'l Comments The patient's case was reviewed and discussed at great length (60 minutes) with the patient and the [facility] staff. The patient is agreeable to continuing conservative medical management at this time. 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 He states he would be agreeable in the future to a referral to a tertiary care center advanced heart failure team for further evaluation of his case for additional advanced heart failure options, however, he states he is not sure he would want to be considered for a cardiac transplantation option. He states that he would be interested in being evaluated by social services designee as to what options he may have available if he cannot continue his current employment with respect to medical/health insurance, disability options, etc. This note was generated using a voice recognition system and there may be incorrect words, spelling or punctuation that were not noted when reviewing the office note prior to saving. HPI Consult Data Date of Consult: 10/06/21 HPI Narrative HPI Narrative: INDU ROD, is a 61 year old white male who presents for cardiovascular consultation based upon concerns of a non-CAD related cardiomyopathy, chronic systolic CHF, valvular heart disease, a left ventricular apical thrombus, pleural effusion, thromboembolic disease with pulmonary emboli, hyperlipidemia, hypertension, JES/CPAP therapy, COVID-19 (June,), with progressive shortness of breath/dyspnea. The patient states that since his COVID-19 event which he also states led to a diagnosis of Covid toe he has been followed by his [facility] primary care physician. Based upon concerns of progressive shortness of breath/dyspnea he underwent a recent F transthoracic echocardiogram and following such was referred to the [facility] emergency department for further evaluation and care. It appears at the time of his initial evaluation his [facility] transthoracic echocardiogram was unavailable for review. Status post his evaluation by the [facility] emergency department and the [facility] hospitalist team he was thought to have multiple concerns with respect to acute on chronic systolic mediated CHF, a pleural effusion, findings compatible with thromboembolic disease with pulmonary embolism, and right lower extremity/leg skin lesions/cellulitis. He was subsequently placed in the PCU for further evaluation and care including a right-sided thoracentesis procedure which was performed on 10-04-2021 with a report of approximately 250 mL of gloria-colored fluid being removed. He subsequently underwent further evaluation with a transthoracic echocardiogram with the results demonstrating, in brief, the left ventricle to be dilated and globally dysfunctional with an estimated LVEF of 15% with findings compatible with a left ventricular apical thrombus, right ventricular systolic dysfunction, biatrial enlargement, moderate MR, moderately severe TR, and an estimated RV systolic pressure 56 mmHg (please see official report below). The patient has been treated medically with diuretic therapy. He has also been placed on antibiotic therapy based on his lower extremity lesions. He has also been placed on anticoagulant therapy based upon his thromboembolic related issues. Since his hospitalization he does state that he feels that his breathing is somewhat improved. He believes overall his lower extremities have improved somewhat. He is not complaining of ongoing symptoms of angina pectoris. He does admit at home having symptoms of orthopnea. He has had symptoms of lower extremity peripheral pitting edema. He denies any near-syncope or syncope. The patient has been evaluated in the past locally at [facility]. In May 2013 he underwent evaluation with a transthoracic echocardiogram (please see the report below), stress nuclear imaging study (please see the report below), and subsequently was released home on medical therapy for further evaluation as an outpatient with diagnostic cardiac catheterization. The cardiac catheterization was performed on 06-07-2013 with the results as noted below. He then had outpatient cardiovascular follow-up which included follow-up transthoracic echocardiograms. Based upon his follow-up at the time and the appearance of overall improvement in his LV wall motion, systolic function, and LVEF, he did not proceed with additional evaluation and care with ICD therapy. It appears his last outpatient cardiovascular office visit was in October 2013. He states he continue to follow with his PCP. To the best of his knowledge he states he has not had outpatient cardiovascular follow-up anywhere since that time. He states he has been taking his medications for the most part as previously recommended. He does admit he does not take his diuretics on a regular basis. Of note, the patient's [facility] transthoracic echocardiogram from 10-03-2021 was subsequently received at [facility] for review. The results are noted below. [facility] Medical History (Updated 10/06/21 @ 12:[address] Casa Dominguez MD) Cardiomyopathy Cardiomyopathy Coagulopathy Congestive heart failure (CHF) CPAP (continuous positive airway pressure) dependence Diabetes Former smoker Gilbert's syndrome Hepatomegaly HLD (hyperlipidemia) HTN (hypertension) HTN (hypertension) Hyperlipidemia Jaundice Left ventricular thrombus Sleep apnea Home Medications ascorbic acid (vitamin C) [Vitamin C] 500 mg PO DAILY@0800 05/30/13 [History Last Taken 10/02/21 500 mg] aspirin 81 mg PO DAILY@0800 #30 tablet 06/01/13 [Rx Last Taken 10/02/21 81 mg] furosemide 40 mg PO BIDLX #60 tablet 06/01/13 [Rx Last Taken 10/02/21 40 mg] metformin 1,000 mg PO BID 06/10/21 [History Last Taken 10/02/21 500 mg] cephalexin 500 mg PO TID 10/03/21 [History Last Taken 10/02/21 500 mg] glimepiride 4 mg PO DAILY 10/03/21 [History Last Taken 10/02/21 4 mg] spironolactone 25 mg PO BID 10/03/21 [History Last Taken 10/02/21 25 mg] Allergy/AdvReac Type Severity Reaction Status Date / Time No Known Allergies Allergy Verified 10/03/21 16:55 Family History Other COPD (chronic obstructive pulmonary disease) Surgical History no surgical history Social History Smoking Status: Former smoker substance use type: does not use ROS Constitutional Constitutional: Reports fatigue Eyes Eyes: Reports as per HPI ENT HEENT: Reports as per HPI Cardiovascular Cardiovascular: Reports dyspnea, dyspnea at rest, dyspnea on exertion, edema and orthopnea Respiratory/Chest Respiratory/Chest: Reports dyspnea and dyspnea on exertion Gastrointestinal Gastrointestinal: Reports as per HPI Genitourinary Genitourinary: Reports as per HPI Musculoskeletal Musculoskeletal: Reports as per HPI Integumentary Integumentary: Reports sores Neurologic Neurologic: Reports as per HPI Psychiatric Psychiatric: Reports as per HPI Physical Exam Const alert, oriented x3 and no apparent distress Orientation / Consciousness: awake HEENT normocephalic, head/scalp atraumatic and hearing grossly normal bilaterally Eyes PERRL, EOMs intact bilaterally and conjunctivae normal Neck full ROM, supple and no JVD Resp Auscultation: diminished lung sounds right lower Cardio regular rate, regular rhythm, S1 normal heart sound and S2 normal heart sound GI normal to inspection, nondistended, normoactive bowel sounds Extremity General Extremity: edema bilateral lower extremity Details: moderate Skin Skin Narrative: Right leg: The anterior tibial surface: Skin lesions/sores Neuro oriented x3, moves all extremities, no focal motor deficits and no sensory deficits noted Psych mental status grossly normal Risk Stratification Risk Stratification Applicable: No Procedure Criteria Type of Procedure Procedure Type: Elective Elective Risks - COVID COVID Risk Discussion: The surgeon/proceduralist and patient have discussed in detail the risk of exposure to and/or potential harm posed by the COVID-19 virus with having a surgery/procedure at this time versus the risk of delaying the surgery/procedure. It is not possible to know either the risk of delaying the surgery or procedure or chance of getting an infection with perfect accuracy, but a joint decision was made between the patient and the surgeon/proceduralist to proceed at this time with the scheduled surgery/procedure as indicated on the consent form. Objective Data Vital Signs: Vital Signs Temp Pulse Resp BP Pulse Ox 97.5 F L 93 18 96/84 H 95 10/06/21 09:28 10/06/21 09:28 10/06/21 09:28 10/06/21 09:28 10/06/21 09:28 Oxygen Flow Rate (L/min) 2 Oxygen Delivery Method [5] Room Air Oxygen Delivery Method [4] Room Air Oxygen Delivery Method [3] Room Air Oxygen Delivery Method [2] Room Air Oxygen Delivery Method [1 ( Room Air Initial Baseline)] Oxygen Delivery Method Room Air Weight: 202 lb 2.622 oz Body Mass Index (BMI) 28.6 Intake & Output: Intake and Output for Last 24 Hours 10/04/21 10/05/21 10/06/21 23:59 23:59 23:59 Intake Total 2260 / 2260 1400 / 1400 460 / 460 Output Total 1550 / 1550 675 / 675 250 / 250 Balance 710 / 710 725 / 725 210 / 210 Lab / Micro Data Result Diagrams: 10/05/21 05:38 10/06/21 05:55 Labs: Laboratory Results - last 24 hr 10/05/21 16:58: POC Glucose 231 H 10/05/21 21:46: POC Glucose 235 H 10/06/21 05:55: Sodium 136, Potassium 3.9, Chloride 103, Carbon Dioxide 26.0, Anion Gap 7, BUN 28 H, Creatinine 1.05, Estim Creat Clear Calc 77.25, Est GFR (MDRD) Af Amer 93, Est GFR (MDRD) Non-Af 76, BUN/Creatinine Ratio 26.7 H, Glucose 167 H, Calcium 8.8 10/06/21 05:55: PT 16.9 H, INR 1.4 10/06/21 06:39: POC Glucose 178 H 10/06/21 11:18: POC Glucose 285 H Cardiology Labs/Tests 10/06/21 05:55: Sodium 136, Potassium 3.9, Chloride 103, Carbon Dioxide 26.0, Anion Gap 7, BUN 28 H, Creatinine 1.05, Est GFR (MDRD) Af Amer 93, Est GFR (MDRD) Non-Af 76, BUN/Creatinine Ratio 26.7 H, Glucose 167 H, Calcium 8.8 10/06/21 05:55: PT 16.9 H, INR 1.4 Rhythm: Sinus rhythm EKG: Sinus rhythm; nonspecific IVCD ECHO: 05-31-2013 Mildly dilated left ventricle Severe global left ventricular systolic dysfunction The estimated ejection fraction is 20% Apical false tendon noted Mild global right ventricular systolic dysfunction Moderate to severe left atrial large Mild diffuse mitral valve thickening Mild papillary muscle dysfunction of the mitral valve Moderate mitral valve insufficiency Mild tricuspid valve insufficiency Small pericardial effusion There are no echocardiographic indications of cardiac tamponade Echo lucency compatible with a pleural effusion Right ventricular systolic pressure estimated to be 36 mmHg 07-26-2013 Mildly dilated left ventricle Moderate global left ventricular systolic dysfunction The estimated ejection fraction is 30% Apical false tendon noted The left atrium is mildly enlarged Mild diffuse mitral valve thickening Mild papillary muscle dysfunction of the mitral valve Mild mitral valve insufficiency Trivial tricuspid valve insufficiency Mild diffuse aortic valve thickening Trivial pericardial effusion There are no echocardiographic indications of cardiac tamponade Right ventricular systolic pressure estimated to be 41 mmHg 11-11-2013 Interpretation Summary Borderline to mildly dilated left ventricle. Mild to moderate global left ventricular systolic dysfunction. The estimated ejection fraction is 40 %. Apical false tendon noted. The left atrium is mildly enlarged. Mild diffuse mitral valve thickening. Mild papillary muscle dysfunction of the mitral valve. Trivial mitral valve insufficiency. Trivial tricuspid valve insufficiency. Transmitral doppler flow suggestive of impaired relaxation of left ventricle 10-03-2021: [facility] The left ventricle is dilated Left ventricular systolic function is severely decreased EF of 15?5% (visual estimate) Left ventricular diastolic function was not evaluated due to atrial fibrillation There is a moderate fixed protruding left ventricular thrombus in the apex The right ventricle is dilated Right ventricular systolic function is mildly decreased The left atrial cavity is severely dilated The right atrial cavity is dilated There are no significant valvular abnormalities There is severe (3+-4+) tricuspid valve regurgitation Estimated right ventricular systolic pressure is 55 mmHg consistent with moderate pulmonary hypertension Estimated right atrial pressure is 8 mmHg (although IVC was not seen) Definity contrast could not be administered due to lack of staff Patient sent to ER per Dr. Sevilla Exam was compared with the prior cc echocardiographic exam performed on 09-03-2018, EF has decreased and the apical thrombus is now present 10-05-2021 The study was technically difficult. Contrast injection was performed. Moderately dilated left ventricle. Severe global left ventricular systolic dysfunction. The estimated ejection fraction is 15 %. Apical false tendon noted. Mild global right ventricular systolic dysfunction. The left atrium is moderately enlarged. The right atrium is moderately enlarged. Mild diffuse mitral valve thickening. Mild papillary muscle dysfunction of the mitral valve. Moderate (2+) mitral valve insufficiency. Moderately severe (3+) tricuspid valve insufficiency. Mild diffuse aortic valve thickening. Trivial pericardial effusion. There are no echocardiographic indications of cardiac tamponade. Right ventricular systolic pressure estimated to be 56 mmHg c/w pulmonary hypertension. Unable to assess diastolic dysfunction. Comment: 2D echocardiographic and contrast enhanced images appearing compatible with a left ventricular apical thrombus. Stress Test: 05-31-2013 MYOCARDIAL PERFUSION IMAGING STUDY: TECHNIQUE: The patient was injected with 11.6 mCi of Tc99m Cardiolite and subsequently rest SPECT Cardiolite nuclear imaging was obtained in the horizontal long, vertical long, and short axes views. Status post review of the patient's additional noninvasive studies (transthoracic echocardiogram) it was elected not to proceed with further evaluation with exercise tolerance test/imaging study and post stress nuclear imaging. Thus, the study was aborted at this point. INTERPRETATION: Rest SPECT Cardiolite nuclear imaging demonstrates diminished myocardial perfusion/tracer uptake in areas of the basal anteroseptum, basal inferior septum, and basal inferior segments. No post stress imaging studies were obtained. No gated Cardiolite imaging study was obtained. Thus, no further comments could be made at this time. IMPRESSION: Rest SPECT Cardiolite nuclear imaging demonstrates diminished myocardial perfusion/tracer uptake in portions of the basal anteroseptal, basal inferior septal, and basal inferior segments. As no subsequent exercise tolerance test/imaging study was obtained and thus no post stress nuclear imaging studies or gated Cardiolite imaging study was obtained, no further comments could be made at this time. Cardiac Cath: 06-07-2013 PROCEDURES: 1. Left heart catheterization. 2. Left ventriculography. 3. Selective coronary angiography. 4. Right heart catheterization. INDICATIONS: The patient is a 53-year-old man with a history of recently documented cardiomyopathy. The present cardiac catheterization is being undertaken to assess his anatomy and to guide therapy. DESCRIPTION OF PROCEDURE: After informed consent was obtained, the patient was brought to the cardiac catheterization lab in the postabsorptive nonsedated state. Xylocaine 1% was used to anesthetize the right femoral area. A 5-Senegalese right femoral arterial sheath was placed without difficulty and the side port flushed. A 7-Senegalese venous sheath was placed without difficulty and the side port flushed. A thermodilution catheter was then advanced into the inferior vena cava and negotiated to the right atrium, right ventricle and into the pulmonary capillary wedge position. Oximetry saturation and cardiac output were obtained. Pullback pressures were then obtained. A 5-Senegalese JL4 catheter was then advanced to ascending aorta, flushed and pressures recorded. The left coronary ostium was identified and engaged. Left angiography performed in multiple views. Following that, the catheter was removed and a 5-Senegalese JR4 catheter was inserted. It was then exchanged for a 5-Senegalese Grant right catheter. The right coronary ostium was identified and engaged. Right coronary angiography performed in multiple views. Following this, the catheter was removed and a pigtail catheter was inserted and left ventriculogram performed with 24 mL of contrast at 12 mL per second. Following this, all catheters were removed, the sheaths were removed, digital pressure applied and hemostasis achieved. HEMODYNAMICS: Baseline heart rate was 55-80 beats per minute in sinus rhythm. Right atrium 10/6, right ventricle 40/2. Pulmonary capillary wedge pressure 25/27. Pulmonary artery pressure is 38/11. Cardiac output by thermodilution technique was 3.7 L per minute. Cardiac index 1.7 L per minute per meter squared. Aortic pressures were 89/64, left ventricle pressure is 88/24. Post-angiogram left ventricular pressure was 88/22, aortic pressures were 87/60. Oximetry saturation, right atrium 64, pulmonary artery 67%, aorta 94%. CORONARY ARTERIOGRAPHY: 1. Left main: The left main coronary artery was noted to be angiographically normal. It trifurcated into a left anterior descending artery, ramus intermedius and a circumflex artery. No significant stenosis was noted in this vessel. 2. Ramus intermedius: The ramus intermedius was a large vessel. There was no significant stenosis noted in this vessel. 3. Left circumflex artery: Left circumflex artery was a large, dominant vessel. It gave off a first prominent obtuse marginal branch. The vessel then continued and gave off a posterior descending artery and 2 posterolateral vessels and a small AV groove branch. No significant stenosis was noted in this vessel. 4. Right coronary artery: The right coronary artery was a nondominant vessel. It gave a sinoatrial branch, a conus branch and acute marginal branch. No significant stenosis was noted in this vessel. 5. Left anterior descending artery: Left anterior descending artery was a medium to large sized vessel. It gave off a first small diagonal branch and a septal debt counselor. The vessel then continued and gave off another diagonal branch and a bifurcating septal debt counselor. The vessel continued further downstream and reached the apex of the left ventricle. No significant stenosis was noted in this vessel. LEFT VENTRICULOGRAM: The left ventriculogram demonstrated a dilated left ventricle with severe left ventricular systolic dysfunction, estimated ejection fraction of 15-20% was noted. Global hypokinesis was present. CONCLUSION: 1. Dilated cardiomyopathy. 2. Normal left main coronary artery. 3. Ramus intermedius with no significant stenosis. 4. Dominant right coronary artery with no significant stenosis. 5. Nondominant right coronary artery with no significant stenosis. 6. Severely reduced left ventricular ejection fraction. 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 Chest x-ray: 10-04-2021 PROCEDURE: The risks, benefits, and alternatives to the procedure were explained to the patient. The specific risks of bleeding, infection, and pneumothorax requiring chest tube insertion were discussed and accepted. Written informed consent was obtained. Ultrasonographic evaluation of the right lower pleural space was carried out. An adequate pocket was identified. The patient was placed in the sitting, upright position. The overlying skin was prepped and draped in sterile fashion. 1% lidocaine was administered subcutaneously for local anesthesia. Under ultrasound guidance, a5 Senegalese thoracentesis needle/catheter system was advanced into the right posterior lower pleural fluid collection. Approximately 250 mL of gloria-colored fluid was drained. The catheter was removed, and a sterile dressing was applied. A specimen was collected and sent to the laboratory for analysis, as requested by the referring clinician. The patient tolerated the procedure well. A chest x-ray was ordered. US/Thoracentesis W US IMPRESSION: Ultrasound-guided right thoracentesis. Electronically Signed: Inder Melendez MD at 13:56 EDT Chest x-ray: 10-05-2021 FINDINGS: Persistent right lower lung infiltrates and atelectatic changes unchanged prior examination. Moderate right pleural effusion. The left lung is essentially clear. Stable cardiomediastinal silhouette Unchanged osseous structures. There is no demonstrated abnormality of the visualized soft tissue structures of the upper abdomen. RAD/Chest 1 View (Portable) IMPRESSION: No significant change since the previous exam. Electronically Signed: Cody Frazier MD at 10:29 EDT Chest CTA: 10-03-2021 FINDINGS: Normal enhancement of the main pulmonary artery and right and left pulmonary arteries. Normal enhancement of the bilateral peripheral pulmonary arteries. Heterogeneous opacification of branch of the pulmonary artery to the anterior right upper lobe best seen series 2 image 120. Normal thoracic aorta and visualized great vessels. Limited evaluation for dissection based on poor opacification of the aorta. There is cardiomegaly. Multiple enlarged lymph nodes are noted predominantly within the superior right mediastinum. Normal hilar regions. Normal visualized trachea and bronchi. Extensive consolidation and atelectasis of the right lung with a moderate right effusion and loculated fluid collections. Small left effusion. Normal chest wall structures. Normal osseous structures. Upper abdomen demonstrates small amount of ascites and cirrhosis. 10/03/21 2043Date cc: Dr. Keyonna Lopez MD; Dr. Gil Sevilla MD ~*Signed ADDENDUM by Dr. Archie Wallace MD on 10/03/[address]/CTA Chest W/WO Contrast IMPRESSION: Suspect segmental pulmonary embolus within right upper lobe pulmonary artery. Mediastinal lymphadenopathy is nonspecific. Diffuse heterogeneous appearance of right lung with scarring/atelectasis and moderate loculated effusion. Pneumonia should be excluded clinically. N.B. : The above Results were Read Back by Archie Wallace MD to Keyonna Reardon MD, and understanding confirmed on 10/03/2021 20:54:17 (ET). Electronically Signed: Archie Wallace MD at 20:43 EDT Radiography Diagnostic Testing: Radiology Impression Echocardiogram 10/04/21 17:04 Interpretation Summary The study was technically difficult. Contrast injection was performed. Moderately dilated left ventricle. Severe global left ventricular systolic dysfunction. The estimated ejection fraction is 15 %. Apical false tendon noted. Mild global right ventricular systolic dysfunction. The left atrium is moderately enlarged. The right atrium is moderately enlarged. Mild diffuse mitral valve thickening. Mild papillary muscle dysfunction of the mitral valve. Moderate (2+) mitral valve insufficiency. Moderately severe (3+) tricuspid valve insufficiency. Mild diffuse aortic valve thickening. Trivial pericardial effusion. There are no echocardiographic indications of cardiac tamponade. Right ventricular systolic pressure estimated to be 56 mmHg c/w pulmonary hypertension. Unable to assess diastolic dysfunction. Comment: 2D echocardiographic and contrast enhanced images appearing compatible with a left ventricular apical thrombus. Ordering Physician: Yolanda Braga Referring Physician: Gil Sevilla Performed By: Lety Stoddard, ALETA, RVT
[2021-10-06] MEDS: Furosemide 20 MG Tablet PO (17:02)
[2021-10-06 17:21] LABS: Bedside Glucose 268 mg/dL (74-106)
--- NOTE | 2021-10-06 18:46 | NURSING ---
Reviewed charting with Thee Koroma RN
[2021-10-06] MEDS: MELATONIN 3 MG TABLET PO (21:43)
[2021-10-06 22:06] LABS: Bedside Glucose 152 mg/dL (74-106)
[2021-10-07] VITALS (7 sets, daily range): BP systolic 96–102; BP diastolic 78–84; PULSE 77–96; RESP 18; TEMP 36.1–36.6; O2SAT 89–96
[2021-10-07 05:38] LABS: International Normalized Ratio 2.2; Prothrombin Time (Protime)PT. 23.5 SECONDS (11.7-14.9)
[2021-10-07 05:48] LABS: Anion Gap 6 (5-15); BUN 32 mg/dL (7-18); BUN/Creat Ratio 25.6 RATIO (10-20); Calcium,Total 9.2 mg/dL (8.5-10.1); Chloride 102 mmol/L (98-107); Creatinine, Serum 1.25 mg/dL (0.70-1.30); EST Glomerular Filtration Rate 63 mL/min (>60); Est Glom Filt Rate - Afr Amer 76 mL/min (>60); Estimated Creatinine Clearance 64.89 ml/min; Glucose 149 mg/dL (74-106); Potassium 5.1 mmol/L (3.5-5.1); Sodium Level 133 mmol/L (136-145)
[2021-10-07] MEDS: Insulin Lispro 100 UNIT/ML INSULN.PEN SC ×2 (06:12→12:20)
[2021-10-07] MEDS: Cephalexin 500 MG Capsule PO ×2 (06:13→13:57)
[2021-10-07] MEDS: Enoxaparin 100 MG/ML Syringe 90 MG SC (06:13)
[2021-10-07 06:41] LABS: Bedside Glucose 153 mg/dL (74-106)
--- NOTE | 2021-10-07 08:34 | PCM.PN.CARD ---
Subjective Subjective The patient believes his breathing has improved overall since being admitted to the hospital. He states he was able to place his bed somewhat more supine last night. Objective Data Vital Signs: Vital Signs Temp Pulse Resp BP Pulse Ox 97.8 F 90 18 100/84 H 96 10/07/21 03:50 10/07/21 06:59 10/07/21 03:50 10/07/21 03:50 10/07/21 03:50 Oxygen Flow Rate (L/min) 2 Oxygen Delivery Method [5] Room Air Oxygen Delivery Method [4] Room Air Oxygen Delivery Method [3] Room Air Oxygen Delivery Method [2] Room Air Oxygen Delivery Method [1 ( Room Air Initial Baseline)] Oxygen Delivery Method Nasal Cannula Weight: 203 lb 11.314 oz Body Mass Index (BMI) 28.6 Intake & Output: Intake and Output for Last 24 Hours 10/05/21 10/06/21 10/07/21 23:59 23:59 23:59 Intake Total 1400 / 1400 960 / 960 200 / 200 Output Total 675 / 675 875 / 875 200 / 200 Balance 725 / 725 85 / 85 0 / 0 Lab / Micro Data Result Diagrams: 10/05/21 05:38 10/07/21 04:47 Labs: Laboratory Results - last 24 hr 10/06/21 11:18: POC Glucose 285 H 10/06/21 16:58: POC Glucose 268 H 10/06/21 21:33: POC Glucose 152 H 10/07/21 04:47: PT 23.5 H, INR 2.2 10/07/21 04:47: Sodium 133 L, Potassium 5.1, Chloride 102, Carbon Dioxide 25.0, Anion Gap 6, BUN 32 H, Creatinine 1.25, Estim Creat Clear Calc 64.89, Est GFR (MDRD) Af Amer 76, Est GFR (MDRD) Non-Af 63, BUN/Creatinine Ratio 25.6 H, Glucose 149 H, Calcium 9.2 10/07/21 06:09: POC Glucose 153 H Cardiology Labs/Tests 10/07/21 04:47: PT 23.5 H, INR 2.2 10/07/21 04:47: Sodium 133 L, Potassium 5.1, Chloride 102, Carbon Dioxide 25.0, Anion Gap 6, BUN 32 H, Creatinine 1.25, Est GFR (MDRD) Af Amer 76, Est GFR (MDRD) Non-Af 63, BUN/Creatinine Ratio 25.6 H, Glucose 149 H, Calcium 9.2 Rhythm: Sinus rhythm/intermittent episodes of sinus tachycardia ECHO: 05-31-2013 Mildly dilated left ventricle Severe global left ventricular systolic dysfunction The estimated ejection fraction is 20% Apical false tendon noted Mild global right ventricular systolic dysfunction Moderate to severe left atrial large Mild diffuse mitral valve thickening Mild papillary muscle dysfunction of the mitral valve Moderate mitral valve insufficiency Mild tricuspid valve insufficiency Small pericardial effusion There are no echocardiographic indications of cardiac tamponade Echo lucency compatible with a pleural effusion Right ventricular systolic pressure estimated to be 36 mmHg 07-26-2013 Mildly dilated left ventricle Moderate global left ventricular systolic dysfunction The estimated ejection fraction is 30% Apical false tendon noted The left atrium is mildly enlarged Mild diffuse mitral valve thickening Mild papillary muscle dysfunction of the mitral valve Mild mitral valve insufficiency Trivial tricuspid valve insufficiency Mild diffuse aortic valve thickening Trivial pericardial effusion There are no echocardiographic indications of cardiac tamponade Right ventricular systolic pressure estimated to be 41 mmHg 11-11-2013 Interpretation Summary Borderline to mildly dilated left ventricle. Mild to moderate global left ventricular systolic dysfunction. The estimated ejection fraction is 40 %. Apical false tendon noted. The left atrium is mildly enlarged. Mild diffuse mitral valve thickening. Mild papillary muscle dysfunction of the mitral valve. Trivial mitral valve insufficiency. Trivial tricuspid valve insufficiency. Transmitral doppler flow suggestive of impaired relaxation of left ventricle 10-03-2021: [facility] The left ventricle is dilated Left ventricular systolic function is severely decreased EF of 15?5% (visual estimate) Left ventricular diastolic function was not evaluated due to atrial fibrillation There is a moderate fixed protruding left ventricular thrombus in the apex The right ventricle is dilated Right ventricular systolic function is mildly decreased The left atrial cavity is severely dilated The right atrial cavity is dilated There are no significant valvular abnormalities There is severe (3+-4+) tricuspid valve regurgitation Estimated right ventricular systolic pressure is 55 mmHg consistent with moderate pulmonary hypertension Estimated right atrial pressure is 8 mmHg (although IVC was not seen) Definity contrast could not be administered due to lack of staff Patient sent to ER per Dr. Sevilla Exam was compared with the prior cc echocardiographic exam performed on 09-03-2018, EF has decreased and the apical thrombus is now present 10-05-2021 The study was technically difficult. Contrast injection was performed. Moderately dilated left ventricle. Severe global left ventricular systolic dysfunction. The estimated ejection fraction is 15 %. Apical false tendon noted. Mild global right ventricular systolic dysfunction. The left atrium is moderately enlarged. The right atrium is moderately enlarged. Mild diffuse mitral valve thickening. Mild papillary muscle dysfunction of the mitral valve. Moderate (2+) mitral valve insufficiency. Moderately severe (3+) tricuspid valve insufficiency. Mild diffuse aortic valve thickening. Trivial pericardial effusion. There are no echocardiographic indications of cardiac tamponade. Right ventricular systolic pressure estimated to be 56 mmHg c/w pulmonary hypertension. Unable to assess diastolic dysfunction. Comment: 2D echocardiographic and contrast enhanced images appearing compatible with a left ventricular apical thrombus. Stress Test: 05-31-2013 MYOCARDIAL PERFUSION IMAGING STUDY: TECHNIQUE: The patient was injected with 11.6 mCi of Tc99m Cardiolite and subsequently rest SPECT Cardiolite nuclear imaging was obtained in the horizontal long, vertical long, and short axes views. Status post review of the patient's additional noninvasive studies (transthoracic echocardiogram) it was elected not to proceed with further evaluation with exercise tolerance test/imaging study and post stress nuclear imaging. Thus, the study was aborted at this point. INTERPRETATION: Rest SPECT Cardiolite nuclear imaging demonstrates diminished myocardial perfusion/tracer uptake in areas of the basal anteroseptum, basal inferior septum, and basal inferior segments. No post stress imaging studies were obtained. No gated Cardiolite imaging study was obtained. Thus, no further comments could be made at this time. IMPRESSION: Rest SPECT Cardiolite nuclear imaging demonstrates diminished myocardial perfusion/tracer uptake in portions of the basal anteroseptal, basal inferior septal, and basal inferior segments. As no subsequent exercise tolerance test/imaging study was obtained and thus no post stress nuclear imaging studies or gated Cardiolite imaging study was obtained, no further comments could be made at this time. Cardiac Cath: 06-07-2013 PROCEDURES: 1. Left heart catheterization. 2. Left ventriculography. 3. Selective coronary angiography. 4. Right heart catheterization. INDICATIONS: The patient is a 53-year-old man with a history of recently documented cardiomyopathy. The present cardiac catheterization is being undertaken to assess his anatomy and to guide therapy. DESCRIPTION OF PROCEDURE: After informed consent was obtained, the patient was brought to the cardiac catheterization lab in the postabsorptive nonsedated state. Xylocaine 1% was used to anesthetize the right femoral area. A 5-[place] right femoral arterial sheath was placed without difficulty and the side port flushed. A 7-[place] venous sheath was placed without difficulty and the side port flushed. A thermodilution catheter was then advanced into the inferior vena cava and negotiated to the right atrium, right ventricle and into the pulmonary capillary wedge position. Oximetry saturation and cardiac output were obtained. Pullback pressures were then obtained. A 5-[place] JL4 catheter was then advanced to ascending aorta, flushed and pressures recorded. The left coronary ostium was identified and engaged. Left angiography performed in multiple views. Following that, the catheter was removed and a 5-[place] JR4 catheter was inserted. It was then exchanged for a 5-[place] Grant right catheter. The right coronary ostium was identified and engaged. Right coronary angiography performed in multiple views. Following this, the catheter was removed and a pigtail catheter was inserted and left ventriculogram performed with 24 mL of contrast at 12 mL per second. Following this, all catheters were removed, the sheaths were removed, digital pressure applied and hemostasis achieved. HEMODYNAMICS: Baseline heart rate was 55-80 beats per minute in sinus rhythm. Right atrium 10/6, right ventricle 40/2. Pulmonary capillary wedge pressure 25/27. Pulmonary artery pressure is 38/11. Cardiac output by thermodilution technique was 3.7 L per minute. Cardiac index 1.7 L per minute per meter squared. Aortic pressures were 89/64, left ventricle pressure is 88/24. Post-angiogram left ventricular pressure was 88/22, aortic pressures were 87/60. Oximetry saturation, right atrium 64, pulmonary artery 67%, aorta 94%. CORONARY ARTERIOGRAPHY: 1. Left main: The left main coronary artery was noted to be angiographically normal. It trifurcated into a left anterior descending artery, ramus intermedius and a circumflex artery. No significant stenosis was noted in this vessel. 2. Ramus intermedius: The ramus intermedius was a large vessel. There was no significant stenosis noted in this vessel. 3. Left circumflex artery: Left circumflex artery was a large, dominant vessel. It gave off a first prominent obtuse marginal branch. The vessel then continued and gave off a posterior descending artery and 2 posterolateral vessels and a small AV groove branch. No significant stenosis was noted in this vessel. 4. Right coronary artery: The right coronary artery was a nondominant vessel. It gave a sinoatrial branch, a conus branch and acute marginal branch. No significant stenosis was noted in this vessel. 5. Left anterior descending artery: Left anterior descending artery was a medium to large sized vessel. It gave off a first small diagonal branch and a septal lath hand. The vessel then continued and gave off another diagonal branch and a bifurcating septal lath hand. The vessel continued further downstream and reached the apex of the left ventricle. No significant stenosis was noted in this vessel. LEFT VENTRICULOGRAM: The left ventriculogram demonstrated a dilated left ventricle with severe left ventricular systolic dysfunction, estimated ejection fraction of 15-20% was noted. Global hypokinesis was present. CONCLUSION: 1. Dilated cardiomyopathy. 2. Normal left main coronary artery. 3. Ramus intermedius with no significant stenosis. 4. Dominant right coronary artery with no significant stenosis. 5. Nondominant right coronary artery with no significant stenosis. 6. Severely reduced left ventricular ejection fraction. RECOMMENDATIONS: Based on the above angiographic findings, I would recommend that the patient continue with current medications and would follow up with his primary professor of rhetoric for further recommendations, which may include placement of an implantable defibrillator at the appropriate time. Chest x-ray: 10-04-2021 PROCEDURE: The risks, benefits, and alternatives to the procedure were explained to the patient. The specific risks of bleeding, infection, and pneumothorax requiring chest tube insertion were discussed and accepted. Written informed consent was obtained. Ultrasonographic evaluation of the right lower pleural space was carried out. An adequate pocket was identified. The patient was placed in the sitting, upright position. The overlying skin was prepped and draped in sterile fashion. 1% lidocaine was administered subcutaneously for local anesthesia. Under ultrasound guidance, a5 [place] thoracentesis needle/catheter system was advanced into the right posterior lower pleural fluid collection. Approximately 250 mL of gloria-colored fluid was drained. The catheter was removed, and a sterile dressing was applied. A specimen was collected and sent to the laboratory for analysis, as requested by the referring clinician. The patient tolerated the procedure well. A chest x-ray was ordered. US/Thoracentesis W US IMPRESSION: Ultrasound-guided right thoracentesis. Electronically Signed: Inder Melendez MD at 13:56 EDT Chest x-ray: 10-05-2021 FINDINGS: Persistent right lower lung infiltrates and atelectatic changes unchanged prior examination. Moderate right pleural effusion. The left lung is essentially clear. Stable cardiomediastinal silhouette Unchanged osseous structures. There is no demonstrated abnormality of the visualized soft tissue structures of the upper abdomen. RAD/Chest 1 View (Portable) IMPRESSION: No significant change since the previous exam. Electronically Signed: Cody Frazier MD at 10:29 EDT Chest CTA: 10-03-2021 FINDINGS: Normal enhancement of the main pulmonary artery and right and left pulmonary arteries. Normal enhancement of the bilateral peripheral pulmonary arteries. Heterogeneous opacification of branch of the pulmonary artery to the anterior right upper lobe best seen series 2 image 120. Normal thoracic aorta and visualized great vessels. Limited evaluation for dissection based on poor opacification of the aorta. There is cardiomegaly. Multiple enlarged lymph nodes are noted predominantly within the superior right mediastinum. Normal hilar regions. Normal visualized trachea and bronchi. Extensive consolidation and atelectasis of the right lung with a moderate right effusion and loculated fluid collections. Small left effusion. Normal chest wall structures. Normal osseous structures. Upper abdomen demonstrates small amount of ascites and cirrhosis. 10/03/21 2043Date cc: Dr. Keyonna Lopez MD; Dr. Gil Sevilla MD ~*Signed ADDENDUM by Dr. Archie Wallace MD on 10/03/[address]/CTA Chest W/WO Contrast IMPRESSION: Suspect segmental pulmonary embolus within right upper lobe pulmonary artery. Mediastinal lymphadenopathy is nonspecific. Diffuse heterogeneous appearance of right lung with scarring/atelectasis and moderate loculated effusion. Pneumonia should be excluded clinically. N.B. : The above Results were Read Back by Archie Wallace MD to Keyonna Reardon MD, and understanding confirmed on 10/03/2021 20:54:17 (ET). Electronically Signed: Archie Wallace MD at 20:43 EDT Physical Exam Const alert, oriented x3 and no apparent distress Orientation / Consciousness: awake HEENT normocephalic, head/scalp atraumatic and hearing grossly normal bilaterally Eyes PERRL, EOMs intact bilaterally and conjunctivae normal Neck full ROM, supple and no JVD Resp Auscultation: diminished lung sounds right lower Cardio regular rate, regular rhythm, S1 normal heart sound and S2 normal heart sound GI normal to inspection, nondistended, normoactive bowel sounds Extremity General Extremity: edema bilateral lower extremity Details: moderate Skin Skin Narrative: Right leg: The anterior tibial surface: Skin lesions/sores Neuro oriented x3, moves all extremities, no focal motor deficits and no sensory deficits noted Psych mental status grossly normal Assessment & Plan Assessment/Plan (1) Cardiomyopathy: PLAN: The patient has a history of a non-CAD related cardiomyopathy. He has undergone noninvasive and invasive cardiovascular evaluation as noted above. At the present time it appears that both his recent [facility] and [facility] echocardiographic findings demonstrate severely diminished LV systolic function/LVEF with concerns of a left ventricular apical thrombus, continued evidence of valvular heart disease, and elevated RV systolic pressures. The patient's medications are being adjusted with an attempt to reinitiate beta-anthony therapy and over time if the patient's hemodynamics tolerate to hopefully initiate afterload reducing therapy as well. In the past there had been a discussion of possible ICD placement, however, as his LV systolic function/LVEF appeared to improve based upon his Nov, 2013 transthoracic echocardiogram, this was placed on hold. However, his overall LV systolic function/LVEF has significantly decreased and thus he does need to be considered once again for ICD placement which depending upon his electrocardiogram potentially could include consideration for a biventricular ICD. He also can be considered for a referral to a tertiary care center advanced heart failure team for consideration as to whether or not he is a candidate for additional therapies such as a ventricular assist device or a cardiac transplantation. (2) CHF (congestive heart failure): QUALIFIERS: Heart failure type: systolic Heart failure chronicity: acute Qualified Code(s): I50.21 - Acute systolic (congestive) heart failure PLAN: The patient does have symptoms and objective findings compatible with acute on chronic systolic mediated CHF. He will continue medical management with his diuretic therapy with adjustment over time. As his clinical course is changed and his diuretic dose is changing an attempt is being made to reinitiate beta-anthony therapy. He may also need follow-up chest x-rays to monitor his right-sided pleural effusion status post medical management and thoracentesis. (3) Left ventricular thrombus: PLAN: He will need to continue anticoagulant therapy. Over time follow-up echocardiographic studies should be considered to monitor his left ventricular wall motion, systolic function, and left ventricular apical thrombus. (4) Loculated pleural effusion: PLAN: Again he will need continued medical management as well as consideration for future follow-up chest x-rays to monitor his pleural effusion. (5) Pulmonary embolism: QUALIFIERS: Pulmonary embolism type: other Chronicity: acute Acute cor pulmonale presence: without acute cor pulmonale Qualified Code(s): I26.99 - Other pulmonary embolism without acute cor pulmonale PLAN: He will need to continue medical management with anticoagulant therapy. (6) HLD (hyperlipidemia): PLAN: He should continue risk factor evaluation care as deemed appropriate. (7) HTN (hypertension): PLAN: As his blood pressure stabilizes his medications can be adjusted to hopefully optimize his cardiovascular therapy. (8) Dyspnea: PLAN: He does note that his breathing has improved somewhat since his hospitalization. He will continue medical management and follow-up. Addt'l Comments The patient's case was discussed and reviewed with the patient and Dr. Braga. This note was generated using a voice recognition system and there may be incorrect words, spelling or punctuation that were not noted when reviewing the office note prior to saving.
[2021-10-07] MEDS: Ascorbic Acid 500 MG Tablet PO (08:42)
[2021-10-07] MEDS: Glimepiride 4 MG Tablet PO (08:42)
[2021-10-07] MEDS: Aspirin E.C. 81 MG Tablet PO (08:43)
[2021-10-07] MEDS: Carvedilol 3.125 MG TABLET PO (08:43)
[2021-10-07] MEDS: Potassium Chloride Oral Tablet 20 MEQ PO (08:43)
[2021-10-07] MEDS: Spironolactone 25 MG Tablet 12.5 MG PO (08:43)
[2021-10-07] MEDS: Furosemide 20 MG Tablet PO (08:43)
[2021-10-07] MEDS: Glucerna Shake 120 ML LIQUID 60 ML PO (08:45)
--- NOTE | 2021-10-07 09:21 | WOUNDNOTE ---
wound photo: right lower leg
--- NOTE | 2021-10-07 09:22 | WOUNDNOTE ---
wound photo: right foot
--- NOTE | 2021-10-07 10:51 | DCINST_ITS ---
Discharge Instructions Diet Discharge Diet: No restrictions Activity Discharge Activity: Return to Normal Activity Weight Bearing Status: Weight bearing as tolerated Dressing / Incision Call your doctor if you observe: Fever of 101 or Higher, Numbness or Tingling, Shortness of breath, Dizziness, Chest pain, Increased palpitations (irregular heartbeat) and Calf discomfort Follow Up Care Please Follow Up With: Primary care provider When: Within the next two weeks. Test Results: Test results from this visit will be discussed in further detail at your follow-up appointment, if applicable. Discharge Plan Admission Admit Date/Time: 10/03/21 22:03 Primary Reason for Your Visit: Shortness of breath Attending Provider: Yolanda Braga Primary Care Provider: Gil Sevilla Consulting Providers: Casa Dominguez Instructions Additional Instructions / Restrictions: * Your home Lasix prescription has been changed to 20mg, twice daily. Take half of your 40mg tablet, twice daily. * Your home Spironolactone prescription has been changed to 12.5mg, twice daily. Take half of your 25mg tablet, twice daily. * Obtain a PT/INR reading at the hospital or your primary doctors office in the next 5 days. * Follow up with your primary care physician about a coumadin clinic. 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 Discharge Orders/Prescriptions Prescriptions: New carvedilol 3.125 mg Tablet 3.125 mg PO BID Qty: 60 RF: 0 warfarin 5 mg tablet 5 mg PO DAILY Qty: 30 RF: 0 Continued ascorbic acid (vitamin C) [Vitamin C] 500 MG tablet 500 mg PO DAILY@0800 RF: 0 aspirin 81 MG tablet 81 mg PO DAILY@0800 Qty: 30 RF: 0 metformin 500 mg tablet extended release 24 hr 1,000 mg PO BID RF: 0 cephalexin 500 mg capsule 500 mg PO TID RF: 0 glimepiride 4 mg tablet 4 mg PO DAILY RF: 0 Changed furosemide 40 MG tablet 20 mg PO BIDLX Qty: 60 RF: 0 spironolactone 25 mg tablet 12.5 mg PO BID Qty: 0 RF: 0 Other Ambulatory Orders: Prothrombin Time w/INR (Routine) Timeframe: 5 Days Facility: [facility] - Location: Laboratory Ordered By: Jorge A CARVER Referrals / Follow Up: Casa Dominguez MD [STAFF PHYSICIAN] - Within 2 Weeks Gil Sevilla MD [Primary Care Provider] - 10/18/21 3:55 pm (This is an appointment Mr. Bonner had previously scheduled) Disposition Disposition (needs filled in before D/C Order can be placed): Home, Self Care
--- NOTE | 2021-10-07 12:05 | NURSING ---
Patient approached by NANCY Banda and NANCY Aviles about possible enrollment in [facility] Patient Link remote patient monitoring program at discharge. Program explained to patient, pamphlet provided explaining program. Patient agreeable to participation, aware can remove self from program at any time with no penalties. Will be enrolled in remote patient monitoring program for 30 days, starting ThursdayOctober 09, when kit is to be delivered to patient's house. Consent obtained and scanned.
[2021-10-07 12:36] LABS: Bedside Glucose 231 mg/dL (74-106)
[2021-10-07 12:48] LABS: Pathologist Comment/Body Fluid Reviewed
--- NOTE | 2021-10-07 13:04 | PCM.DC.SUM ---
Documented by User: Jorge A CARVER 10/07/21 13:20 Providers Date of Admission: 10/03/21 Date of Discharge: 10/07/21 Primary Care Physician: Dr. Gil Sevilla MD Consultations 10/05/21 16:41 Consult: Cardiology Routine Consulting Provider: Casa Dominguez Reason for Consult: Abnormal Echo EMERGENT Consult: No MD Notified: Yes Date Notified: 10/05/21 Time Notified: 16:41 Method of Notification: Verbal 10/06/21 21:49 Consult: Onc/Wound/rn baby Routine Comment: Reason for Consult:: non healing wounds on right leg Reason For Visit: PULMONARY EMBOLISM / ACUTE EXACERBATION OF CHF Diagnosis Discharge Diagnosis (1) Cardiomyopathy: Status: Acute Code(s): I42.9 - Cardiomyopathy, unspecified (2) CHF (congestive heart failure): Status: Acute Code(s): I50.9 - Heart failure, unspecified Qualifiers: Heart failure chronicity: acute Heart failure type: systolic Qualified Code(s): I50.21 - Acute systolic (congestive) heart failure (3) Left ventricular thrombus: Status: Acute Code(s): I51.3 - Intracardiac thrombosis, not elsewhere classified (4) Loculated pleural effusion: Status: Acute Code(s): J90 - Pleural effusion, not elsewhere classified (5) Pulmonary embolism: Status: Acute Code(s): I26.99 - Other pulmonary embolism without acute cor pulmonale Qualifiers: Acute cor pulmonale presence: without acute cor pulmonale Chronicity: acute Pulmonary embolism type: other Qualified Code(s): I26.99 - Other pulmonary embolism without acute cor pulmonale (6) HLD (hyperlipidemia): Status: Acute Code(s): E78.5 - Hyperlipidemia, unspecified (7) HTN (hypertension): Status: Chronic Code(s): I10 - Essential (primary) hypertension (8) Dyspnea: Status: Acute Code(s): R06.00 - Dyspnea, unspecified Medications at Discharge Home Medications ascorbic acid (vitamin C) [Vitamin C] 500 mg PO DAILY@0800 05/30/13 aspirin 81 mg PO DAILY@0800 #30 tablet 06/01/13 metformin 1,000 mg PO BID 06/10/21 cephalexin 500 mg PO TID 10/03/21 glimepiride 4 mg PO DAILY 10/03/21 carvedilol 3.125 mg PO BID #60 tab 10/07/21 furosemide 20 mg PO BIDLX #60 tablet 10/07/21 spironolactone 12.5 mg PO BID #0 tab 10/07/21 warfarin 5 mg PO DAILY #30 tab 10/07/21 Hospital Course Procedures 2-D Echocardiogram and Transthoracic echo Summary of Care Provided Minutes Spent on Discharge: 20 Hospital Course: Patient is a 61-year-old male who was admitted to [facility] on 10/03/2021 for evaluation and management of shortness of breath. Hospital course and management as below. 1) acute on chronic HFrEF with loculated pleural effusion Updated echocardiogram obtained on 10/04 demonstrated severe global left ventricular systolic dysfunction, an EF of 15%, and RVSP of 56 mmHg consistent with pulmonary hypertension and a new left ventricular apical thrombus. EF is noticeably worse from prior study obtained in 2013. Patient underwent diagnostic/therapeutic thoracentesis for right-sided pleural effusion on 10/04, fluid is transudative of by lights criteria likely secondary to patient's ongoing CHF. Given significantly decreased EF and findings of apical thrombus and the left ventricle, cardiology consult was obtained. Cardiology recommendations are to continue with medical management and follow-up as an outpatient in regards to tertiary care evaluation and possible invasive intervention. 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 Patient was discharged on Lasix 20 mg twice daily, spironolactone 12.5 mg twice daily, initiate Coreg 3.125 mg twice daily. 2) pulmonary embolism CT-A with suspected segmental PE with in right upper lobe pulmonary artery. Patient was bridged from Lovenox to Coumadin, INR 2.2 on day of discharge. Will initiate Coumadin 5 mg daily, obtain PT/INR in 5 days establish Coumadin care clinic with primary care provider. 3) RLE cellulitis Diagnosed prior to admission, continue home Keflex. 4) DM2 Continue home diabetic regimen. Patient seen by Jorge A Ching PA-C, under the supervision of Dr. Braga. Time spent on patient care: 20 minutes. Physical Exam Narrative Patient is a 61-year-old male comfortably resting in chair, alert and orient x3. Patient reports that her shortness of breath is greatly improved from admission. Denies development of any new symptoms overnight. Const alert, oriented x3 and no apparent distress HEENT normocephalic, head/scalp atraumatic and hearing grossly normal bilaterally Eyes PERRL, EOMs intact bilaterally and conjunctivae normal Neck no lymphadenopathy, supple and no JVD Resp normal respiratory effort and no use of accessory muscles Cardio regular rate, regular rhythm and no JVD GI normal to inspection, nondistended, normoactive bowel sounds Extremity Extremity Narrative: Stable appearing crusted ulcers on the lower extremities bilaterally. Skin Skin Narrative: See extremity. Neuro CN's II-XII intact bilaterally Psych affect normal Medical Records Data Medical Nutrition Assessment Dietitian: Malnutrition Criteria Met Start: 10/04/21 14:39 Freq: Status: Active Protocol: Document 10/05/21 13:59 AG (Rec: 10/05/21 13:59 AG [id number]) Nutrition Malnutrition Evidence of Malnutrition Exists Yes Malnutrition (moderate): Chronic Evidenced By Suboptimal Energy Intake ( Moderate),Physical Changes ( Mild) Clinical Problem Chronic Disease or Condition Related Malnutrition Etiology moderate, chronic malnutrition r/t inadequate energy intake s/p COVID infection and hospitalization Signs/Symptoms as evidenced by estimated PO intake meeting <75% of estimated energy needs x 3 months; mild muscle wasting/ fat loss evident in orbital, temporal, clavicle, and acromion areas Status Active Problem Unintended Weight Gain Etiology r/t fluid retention Signs/Symptoms as evidenced by reports of 20- 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 Status Active Problem Recommendation Dietitian Recommendations/Changes Will adjust diet to carbohydrate controlled, cardiac and continue glucerna 120mL 4x/day w/ medpass d/t malnutrition. Weight / BMI Weight Weight: 203 lb 11.314 oz Body Mass Index (BMI) 28.6 ABG / Lab / Microbiology Data Result Diagrams: 10/05/21 05:38 10/07/21 04:47 Laboratory: Laboratory Results - last 24 hr 10/04/21 13:15: Fl Pathologist Comment Reviewed 10/06/21 16:58: POC Glucose 268 H 10/06/21 21:33: POC Glucose 152 H 10/07/21 04:47: PT 23.5 H, INR 2.2 10/07/21 04:47: Sodium 133 L, Potassium 5.1, Chloride 102, Carbon Dioxide 25.0, Anion Gap 6, BUN 32 H, Creatinine 1.25, Estim Creat Clear Calc 64.89, Est GFR (MDRD) Af Amer 76, Est GFR (MDRD) Non-Af 63, BUN/Creatinine Ratio 25.6 H, Glucose 149 H, Calcium 9.2 10/07/21 06:09: POC Glucose 153 H 10/07/21 12:19: POC Glucose 231 H D/C Instructions Discharge Diet: No restrictions Weight Bearing Status: Weight bearing as tolerated Call your doctor if you observe: Fever of 101 or Higher, Numbness or Tingling, Shortness of breath, Dizziness, Chest pain, Increased palpitations (irregular heartbeat) and Calf discomfort Please Follow Up With: Primary care provider When: Within the next two weeks. Meaningful Use Info Meaningful Use Diagnoses (Choose all that apply): CHF CHF BECKA/ARB ordered at discharge?: No Reason BECKA/ARB not ordered?: Not indicated Documented LVEF (%): 15 Discharge Plan Admission Admit Date/Time: 10/03/21 22:03 Primary Reason for Your Visit: Shortness of breath Attending Provider: Yolanda Braga Primary Care Provider: Gil Sevilla Consulting Providers: Casa Dominguez Instructions Additional Instructions / Restrictions: * Your home Lasix prescription has been changed to 20mg, twice daily. Take half of your 40mg tablet, twice daily. * Your home Spironolactone prescription has been changed to 12.5mg, twice daily. Take half of your 25mg tablet, twice daily. * Obtain a PT/INR reading at the hospital or your primary doctors office in the next 5 days. * Follow up with your primary care physician about a coumadin clinic. 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 Discharge Orders/Prescriptions Prescriptions: New carvedilol 3.125 mg Tablet 3.125 mg PO BID Qty: 60 RF: 0 warfarin 5 mg tablet 5 mg PO DAILY Qty: 30 RF: 0 Continued ascorbic acid (vitamin C) [Vitamin C] 500 MG tablet 500 mg PO DAILY@0800 RF: 0 aspirin 81 MG tablet 81 mg PO DAILY@0800 Qty: 30 RF: 0 metformin 500 mg tablet extended release 24 hr 1,000 mg PO BID RF: 0 cephalexin 500 mg capsule 500 mg PO TID RF: 0 glimepiride 4 mg tablet 4 mg PO DAILY RF: 0 Changed furosemide 40 MG tablet 20 mg PO BIDLX Qty: 60 RF: 0 spironolactone 25 mg tablet 12.5 mg PO BID Qty: 0 RF: 0 Other Ambulatory Orders: Prothrombin Time w/INR (Routine) Timeframe: 5 Days Facility: [facility] - Location: Laboratory Ordered By: Jorge A CARVER Referrals / Follow Up: Casa Dominguez MD [STAFF PHYSICIAN] - Within 2 Weeks Gil Sevilla MD [Primary Care Provider] - 10/18/21 3:55 pm (This is an appointment Mr. Bonner had previously scheduled) Disposition Disposition (needs filled in before D/C Order can be placed): Home, Self Care Documented by User: Dr. Yolanda Braga MD 10/07/21 13:49 Providers Date of Admission: 10/03/21 Reason For Visit: PULMONARY EMBOLISM / ACUTE EXACERBATION OF CHF Medications at Discharge Home Medications ascorbic acid (vitamin C) [Vitamin C] 500 mg PO DAILY@0800 05/30/13 aspirin 81 mg PO DAILY@0800 #30 tablet 06/01/13 metformin 1,000 mg PO BID 06/10/21 cephalexin 500 mg PO TID 10/03/21 glimepiride 4 mg PO DAILY 10/03/21 carvedilol 3.125 mg PO BID #60 tab 10/07/21 furosemide 20 mg PO BIDLX #60 tablet 10/07/21 spironolactone 12.5 mg PO BID #0 tab 10/07/21 warfarin 5 mg PO DAILY #30 tab 10/07/21 ABG / Lab / Microbiology Data Result Diagrams: 10/05/21 05:38 10/07/21 04:47 Discharge Plan Admission Admit Date/Time: 10/03/21 22:03 Primary Reason for Your Visit: Shortness of breath Attending Provider: Yolanda Braga Primary Care Provider: Gil Sevilla Consulting Providers: Casa Dominguez Instructions Additional Instructions / Restrictions: * Your home Lasix prescription has been changed to 20mg, twice daily. Take half of your 40mg tablet, twice daily. * Your home Spironolactone prescription has been changed to 12.5mg, twice daily. Take half of your 25mg tablet, twice daily. * Obtain a PT/INR reading at the hospital or your primary doctors office in the next 5 days. * Follow up with your primary care physician about a coumadin clinic. 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 Discharge Orders/Prescriptions Prescriptions: New carvedilol 3.125 mg Tablet 3.125 mg PO BID Qty: 60 RF: 0 warfarin 5 mg tablet 5 mg PO DAILY Qty: 30 RF: 0 Continued ascorbic acid (vitamin C) [Vitamin C] 500 MG tablet 500 mg PO DAILY@0800 RF: 0 aspirin 81 MG tablet 81 mg PO DAILY@0800 Qty: 30 RF: 0 metformin 500 mg tablet extended release 24 hr 1,000 mg PO BID RF: 0 cephalexin 500 mg capsule 500 mg PO TID RF: 0 glimepiride 4 mg tablet 4 mg PO DAILY RF: 0 Changed furosemide 40 MG tablet 20 mg PO BIDLX Qty: 60 RF: 0 spironolactone 25 mg tablet 12.5 mg PO BID Qty: 0 RF: 0 Other Ambulatory Orders: Prothrombin Time w/INR (Routine) Timeframe: 5 Days Facility: [facility] - Location: Laboratory Ordered By: Jorge A CARVER Referrals / Follow Up: Casa Dominguez MD [STAFF PHYSICIAN] - Within 2 Weeks Gil Sevilla MD [Primary Care Provider] - 10/18/21 3:55 pm (This is an appointment Mr. Bonner had previously scheduled) Disposition Disposition (needs filled in before D/C Order can be placed): Home, Self Care Charges/Coding Addendum Addendum: This patient was seen in conjunction with MEHUL Sam. I have independently interviewed and examined the patient and reviewed pertinent historical, laboratory, and other data. Please refer to MEHUL Sam's note for his patient's presentation, findings, and recommendations. I have reviewed and his note and concur with his documentation 61-year-old male who presented with abnormal echo finding. Patient was having echo done in the outpatient for shortness of breath. He was advised to go to the emergency room. Work-up in the ED was significant for acute PE. Patient was also managed as acute CHF. He was started on Lasix and Lovenox. 2D echo showed EF of 15%, RVSP was 56 mmHg, left ventricular apical thrombus. Patient was initially on oxygen and improved off oxygen. He was bridged to coumadin. Cardiology was consulted and recommended follow-up for referral to tertiary center for AICD evaluation His INR was therapeutic at 2.2 at Gen:Dishevelled, disabled, not pale, not jaundiced CVS:HS I +II, regular, no murmurs RESP: Diminished at lung bases GI: BS present and normal, soft, nontender, no palpable organs EXT:Bilateral leg edema+1, healing ulcers on right leg ASSESSMENT: 1. Acute hypoxic respiratory failure 2. Acute PE 3. Acute on chronic heart failure with reduced EF, previous EF of 30%(2014) 4. Loculated pleural effusion 5. Bilateral leg cellulitis/ulcers 6. Type II DM 7. Malnutrition, moderate Time spent coordinating patient's care, discussing with nursing, cardiology,and SW/case management: 30 minutes Visit Charges Inpatient E&M: 09268 Disch Hosp
--- NOTE | 2021-10-07 14:02 | CASEMGMT ---
Social Work Per pt physician pt may not be able to continue to work due to health issues. SW met with pt and provided information on disability and Medicaid application. Pt expresses understanding and is acceptance of information and is aware of steps needed to apply for disability. SW denies any other SW needs. RAHUL Workman
== END 2021-10-07 14:43 | disposition home or self-care (01) | DRG 175 ==
LOC: ED 21:19 → PCU 10-04 07:10
PROVIDERS: Physician Assistant; Admitting Provider Hospitalist; Emergency Provider Emergency Medicine; PCP Internal Medicine; Visit Provider Internal Medicine
DX: I26.99 Other pulmonary embolism without acute cor pulmonale (principal); J96.01 Acute respiratory failure with hypoxia; I50.23 Acute on chronic systolic (congestive) heart failure; E44.0 Moderate protein-calorie malnutrition; I42.9 Cardiomyopathy, unspecified; J90 Pleural effusion, not elsewhere classified; L03.115 Cellulitis of right lower limb; L03.116 Cellulitis of left lower limb; L97.911 Non-pressure chronic ulcer of unspecified part of right lower leg limited to breakdown of skin; I48.91 Unspecified atrial fibrillation; I26.93 Single subsegmental thrombotic pulmonary embolism without acute cor pulmonale; I11.0 Hypertensive heart disease with heart failure; E11.65 Type 2 diabetes mellitus with hyperglycemia; E11.622 Type 2 diabetes mellitus with other skin ulcer; I08.1 Rheumatic disorders of both mitral and tricuspid valves; E78.5 Hyperlipidemia, unspecified; G47.33 Obstructive sleep apnea (adult) (pediatric); E80.4 Gilbert syndrome; Z68.30 Body mass index [BMI] 30.0-30.9, adult; Z79.01 Long term (current) use of anticoagulants; Z79.82 Long term (current) use of aspirin; Z79.84 Long term (current) use of oral hypoglycemic drugs; Z79.899 Other long term (current) drug therapy; Z87.891 Personal history of nicotine dependence; Z86.16 Personal history of COVID-19
CPT/HCPCS: 32555; 36415; 71045; 71046; 71275; 80048; 82945; 82962; 83615; 83735; 83880; 84156; 84157; 84484; 85025; 85379; 85610; 85730; 88108; 88305; 88313; 89050; 93005; 93306; 97802; 97803; 99284; Q9957; A4216; C8929; J1940; J2405

== ENCOUNTER 2021-10-09 16:06 | Outpatient (CLI) | payer SELFPAY ==
[2021-10-09 16:35] LABS: International Normalized Ratio 3.9; Prothrombin Time (Protime)PT. 37.3 SECONDS (11.7-14.9)
== END 2021-10-09 23:59 | disposition home or self-care (01) ==
LOC: LAB 16:08
PROVIDERS: PCP Internal Medicine; Visit Provider Physician Assistant
DX: I26.99 Other pulmonary embolism without acute cor pulmonale (principal)
CPT/HCPCS: 36415; 85610

== ENCOUNTER 2021-10-21 09:57 | Outpatient (RCR) | payer SELFPAY ==
[2021-10-21 11:14] LABS: International Normalized Ratio 2.1; Prothrombin Time (Protime)PT. 23.5 SECONDS (11.7-14.9)
--- NOTE | 2021-10-21 11:38 | RAD_ITS ---
INDICATION: CONNOR EXAMINATION/TECHNIQUE: X-RAY - XR Chest 2 Views COMPARISON: 10/05/2021 FINDINGS: LINES/DEVICES: None. LUNGS: Prominence of the bronchovascular interstitial lung markings visualized most prominent in the right mid and lower lung kinney, right pleural effusion is visualized that demonstrates no significant increase in comparison to the prior study. Biapical prominence suggestive of COPD changes. The left costophrenic angle is clear with no evidence of left pleural effusion. No evidence of pneumothorax is seen. MEDIASTINUM AND CARDIOVASCULAR STRUCTURES: Cardiomegaly demonstrates no significant change. BONES AND SOFT TISSUES: Unremarkable. RAD/Chest PA and Lateral IMPRESSION: Cardiomegaly and right pleural effusion demonstrate no significant increase in comparison to the prior study. Electronically Signed: Moo Grace MD at 12:00 EDT ,
[2021-10-21 12:43] LABS: Absolute Lymphocyte Count 0.96 X10^3/uL (0.83-4.51); Absolute Neutrophil Count 6.1 X10^3/uL (2.0-7.7); Basophil# 0.06 X10^3/uL; Basophil% 0.8 % (0-1); Eosinophil# 0.02 X10^3/uL; Eosinophils% 0.3 % (0-5); Hematocrit 46.7 % (40-54); Hemoglobin 14.7 g/dL (13.0-16.5); Lymphocyte # 0.96 X10^3/ul (0.83-4.51); Lymphocyte % 12.1 % (19-41); Mean Corp Hgb Conc 31.5 g/dL (32-36); Mean Corpuscular Hgb 26.3 pg (27.0-32.0); Mean Corpuscular Volume 83.5 fL (80-94); Mean Platelet Vol. 10.4 fl (6.2-12.0); Monocyte# 0.82 X10^3/uL; Monocyte% 10.3 % (0-10); NRBC Flagged by Analyzer 0 % (0-5); Neutrophil # 6.06 X10^3/uL (2.7-7.7); Neutrophil % 76.1 % (47-70); Platelet Count 265 K/mm3 (150-450); RBC Distribution Width CV 15.3 % (11.6-14.6); RBC Distribution Width SD 45.8 fl (35.1-43.9); Red Blood Count 5.59 M/mm3 (4.6-6.2)
[2021-10-21 13:01] LABS: Anion Gap 10 (5-15); BUN 39 mg/dL (7-18); BUN/Creat Ratio 31.7 RATIO (10-20); Calcium,Total 8.7 mg/dL (8.5-10.1); Chloride 102 mmol/L (98-107); Creatinine, Serum 1.23 mg/dL (0.70-1.30); EST Glomerular Filtration Rate 64 mL/min (>60); Est Glom Filt Rate - Afr Amer 77 mL/min (>60); Glucose 181 mg/dL (74-106); Sodium Level 138 mmol/L (136-145)
[2021-10-21 13:02] LABS: BNP,B-Type NATRIURETIC PEPTIDE 2227.4 pg/mL (0-100)
== END 2021-10-21 18:00 | disposition home or self-care (01) ==
LOC: LAB 09:57
PROVIDERS: PCP Internal Medicine; Referring Provider Nurse Practitioner Gerontology; Visit Provider Internal Medicine
DX: I51.3 Intracardiac thrombosis, not elsewhere classified (principal); I26.93 Single subsegmental thrombotic pulmonary embolism without acute cor pulmonale; I50.21 Acute systolic (congestive) heart failure; R06.00 Dyspnea, unspecified; I11.0 Hypertensive heart disease with heart failure
CPT/HCPCS: 36415; 71046; 80048; 83735; 83880; 85025; 85610

== ENCOUNTER 2021-12-11 17:28 | Inpatient (IN) | payer SELFPAY ==
[2021-12-11] VITALS (10 sets, daily range): BP systolic 91–108; BP diastolic 64–86; PULSE 79–92; RESP 16–18; TEMP 35.6–36.7; O2SAT 96–98; BMI 29.7; BMI 29.2
--- NOTE | 2021-12-11 17:40 | EKG12_ITS ---
Test Reason : COUGH Blood Pressure : / mmHG Vent. Rate : 082 BPM Atrial Rate : 082 BPM P-R Int : 180 ms QRS Dur : 148 ms QT Int : 432 ms P-R-T Axes : 073 -87 078 degrees QTc Int : 504 ms Sinus rhythm with occasional Premature ventricular complexes Left axis deviation Non-specific intra-ventricular conduction block Inferior infarct , age undetermined Abnormal ECG Confirmed by MANA JOSEPH, BRI ([id number]), social media editor GERI CAPELLAN ([id number]) on 12/16/2021 7:37:56 AM Referred By: CHRISTINA Confirmed By:BRI ADAIR MD
--- NOTE | 2021-12-11 17:42 | EX.ED.DYSGE1 ---
HPI History of Present Illness Chief Complaint: Cough Informant: patient and PCP Onset/Context/Timing Onset: Yesterday Context: Gradual Onset Narrative Narrative: Patient presents secondary to cough that started last evening. He has a history of cardiomyopathy with congestive heart failure. He was seen by his PCP today and sent to the ER secondary to orthopnea and concern for reaccumulation of his right pleural effusion. Is in terms of the room to see the patient and he is standing at the sink vomiting. states that just started on arrival to the emergency room. [facility] Medical History Cardiomyopathy Coagulopathy Congestive heart failure (CHF) CPAP (continuous positive airway pressure) dependence Diabetes Former smoker Gilbert's syndrome Hepatomegaly HLD (hyperlipidemia) HTN (hypertension) Hyperlipidemia Jaundice Left ventricular thrombus Loculated pleural effusion Sleep apnea Home Medications ascorbic acid (vitamin C) [Vitamin C] 500 mg PO DAILY@0800 05/30/13 [History Last Taken 10/02/21 500 mg] aspirin 81 mg PO DAILY@0800 #30 tablet 06/01/13 [Rx Last Taken 10/02/21 81 mg] metformin 1,000 mg PO BID 06/10/21 [History Last Taken 10/02/21 500 mg] glimepiride 4 mg PO DAILY 10/03/21 [History Last Taken 10/02/21 4 mg] carvedilol 3.125 mg PO BID #60 tab 10/07/21 [Rx Last Taken Unknown] warfarin 5 mg PO DAILY #30 tab 10/07/21 [Rx Last Taken Unknown] furosemide 40 mg tablet 40 mg PO DAILY #60 tablet 10/21/21 [Rx Last Taken Unknown] sacubitril 24 mg-valsartan 26 mg tablet 1 tab PO BID #60 tab 10/21/21 [Rx Last Taken Unknown] spironolactone 25 mg tablet 25 mg PO DAILY tab 10/21/21 [History Last Taken Unknown] losartan 25 mg tablet 12.5 mg PO QHS #30 tab 10/22/21 [Rx Last Taken Unknown] Allergy/AdvReac Type Severity Reaction Status Date / Time No Known Allergies Allergy Verified 12/11/21 17:29 Family History Other COPD (chronic obstructive pulmonary disease) Social History Smoking Status: Former smoker substance use type: does not use ROS ROS ED Constitutional Constitutional ED: Denies chills or fever(s) Eyes Eyes: Denies change in vision ENT ENT ED: Denies sore throat Cardiovascular Cardiovascular: Denies chest pain Respiratory/Chest Respiratory/Chest: Reports cough and dyspnea Gastrointestinal Gastrointestinal: Reports nausea and vomiting; Denies abdominal pain or diarrhea Genitourinary Genitourinary ED: Denies dysuria Musculoskeletal Musculoskeletal: Denies back pain Integumentary Denies rash Neurologic Neurologic: Denies headache(s) or weakness Allergic/Immunologic Allergic/Immunologic ED: Denies urticaria EXAM Physical Exam Const Vital Signs: 12/11/21 17:29 12/11/21 17:51 12/11/21 17:52 Temperature 96.0 F L Temperature Source Temporal Pulse Rate 90 84 Respiratory Rate 16 16 Respiratory Effort Short of Breath Respiratory Depth Normal Respiratory Pattern Normal Blood Pressure 103/64 108/86 H Blood Pressure Mean 77 93 Pulse Ox 97 97 Oxygen Delivery Method Room Air Room Air Room Air 12/11/21 18:20 12/11/21 18:50 12/11/21 20:00 Temperature Temperature Source Pulse Rate 86 79 Respiratory Rate 17 Respiratory Effort Respiratory Depth Respiratory Pattern Blood Pressure 91/64 96/79 95/79 Blood Pressure Mean 73 84 84 Pulse Ox 96 98 98 Oxygen Delivery Method Room Air Room Air Room Air Positive well nourished and well developed General Appearance ED: well developed HEENT Reports moist mucous membranes Eyes PERRL and EOMs intact bilaterally Neck supple Chest Wall inspection of chest normal and palpation of chest normal Resp Auscultation: diminished lung sounds Cardio regular rate and regular rhythm GI non-tender Palpation: soft Neuro oriented x3 Sensorium / Orientation: alert Psych Mood & Affect: anxious Skin no rashes or lesions noted MDM MDM MDM Narrative Medical decision making narrative: Patient initially given Zofran for nausea. EKG, lab work, chest x-ray obtained. Lab Data Attestation: I reviewed the patient's lab results. Labs: Laboratory Results - last 24 hr 12/11/21 12/11/21 12/11/21 17:44 17:44 17:44 WBC 7.8 RBC 5.56 Hgb 14.4 Hct 44.9 MCV 80.8 MCH 25.9 L MCHC 32.1 RDW Std Deviation 55.9 H RDW Coeff of Tony 19.9 H Plt Count 233 MPV 10.2 Immature Gran % (Auto) 0.300 Neut % (Auto) 72.8 H Lymph % (Auto) 14.4 L Crowley % (Auto) 11.4 H Eos % (Auto) 0.3 Baso % (Auto) 0.8 Absolute Neuts (auto) 5.7 Absolute Lymphs (auto) 1.13 Nucleated RBC % 0 PT 24.4 H INR 2.2 Sodium 137 Potassium 4.3 Chloride 104 Carbon Dioxide 25.0 Anion Gap 8 BUN 18 Creatinine 1.01 Estim Creat Clear Calc 80.31 Est GFR (MDRD) Af Amer 97 Est GFR (MDRD) Non-Af 80 BUN/Creatinine Ratio 17.8 Glucose 83 Calcium 9.1 Total Bilirubin 3.30 H Direct Bilirubin 1.06 H AST 13 L ALT 16 Alkaline Phosphatase 122 H Troponin I High Sens 17 B-Natriuretic Peptide Total Protein 8.0 Albumin 3.5 Globulin 4.5 H 12/11/21 17:44 WBC RBC Hgb Hct MCV MCH MCHC RDW Std Deviation RDW Coeff of Tony Plt Count MPV Immature Gran % (Auto) Neut % (Auto) Lymph % (Auto) Crowley % (Auto) Eos % (Auto) Baso % (Auto) Absolute Neuts (auto) Absolute Lymphs (auto) Nucleated RBC % PT INR Sodium Potassium Chloride Carbon Dioxide Anion Gap BUN Creatinine Estim Creat Clear Calc Est GFR (MDRD) Af Amer Est GFR (MDRD) Non-Af BUN/Creatinine Ratio Glucose Calcium Total Bilirubin Direct Bilirubin AST ALT Alkaline Phosphatase Troponin I High Sens B-Natriuretic Peptide 2355.8 H Total Protein Albumin Globulin Radiography Chest X-Ray - ED: 1 View, Read by ED Physician, Right Infiltrate and Right Effusion Diagnostic Testing: Clinical Impression(s) from Imaging Studies Chest X-Ray 12/11/21 17:51 IMPRESSION: Right lower lung infiltrate or edema and pleural effusion. Mild mediastinal adenopathy. Cardiac enlargement. Electronically Signed: Al Mcfarlane MD at 18:17 EDT Reading Location ID and State: [facility] / [place] , Service support , Chest CT 12/11/21 18:33 IMPRESSION: Abdominal ascites. Large right pleural effusion. Small left pleural effusion. Right lung pneumonia. These findings appear stable. Electronically Signed: Jose Carlos Orozco MD at 19:25 EDT , EKG Initial EKG: Attestation: I personally reviewed and interpreted this EKG as follows: Interpretation: Sinus Rhythm (Sinus at [address].) Treatment and Re-Evaluation Narrative: Patient's lab work indicates normal white count with no significant left shift. INR is therapeutic at 2.2. He states he held his morning dose of Coumadin today secondary to an elevated INR of 3.2 yesterday. Chemistry studies are largely unremarkable. Mild elevation in bilirubin. Troponin is normal at 17. BNP is over 2300. Chest x-ray reveals infiltrate versus effusion in the right lower lobe. Patient was given Robitussin to help control cough and sent for noncontrast chest CT. This confirms large right pleural effusion with right lung pneumonia. These findings do appear stable however. Patient does not have fever or significant white count to indicate acute infection. In discussion with patient and he is having significant trouble getting around at home and lying flat to sleep. He is already on Lasix and spironolactone. I will give him IV Lasix and discussed case with hospitalist for observation. Patient may need to have thoracentesis for additional fluid drainage. Discharge Plan Triage Chief Complaint: Cough ED Provider: Keyonna Lopez Dx/Rx/DC Orders Clinical Impression: CHF (congestive heart failure), Pleural effusion on right Prescriptions: No Action spironolactone 25 mg tablet 25 mg PO DAILY RF: 0 furosemide 40 mg tablet 40 mg PO DAILY Qty: 60 RF: 0 Entresto 24-26 mg tablet 1 tab PO BID Qty: 60 RF: 6 Hold Instructions: waiting for copay card-will start losartan in the mean time ascorbic acid (vitamin C) [Vitamin C] 500 MG tablet 500 mg PO DAILY@0800 RF: 0 aspirin 81 MG tablet 81 mg PO DAILY@0800 Qty: 30 RF: 0 metformin 500 mg tablet extended release 24 hr 1,000 mg PO BID RF: 0 glimepiride 4 mg tablet 4 mg PO DAILY RF: 0 carvedilol 3.125 mg Tablet 3.125 mg PO BID Qty: 60 RF: 0 warfarin 5 mg tablet 5 mg PO DAILY Qty: 30 RF: 0 losartan 25 mg tablet 12.5 mg PO QHS Qty: 30 RF: 3 Primary Care Provider: Gil Sevilla Referrals: Gil Sevilla MD [Primary Care Provider] - Disposition Disposition: Acute Care Hospital [facility]
[2021-12-11] MEDS: Ondansetron 4 MG/2 ML Vial IV (17:47)
--- NOTE | 2021-12-11 17:51 | RAD_ITS ---
STUDY: X-RAY CHEST REASON FOR EXAM: Male, 61 years old. SOB TECHNIQUE: Single AP portable view of the chest. COMPARISON: October 21, 2021. FINDINGS: There are monitoring devices. There is right mid and lower lung airspace consolidation. There is moderate right pleural effusion with partial loculation laterally. Left lung is clear. There is moderate cardiac enlargement. There is right paratracheal soft tissue prominence with possible adenopathy. Normal visualized pulmonary arteries. Normal visualized aortic arch and descending thoracic aorta. Normal visualized thoracic spine. Normal visualized ribs, clavicles, and shoulders. There is no demonstrated abnormality of the visualized soft tissue structures of the upper abdomen. RAD/Chest 1 View (Portable) IMPRESSION: Right lower lung infiltrate or edema and pleural effusion. Mild mediastinal adenopathy. Cardiac enlargement. Electronically Signed: Al Mcfarlane MD at 18:17 EDT ,
[2021-12-11 18:00] LABS: Absolute Lymphocyte Count 1.13 X10^3/uL (0.83-4.51); Absolute Neutrophil Count 5.7 X10^3/uL (2.0-7.7); Basophil# 0.06 X10^3/uL; Basophil% 0.8 % (0-1); Eosinophil# 0.02 X10^3/uL; Eosinophils% 0.3 % (0-5); Hematocrit 44.9 % (40-54); Hemoglobin 14.4 g/dL (13.0-16.5); Lymphocyte # 1.13 X10^3/ul (0.83-4.51); Lymphocyte % 14.4 % (19-41); Mean Corp Hgb Conc 32.1 g/dL (32-36); Mean Corpuscular Hgb 25.9 pg (27.0-32.0); Mean Corpuscular Volume 80.8 fL (80-94); Mean Platelet Vol. 10.2 fl (6.2-12.0); Monocyte# 0.89 X10^3/uL; Monocyte% 11.4 % (0-10); NRBC Flagged by Analyzer 0 % (0-5); Neutrophil # 5.71 X10^3/uL (2.7-7.7); Neutrophil % 72.8 % (47-70); Platelet Count 233 K/mm3 (150-450); RBC Distribution Width CV 19.9 % (11.6-14.6); RBC Distribution Width SD 55.9 fl (35.1-43.9); Red Blood Count 5.56 M/mm3 (4.6-6.2); White Blood Count 7.8 K/mm3 (4.4-11.0)
[2021-12-11 18:12] LABS: International Normalized Ratio 2.2; Prothrombin Time (Protime)PT. 24.4 SECONDS (11.7-14.9)
[2021-12-11 18:23] LABS: AST(SGOT) 13 U/L (15-37); Alanine Aminotransfer ALT/SGPT 16 U/L (16-61); Albumin, Serum 3.5 g/dL (3.2-5.0); Alkaline Phosphatase 122 U/L (45-117); Anion Gap 8 (5-15); BUN 18 mg/dL (7-18); BUN/Creat Ratio 17.8 RATIO (10-20); Bilirubin, Direct 1.06 mg/dL (0.00-0.30); Calcium,Total 9.1 mg/dL (8.5-10.1); Chloride 104 mmol/L (98-107); Creatinine, Serum 1.01 mg/dL (0.70-1.30); EST Glomerular Filtration Rate 80 mL/min (>60); Est Glom Filt Rate - Afr Amer 97 mL/min (>60); Estimated Creatinine Clearance 80.31 ml/min; Globulin 4.5 g/dL (2.2-4.2); Glucose 83 mg/dL (74-106); Potassium 4.3 mmol/L (3.5-5.1); Sodium Level 137 mmol/L (136-145); Troponin-I HS 17 pg/mL (3.0-78.0)
[2021-12-11 18:25] LABS: BNP,B-Type NATRIURETIC PEPTIDE 2355.8 pg/mL (0-100)
--- NOTE | 2021-12-11 18:33 | CT_ITS ---
STUDY: CT Chest W/O Contrast Injection 12/11/2021 7:22 PM REASON FOR EXAM: Male, 61 years old. sob -- infiltrate vs loculated effusion Individualized dose optimization techniques were used for this CT. TECHNIQUE: Transaxial imaging was performed withoutIV contrast material. COMPARISON: Oct 03 2021 7:15pm FINDINGS: There are degenerative changes of the shoulders. There is no pneumothorax. Large right pleural effusion. Small left pleural effusion. Right lung pneumonia. Scattered stable bilateral pulmonary nodules. There are calcifications of the coronary arteries. There are multiple small lymph nodes within the mediastinum, which are normal in size and morphology most compatible with reactive lymph hyperplasia. Normal hilar regions. Normal pulmonary arteries. There is atherosclerotic calcification of the aortic arch with tortuosity and elongation of the aortic arch and descending thoracic aorta. There are multi-level degenerative changes of the thoracic spine. Abdominal ascites. CT/Chest without Contrast IMPRESSION: Abdominal ascites. Large right pleural effusion. Small left pleural effusion. Right lung pneumonia. These findings appear stable. Electronically Signed: Jose Carlos Orozco MD at 19:25 EDT ,
[2021-12-11] MEDS: guaiFENesin/Codeine 5 ML UDC 10 ML PO (18:40)
--- NOTE | 2021-12-11 20:17 | PCM.HP.STD ---
[facility] Date of Admission: 12/11/21 [facility] Narrative INDU ROD, is a 61 M with a significant history of left ventricular thrombus; obstructive sleep apnea; diabetes melitis who presents to the emergency department with increase shortness of breath above his baseline. His new symptoms started a day before presentation. Associated with symptom is orthopnea; proximal nocturnal dyspnea; dry cough with posttussis emesis. He reports extreme fatigue. He is unable to walk far secondary to dyspnea on exertion. He reports bloating abdomen. Further he reports increasing swelling of his legs with right worse than left. Patient went to see his PCP and he was advised to come to the hospital. In regard to his obstructive sleep apnea he has not been using his CPAP for a while as the usage makes it difficult for him to sleep. In regards to patient heart failure with reduced ejection fraction there are plans for patient to get an ICD at [facility]. [facility] Medical History Cardiomyopathy Coagulopathy Congestive heart failure (CHF) CPAP (continuous positive airway pressure) dependence Diabetes Former smoker Gilbert's syndrome Hepatomegaly HLD (hyperlipidemia) HTN (hypertension) Hyperlipidemia Jaundice Left ventricular thrombus Loculated pleural effusion Sleep apnea Home Medications ascorbic acid (vitamin C) [Vitamin C] 500 mg PO DAILY@0800 05/30/13 [History Last Taken 10/02/21 500 mg] aspirin 81 mg PO DAILY@0800 #30 tablet 06/01/13 [Rx Last Taken 10/02/21 81 mg] metformin 1,000 mg PO BID 06/10/21 [History Last Taken 10/02/21 500 mg] glimepiride 4 mg PO DAILY 10/03/21 [History Last Taken 10/02/21 4 mg] carvedilol 3.125 mg PO BID #60 tab 10/07/21 [Rx Last Taken Unknown] warfarin 5 mg PO DAILY #30 tab 10/07/21 [Rx Last Taken Unknown] furosemide 40 mg tablet 40 mg PO DAILY #60 tablet 10/21/21 [Rx Last Taken Unknown] sacubitril 24 mg-valsartan 26 mg tablet 1 tab PO BID #60 tab 10/21/21 [Rx Last Taken Unknown] spironolactone 25 mg tablet 25 mg PO DAILY tab 10/21/21 [History Last Taken Unknown] losartan 25 mg tablet 12.5 mg PO QHS #30 tab 10/22/21 [Rx Last Taken Unknown] Allergy/AdvReac Type Severity Reaction Status Date / Time No Known Allergies Allergy Verified 12/11/21 17:29 Family History Other COPD (chronic obstructive pulmonary disease) Hypertension Parkinson's disease TIA (transient ischemic attack) Surgical History History of rectal abscess Social History Smoking Status: Former smoker substance use type: does not use ROS ROS Narrative Constitutional: Reports fatigue. Denies fever, chills. Eyes: Denies blurry vision, change in eye color, change in vision, discharge from eye(s), double vision, erythema, eye pain, loss of vision or other HEENT: Denies abnormal hearing, dysphagia, ear pain, epistaxis, headache(s), hearing loss, nasal congestion, nasal discharge, post nasal drip, sinus pressure, sore throat or other Cardiovascular: Denies chest pain or palpitations. Reports dyspnea on exertion, orthopnea and paroxysmal nocturnal dyspnea Respiratory/Chest: Reports dry cough and shortness of breath. Reports swelling of bilateral legs right worse than left. Gastrointestinal: Reports vomiting (posttussive). Denies abdominal pain. Reports abdominal bloating. Genitourinary: Denies burning urination, difficulty urinating, dysuria, hematuria, nocturia, urinary frequency, urinary hesitancy, urinary incontinence, urinary urgency or other Musculoskeletal: Denies arthralgias, back pain, joint pain, joint stiffness, joint swelling, myalgias, neck pain or other Neurologic: Denies abnormal gait, abnormal speech, confusion, disequilibrium, dizziness, focal weakness, numbness, paresthesias, seizure-like activity, seizures, syncope, tingling, tremor(s) or other Psychiatric: Denies anxiety, depression, homicidal ideation, suicidal ideation or other Endocrinology: Denies change in body appearance, cold intolerance, excessive sweating, heat intolerance, polydipsia, polyuria or other Hematologic/Lymphatic: Denies anemia, easy bleeding, easy bruising, lymphadenopathy or other Integumentary: Reports wounds on his right leg and right foot. Allergic/Immunologic: Denies rhinitis, hives, eczema, or other Vital Signs Vital Signs Vital Signs: 12/11/21 17:29 12/11/21 17:51 12/11/21 17:52 Temperature 96.0 F L Temperature Source Temporal Pulse Rate 90 84 Respiratory Rate 16 16 Respiratory Effort Short of Breath Respiratory Depth Normal Respiratory Pattern Normal Blood Pressure 103/64 108/86 H Blood Pressure Mean 77 93 Pulse Ox 97 97 Oxygen Delivery Method Room Air Room Air Room Air 12/11/21 18:20 12/11/21 18:50 12/11/21 20:00 Temperature Temperature Source Pulse Rate 86 79 Respiratory Rate 17 Respiratory Effort Respiratory Depth Respiratory Pattern Blood Pressure 91/64 96/79 95/79 Blood Pressure Mean 73 84 84 Pulse Ox 96 98 98 Oxygen Delivery Method Room Air Room Air Room Air Weight Weight: 93.8 kg Body Mass Index (BMI) 29.7 Physical Exam Narrative Physical exam: General: Well-nourished, well-developed. Head: Normocephalic, atraumatic, no tenderness Eyes: Vision is grossly intact. EOMI ENT, no trauma, moist mucous membranes, no rhinorrhea Neck: Nontender, full range of motion, no spinal tenderness. CVS: Regular rate and rhythm. S1-S2 present. No murmur, gallop or rub. Bilateral leg edema 2+. Respiratory : clear to auscultation bilaterally, chest wall nontender, no wheezing Abdomen: Soft, nontender, nondistended, normal bowel sounds, no masses : Deferred Back: Nontender, no CVA tenderness, no midline spinal tenderness, deformities, step-offs Extremities: Nontender full range of motion, no trauma Skin: Wounds on right leg and right foot. Color changes of right leg. Neuro: Alert, oriented, cranial nerves II through XII grossly intact. Psychiatry: Appears depressed. Not anxious. Results Lab / Micro Data Result Diagrams: 12/11/21 17:44 12/11/21 17:44 Labs: Laboratory Results - last 24 hr 12/11/21 17:44: WBC 7.8, RBC 5.56, Hgb 14.4, Hct 44.9, MCV 80.8, MCH 25.9 L, MCHC 32.1, RDW Std Deviation 55.9 H, RDW Coeff of Tony 19.9 H, Plt Count 233, MPV 10.2, Immature Gran % (Auto) 0.300, Neut % (Auto) 72.8 H, Lymph % (Auto) 14.4 L, Ward % (Auto) 11.4 H, Eos % (Auto) 0.3, Baso % (Auto) 0.8, Absolute Neuts (auto) 5.7, Absolute Lymphs (auto) 1.13, Nucleated RBC % 0 12/11/21 17:44: PT 24.4 H, INR 2.2 12/11/21 17:44: Sodium 137, Potassium 4.3, Chloride 104, Carbon Dioxide 25.0, Anion Gap 8, BUN 18, Creatinine 1.01, Estim Creat Clear Calc 80.31, Est GFR (MDRD) Af Amer 97, Est GFR (MDRD) Non-Af 80, BUN/Creatinine Ratio 17.8, Glucose 83, Calcium 9.1, Total Bilirubin 3.30 H, Direct Bilirubin 1.06 H, AST 13 L, ALT 16, Alkaline Phosphatase 122 H, Troponin I High Sens 17, Total Protein 8.0, Albumin 3.5, Globulin 4.5 H 12/11/21 17:44: B-Natriuretic Peptide 2355.8 H Radiology Impression Chest X-Ray 12/11/21 17:51 IMPRESSION: Right lower lung infiltrate or edema and pleural effusion. Mild mediastinal adenopathy. Cardiac enlargement. Electronically Signed: Al Mcfarlane MD at 18:17 EDT Reading Location ID and State: [facility] / [place] , Service support , Chest CT 12/11/21 18:33 IMPRESSION: Abdominal ascites. Large right pleural effusion. Small left pleural effusion. Right lung pneumonia. These findings appear stable. Electronically Signed: Jose Carlos Orozco MD at 19:25 EDT , Assessment & Plan Assessment/Plan (1) Heart failure with reduced ejection fraction: (2) Left ventricular thrombus: (3) Pulmonary embolism: QUALIFIERS: Acute cor pulmonale presence: without acute cor pulmonale Chronicity: acute Pulmonary embolism type: other Qualified Code(s): I26.99 - Other pulmonary embolism without acute cor pulmonale PLAN: Acute exacerbation of heart failure with reduced ejection fraction Place on monitored bed on progressive care unit Weight on admission to the floor; and then daily Strict I&O's CXR and chest CT was visualized and independently interpreted and I agree with radiologist interpretation above. Of note there is large right pleural effusion and ascites. Patient is on Coumadin and INR is 2.2. We will hold off on Coumadin at this time. We will put patient on a heparin drip for history of left ventricular thrombus and PE. Emergency department labs reviewed BNP of 2,355.8; and 2,227.4. Total bilirubin of 3.30; direct bilirubin of 1.60; elevated alkaline phosphatase. Likely secondary to passive congestion of liver. Trend CMP. Old records reviewed shows that echo on 10/04/2021 showed left ventricular ejection fraction of 55%. Diastolic function was unable to be assessed. Moderate mitral valve insufficiency; moderately severe transcatheter valve insufficiency. Right ventricular systolic pressure was 56 mmHg. Also reported was apical false tendon. Also reported with a left ventricular apical thrombus. Received Lasix 40 mg IV push at the emergency department. Lasix IV push twice daily ordered. Of note patient is on home Lasix 40 mg daily which will be held at that time. Home spironolactone of 25 mg daily continued. Guideline directed medications of carvedilol and losartan continued. Trend blood pressure Elevate bilateral legs Fluid restriction of 1500 mls daily Cardiac and diabetic diet ordered. Mucinex and Tessalon Perles ordered. PT and OT to work with patient for strengthening and tolerance. History of left ventricular thrombus and pulmonary embolism INR of 2.2. In the setting of large pleural effusion we will hold off warfarin at this time and attempt to do thoracentesis and possibly paracentesis if patient continues to have shortness of breath after thoracentesis. We will start patient on heparin drip for now. Diabetes mellitus Patient is euglycemic. Metformin held at this time. Glimepiride continued. Accu-Chek with correction scale insulin ordered. Ulcers on right leg and right foot Adaptic dressing ordered. Wound care consult. DVT prophylaxis: Heparin drip as above Charges/Coding Visit Charges Inpatient E&M: 05502 Init Hosp L3
[2021-12-11] MEDS: Furosemide 40 MG/4 ML Vial IV (20:36)
[2021-12-11 20:50] LABS: Partial Thromboplast Time 45.3 Seconds (24.1-36.2)
[2021-12-11] MEDS: HEPARIN/D5w 25,000 UNITS 25,000 UNITS/250 ML IV.SOLN. 14 UNITS CONT INF (23:05)
[2021-12-11] MEDS: Insulin Lispro 100 UNIT/ML INSULN.PEN SC (23:13)
[2021-12-11] MEDS: guaiFENesin 1,200 MG Tablet 1200 MG PO (23:14)
[2021-12-11] MEDS: Losartan Potassium 25 MG Tablet 12.5 MG PO (23:15)
[2021-12-11 23:25] LABS: Bedside Glucose 155 mg/dL (74-106)
[2021-12-12] VITALS (15 sets, daily range): BP systolic 89–100; BP diastolic 70–83; PULSE 84–100; RESP 16–20; TEMP 36.1–37.1; O2SAT 95–97
[2021-12-12 00:56] LABS: Magnesium 1.8 mg/dL (1.6-2.6)
[2021-12-12] MEDS: Benzonatate 100 MG Capsule PO ×2 (02:12→21:40)
[2021-12-12] MEDS: Ondansetron 4 MG/2 ML Vial IV (02:12)
[2021-12-12 06:07] LABS: Absolute Lymphocyte Count 0.86 X10^3/uL (0.83-4.51); Absolute Neutrophil Count 5.5 X10^3/uL (2.0-7.7); Basophil# 0.05 X10^3/uL; Basophil% 0.7 % (0-1); Eosinophil# 0.02 X10^3/uL; Eosinophils% 0.3 % (0-5); Hematocrit 40.9 % (40-54); Hemoglobin 12.9 g/dL (13.0-16.5); Lymphocyte # 0.86 X10^3/ul (0.83-4.51); Lymphocyte % 11.7 % (19-41); Mean Corp Hgb Conc 31.5 g/dL (32-36); Mean Corpuscular Hgb 25.6 pg (27.0-32.0); Mean Corpuscular Volume 81.2 fL (80-94); Monocyte# 0.95 X10^3/uL; Monocyte% 12.9 % (0-10); NRBC Flagged by Analyzer 0 % (0-5); Neutrophil # 5.46 X10^3/uL (2.7-7.7); Neutrophil % 74.1 % (47-70); Platelet Count 207 K/mm3 (150-450); RBC Distribution Width CV 19.8 % (11.6-14.6); RBC Distribution Width SD 55.8 fl (35.1-43.9); Red Blood Count 5.04 M/mm3 (4.6-6.2); White Blood Count 7.4 K/mm3 (4.4-11.0)
[2021-12-12 06:20] LABS: Partial Thromboplast Time 154.2 Seconds (24.1-36.2)
[2021-12-12 06:27] LABS: International Normalized Ratio 2.5; Prothrombin Time (Protime)PT. 26.7 SECONDS (11.7-14.9)
[2021-12-12 06:35] LABS: ALB/GLOB Ratio 0.8 RATIO (0.9-2.4); AST(SGOT) 14 U/L (15-37); Alanine Aminotransfer ALT/SGPT 15 U/L (16-61); Albumin, Serum 2.9 g/dL (3.2-5.0); Alkaline Phosphatase 99 U/L (45-117); Anion Gap 5 (5-15); BUN 21 mg/dL (7-18); BUN/Creat Ratio 20.2 RATIO (10-20); Calcium,Total 8.7 mg/dL (8.5-10.1); Chloride 103 mmol/L (98-107); Creatinine, Serum 1.04 mg/dL (0.70-1.30); EST Glomerular Filtration Rate 77 mL/min (>60); Est Glom Filt Rate - Afr Amer 93 mL/min (>60); Estimated Creatinine Clearance 77.99 ml/min; Globulin 3.8 g/dL (2.2-4.2); Glucose 98 mg/dL (74-106); Potassium 4.5 mmol/L (3.5-5.1); Protein, Total 6.7 g/dL (6.4-8.2); Sodium Level 135 mmol/L (136-145)
[2021-12-12 06:41] LABS: Bedside Glucose 95 mg/dL (74-106)
--- NOTE | 2021-12-12 07:52 | ECHOD_ITS ---
Reason For Study: CHF Procedure This was a 2D Doppler, Color Flow transthoracic echocardiogram. Exam performed portable in patient room. Left Ventricle Moderately dilated left ventricle. The estimated ejection fraction is 15-20 %. Right Ventricle Mildly dilated right ventricle. Moderately decreased right ventricular systolic function. Atria The left atrium is mildly enlarged. The right atrium is moderately enlarged. Mitral Valve The mitral valve is structurally normal. No prolapse or stenosis seen. Mild (1+) mitral valve insufficiency. Tricuspid Valve Normal tricuspid valve. Moderately severe (3+) tricuspid valve insufficiency. Aortic Valve Normal aortic valve. Pulmonic Valve The pulmonic valve is not well visualized. Great Vessels Normal aortic root. Pericardium/Pleural No pericardial effusion. MMode/2D Measurements & Calculations LVIDd: 5.8 cm IVSd: 0.94 cm LAV(MOD-sp4): 81.3 ml LVIDs: 5.5 cm LVPWd: 1.3 cm RVDd: 4.8 cm FS: 6.4 % LVAd ap4: 40.9 cm2 SV(MOD-sp4): 28.8 ml SV(sp4-el): 26.0 ml LVLd ap4: 9.3 cm EDV(MOD-sp4): 152.0 ml EDV(sp4-el): 152.2 ml LVAs ap4: 36.8 cm2 LVLs ap4: 9.1 cm ESV(MOD-sp4): 123.2 ml ESV(sp4-el): 126.2 ml EF(MOD-sp4): 18.9 % EF(sp4-el): 17.1 % LA A4 area: 26.6 cm2 LA dimension(2D): 5.0 cm RA A4 area: 29.3 cm2 Doppler Measurements & Calculations MV E max rita: 74.9 cm/sec Ao V2 max: 93.2 cm/sec LV V1 max: 77.2 cm/sec MV A max rita: 43.1 cm/sec Ao max P.5 mmHg LV V1 max P.4 mmHg MV E/A: 1.7 MR max rita: 330.0 cm/sec TR max rita: 360.1 cm/sec MR max P.6 mmHg TR max P.9 mmHg ECHO/Echo Complete Interpretation Summary The estimated ejection fraction is 15-20 %. Severe LV systolic Dysfunction With Global LV Hypokinesia Apical LV Thrombus Ordering Physician: Sonya Feuntes Referring Physician: Gil Sevilla M.D. Performed By: Hoda Collier RCS
[2021-12-12] MEDS: Aspirin E.C. 81 MG Tablet PO (08:06)
[2021-12-12] MEDS: Ascorbic Acid 500 MG Tablet PO (08:06)
[2021-12-12] MEDS: Carvedilol 3.125 MG TABLET PO ×2 (08:06→17:55)
[2021-12-12] MEDS: Potassium Chloride Oral Tablet 10 MEQ PO (08:06)
[2021-12-12] MEDS: Glimepiride 4 MG Tablet PO (08:06)
[2021-12-12] MEDS: Spironolactone 25 MG Tablet PO (08:07)
[2021-12-12] MEDS: guaiFENesin 1,200 MG Tablet 1200 MG PO ×2 (08:07→21:32)
[2021-12-12] MEDS: Furosemide 40 MG/4 ML Vial IV ×2 (10:31→17:55)
[2021-12-12] MEDS: 0.9% Saline Lock 10 ML Syringe IV (10:31)
--- NOTE | 2021-12-12 11:45 | PCM.PN.HOSP ---
Documented by User: Dr. Sonya Fuentes, DO 12/12/21 16:55 Subjective Subjective Patient states that his breathing is somewhat better than he came in. He is convinced that his breathing difficulties are related to his pleural effusion on the right. I did discuss with him that I doubt this is causing significant respiratory difficulties that it appears it is not that large and his last thoracentesis at which time appeared like he had more fluid only yielded 250 cc of removal. The effusion also appears loculated. The patient seems to be either in denial or unclear on what his prognosis is. He has previously denied the desire for work-up for heart transplant. He he is pursuing ICD placement with a severely depressed EF at 15% previously. When we discussed goals of care he is thinking long-term goals with regards to work and family rather than short-term goals and overall prognosis. 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 He is currently unemployed, however I get the impression that he would not be able to work even if he could work given his severe fatigue. Objective Data Objective Data Vital Signs: Vital Signs Temp Pulse Resp BP Pulse Ox 98.4 F 84 18 89/70 L 97 12/12/21 08:15 12/12/21 08:15 12/12/21 10:00 12/12/21 08:15 12/12/21 10:25 Oxygen Delivery Method Room Air Weight: 92.6 kg Body Mass Index (BMI) 29.2 Intake & Output: Intake and Output for Last 24 Hours 12/10/21 12/11/21 12/12/21 23:59 23:59 23:59 Intake Total 1188.53 / 1188.53 Output Total 700 / 700 Balance 488.53 / 488.53 Lab / Micro Data Result Diagrams: 12/12/21 05:50 12/12/21 05:50 Labs: Laboratory Results - last 24 hr 12/11/21 17:44: WBC 7.8, RBC 5.56, Hgb 14.4, Hct 44.9, MCV 80.8, MCH 25.9 L, MCHC 32.1, RDW Std Deviation 55.9 H, RDW Coeff of Tony 19.9 H, Plt Count 233, MPV 10.2, Immature Gran % (Auto) 0.300, Neut % (Auto) 72.8 H, Lymph % (Auto) 14.4 L, [place] % (Auto) 11.4 H, Eos % (Auto) 0.3, Baso % (Auto) 0.8, Absolute Neuts (auto) 5.7, Absolute Lymphs (auto) 1.13, Nucleated RBC % 0 12/11/21 17:44: PT 24.4 H, INR 2.2 12/11/21 17:44: Sodium 137, Potassium 4.3, Chloride 104, Carbon Dioxide 25.0, Anion Gap 8, BUN 18, Creatinine 1.01, Estim Creat Clear Calc 80.31, Est GFR (MDRD) Af Amer 97, Est GFR (MDRD) Non-Af 80, BUN/Creatinine Ratio 17.8, Glucose 83, Calcium 9.1, Total Bilirubin 3.30 H, Direct Bilirubin 1.06 H, AST 13 L, ALT 16, Alkaline Phosphatase 122 H, Troponin I High Sens 17, Total Protein 8.0, Albumin 3.5, Globulin 4.5 H 12/11/21 17:44: B-Natriuretic Peptide 2355.8 H 12/11/21 17:44: APTT 45.3 H 12/11/21 17:44: Magnesium 1.8 12/11/21 23:12: POC Glucose 155 H 12/12/21 05:50: WBC 7.4, RBC 5.04, Hgb 12.9 L, Hct 40.9, MCV 81.2, MCH 25.6 L, MCHC 31.5 L, RDW Std Deviation 55.8 H, RDW Coeff of Tony 19.8 H, Plt Count 207, MPV 10.0, Immature Gran % (Auto) 0.300, Neut % (Auto) 74.1 H, Lymph % (Auto) 11.7 L, [place] % (Auto) 12.9 H, Eos % (Auto) 0.3, Baso % (Auto) 0.7, Absolute Neuts (auto) 5.5, Absolute Lymphs (auto) 0.86, Nucleated RBC % 0 12/12/21 05:50: PT 26.7 H, INR 2.5 12/12/21 05:50: Sodium 135 L, Potassium 4.5, Chloride 103, Carbon Dioxide 27.0, Anion Gap 5, BUN 21 H, Creatinine 1.04, Estim Creat Clear Calc 77.99, Est GFR (MDRD) Af Amer 93, Est GFR (MDRD) Non-Af 77, BUN/Creatinine Ratio 20.2 H, Glucose 98, Calcium 8.7, Total Bilirubin 2.90 H, AST 14 L, ALT 15 L, Alkaline Phosphatase 99, Total Protein 6.7, Albumin 2.9 L, Globulin 3.8, Albumin/Globulin Ratio 0.8 L 12/12/21 05:50: APTT 154.2 H* 12/12/21 06:32: POC Glucose 95 Micro: Microbiology 12/11/21 22:35 Nasal Secretion SARS-CoV-2 Antigen (Rapid) - Final Radiography Diagnostic Testing: Radiology Impression Chest X-Ray 12/11/21 17:51 IMPRESSION: Right lower lung infiltrate or edema and pleural effusion. Mild mediastinal adenopathy. Cardiac enlargement. Electronically Signed: Al Mcfarlane MD at 18:17 EDT , Chest CT 12/11/21 18:33 IMPRESSION: Abdominal ascites. Large right pleural effusion. Small left pleural effusion. Right lung pneumonia. These findings appear stable. Electronically Signed: Jose Carlos Orozco MD at 19:25 EDT , Physical Exam Const alert, oriented x3 and no apparent distress Constitutional Narrative: Fatigued, overweight, upper middle-aged white male who appears older than stated age, lying in bed, listening to music, appears fatigued but nontoxic Exam Limitations: no limitations Nutritional Appearance: overweight HEENT head/scalp atraumatic and moist oral mucous membranes HEENT Narrative: Dentition is poor, Mallampati is 2-3, no thrush Head and Scalp: normocephalic Eyes PERRL, EOMs intact bilaterally and conjunctivae normal Eyes Narrative: Scleral icterus Resp normal respiratory effort, no retractions and no use of accessory muscles Resp Narrative: Decreased breath sounds at the right base, left side is clear but diminished, few crackles at the mid right lung Auscultation: crackles; Negative for rales, rhonchi or wheezes Cardio regular rate, regular rhythm, S1 normal heart sound, S2 normal heart sound, no murmurs, no rub, no gallops, no clicks and no JVD GI normal to inspection, nondistended, normoactive bowel sounds, soft to palpation, non-tender and non-distended Extremity Extremity Narrative: Wound on the dorsum aspect of the right lower extremity, appears to be healing when paired to previous pictures from October-no signs of infection or drainage at this time, 1+ bilateral lower extremity pitting edema, extremities are cool to touch, pedal pulses are 2+ Peripheral Pulses: Yes pulses 2+ throughout Neuro oriented x3, moves all extremities, no focal motor deficits and no sensory deficits noted Neuro Narrative: Marked generalized weakness and easy to fatigue Sensorium / Orientation: awake and alert Speech: speech normal Psych Psych Narrative: Affect is flattened mood seems somewhat depressed Assessment & Plan Assessment/Plan (1) Pleural effusion on right: (2) Heart failure with reduced ejection fraction: (3) CONNOR (dyspnea on exertion): (4) Left ventricular thrombus: PLAN: Acute on chronic decompensated heart failure with reduced ejection fraction (systolic) -Echocardiogram from October showed an EF of 15% -Echocardiogram repeated today shows an EF of 15 to 20% with severe LV systolic dysfunction and global LV hypokinesis as well as an apical LV thrombus that was there previously -Continue goal-directed therapy(carvedilol/Entresto/losartan/Aldactone) -Patient is chronically hypotensive and asymptomatic--> tolerating diuresis -Continue Lasix 40 mg IV push twice daily -Repeat BMP in a.m. -Cardiology has been consulted to follow -Referral has been made to EP and patient is in the process of being evaluated for ICD placement given extremely low EF -Patient has had extensive work-up and this appears to be a nonischemic cardiomyopathy -Patient does indicate he weighs himself daily at home, watches his fluid intake, and watches his salt intake Dyspnea on exertion -Related to the above Right-sided partially loculated pleural effusion -Patient is convinced that this is the etiology for his shortness of breath -I highly doubt that this is the etiology however the patient would like to proceed with thoracentesis to see if it will help him -Thoracentesis in October for removal of 250 cc and it appears that there may be less fluid at this time with more loculation -Hold Coumadin -Continue heparin drip -Thoracentesis with ultrasound ordered LV thrombus -Patient will need to remain anticoagulated -Continue heparin drip while Coumadin is on hold for thoracentesis -Goal INR 2-3 History of pulmonary embolism -Continue anticoagulation as above DM-2 -Discontinue glimepiride secondary to increased risk of hypoglycemia -Continue sliding scale insulin -Check a.m. hemoglobin A1c -Continue SSI -Blood sugars this morning are stable Hypertension -Patient's blood pressures have been low since he was diagnosed with the ischemic cardiomyopathy -Tolerating home regimen okay for goal-directed therapy with relationship to nonischemic cardiomyopathy -Continue to monitor Hyperlipidemia -Patient's been on statins previously but is intolerant secondary to diffuse myalgias JES -Patient is noncompliant at baseline -Will try to get him to wear CPAP with 8 cm of water nocturnally as this would help offload his heart and likely helped him symptomatically Pulmonary artery hypertension predominantly who group 2 -See above -Have group 3 component with previous tobacco abuse Right lower extremity wounds -Wound care is following -When compared to previous pictures from October the wounds appear to be improving -No current signs of infection -Continue to monitor Gilbert's disease -Bilirubin is chronically elevated and stable DVT prophylaxis -Patient fully anticoagulated and currently on a heparin drip CODE STATUS -Full code Charges/Coding Visit Charges Inpatient E&M: 83180 Subs Hosp L2 Documented by User: MARK SEARS 12/12/21 16:13 Subjective Subjective Patient sitting up in bed and talking on the phone. Patient states his shortness of breath with exertion is somewhat improved since admission yesterday, but continues to have persistent cough. Overall patient states that he just feels tired, but that this is a chronic issue. Objective Data Lab / Micro Data Attestation: I reviewed the patient's lab results. Result Diagrams: 12/12/21 05:50 12/12/21 05:50 Physical Exam Const alert, oriented x3 and no apparent distress Nutritional Appearance: overweight HEENT moist oral mucous membranes Head and Scalp: normocephalic Eyes PERRL and EOMs intact bilaterally Neck no lymphadenopathy and supple Resp normal respiratory effort Effort and Inspection: actively coughing non-productive and strong Auscultation: crackles bilateral mid and lower Cardio regular rate, regular rhythm, S1 normal heart sound, S2 normal heart sound, no murmurs, no gallops and no clicks GI soft to palpation and non-tender Inspection: abdominal distention Auscultation: normoactive bowel sounds Extremity normal to inspection and full ROM General Extremity: edema bilateral lower extremity Details: mild Peripheral Pulses: Yes pulses 2+ throughout Skin no rashes or lesions noted Skin Narrative: Mildly jaundice. Neuro oriented x3 Sensorium / Orientation: awake and alert Psych affect normal Assessment & Plan Assessment/Plan (1) Pleural effusion on right: (2) Heart failure with reduced ejection fraction: PLAN: Pleural effusion ?CT of the chest demonstrates a large right pleural effusion, as well as small left pleural effusion ?Patient is saturating well on room air in the mid to upper 90s. ?Lasix 40 mg IV twice daily ?Guaifenesin BID and benzonatate PRN for cough ?Patient last had thoracentesis of the right lower pleural space on 10/04/2021 where 250 mL of fluid was drained. Discussion with patient that fluid on CT appears to be at least partially loculated. Patient wishes to proceed with thoracentesis. ?Encourage incentive spirometer Acute decompensated systolic heart failure with reduced ejection fraction ?Secondary to nonischemic cardiomyopathy ?Echo interpretation reveals estimated ejection fraction 15 to 20% with severe LV systolic dysfunction and apical LV thrombus ?ACC/AHA Stage D, NYHA Class 3 ?Patient states that he is at baseline always tired and verbalizes significant impact on his quality of life. Patient does not wish to pursue cardiac transplant, but does want to follow-up on his cardiology referral to [facility] for ICD placement. ?Cardiology consulted ?Daily weights ?Intake and output ?Continue carvedilol ?Continue furosemide ?Continue sacubitril-valsartan ?Continue losartan ?Continue spironolactone ?PT/OT evaluation ?Case management coordinating outpatient palliative care referral Thromboembolic disease ?Previously known apical LV thrombus remains present on echocardiogram. ?10/03/21 CTA demonstrated suspected segmental pulmonary embolus within right upper lobe pulmonary artery ?INR 2.5 on admission, hold Coumadin, in anticipation of thoracentesis tomorrow ?Heparin drip, titrate to aPTT ?Continue aspirin ?Trend PT/INR Diabetes mellitus type 2 ?Continue glimepiride daily ?Lispro insulin sliding scale AC at bedtime ?Hold metformin ?Cardiac calorie controlled diet with Glucerna shake twice daily Sleep apnea ?CPAP at night and during naps to decrease heart strain History of Gilbert's disease ?CT of the chest demonstrates abdominal ascites, non-tense on assessment ?Total bilirubin 2.9, consistent with patient baseline Hyperlipidemia ?States unable to tolerate statins due to myalgias ?Continue to encourage lifestyle modification ?Cardiac calorie controlled diet Hypertension ?Blood pressures are soft, just slightly below baseline ?Continue to monitor DVT prophylaxis ?Anticoagulated on admission with Coumadin, INR 2.5 ?Heparin drip, titrate to aPTT CODE STATUS ?Full code
[2021-12-12 11:50] LABS: Bedside Glucose 88 mg/dL (74-106)
--- NOTE | 2021-12-12 12:56 | WOUNDNOTE ---
wound photo: right medial foot
--- NOTE | 2021-12-12 12:58 | WOUNDNOTE ---
wound photo: right lower leg
--- NOTE | 2021-12-12 13:05 | CASEMGMT ---
MARIETTA BUTLER Face to Face with patient for initial transition planning/care coordination assessment. RN CARRIE introduced self and role at [facility]. Patient sitting in chair, alert and oriented. Patient willing to participate in assessment and is able to answer all questions appropriately. Care providers, pharmacy, and demographics verified. Patient wishes to discharge home, will monitor for HHC pending therapy. Patient states he has no further needs or concerns at this time. CM to follow for discharge planning needs that may arise. PCP: Roel Specialists: Angelica cad engineer Preferred [facility]acy: [facility] Insurance: [employer] Prescription Benefit: none Living Will/HPOA: none, patient states they are in process for completing LNOK: Living Arrangements: Patient lives with in a single story home but patient sleeps in the basement. Patient states he is independent at home and able to ambulate stairs. Transportation: sister DME/HHC: Patient states he has cane, walker, and pulse ox at home. No previous HHC or SNF. Disposition Plan: Patient to discharge home with family support and follow-up plans in place. Will monitor for HHC. Christina ESPINOZA, RN, CM
--- NOTE | 2021-12-12 14:31 | CASEMGMT ---
Palliative order placed per Dr. Fuentes and screening tool. Referral e-mailed to palliative. Antonio MCMANUS CM
[2021-12-12] MEDS: Senna/Docusate Sodium 1 Tablet 2 TABLET PO (14:49)
--- NOTE | 2021-12-12 15:08 | CHAPLAIN ---
Type of Pastoral Visit _x__ Initial Visit ___ Follow-up Visit ___ On-call Visit ___ General Patient Visit ___ Spiritual Assessment ___ Family Conference ___ Bereavement ___ Rapid Response ___ Code Blue ___ Other (describe below) Pastoral Care Referral From _x__ Patient ___ Family ___ Nurse ___ Physician ___ Assignment Manager ___ Community Midwife ___ Other (describe below) Sacrament/Intervention _x__ Active listening ___ Anointing ___ Sikh ___ Bereavement ___ Communion _x__ Isabel exploration ___ _x__ Life review _x__ Prayer ___ Reconciliation ___ Sacrament of Sick _x__ Supportive presence ___ Wedding ___ Other (describe below) Pastoral Comments besides his physical issues the patient describes employment, financial, and marital relation concerns that weigh upon him at this time; supportive presence, listening ear, and prayer are offered and received
--- NOTE | 2021-12-12 15:42 | CON.PCM.CA_ITS ---
Documented by User: Christiana CARVER, MEHUL 12/12/21 16:40 Assessment & Plan Assessment/Plan (1) Cardiomyopathy: (2) Heart failure with reduced ejection fraction: (3) Left ventricular thrombus: (4) Pleural effusion on right: (5) HTN (hypertension): (6) HLD (hyperlipidemia): PLAN: * Patient does have severely reduced ejection fraction. In the past he has undergone both invasive and noninvasive cardiovascular studies. He does have acute on chronic congestive heart failure findings. Would continue with his IV diuretics. Would continue to monitor closely. We will also continue with his carvedilol, entresto, spironolactone. * In regards to his left ventricular thrombus, it is important that patient continue with his anticoagulation. This is currently on hold for his tho racentesis tomorrow. After his thoracentesis would recommend resuming this. * Blood pressure is at the low end however feel that he can continue with his carvedilol and losartan in addition to his diuretics. We will continue to monitor closely. * Did have a discussion with pt about possible transfer transplant/heart failure clinic, pt declines. He sts with the discussion he had with Dr. Watters last week, he is comfortable with proceeding with [employer]. Will try to find out when this is will be scheduled * Feel that pt would also benefit from a dietary consult for CHF diet. Feel that this may have contributed to his hospitalization. HPI Consult Data Date of Consult: 12/12/21 HPI Narrative HPI Narrative: INDU ROD, is a 61 M who presented to [facility] ER with worsening SOB last night. He notes that he has had orthopnea, dry cough, posttussive emesis, extreme fatigue, unable to walk far secondary to significant shortness of breath, abdominal bloating, increased lower extremity edema with left greater than right. He was in to see his primary care doctor and they advised that he come to the emergency room for further evaluation. Patient was admitted for congestive heart failure symptoms. Patient does have a history of on-CAD related cardiomyopathy, chronic systolic CHF, valvular heart disease, a left ventricular apical thrombus, pleural effusion, thromboembolic disease with pulmonary emboli, hyperlipidemia, hypertension, JES/CPAP therapy, COVID-19 (June,). In October 2021 he was also admitted to the hospital for cellulitis, also had thoracentesis in which she had 250 mL removed. Echocardiogram during that hospital stay demonstrated ejection fraction of 15% with findings compatible with left ventricular apical thrombus, right ventricular systolic dysfunction, biatrial enlargement, moderate MR, moderate TR with an RVSP of 56 mmHg. Repeat echocardiogram today demonstrates similar findings. He does continue to have a pleural effusion and is scheduled to undergo a ultrasound-guided thoracentesis tomorrow. His Coumadin has been held and he is currently on heparin. He was evaluated by EP recently for consideration of an ICD. This was done at [facility]. [facility] Medical History (Updated 12/12/21 @ 16:[address] Sonya Fuentes DO) Cardiomyopathy Coagulopathy Congestive heart failure (CHF) CPAP (continuous positive airway pressure) dependence Diabetes Former smoker Gilbert's syndrome Hepatomegaly HLD (hyperlipidemia) HTN (hypertension) Hyperlipidemia Jaundice Left ventricular thrombus Loculated pleural effusion Nonischemic cardiomyopathy Pulmonary embolism Sleep apnea Tobacco dependence Home Medications ascorbic acid (vitamin C) [Vitamin C] 500 mg PO DAILY@0800 05/30/13 [History Last Taken 10/02/21 500 mg] aspirin 81 mg PO DAILY@0800 #30 tablet 06/01/13 [Rx Last Taken 10/02/21 81 mg] metformin 1,000 mg PO BID 06/10/21 [History Last Taken 10/02/21 500 mg] glimepiride 4 mg PO DAILY 10/03/21 [History Last Taken 10/02/21 4 mg] carvedilol 3.125 mg PO BID #60 tab 10/07/21 [Rx Last Taken Unknown] warfarin 5 mg PO DAILY #30 tab 10/07/21 [Rx Last Taken Unknown] furosemide 40 mg tablet 40 mg PO DAILY #60 tablet 10/21/21 [Rx Last Taken Unknown] sacubitril 24 mg-valsartan 26 mg tablet 1 tab PO BID #60 tab 10/21/21 [Rx Last Taken Unknown] spironolactone 25 mg tablet 25 mg PO DAILY tab 10/21/21 [History Last Taken Unknown] losartan 25 mg tablet 12.5 mg PO QHS #30 tab 10/22/21 [Rx Last Taken Unknown] Allergy/AdvReac Type Severity Reaction Status Date / Time No Known Allergies Allergy Verified 12/11/21 17:29 Family History Other COPD (chronic obstructive pulmonary disease) Hypertension Parkinson's disease TIA (transient ischemic attack) Surgical History History of rectal abscess Social History Smoking Status: Former smoker substance use type: does not use ROS Constitutional Constitutional: Reports fatigue and lethargy; Denies change in weight, chills, frequent falls or headache(s) Eyes Eyes: Denies acute decrease in peripheral vision, blurry vision or change in vision ENT HEENT: Denies dizziness, dry mouth, epistaxis, headache(s), tinnitus or vertigo Cardiovascular Cardiovascular: Reports dyspnea at rest, dyspnea on exertion and pedal edema; Denies chest pain at rest, chest pain with activity, claudication, edema, irregular heart rhythm, lightheadedness, orthopnea, orthostatic symptoms or palpitations Respiratory/Chest Respiratory/Chest: Reports cough, dyspnea and dyspnea on exertion Gastrointestinal Gastrointestinal: Reports bloating and constipation; Denies abdominal pain, coffee ground emesis, diarrhea, heartburn, hematemesis, hematochezia, melena or nausea Genitourinary Genitourinary: Denies hematuria Musculoskeletal Musculoskeletal: Denies myalgias, numbness or tingling Neurologic Neurologic: Denies abnormal gait, abnormal speech, memory loss, paresthesias or weakness Physical Exam Const alert, oriented x3 and no apparent distress General Appearance: ill appearing Positive for acutely and frail Nutritional Appearance: overweight HEENT moist oral mucous membranes Head and Scalp: normocephalic Eyes PERRL and EOMs intact bilaterally Neck no lymphadenopathy and supple Resp normal respiratory effort Effort and Inspection: actively coughing non-productive and strong Auscultation: crackles bilateral mid and lower Cardio regular rate, regular rhythm, S1 normal heart sound, S2 normal heart sound, no murmurs, no gallops and no clicks GI soft to palpation and non-tender Inspection: abdominal distention Auscultation: normoactive bowel sounds Extremity normal to inspection and full ROM General Extremity: edema bilateral lower extremity Details: mild Peripheral Pulses: Yes pulses 2+ throughout Skin no rashes or lesions noted Neuro oriented x3 Sensorium / Orientation: awake and alert Psych affect normal Risk Stratification Risk Stratification Applicable: No Charges/Coding Visit Charges Office Visits / Consults: 14854 IP Consult L3 Objective Data Vital Signs: Vital Signs Temp Pulse Resp BP Pulse Ox 98.4 F 84 18 89/70 L 97 12/12/21 08:15 12/12/21 11:57 12/12/21 10:00 12/12/21 08:15 12/12/21 10:25 Oxygen Delivery Method Room Air Weight: 204 lb 2.369 oz Body Mass Index (BMI) 29.2 Intake & Output: Intake and Output for Last 24 Hours 12/10/21 12/11/21 12/12/21 23:59 23:59 23:59 Intake Total 1258.01 / 1258.01 Output Total 700 / 700 Balance 558.01 / 558.01 Lab / Micro Data Result Diagrams: 12/12/21 05:50 12/12/21 05:50 Labs: Laboratory Results - last 24 hr 12/11/21 17:44: WBC 7.8, RBC 5.56, Hgb 14.4, Hct 44.9, MCV 80.8, MCH 25.9 L, MCHC 32.1, RDW Std Deviation 55.9 H, RDW Coeff of Tony 19.9 H, Plt Count 233, MPV 10.2, Immature Gran % (Auto) 0.300, Neut % (Auto) 72.8 H, Lymph % (Auto) 14.4 L, Brooke % (Auto) 11.4 H, Eos % (Auto) 0.3, Baso % (Auto) 0.8, Absolute Neuts (auto) 5.7, Absolute Lymphs (auto) 1.13, Nucleated RBC % 0 12/11/21 17:44: PT 24.4 H, INR 2.2 12/11/21 17:44: Sodium 137, Potassium 4.3, Chloride 104, Carbon Dioxide 25.0, Anion Gap 8, BUN 18, Creatinine 1.01, Estim Creat Clear Calc 80.31, Est GFR (MDRD) Af Amer 97, Est GFR (MDRD) Non-Af 80, BUN/Creatinine Ratio 17.8, Glucose 83, Calcium 9.1, Total Bilirubin 3.30 H, Direct Bilirubin 1.06 H, AST 13 L, ALT 16, Alkaline Phosphatase 122 H, Troponin I High Sens 17, Total Protein 8.0, A lbumin 3.5, Globulin 4.5 H 12/11/21 17:44: B-Natriuretic Peptide 2355.8 H 12/11/21 17:44: APTT 45.3 H 12/11/21 17:44: Magnesium 1.8 12/11/21 23:12: POC Glucose 155 H 12/12/21 05:50: WBC 7.4, RBC 5.04, Hgb 12.9 L, Hct 40.9, MCV 81.2, MCH 25.6 L, MCHC 31.5 L, RDW Std Deviation 55.8 H, RDW Coeff of Tony 19.8 H, Plt Count 207, MPV 10.0, Immature Gran % (Auto) 0.300, Neut % (Auto) 74.1 H, Lymph % (Auto) 11.7 L, Brooke % (Auto) 12.9 H, Eos % (Auto) 0.3, Baso % (Auto) 0.7, Absolute Neuts (auto) 5.5, Absolute Lymphs (auto) 0.86, Nucleated RBC % 0 12/12/21 05:50: PT 26.7 H, INR 2.5 12/12/21 05:50: Sodium 135 L, Potassium 4.5, Chloride 103, Carbon Dioxide 27.0, Anion Gap 5, BUN 21 H, Creatinine 1.04, Estim Creat Clear Calc 77.99, Est GFR (MDRD) Af Amer 93, Est GFR (MDRD) Non-Af 77, BUN/Creatinine Ratio 20.2 H, Glucose 98, Calcium 8.7, Total Bilirubin 2.90 H, AST 14 L, ALT 15 L, Alkaline Phosphatase 99, Total Protein 6.7, Albumin 2.9 L, Globulin 3.8, Albumin/Globulin Ratio 0.8 L 12/12/21 05:50: APTT 154.2 H* 12/12/21 06:32: POC Glucose 95 12/12/21 11:36: POC Glucose 88 12/12/21 14:27: APTT 114.0 H* Micro: Microbiology 12/11/21 22:35 Nasal Secretion SARS-CoV-2 Antigen (Rapid) - Final Cardiology Labs/Tests 12/11/21 17:44: WBC 7.8, RBC 5.56, Hgb 14.4, Hct 44.9, MCV 80.8, MCH 25.9 L, MCHC 32.1, Plt Count 233, MPV 10.2, Immature Gran % (Auto) 0.300, Neut % (Auto) 72.8 H, Lymph % (Auto) 14.4 L, Brooke % (Auto) 11.4 H, Eos % (Auto) 0.3, Baso % (Auto) 0.8, Absolute Neuts (auto) 5.7, Nucleated RBC % 0 12/11/21 17:44: PT 24.4 H, INR 2.2 12/11/21 17:44: Sodium 137, Potassium 4.3, Chloride 104, Carbon Dioxide 25.0, Anion Gap 8, BUN 18, Creatinine 1.01, Est GFR (MDRD) Af Amer 97, Est GFR (MDRD) Non-Af 80, BUN/Creatinine Ratio 17.8, Glucose 83, Calcium 9.1, Total Bilirubin 3.30 H, Direct Bilirubin 1.06 H 12/11/21 17:44: B-Natriuretic Peptide 2355.8 H 12/11/21 17:44: APTT 45.3 H 12/11/21 17:44: Magnesium 1.8 12/12/21 05:50: WBC 7.4, RBC 5.04, Hgb 12.9 L, Hct 40.9, MCV 81.2, MCH 25.6 L, MCHC 31.5 L, Plt Count 207, MPV 10.0, Immature Gran % (Auto) 0.300, Neut % (Auto ) 74.1 H, Lymph % (Auto) 11.7 L, Brooke % (Auto) 12.9 H, Eos % (Auto) 0.3, Baso % (Auto) 0.7, Absolute Neuts (auto) 5.5, Nucleated RBC % 0 12/12/21 05:50: PT 26.7 H, INR 2.5 12/12/21 05:50: Sodium 135 L, Potassium 4.5, Chloride 103, Carbon Dioxide 27.0, Anion Gap 5, BUN 21 H, Creatinine 1.04, Est GFR (MDRD) Af Amer 93, Est GFR (MDRD) Non-Af 77, BUN/Creatinine Ratio 20.2 H, Glucose 98, Calcium 8.7, Total Bilirubin 2.90 H 12/12/21 05:50: APTT 154.2 H* 12/12/21 14:27: APTT 114.0 H* ECHO 12/12/2021: The estimated ejection fraction is 15-20 %. Severe LV systolic Dysfunction With Global LV Hypokinesia Apical LV Thrombus Radiography Diagnostic Testing: Radiology Impression Chest X-Ray 12/11/21 17:51 IMPRESSION: Right lower lung infiltrate or edema and pleural effusion. Mild mediastinal adenopathy. Cardiac enlargement. Electronically Signed: Al Mcfarlane MD at 18:17 EDT , Chest CT 12/11/21 18:33 IMPRESSION: Abdominal ascites. Large right pleural effusion. Small left pleural effusion. Right lung pneumonia. These findings appear stable. Electronically Signed: Jose Carlos Orozco MD at 19:25 EDT , Echocardiogram 12/12/21 07:52 Interpretation Summary The estimated ejection fraction is 15-20 %. Severe LV systolic Dysfunction With Global LV Hypokinesia Apical LV Thrombus Ordering Physician: Sonya Fuentes Referring Physician: Gil Sevilla M.D. Performed By: Hoda Collier RCS Documented by User: Dr. Le Saenz MD 12/12/21 17:03 Assessment & Plan Assessment/Plan (1) Cardiomyopathy: (2) Heart failure with reduced ejection fraction: (3) Left ventricular thrombus: (4) HTN (hypertension): (5) HLD (hyperlipidemia): PLAN: Patient seen and evaluated today at bedside along with the nursing staff and midlevel On review of the echocardiogram today showed severe LV systolic dysfunction with EF in the range of 50-20% with LV thrombus Moderately severe TR with moderate RV systolic dysfunction. Patient has a regular follow-up with his financial planning consultant and a prior cardiac cath showed no evidence of coronary atherosclerosis patient with severe dilated cardiomyopathy. Cardiac care plan recommendations; 1. We reviewed the current cardiac medication and,added Entresto to the current medication. 2. We reviewed all his current cardiac medication with recommend to continue current treatment 3. Continue anticoagulation with warfarin, target INR 2?3. 4. Patient would like to follow-up with his primary financial planning consultant We will continue to monitor and follow-up clinically during this admission. HPI Consult Data Date of Consult: 12/12/21 [facility] Medical History (Updated 12/12/21 @ 16:[address] Sonya Fuentes, DO) Cardiomyopathy Coagulopathy Congestive heart failure (CHF) CPAP (continuous positive airway pressure) dependence Diabetes Former smoker Gilbert's syndrome Hepatomegaly HLD (hyperlipidemia) HTN (hypertension) Hyperlipidemia Jaundice Left ventricular thrombus Loculated pleural effusion Nonischemic cardiomyopathy Pulmonary embolism Sleep apnea Tobacco dependence Home Medications ascorbic acid (vitamin C) [Vitamin C] 500 mg PO DAILY@0800 05/30/13 [History Last Taken 10/02/21 500 mg] aspirin 81 mg PO DAILY@0800 #30 tablet 06/01/13 [Rx Last Taken 10/02/21 81 mg] metformin 1,000 mg PO BID 06/10/21 [History Last Taken 10/02/21 500 mg] glimepiride 4 mg PO DAILY 10/03/21 [History Last Taken 10/02/21 4 mg] carvedilol 3.125 mg PO BID #60 tab 10/07/21 [Rx Last Taken Unknown] warfarin 5 mg PO DAILY #30 tab 10/07/21 [Rx Last Taken Unknown] furosemide 40 mg tablet 40 mg PO DAILY #60 tablet 10/21/21 [Rx Last Taken Unknown] sacubitril 24 mg-valsartan 26 mg tablet 1 tab PO BID #60 tab 10/21/21 [Rx Last Taken Unknown] spironolactone 25 mg tablet 25 mg PO DAILY tab 10/21/21 [History Last Taken Unknown] losartan 25 mg tablet 12.5 mg PO QHS #30 tab 10/22/21 [Rx Last Taken Unknown] Allergy/AdvReac Type Severity Reaction Status Date / Time No Known Allergies Allergy Verified 12/11/21 17:29 Family History Other COPD (chronic obstructive pulmonary disease) Hypertension Parkinson's disease TIA (transient ischemic attack) Surgical History History of rectal abscess Social History Smoking Status: Former smoker substance use type: does not use Lab / Micro Data Result Diagrams: 12/12/21 05:50 12/12/21 05:50
[2021-12-12 17:06] LABS: Bedside Glucose 86 mg/dL (74-106)
--- NOTE | 2021-12-12 21:31 | NURSING ---
Blood sugar 56, pt denies feeling hypoglycemic; pt provided yogurt, 2% milk and travis crackers.
[2021-12-12] MEDS: Losartan Potassium 25 MG Tablet 12.5 MG PO (21:32)
[2021-12-12 22:06] LABS: Bedside Glucose 56 mg/dL (74-106)
--- NOTE | 2021-12-12 23:04 | CPS ---
Talked to pt about CPAP machine. Pt stated that he has one, however is not compliant with it and does not wear it at home. Pt doesn't wish to wear one while he is here
[2021-12-13] VITALS (12 sets, daily range): BP systolic 82–104; BP diastolic 54–85; PULSE 76–121; RESP 16–26; TEMP 36.4–37; O2SAT 94–97
--- NOTE | 2021-12-13 | FLU_PTH ---
PATIENT: INDU ROD LOC: [facility] U#:[id number] AGE/SX: 61/M ROOM: [facility] RE12/11/[address]: Dr. Alison Barr MD : 1960 BED: 1 DIS: 12/19/2021 SPEC #: [id number] RECD: 12/13/21 13:09 STATUS: MARINO RECleveland #: [id number] AMBER: 12/13/21 00:[address]: Jameson Li DEPT: CYTOLOGY RECD BY: Nilam Yepez ENTERED: 12/13/21 13:35 SP TYPE: Fluid OTHR DR: MD Dr. Dipak Hardwick MD Dr. Kathryn Lee, DO Dr. Victor Velasquez, MD Tissues: Pleural fluid, NOS Procedures: Special Stain Group II Surgery Specimen Level IV Cytospin Fluid HEADER OPERATION: Ultrasound-guided thoracentesis PRE-OP DIAGNOSIS: Right pleural effusion TISSUE SUBMITTED: Thoracentesis fluid for cytology DIAGNOSIS CYTOLOGY Thoracentesis fluid for cytology (cytospin and cell block): Negative for malignant cells. AM:rodo 12/16/2021 CYTOLOGY STUDY Slides are reviewed. CYTOLOGY GROSS Received is 100 ml of red cloudy fluid labeled with the patient's name and and designated per the requisition as thoracentesis. Submitted for cytology preparation including cell block. / rodo 12/13/2021 TC:5 CPT: 26336, 14206
[2021-12-13] MEDS: HEPARIN/D5w 25,000 UNITS 25,000 UNITS/250 ML IV.SOLN. 8 UNITS CONT INF (02:25)
--- NOTE | 2021-12-13 05:00 | US_ITS ---
PROCEDURE: ULTRASOUND GUIDED THORACENTESIS. DATE: 12/13/2021. INDICATION: Male, 61 years old. Right pleural effusion. PHYSICIAN: Ozzy Herrera DO PROCEDURE: The risks, benefits, and alternatives to the procedure were explained to the patient. The specific risks of bleeding, infection, and pneumothorax requiring chest tube insertion were discussed and accepted. Written informed consent was obtained. Ultrasonographic evaluation of the right lower pleural space was carried out. There is a moderate to large loculated right pleural effusion. An adequate pocket was identified. The patient was placed in the sitting, upright position. The overlying skin was prepped and draped in sterile fashion. 1% lidocaine was administered subcutaneously for local anesthesia. Under ultrasound guidance, a 5 Kosovan thoracentesis needle/catheter system was advanced into the largest pocket of the loculated collection in the posterior right lower lobe. Approximately 350 mL of red-tinged fluid was drained in total. 100 cc specimen was sent for labs and the remainder was discarded. The catheter was removed, and a sterile dressing was applied. A small amount of loculated collection remains. The patient tolerated the procedure well. A postprocedure chest x-ray was ordered and dictated separately. There were no immediate complications. The patient was returned to the floor in stable condition. US/Thoracentesis W US IMPRESSION: Ultrasound-guided right diagnostic and therapeutic thoracentesis as detailed above. Electronically Signed: Ozzy Herrera, at 13:35 EDT ,
[2021-12-13 06:12] LABS: Absolute Lymphocyte Count 0.98 X10^3/uL (0.83-4.51); Absolute Neutrophil Count 5.7 X10^3/uL (2.0-7.7); Basophil# 0.06 X10^3/uL; Basophil% 0.8 % (0-1); Eosinophil# 0.01 X10^3/uL; Eosinophils% 0.1 % (0-5); Hematocrit 39.5 % (40-54); Hemoglobin 12.5 g/dL (13.0-16.5); Lymphocyte # 0.98 X10^3/ul (0.83-4.51); Lymphocyte % 12.3 % (19-41); Mean Corp Hgb Conc 31.6 g/dL (32-36); Mean Corpuscular Hgb 25.6 pg (27.0-32.0); Mean Corpuscular Volume 80.8 fL (80-94); Mean Platelet Vol. 10.2 fl (6.2-12.0); Monocyte# 1.15 X10^3/uL; Monocyte% 14.5 % (0-10); NRBC Flagged by Analyzer 0 % (0-5); Neutrophil # 5.72 X10^3/uL (2.7-7.7); Neutrophil % 71.9 % (47-70); Platelet Count 207 K/mm3 (150-450); RBC Distribution Width CV 19.4 % (11.6-14.6); RBC Distribution Width SD 55.7 fl (35.1-43.9); Red Blood Count 4.89 M/mm3 (4.6-6.2)
--- NOTE | 2021-12-13 06:17 | NURSING ---
Pt sitting up in chair, pale, c/o feeling hot and sweaty. Fingerstick glucose checked, was 40; denied nausea and feeling low. 1 carton each of milk and apple juice, pack of Lornadoones,given. Call light within reach.
[2021-12-13 06:20] LABS: International Normalized Ratio 1.9; Prothrombin Time (Protime)PT. 21.5 SECONDS (11.7-14.9)
[2021-12-13 06:21] LABS: Bedside Glucose 40 mg/dL (74-106)
[2021-12-13 06:22] LABS: Partial Thromboplast Time 51.9 Seconds (24.1-36.2)
[2021-12-13 06:43] LABS: Anion Gap 6 (5-15); BUN 29 mg/dL (7-18); BUN/Creat Ratio 23.8 RATIO (10-20); Calcium,Total 8.4 mg/dL (8.5-10.1); Chloride 102 mmol/L (98-107); Creatinine, Serum 1.22 mg/dL (0.70-1.30); EST Glomerular Filtration Rate 64 mL/min (>60); Est Glom Filt Rate - Afr Amer 78 mL/min (>60); Estimated Creatinine Clearance 66.48 ml/min; Glucose 46 mg/dL (74-106); Magnesium 2.2 mg/dL (1.6-2.6); Sodium Level 134 mmol/L (136-145)
--- NOTE | 2021-12-13 06:53 | NURSING ---
Fingerstick glucose checked after snacks given, result of 80. Pt states that he feels much better and not as hot.
[2021-12-13 07:01] LABS: Bedside Glucose 80 mg/dL (74-106)
[2021-12-13] MEDS: Heparin Injection (Vial) 5,000 UNIT/ML VIAL IV ×2 (07:55→15:02)
[2021-12-13] MEDS: 0.9% Saline Lock 10 ML Syringe IV ×4 (08:00→18:33)
--- NOTE | 2021-12-13 08:06 | PCM.PN.CARD ---
Subjective Subjective The patient is aware he cannot alert. He denies ongoing chest discomfort. He continues to have concerns of shortness of breath/dyspnea and a cough. He continues to have issues with healing of the right lower extremity superficial skin lesion. Objective Data Vital Signs: Vital Signs Temp Pulse Resp BP Pulse Ox 98.2 F 80 18 104/76 95 12/13/21 08:03 12/13/21 08:03 12/13/21 08:03 12/13/21 08:03 12/13/21 08:03 Oxygen Delivery Method Room Air Weight: 205 lb 4.006 oz Body Mass Index (BMI) 29.2 Intake & Output: Intake and Output for Last 24 Hours 12/11/21 12/12/21 12/13/21 23:59 23:59 23:59 Intake Total 1964.14 / 2344.14 586.53 / 586.53 Output Total 1250 / 2100 1200 / 1200 Balance 714.14 / 244.14 -613.47 / -613.47 Lab / Micro Data Result Diagrams: 12/13/21 06:00 12/13/21 06:00 Labs: Laboratory Results - last 24 hr 12/12/21 11:36: POC Glucose 88 12/12/21 14:27: APTT 114.0 H* 12/12/21 17:01: POC Glucose 86 12/12/21 21:31: POC Glucose 56 L 12/12/21 22:23: APTT 57.0 H 12/13/21 06:00: PT 21.5 H, INR 1.9, APTT 51.9 H 12/13/21 06:00: WBC 8.0, RBC 4.89, Hgb 12.5 L, Hct 39.5 L, MCV 80.8, MCH 25.6 L, MCHC 31.6 L, RDW Std Deviation 55.7 H, RDW Coeff of Tony 19.4 H, Plt Count 207, MPV 10.2, Immature Gran % (Auto) 0.400, Neut % (Auto) 71.9 H, Lymph % (Auto) 12.3 L, [place] % (Auto) 14.5 H, Eos % (Auto) 0.1, Baso % (Auto) 0.8, Absolute Neuts (auto) 5.7, Absolute Lymphs (auto) 0.98, Nucleated RBC % 0 12/13/21 06:00: Sodium 134 L, Potassium 4.0, Chloride 102, Carbon Dioxide 26.0, Anion Gap 6, BUN 29 H, Creatinine 1.22, Estim Creat Clear Calc 66.48, Est GFR (MDRD) Af Amer 78, Est GFR (MDRD) Non-Af 64, BUN/Creatinine Ratio 23.8 H, Glucose 46 L, Calcium 8.4 L, Magnesium 2.2 12/13/21 06:17: POC Glucose 40 L* 12/13/21 06:53: POC Glucose 80 Cardiology Labs/Tests 12/12/21 14:27: APTT 114.0 H* 12/12/21 22:23: APTT 57.0 H 12/13/21 06:00: PT 21.5 H, INR 1.9, APTT 51.9 H 12/13/21 06:00: WBC 8.0, RBC 4.89, Hgb 12.5 L, Hct 39.5 L, MCV 80.8, MCH 25.6 L, MCHC 31.6 L, Plt Count 207, MPV 10.2, Immature Gran % (Auto) 0.400, Neut % (Auto) 71.9 H, Lymph % (Auto) 12.3 L, [place] % (Auto) 14.5 H, Eos % (Auto) 0.1, Baso % (Auto) 0.8, Absolute Neuts (auto) 5.7, Nucleated RBC % 0 12/13/21 06:00: Sodium 134 L, Potassium 4.0, Chloride 102, Carbon Dioxide 26.0, Anion Gap 6, BUN 29 H, Creatinine 1.22, Est GFR (MDRD) Af Amer 78, Est GFR (MDRD) Non-Af 64, BUN/Creatinine Ratio 23.8 H, Glucose 46 L, Calcium 8.4 L, Magnesium 2.2 Rhythm: Sinus rhythm; PVCs; ventricular couplets/triplets Radiography Diagnostic Testing: Radiology Impression Echocardiogram 12/12/21 07:52 Interpretation Summary The estimated ejection fraction is 15-20 %. Severe LV systolic Dysfunction With Global LV Hypokinesia Apical LV Thrombus Ordering Physician: Sonya Fuentes Referring Physician: Gil Sevilla M.D. Performed By: Hoda Collier RCS Physical Exam Const alert and oriented x3 Orientation / Consciousness: awake HEENT normocephalic, head/scalp atraumatic and hearing grossly normal bilaterally Eyes PERRL, EOMs intact bilaterally and conjunctivae normal Neck full ROM and supple Resp Auscultation: rhonchi throughout and diminished lung sounds bilateral lower Cardio regular rate, regular rhythm, S1 normal heart sound and S2 normal heart sound Rhythm: abnormal rhythm ectopic beats GI GI Narrative: Distended appearing; positive bowel sounds Extremity Extremity Narrative: Right lower extremity: Positive John wrap Psych mental status grossly normal Assessment & Plan Assessment/Plan (1) Heart failure with reduced ejection fraction: PLAN: The patient appears to have acute on chronic systolic mediated CHF (HFrEF) At the present time the patient is being evaluated. This is included a repeat transthoracic echocardiogram with results as noted. The patient will need to continue medical management which includes his dietary restrictions as well as his medications. (2) Cardiomyopathy: PLAN: The patient has a history of a non-CAD related cardiomyopathy. He has undergone noninvasive and invasive evaluation. At the present time he will need to continue medical therapy. This includes a combination of agents as tolerated such as nitrates, beta-blockers, diuretics, afterload reducing agents, and possibly SGLT2 inhibitors. The patient has been offered tertiary care center evaluation for advanced heart failure care evaluation/options including assist devices and/or cardiac transplantation evaluation. At the present time the patient has declined such an evaluation. He has been evaluated by Dr. Watters at [facility] for consideration for a biventricular ICD based upon his underlying diagnosis and objective findings. He has been recommended for such with a future date for his biventricular ICD pending at this time. (3) Left ventricular thrombus: PLAN: He does have a left ventricular thrombus. He needs to continue anticoagulant therapy. At the moment he is receiving bridging anticoagulant therapy while he undergoes additional evaluation and care for the possibility of pleural effusion and thoracentesis. He will eventually need to be back on his anticoagulant therapy with his warfarin/Coumadin. (4) HLD (hyperlipidemia): PLAN: He should continue risk factor evaluation care as deemed appropriate. (5) HTN (hypertension): PLAN: His blood pressure has been running somewhat on the lower side. This can impact his medication combination and dosage. (6) Pleural effusion on right: PLAN: He does have a right pleural effusion. He is tentatively scheduled to undergo ultrasound-guided thoracentesis by radiology later today. Addt'l Comments Overall, at the present time, he will continue to be observed. He will continue medical management with adjustment of his medications based upon his clinical status, vital signs, etc. He is tentatively scheduled for right-sided thoracentesis. He is also tentatively scheduled for future biventricular ICD placement by Dr. Watters and his colleagues at [facility]. He has declined referral to a tertiary/quaternary care center for evaluation of advanced heart failure care/support. The patient's case has been previously discussed and reviewed with the patient as well as Dr. Saenz, and MEHUL Dang. This note was generated using a voice recognition system and there may be incorrect words, spelling or punctuation that were not noted when reviewing the office note prior to saving. Procedure Criteria Type of Procedure Procedure Type: Elective Elective Risks - COVID COVID Risk Discussion: The surgeon/proceduralist and patient have discussed in detail the risk of exposure to and/or potential harm posed by the COVID-19 virus with having a surgery/procedure at this time versus the risk of delaying the surgery/procedure. It is not possible to know either the risk of delaying the surgery or procedure or chance of getting an infection with perfect accuracy, but a joint decision was made between the patient and the surgeon/proceduralist to proceed at this time with the scheduled surgery/procedure as indicated on the consent form.
[2021-12-13] MEDS: Ascorbic Acid 500 MG Tablet PO (08:15)
[2021-12-13] MEDS: Benzonatate 100 MG Capsule PO ×2 (08:15→18:40)
[2021-12-13] MEDS: Carvedilol 3.125 MG TABLET PO ×2 (08:15→16:25)
[2021-12-13] MEDS: Aspirin E.C. 81 MG Tablet PO (08:15)
[2021-12-13] MEDS: Potassium Chloride Oral Tablet 10 MEQ PO (08:15)
--- NOTE | 2021-12-13 08:27 | PCM.PN.HOSP ---
Subjective Subjective Follow-up for severe acute on chronic systolic heart failure, nonischemic. Patient denies shortness of breath at rest but get short of breath/dyspnea on exertion. No chest pain pressure Objective Data Objective Data Vital Signs: Vital Signs Temp Pulse Resp BP Pulse Ox 98.2 F 80 18 104/76 95 12/13/21 08:03 12/13/21 08:03 12/13/21 08:03 12/13/21 08:03 12/13/21 08:03 Oxygen Delivery Method Room Air Weight: 205 lb 4.006 oz Body Mass Index (BMI) 29.2 Intake & Output: Intake and Output for Last 24 Hours 12/11/21 12/12/21 12/13/21 23:59 23:59 23:59 Intake Total 1964.14 / 2344.14 586.53 / 586.53 Output Total 1250 / 2100 1200 / 1200 Balance 714.14 / 244.14 -613.47 / -613.47 Lab / Micro Data Result Diagrams: 12/13/21 06:00 12/13/21 06:00 Labs: Laboratory Results - last 24 hr 12/12/21 11:36: POC Glucose 88 12/12/21 14:27: APTT 114.0 H* 12/12/21 17:01: POC Glucose 86 12/12/21 21:31: POC Glucose 56 L 12/12/21 22:23: APTT 57.0 H 12/13/21 06:00: PT 21.5 H, INR 1.9, APTT 51.9 H 12/13/21 06:00: WBC 8.0, RBC 4.89, Hgb 12.5 L, Hct 39.5 L, MCV 80.8, MCH 25.6 L, MCHC 31.6 L, RDW Std Deviation 55.7 H, RDW Coeff of Tony 19.4 H, Plt Count 207, MPV 10.2, Immature Gran % (Auto) 0.400, Neut % (Auto) 71.9 H, Lymph % (Auto) 12.3 L, [place] % (Auto) 14.5 H, Eos % (Auto) 0.1, Baso % (Auto) 0.8, Absolute Neuts (auto) 5.7, Absolute Lymphs (auto) 0.98, Nucleated RBC % 0 12/13/21 06:00: Sodium 134 L, Potassium 4.0, Chloride 102, Carbon Dioxide 26.0, Anion Gap 6, BUN 29 H, Creatinine 1.22, Estim Creat Clear Calc 66.48, Est GFR (MDRD) Af Amer 78, Est GFR (MDRD) Non-Af 64, BUN/Creatinine Ratio 23.8 H, Glucose 46 L, Calcium 8.4 L, Magnesium 2.2 12/13/21 06:17: POC Glucose 40 L* 12/13/21 06:53: POC Glucose 80 Micro: Microbiology 12/11/21 22:35 Nasal Secretion SARS-CoV-2 Antigen (Rapid) - Final Radiography Diagnostic Testing: Radiology Impression Echocardiogram 12/12/21 07:52 Interpretation Summary The estimated ejection fraction is 15-20 %. Severe LV systolic Dysfunction With Global LV Hypokinesia Apical LV Thrombus Ordering Physician: Sonya Fuentes Referring Physician: Gil Sevilla M.D. Performed By: Hoda Collier RCS Physical Exam Narrative Physical exam General: Alert, Oriented x3, Cooperative HEENT: Atraumatic, PERRLA, EOMI, Normocephalic Oral: No Gingival or Mucosal Lesions/ Ulcerations Neck: Supple, No JVD, Negative Carotid Bruits Lungs: Air entry diminished in right lung base. Right moderate pleural effusion. No wheezing. Cardiovascular: Regular rate, Regular Rhythm, Normal S1, Normal S2, systolic murmur over LLSB Abdomen: Bowel Sounds Present, Soft, Non Tender, Non-Distended : No renal angle tenderness. No suprapubic tenderness. Extremities: Pitting bilateral lower extremity, 2+ edema, Capillary Refill Less than 3 Seconds Skin: No rashes, No breakdown Musculoskeletal: No Tenderness to Palpation of Joints or Extremities Neurological: Cranial nerves II-XII grossly intact, DTR 2+/4 and Symmetrical, Neuro grossly intact Psych/Mental Status: Flat affect Assessment & Plan Assessment/Plan (1) Pleural effusion on right: (2) Heart failure with reduced ejection fraction: (3) CONNOR (dyspnea on exertion): (4) Left ventricular thrombus: PLAN: Acute on chronic decompensated heart failure with reduced ejection fraction (systolic) with dyspnea on exertion -Echocardiogram from October showed an EF of 15% -Echocardiogram repeated today shows an EF of 15 to 20% with severe LV systolic dysfunction and global LV hypokinesis as well as an apical LV thrombus that was there previously -Continue goal-directed therapy(carvedilol/Entresto/losartan/Aldactone) -Patient is chronically hypotensive and asymptomatic--> tolerating diuresis -Continue Lasix 40 mg IV push twice daily. BMP shows mild hyponatremia. Potassium normal. Monitor BMP daily. -Cardiology has been consulted to follow -Referral has been made to EP and patient is in the process of being evaluated for ICD placement given extremely low EF. Patient was offered tertiary care center evaluation for advanced heart failure including assist device/cardiac transplant. Patient declined that offer. -Patient has had extensive work-up and this appears to be a nonischemic cardiomyopathy Right-sided partially loculated pleural effusion Ultrasound-guided thoracocentesis on right side about 350 mL drainage fluid was drained. -Thoracentesis in October for removal of 250 cc and it appears that there may be less fluid at this time with more loculation -Hold Coumadin -Continue heparin drip LV thrombus and history of PE -Patient will need to remain anticoagulated -Continue heparin drip while Coumadin is on hold for thoracentesis -Goal INR 2-3 DM-2 with hypoglycemia -Discontinue glimepiride secondary to increased risk of hypoglycemia -Continue sliding scale insulin -Check a.m. hemoglobin A1c -Continue SSI -Blood sugars this morning are stable Hypertension -Patient's blood pressures have been low since he was diagnosed with the ischemic cardiomyopathy -Tolerating home regimen okay for goal-directed therapy with relationship to nonischemic cardiomyopathy -Continue to monitor Hyperlipidemia -Patient's been on statins previously but is intolerant secondary to diffuse myalgias JES -Patient is noncompliant at baseline -Will try to get him to wear CPAP with 8 cm of water nocturnally as this would help offload his heart and likely helped him symptomatically Pulmonary artery hypertension predominantly who group 2 -See above -Have group 3 component with previous tobacco abuse Right lower extremity wounds -Wound care is following -When compared to previous pictures from October the wounds appear to be improving -No current signs of infection -Continue to monitor Gilbert's disease -Bilirubin is chronically elevated and stable DVT prophylaxis -Patient fully anticoagulated and currently on a heparin drip CODE STATUS -Full code Charges/Coding Visit Charges Inpatient E&M: 58434 Subs Hosp L2
[2021-12-13 08:46] LABS: Cholesterol 88 mg/dL (200); High Density Lipoprotein 25 mg/dL; Triglycerides 56 mg/dL; Very Low Density Lipoprotein 11 mg/dL (5-40)
[2021-12-13] MEDS: Furosemide 40 MG/4 ML Vial IV ×2 (10:31→18:32)
[2021-12-13] MEDS: guaiFENesin 1,200 MG Tablet 1200 MG PO ×2 (10:31→22:28)
[2021-12-13] MEDS: Spironolactone 25 MG Tablet PO (10:31)
[2021-12-13] MEDS: Insulin Lispro 100 UNIT/ML INSULN.PEN SC ×2 (11:06→16:24)
[2021-12-13 11:21] LABS: Bedside Glucose 190 mg/dL (74-106)
--- NOTE | 2021-12-13 12:13 | RAD_ITS ---
INDICATION: pneumothorax -- immediately post thoracentesis EXAMINATION/TECHNIQUE: X-RAY - XR Chest 2 Views COMPARISON: 12/11/2021 FINDINGS/ RAD/Chest Insp/Exp 2 View IMPRESSION: Support devices: None. There is a small loculated right-sided pleural effusion, with minimal decrease in size from previous study status post thoracentesis. Similar appearance of right mid to lower lung opacities and right basilar atelectasis. Aeration of left lung is unchanged. No sizable pneumothorax status post thoracentesis. Heart size is stable. Bones and soft tissues are unchanged. Electronically Signed: Ozzy Herrera, at 13:57 EDT ,
[2021-12-13] MEDS: Lidocaine 2% (20 ml mdv) 20 ML Vial INFILT (12:43)
[2021-12-13 13:11] LABS: Cytology, Body Fluid / CSF SEE PATHOLOGY REPORT
[2021-12-13 13:28] LABS: ALB/GLOB Ratio 0.7 RATIO (0.9-2.4); Globulin 3.9 g/dL (2.2-4.2); LDH 250 U/L (87-241); Protein, Total 6.8 g/dL (6.4-8.2)
[2021-12-13 14:21] LABS: Partial Thromboplast Time 36.5 Seconds (24.1-36.2)
[2021-12-13 14:22] LABS: Glucose, Body Fluid 62 mg/dL (40-70); LDH,Body Fluid 94 Units/l (Not Establ.); Protein, Body Fluid 1.5 g/dL (Not Establ.)
[2021-12-13 14:26] LABS: Auto B Fluid Analyzer BKGD Ct COUNTS W/IN LIMITS (W/IN LIMITS); Color/Body Fluid SLIGHTLY PINK; Source- Body Fluid THORACENTESIS
[2021-12-13 14:27] LABS: Appearance/Body Fluid SL CLDY; Red Cell Count/Body Fluid 0.022 10^6/ul; White Blood Count/Body Fluid 0.308 10^3/uL
[2021-12-13 14:28] LABS: Body Fluid Polynuclear WBC % 11.4 %
[2021-12-13 14:29] LABS: Body Fluid Mononuclear WBC # 0.273 10^3/uL; Body Fluid Mononuclear WBC % 88.6 %; Body Fluid Polynuclear WBC # 0.035 10^3/uL; Neutrophil (Segs) 4 %
[2021-12-13 14:30] LABS: Body Fluid QC Type(s) BF1Q; Lymphocytes 11 %; Monocytes 85 %
--- NOTE | 2021-12-13 15:50 | RAD_ITS ---
INDICATION: pneumothorax -- 2 hour post thoracentesis EXAMINATION/TECHNIQUE: X-RAY - XR Chest 2 Views COMPARISON: Same-day chest radiograph FINDINGS: Support devices: None. Aeration of the lungs is unchanged with no sizable pneumothorax. Heart size is stable. Bones and soft tissues are unchanged. RAD/Chest Insp/Exp 2 View IMPRESSION: No sizable pneumothorax 2 hours post thoracentesis. Electronically Signed: Ozzy Herrera, at 16:17 EDT ,
[2021-12-13 16:31] LABS: Bedside Glucose 206 mg/dL (74-106)
[2021-12-13] MEDS: Senna/Docusate Sodium 1 Tablet 2 TABLET PO (18:43)
[2021-12-13 21:38] LABS: Partial Thromboplast Time 56.9 Seconds (24.1-36.2)
[2021-12-13] MEDS: HEPARIN/D5w 25,000 UNITS 25,000 UNITS/250 ML IV.SOLN. 11 UNITS CONT INF (22:29)
--- NOTE | 2021-12-13 22:35 | CPS ---
patient refused cpap at night.
[2021-12-13 22:40] LABS: Bedside Glucose 147 mg/dL (74-106)
[2021-12-14] VITALS (13 sets, daily range): BP systolic 88–99; BP diastolic 59–76; PULSE 83–106; RESP 17–22; TEMP 36.6–37; O2SAT 94–98
[2021-12-14] MEDS: Benzonatate 100 MG Capsule PO ×5 (02:48→19:38)
[2021-12-14 03:28] LABS: Absolute Lymphocyte Count 0.92 X10^3/uL (0.83-4.51); Absolute Neutrophil Count 5.6 X10^3/uL (2.0-7.7); Basophil# 0.05 X10^3/uL; Basophil% 0.7 % (0-1); Eosinophil# 0.01 X10^3/uL; Eosinophils% 0.1 % (0-5); Hematocrit 37.4 % (40-54); Hemoglobin 12.3 g/dL (13.0-16.5); Lymphocyte # 0.92 X10^3/ul (0.83-4.51); Lymphocyte % 12.2 % (19-41); Mean Corp Hgb Conc 32.9 g/dL (32-36); Mean Corpuscular Hgb 25.9 pg (27.0-32.0); Mean Corpuscular Volume 78.7 fL (80-94); Mean Platelet Vol. 10.2 fl (6.2-12.0); Monocyte# 0.92 X10^3/uL; Monocyte% 12.2 % (0-10); NRBC Flagged by Analyzer 0 % (0-5); Neutrophil # 5.61 X10^3/uL (2.7-7.7); Neutrophil % 74.4 % (47-70); Platelet Count 186 K/mm3 (150-450); RBC Distribution Width CV 18.7 % (11.6-14.6); RBC Distribution Width SD 52.8 fl (35.1-43.9); Red Blood Count 4.75 M/mm3 (4.6-6.2); White Blood Count 7.5 K/mm3 (4.4-11.0)
[2021-12-14 03:41] LABS: Anion Gap 7 (5-15); BUN 35 mg/dL (7-18); BUN/Creat Ratio 31.5 RATIO (10-20); Calcium,Total 8.2 mg/dL (8.5-10.1); Chloride 99 mmol/L (98-107); Creatinine, Serum 1.11 mg/dL (0.70-1.30); EST Glomerular Filtration Rate 72 mL/min (>60); Est Glom Filt Rate - Afr Amer 87 mL/min (>60); Estimated Creatinine Clearance 73.07 ml/min; Glucose 182 mg/dL (74-106); Magnesium 2.2 mg/dL (1.6-2.6); Potassium 4.3 mmol/L (3.5-5.1); Sodium Level 132 mmol/L (136-145)
[2021-12-14 05:32] LABS: International Normalized Ratio 1.4; Prothrombin Time (Protime)PT. 17.2 SECONDS (11.7-14.9)
[2021-12-14] MEDS: HEPARIN/D5w 25,000 UNITS 25,000 UNITS/250 ML IV.SOLN. 11 UNITS CONT INF (06:05)
[2021-12-14 06:56] LABS: Bedside Glucose 105 mg/dL (74-106)
[2021-12-14] MEDS: Carvedilol 3.125 MG TABLET PO ×2 (08:16→17:43)
[2021-12-14] MEDS: Aspirin E.C. 81 MG Tablet PO (08:16)
[2021-12-14] MEDS: Potassium Chloride Oral Tablet 10 MEQ PO (08:16)
[2021-12-14] MEDS: Ascorbic Acid 500 MG Tablet PO (08:16)
[2021-12-14] MEDS: guaiFENesin 1,200 MG Tablet 1200 MG PO ×2 (10:11→21:36)
[2021-12-14] MEDS: Spironolactone 25 MG Tablet PO (10:33)
[2021-12-14 11:05] LABS: Partial Thromboplast Time 58.5 Seconds (24.1-36.2)
[2021-12-14] MEDS: Furosemide 40 MG Tablet PO ×2 (11:09→17:43)
--- NOTE | 2021-12-14 11:35 | PCM.PN.CARD ---
Subjective Subjective Patient seen and evaluated today At bedside along with the nursing staff Sitting out in a chair Has shortness of breath with cough and bilateral lower extremity swelling. Progress exam S1-S2 regular Chest exam diminished air entry bilaterally with bilateral inspiratory rales Examination lower extremity +3 lower extremity edema Objective Data Vital Signs: Vital Signs Temp Pulse Resp BP Pulse Ox 97.8 F 88 17 88/59 L 95 12/14/21 08:02 12/14/21 08:02 12/14/21 08:02 12/14/21 10:09 12/14/21 08:02 Oxygen Delivery Method [5] Room Air Oxygen Delivery Method [4] Room Air Oxygen Delivery Method [3] Room Air Oxygen Delivery Method [2] Room Air Oxygen Delivery Method [1 ( Room Air Initial Baseline)] Oxygen Delivery Method Room Air Weight: 207 lb 3.752 oz Body Mass Index (BMI) 29.2 Intake & Output: Intake and Output for Last 24 Hours 12/12/21 12/13/21 12/14/21 23:59 23:59 23:59 Intake Total 1964.14 / 2344.14 1127.88 / 1127.88 138.97 / 138.97 Output Total 1250 / 2100 2049 / 2049 Balance 714.14 / 244.14 -922.12 / -922.12 138.97 / 138.97 Lab / Micro Data Result Diagrams: 12/14/21 03:15 12/14/21 03:15 Labs: Laboratory Results - last 24 hr 12/13/21 06:00: Lactate Dehydrogenase 250 H, Total Protein 6.8, Globulin 3.9, Albumin/Globulin Ratio 0.7 L 12/13/21 12:40: Fluid Glucose 62, Fluid Total Protein 1.5, Fluid LDH 94 12/13/21 12:40: Fluid Source THORACENTESIS, Fluid Color SLIGHTLY PINK, Fluid Appearance SL CLDY, Fluid WBC 0.308, Fluid RBC 0.022, Fluid Tot Cell Count 0.310, Fld Polynuclear WBCs # 0.035, Fld Polynuclear WBCs % 11.4, Fluid Mononuclear WBCs 0.273, Fld Mononuclear WBCs % 88.6, Fluid Neutrophils 4, Fluid Lymphocytes 11, Fluid Monocytes 85, Fl Pathologist Comment May follow, Fluid Comment 2 SEE COMMENT 12/13/21 13:55: APTT 36.5 H 12/13/21 16:22: POC Glucose 206 H 12/13/21 21:05: APTT 56.9 H 12/13/21 22:26: POC Glucose 147 H 12/14/21 03:15: PT Cancelled, INR Cancelled 12/14/21 03:15: WBC 7.5, RBC 4.75, Hgb 12.3 L, Hct 37.4 L, MCV 78.7 L, MCH 25.9 L, MCHC 32.9, RDW Std Deviation 52.8 H, RDW Coeff of Tony 18.7 H, Plt Count 186, MPV 10.2, Immature Gran % (Auto) 0.400, Neut % (Auto) 74.4 H, Lymph % (Auto) 12.2 L, [place] % (Auto) 12.2 H, Eos % (Auto) 0.1, Baso % (Auto) 0.7, Absolute Neuts (auto) 5.6, Absolute Lymphs (auto) 0.92, Nucleated RBC % 0 12/14/21 03:15: Sodium 132 L, Potassium 4.3, Chloride 99, Carbon Dioxide 26.0, Anion Gap 7, BUN 35 H, Creatinine 1.11, Estim Creat Clear Calc 73.07, Est GFR (MDRD) Af Amer 87, Est GFR (MDRD) Non-Af 72, BUN/Creatinine Ratio 31.5 H, Glucose 182 H, Calcium 8.2 L, Magnesium 2.2 12/14/21 04:30: APTT Cancelled 12/14/21 05:00: APTT 72.0 H 12/14/21 05:00: PT 17.2 H, INR 1.4 12/14/21 06:41: POC Glucose 105 12/14/21 10:45: APTT 58.5 H Micro: Microbiology 12/13/21 12:40 Fluid - Thoracentesis Fluid Gram Stain - Final Cardiology Labs/Tests 12/13/21 13:55: APTT 36.5 H 12/13/21 21:05: APTT 56.9 H 12/14/21 03:15: PT Cancelled, INR Cancelled 12/14/21 03:15: WBC 7.5, RBC 4.75, Hgb 12.3 L, Hct 37.4 L, MCV 78.7 L, MCH 25.9 L, MCHC 32.9, Plt Count 186, MPV 10.2, Immature Gran % (Auto) 0.400, Neut % (Auto) 74.4 H, Lymph % (Auto) 12.2 L, [place] % (Auto) 12.2 H, Eos % (Auto) 0.1, Baso % (Auto) 0.7, Absolute Neuts (auto) 5.6, Nucleated RBC % 0 12/14/21 03:15: Sodium 132 L, Potassium 4.3, Chloride 99, Carbon Dioxide 26.0, Anion Gap 7, BUN 35 H, Creatinine 1.11, Est GFR (MDRD) Af Amer 87, Est GFR (MDRD) Non-Af 72, BUN/Creatinine Ratio 31.5 H, Glucose 182 H, Calcium 8.2 L, Magnesium 2.2 12/14/21 04:30: APTT Cancelled 12/14/21 05:00: APTT 72.0 H 12/14/21 05:00: PT 17.2 H, INR 1.4 12/14/21 10:45: APTT 58.5 H Rhythm: EKG: ECHO: Stress Test: Cardiac Cath: PCI: CT Surgery: Holter monitor: EPS: PPM: CXR: Chest CT Scan: Radiography Diagnostic Testing: Radiology Impression Thoracentesis Ultrasound 12/13/21 05:00 IMPRESSION: Ultrasound-guided right diagnostic and therapeutic thoracentesis as detailed above. Electronically Signed: Ozzy Herrera, at 13:35 EDT , Chest X-Ray 12/13/21 12:13 IMPRESSION: Support devices: None. There is a small loculated right-sided pleural effusion, with minimal decrease in size from previous study status post thoracentesis. Similar appearance of right mid to lower lung opacities and right basilar atelectasis. Aeration of left lung is unchanged. No sizable pneumothorax status post thoracentesis. Heart size is stable. Bones and soft tissues are unchanged. Electronically Signed: Ozzy Herrera, at 13:57 EDT , Chest X-Ray 12/13/21 15:50 IMPRESSION: No sizable pneumothorax 2 hours post thoracentesis. Electronically Signed: Ozzy Herrera, at 16:17 EDT , Physical Exam Narrative Review of quality assurance monitor chassis showed underlying normal sinus. Assessment & Plan Assessment/Plan (1) Pleural effusion on right: (2) CONNOR (dyspnea on exertion): (3) HTN (hypertension): (4) Left ventricular thrombus: (5) Heart failure with reduced ejection fraction: PLAN: This patient with acute on chronic systolic heart failure with dilated cardiomyopathy With reduced ejection fraction in the range of 10?to 15% He also had LV thrombus on echocardiogram. Patient underwent right pleural thoracocentesis yesterday And he has been on heparin postprocedure. Cardiac care plan recommendation 1. Recommend to resume anticoagulation with warfarin with a target INR 2?3 Patient had LV thrombus and severe LV systolic dysfunction/DCM/high risk for stroke 2. Also to continue the current diuretic therapy and to monitor electrolytes and renal function 3. We will continue to monitor INR, renal function electrolytes and cardiac telemetry and will follow-up clinically.
[2021-12-14 12:11] LABS: Bedside Glucose 164 mg/dL (74-106)
--- NOTE | 2021-12-14 12:24 | PN.HOSP_ITS ---
Subjective Subjective Follow-up for severe heart failure Objective Data Objective Data Vital Signs: Vital Signs Temp Pulse Resp BP Pulse Ox 97.8 F 88 17 88/59 L 95 12/14/21 08:02 12/14/21 08:02 12/14/21 08:02 12/14/21 10:09 12/14/21 08:02 Oxygen Delivery Method [5] Room Air Oxygen Delivery Method [4] Room Air Oxygen Delivery Method [3] Room Air Oxygen Delivery Method [2] Room Air Oxygen Delivery Method [1 ( Room Air Initial Baseline)] Oxygen Delivery Method Room Air Weight: 207 lb 3.752 oz Body Mass Index (BMI) 29.2 Intake & Output: Intake and Output for Last 24 Hours 12/12/21 12/13/21 12/14/21 23:59 23:59 23:59 Intake Total 1964.14 / 2344.14 1127.88 / 1127.88 138.97 / 138.97 Output Total 1250 / 2100 2049 / 2049 Balance 714.14 / 244.14 -922.12 / -922.12 138.97 / 138.97 Lab / Micro Data Result Diagrams: 12/14/21 03:15 12/14/21 03:15 Labs: Laboratory Results - last 24 hr 12/13/21 06:00: Lactate Dehydrogenase 250 H, Total Protein 6.8, Globulin 3.9, Albumin/Globulin Ratio 0.7 L 12/13/21 12:40: Fluid Glucose 62, Fluid Total Protein 1.5, Fluid LDH 94 12/13/21 12:40: Fluid Source THORACENTESIS, Fluid Color SLIGHTLY PINK, Fluid Appearance SL CLDY, Fluid WBC 0.308, Fluid RBC 0.022, Fluid Tot Cell Count 0.310, Fld Polynuclear WBCs # 0.035, Fld Polynuclear WBCs % 11.4, Fluid Mo nonuclear WBCs 0.273, Fld Mononuclear WBCs % 88.6, Fluid Neutrophils 4, Fluid Lymphocytes 11, Fluid Monocytes 85, Fl Pathologist Comment May follow, Fluid Comment 2 SEE COMMENT 12/13/21 13:55: APTT 36.5 H 12/13/21 16:22: POC Glucose 206 H 12/13/21 21:05: APTT 56.9 H 12/13/21 22:26: POC Glucose 147 H 12/14/21 03:15: PT Cancelled, INR Cancelled 12/14/21 03:15: WBC 7.5, RBC 4.75, Hgb 12.3 L, Hct 37.4 L, MCV 78.7 L, MCH 25.9 L, MCHC 32.9, RDW Std Deviation 52.8 H, RDW Coeff of Tony 18.7 H, Plt Count 186, MPV 10.2, Immature Gran % (Auto) 0.400, Neut % (Auto) 74.4 H, Lymph % (Auto) 12.2 L, [place] % (Auto) 12.2 H, Eos % (Auto) 0.1, Baso % (Auto) 0.7, Absolute Neuts (auto) 5.6, Absolute Lymphs (auto) 0.92, Nucleated RBC % 0 12/14/21 03:15: Sodium 132 L, Potassium 4.3, Chloride 99, Carbon Dioxide 26.0, Anion Gap 7, BUN 35 H, Creatinine 1.11, Estim Creat Clear Calc 73.07, Est GFR (MDRD) Af Amer 87, Est GFR (MDRD) Non-Af 72, BUN/Creatinine Ratio 31.5 H, Gluco se 182 H, Calcium 8.2 L, Magnesium 2.2 12/14/21 04:30: APTT Cancelled 12/14/21 05:00: APTT 72.0 H 12/14/21 05:00: PT 17.2 H, INR 1.4 12/14/21 06:41: POC Glucose 105 12/14/21 10:45: APTT 58.5 H 12/14/21 12:02: POC Glucose 164 H Micro: Microbiology 12/13/21 12:40 Fluid - Thoracentesis Fluid Gram Stain - Final 12/13/21 12:40 Fluid - Thoracentesis Fluid Body Fluid Culture - Preliminary No growth-Final to follow 12/11/21 22:35 Nasal Secretion SARS-CoV-2 Antigen (Rapid) - Final Radiography Diagnostic Testing: Radiology Impression Thoracentesis Ultrasound 12/13/21 05:00 IMPRESSION: Ultrasound-guided right diagnostic and therapeutic thoracentesis as detailed above. Electronically Signed: Ozzy Herrera, at 13:35 EDT , Chest X-Ray 12/13/21 12:13 IMPRESSION: Support devices: None. There is a small loculated right-sided pleural effusion, with minimal decrease in size from previous study status post thoracentesis. Similar appearance of right mid to lower lung opacities and right basilar atelectasis. Aeration of left lung is unchanged. No sizable pneumothorax status post thoracentesis. Heart size is stable. Bones and soft tissues are unchanged. Electronically Signed: Ozzy Herrera, at 13:57 EDT , Chest X-Ray 12/13/21 15:50 IMPRESSION: No sizable pneumothorax 2 hours post thoracentesis. Electronically Signed: Ozzy Herrera, at 16:17 EDT , Physical Exam Narrative Patient has dyspnea on minimal exertion. Patient has cough, chronic. Physical exam General: Alert, Oriented x3, Cooperative HEENT: Atraumatic, PERRLA, EOMI, Normocephalic Oral: No Gingival or Mucosal Lesions/ Ulcerations Neck: Supple, No JVD, Negative Carotid Bruits Lungs: Air entry diminished in right lung base. Right small to moderate pleural effusion. No wheezing. Cardiovascular: Regular rate, Regular Rhythm, Normal S1, Normal S2, systolic murmur over LLSB Abdomen: Bowel Sounds Present, Soft, Non Tender, Non-Distended : No renal angle tenderness. No suprapubic tenderness. Extremities: Pitting bilateral lower extremity, 2+ edema, Capillary Refill Less than 3 Seconds Skin: No rashes, No breakdown Musculoskeletal: No Tenderness to Palpation of Joints or Extremities Neurological: Cranial nerves II-XII grossly intact, DTR 2+/4 and Symmetrical, Neuro grossly intact Psych/Mental Status: Flat affect Assessment & Plan Assessment/Plan (1) Pleural effusion on right: (2) Heart failure with reduced ejection fraction: (3) CONNOR (dyspnea on exertion): (4) Left ventricular thrombus: PLAN: 1. Acute on chronic decompensated heart failure with reduced ejection fraction (systolic) with dyspnea on exertion -Echocardiogram from October showed an EF of 15% -Echocardiogram repeated 12/12 shows an EF of 15 to 20% with severe LV systolic dysfunction and global LV hypokinesis as well as an apical LV thrombus that was there previously -Continue goal-directed therapy(carvedilol/Entresto/losartan/Aldactone) -Patient is chronically hypotensive and asymptomatic--> tolerating diuresis -Continue Lasix 40 mg IV push twice daily. 12/14: Lasix IV changed to oral twice daily with holding parameters. BMP shows mild hyponatremia. Potassium normal. Monitor BMP daily. Magnesium 2.2. -Referral has been made to EP and patient is in the process of being evaluated for ICD placement given extremely low EF. Patient was offered tertiary care center evaluation for advanced heart failure including assist device/cardiac transplant. Patient declined that offer. -Patient has had extensive work-up and this appears to be a nonischemic cardiomyopathy 2. Right-sided partially loculated pleural effusion Ultrasound-guided thoracocentesis on right side about 350 mL drainage fluid was drained. -Thoracentesis in October for removal of 250 cc and it appears that there may be less fluid at this time with more loculation Postprocedure chest x-ray shows a small to moderate pleural effusion. -Hold Coumadin -Continue heparin drip. Resume warfarin 5 mg daily. INR 1.4 LV thrombus and history of PE -Patient will need to remain anticoagulated -Continue heparin drip while Coumadin is therapeutic -Goal INR 2-3 DM-2 with hypoglycemia -Discontinue glimepiride secondary to increased risk of hypoglycemia -Continue sliding scale insulin -Glucose 182. It was 46 in the morning. -Continue SSI -Blood sugars this morning are stable A1c tomorrow a.m. Hypertension -Patient's blood pressures have been low since he was diagnosed with the ischemic cardiomyopathy -Tolerating home regimen okay for goal-directed therapy with relationship to nonischemic cardiomyopathy -Continue to monitor Hyperlipidemia -Patient's been on statins previously but is intolerant secondary to diffuse myalgias JES -Patient is noncompliant at baseline -Will try to get him to wear CPAP with 8 cm of water nocturnally as this would help offload his heart and likely helped him symptomatically Pulmonary artery hypertension predominantly who group 2 -See above -Have group 3 component with previous tobacco abuse Right lower extremity wounds -Wound care is following -When compared to previous pictures from October the wounds appear to be improving -No current signs of infection -Continue to monitor Gilbert's disease -Bilirubin is chronically elevated and stable DVT prophylaxis -Patient fully anticoagulated and currently on a heparin drip CODE STATUS -Full code Charges/Coding Visit Charges Inpatient E&M: 17188 Subs Hosp L2
[2021-12-14] MEDS: Ipratropium/Albuterol Sulfate 3 ML AMPUL.NEB INHALATION ×2 (13:23→16:34)
[2021-12-14] MEDS: Senna/Docusate Sodium 1 Tablet 2 TABLET PO (16:22)
[2021-12-14 16:36] LABS: Bedside Glucose 134 mg/dL (74-106)
[2021-12-14] MEDS: Losartan Potassium 25 MG Tablet 12.5 MG PO (21:37)
[2021-12-14 23:56] LABS: Bedside Glucose 145 mg/dL (74-106)
[2021-12-15] VITALS (11 sets, daily range): BP systolic 83–99; BP diastolic 66–79; PULSE 74–92; RESP 12–20; TEMP 36.6–36.9; O2SAT 95–97
--- NOTE | 2021-12-15 01:41 | CPS ---
Pt declines use of Cpap
[2021-12-15] MEDS: Benzonatate 100 MG Capsule PO ×4 (04:08→20:25)
[2021-12-15 06:15] LABS: Absolute Lymphocyte Count 1.07 X10^3/uL (0.83-4.51); Absolute Neutrophil Count 4.7 X10^3/uL (2.0-7.7); Basophil# 0.04 X10^3/uL; Basophil% 0.6 % (0-1); Hematocrit 38.6 % (40-54); Hemoglobin 12.5 g/dL (13.0-16.5); Lymphocyte # 1.07 X10^3/ul (0.83-4.51); Mean Corp Hgb Conc 32.4 g/dL (32-36); Mean Corpuscular Hgb 25.6 pg (27.0-32.0); Mean Corpuscular Volume 79.1 fL (80-94); Mean Platelet Vol. 10.7 fl (6.2-12.0); Monocyte# 0.84 X10^3/uL; Monocyte% 12.6 % (0-10); NRBC Flagged by Analyzer 0 % (0-5); Neutrophil % 70.4 % (47-70); Platelet Count 198 K/mm3 (150-450); RBC Distribution Width CV 18.9 % (11.6-14.6); RBC Distribution Width SD 53.1 fl (35.1-43.9); Red Blood Count 4.88 M/mm3 (4.6-6.2); White Blood Count 6.7 K/mm3 (4.4-11.0)
[2021-12-15 06:40] LABS: Bedside Glucose 125 mg/dL (74-106)
[2021-12-15 06:42] LABS: International Normalized Ratio 1.5; Prothrombin Time (Protime)PT. 17.7 SECONDS (11.7-14.9)
[2021-12-15 06:43] LABS: Partial Thromboplast Time 45.3 Seconds (24.1-36.2)
[2021-12-15 06:45] LABS: Anion Gap 7 (5-15); BUN 37 mg/dL (7-18); BUN/Creat Ratio 36.3 RATIO (10-20); Calcium,Total 8.8 mg/dL (8.5-10.1); Chloride 100 mmol/L (98-107); Creatinine, Serum 1.02 mg/dL (0.70-1.30); EST Glomerular Filtration Rate 79 mL/min (>60); Est Glom Filt Rate - Afr Amer 96 mL/min (>60); Estimated Creatinine Clearance 79.52 ml/min; Glucose 125 mg/dL (74-106); Potassium 4.6 mmol/L (3.5-5.1); Sodium Level 132 mmol/L (136-145)
[2021-12-15 07:01] LABS: Hemoglobin A1c 7.4 % (3.8-5.6)
[2021-12-15] MEDS: HEPARIN/D5w 25,000 UNITS 25,000 UNITS/250 ML IV.SOLN. 12 UNITS CONT INF (07:28)
[2021-12-15] MEDS: Heparin Injection (Vial) 5,000 UNIT/ML VIAL IV (07:30)
--- NOTE | 2021-12-15 07:56 | PN.HOSP_ITS ---
Objective Data Objective Data Vital Signs: Vital Signs Temp Pulse Resp BP Pulse Ox 98 F 85 18 92/72 97 12/15/21 04:15 12/15/21 07:00 12/15/21 04:15 12/15/21 04:15 12/15/21 04:15 Oxygen Flow Rate (L/min) 2 Oxygen Delivery Method [5] Room Air Oxygen Delivery Method [4] Room Air Oxygen Delivery Method [3] Room Air Oxygen Delivery Method [2] Room Air Oxygen Delivery Method [1 ( Room Air Initial Baseline)] Oxygen Delivery Method Room Air Weight: 210 lb 1.608 oz Body Mass Index (BMI) 29.2 Intake & Output: Intake and Output for Last 24 Hours 12/13/21 12/14/21 12/15/21 23:59 23:59 23:59 Intake Total 1127.88 / 1127.88 928.97 / 1048.97 364.63 / 364.63 Output Total 2049 / 2049 700 / 900 400 / 400 Balance -922.12 / -922.12 228.97 / 148.97 -35.37 / -35.37 Lab / Micro Data Result Diagrams: 12/15/21 05:31 12/15/21 05:31 Labs: Laboratory Results - last 24 hr 12/14/21 10:45: APTT 58.5 H 12/14/21 12:02: POC Glucose 164 H 12/14/21 16:18: POC Glucose 134 H 12/14/21 21:43: POC Glucose 145 H 12/15/21 05:31: WBC 6.7, RBC 4.88, Hgb 12.5 L, Hct 38.6 L, MCV 79.1 L, MCH 25.6 L, MCHC 32.4, RDW Std Deviation 53.1 H, RDW Coeff of Tony 18.9 H, Plt Count 198, MPV 10.7, Immature Gran % (Auto) 0.400, Neut % (Auto) 70.4 H, Lymph % (Auto) 16.0 L, [place] % (Auto) 12.6 H, Eos % (Auto) 0.0, Baso % (Auto) 0.6, Absolute Neuts (auto) 4.7, Absolute Lymphs (auto) 1.07, Nucleated RBC % 0 12/15/21 05:31: Sodium 132 L, Potassium 4.6, Chloride 100, Carbon Dioxide 25.0, Anion Gap 7, BUN 37 H, Creatinine 1.02, Estim Creat Clear Calc 79.52, Est GFR (MDRD) Af Amer 96, Est GFR (MDRD) Non-Af 79, BUN/Creatinine Ratio 36.3 H, Glucose 125 H, Calcium 8.8 12/15/21 05:31: PT 17.7 H, INR 1.5, APTT 45.3 H 12/15/21 05:31: Hemoglobin A1c 7.4 H 12/15/21 06:26: POC Glucose 125 H Micro: Microbiology 12/13/21 12:40 Fluid - Thoracentesis Fluid Gram Stain - Final 12/13/21 12:40 Fluid - Thoracentesis Fluid Body Fluid Culture - Preliminary No growth-Final to follow 12/11/21 22:35 Nasal Secretion SARS-CoV-2 Antigen (Rapid) - Final Physical Exam Narrative Patient has dyspnea on minimal exertion. Patient has cough, chronic. Physical exam General: Alert, Oriented x3, Cooperative HEENT: Atraumatic, PERRLA, EOMI, Normocephalic Oral: No Gingival or Mucosal Lesions/ Ulcerations Neck: Supple, No JVD, Negative Carotid Bruits Lungs: Air entry diminished in right lung base. Right small to moderate pleural effusion. No wheezing. Cardiovascular: Regular rate, Regular Rhythm, Normal S1, Normal S2, systolic murmur over LLSB Abdomen: Bowel Sounds Present, Soft, Non Tender, Non-Distended : No renal angle tenderness. No suprapubic tenderness. Extremities: Pitting bilateral lower extremity, 2+ edema, Capillary Refill Less than 3 Seconds Skin: No rashes, No breakdown Musculoskeletal: No Tenderness to Palpation of Joints or Extremities Neurological: Cranial nerves II-XII grossly intact, DTR 2+/4 and Symmetrical, Neuro grossly intact Psych/Mental Status: Flat affect Assessment & Plan Assessment/Plan (1) Pleural effusion on right: (2) Heart failure with reduced ejection fraction: (3) CONNOR (dyspnea on exertion): (4) Left ventricular thrombus: PLAN: 1. Acute on chronic decompensated heart failure with reduced ejection fraction (systolic) with dyspnea on exertion -Echocardiogram from October showed an EF of 15% -Echocardiogram repeated 12/12 shows an EF of 15 to 20% with severe LV systolic dysfunction and global LV hypokinesis as well as an apical LV thrombus that was there previously -Continue goal-directed therapy(carvedilol/Entresto/losartan/Aldactone) -Patient is chronically hypotensive and asymptomatic--> tolerating diuresis -Continue Lasix 40 mg IV push twice daily. 12/14: Lasix IV changed to oral twice daily with holding parameters. BMP shows mild hyponatremia. Potassium normal. Monitor BMP daily. Magnesium 2.2. -Referral has been made to EP Dr. Watters and his colleagues at [facility] for biventricular ICD placement although patient said he did not want to Dr. Watters as he has seen in the past. Patient was offered tertiary care center evaluation for advanced heart failure including assist device/cardiac transplant. Patient declined that offer. -Patient has had extensive work-up and this appears to be a nonischemic cardiomyopathy 2. Right-sided partially loculated pleural effusion Ultrasound-guided thoracocentesis on right side about 350 mL drainage fluid was drained. Had thoracentesis in October for removal of 250 cc Postprocedure chest x-ray shows a small to moderate pleural effusion. -Continue heparin drip. Resume warfarin 5 mg daily. INR 1.4 12/15: INR 1.5. Continue IV heparin drip and warfarin. Patient continued to have cough and mild shortness of breath even on bronchodilator and Lasix. Repeat chest x-ray ordered 3. LV thrombus and history of PE -Patient will need to remain anticoagulated -Continue heparin drip while Coumadin is therapeutic -Goal INR 2-3 DM-2 with hypoglycemia -Discontinue glimepiride secondary to increased risk of hypoglycemia -Continue sliding scale insulin -Glucose 182. It was 46 in the morning. -Continue SSI -Blood sugars this morning are stable 12/15: A1c 7.4%, indicative of uncontrolled glucose in past 3 months Hypertension -Patient's blood pressures have been low since he was diagnosed with the ischemic cardiomyopathy -Tolerating home regimen okay for goal-directed therapy with relationship to nonischemic cardiomyopathy -Continue to monitor Hyperlipidemia -Patient's been on statins previously but is intolerant secondary to diffuse myalgias JES -Patient is noncompliant at baseline -Will try to get him to wear CPAP with 8 cm of water nocturnally as this would help offload his heart and likely helped him symptomatically Pulmonary artery hypertension predominantly who group 2 -See above -Have group 3 component with previous tobacco abuse Right lower extremity wounds -Wound care is following -When compared to previous pictures from October the wounds appear to be improving -No current signs of infection -Continue to monitor Gilbert's disease -Bilirubin is chronically elevated and stable DVT prophylaxis -Patient fully anticoagulated and currently on a heparin drip CODE STATUS Living will/advanced directive/end of life care: Patient has advanced directive/living will is prepared but not notarized. His is next to kin. After discussion of benefits/risks procedures involved with full code, DNR CC arrest and DNR CC, the patient opted for full code. He said he might choose DNRCC arrest with no intubation after ICD placement. Currently, patient does want artificial life support including intubation, tube feed, ventilator and/chest compression, central venous catheter, vasopressor and DC shock if needed Total time spent in [id number] encounter in discussion of advanced directive 16 minutes. Charges/Coding Visit Charges Inpatient E&M: 78289 Subs Hosp L2 Procedures Hospitalists Procedures: 49685 Advncd Care Plan 30 Min
[2021-12-15] MEDS: Aspirin E.C. 81 MG Tablet PO (08:41)
[2021-12-15] MEDS: Carvedilol 3.125 MG TABLET PO ×2 (08:41→17:14)
[2021-12-15] MEDS: Ascorbic Acid 500 MG Tablet PO (08:41)
[2021-12-15] MEDS: Furosemide 40 MG Tablet PO ×2 (08:42→17:14)
[2021-12-15] MEDS: Spironolactone 25 MG Tablet PO (08:42)
[2021-12-15] MEDS: Potassium Chloride Oral Tablet 10 MEQ PO (08:42)
[2021-12-15] MEDS: guaiFENesin 1,200 MG Tablet 1200 MG PO ×2 (08:42→20:26)
[2021-12-15] MEDS: Ipratropium/Albuterol Sulfate 3 ML AMPUL.NEB INHALATION (11:16)
[2021-12-15 11:26] LABS: Bedside Glucose 169 mg/dL (74-106)
--- NOTE | 2021-12-15 13:12 | RAD_ITS ---
EXAM: XR CHEST, 2 VIEWS CLINICAL INDICATION: sob, right pleural effusion TECHNIQUE: Frontal and lateral views of the chest. This report was created using [employer] report generation technology. COMPARISON: 12/13/2021 FINDINGS: LUNGS AND PLEURAL SPACES: See below. HEART: Unremarkable. Cardiac silhouette not enlarged. MEDIASTINUM: Central airways and mediastinal contour are unremarkable. BONES/JOINTS: There is a right-sided effusion with right lower lobe airspace disease. SOFT TISSUES: Unremarkable. RAD/Chest PA and Lateral IMPRESSION: No significant change in the appearance of the chest from reference exam. Electronically Signed: Keith Patricia MD at 17:53 EDT ,
[2021-12-15 13:54] LABS: Partial Thromboplast Time 67.5 Seconds (24.1-36.2)
--- NOTE | 2021-12-15 15:40 | PCM.PN.CARD ---
Subjective Subjective Seen and evaluated today at bedside along with the nursing staff. Symptoms of cough improving still having mild shortness of breath Also lower extremity swelling improving gradually No symptoms of chest pain Objective Data Vital Signs: Vital Signs Temp Pulse Resp BP Pulse Ox 97.9 F 78 18 83/68 L 95 12/15/21 14:25 12/15/21 15:00 12/15/21 14:25 12/15/21 14:25 12/15/21 14:25 Oxygen Flow Rate (L/min) 2 Oxygen Delivery Method [5] Room Air Oxygen Delivery Method [4] Room Air Oxygen Delivery Method [3] Room Air Oxygen Delivery Method [2] Room Air Oxygen Delivery Method [1 ( Room Air Initial Baseline)] Oxygen Delivery Method Room Air Weight: 210 lb 1.608 oz Body Mass Index (BMI) 29.2 Intake & Output: Intake and Output for Last 24 Hours 12/13/21 12/14/21 12/15/21 23:59 23:59 23:59 Intake Total 1127.88 / 1127.88 928.97 / 1048.97 750.03 / 750.03 Output Total 0 / 2049 700 / 900 600 / 600 Balance -922.12 / -922.12 228.97 / 148.97 150.03 / 150.03 Lab / Micro Data Result Diagrams: 12/15/21 05:31 12/15/21 05:31 Labs: Laboratory Results - last 24 hr 12/14/21 16:18: POC Glucose 134 H 12/14/21 21:43: POC Glucose 145 H 12/15/21 05:31: WBC 6.7, RBC 4.88, Hgb 12.5 L, Hct 38.6 L, MCV 79.1 L, MCH 25.6 L, MCHC 32.4, RDW Std Deviation 53.1 H, RDW Coeff of Tony 18.9 H, Plt Count 198, MPV 10.7, Immature Gran % (Auto) 0.400, Neut % (Auto) 70.4 H, Lymph % (Auto) 16.0 L, [place] % (Auto) 12.6 H, Eos % (Auto) 0.0, Baso % (Auto) 0.6, Absolute Neuts (auto) 4.7, Absolute Lymphs (auto) 1.07, Nucleated RBC % 0 12/15/21 05:31: Sodium 132 L, Potassium 4.6, Chloride 100, Carbon Dioxide 25.0, Anion Gap 7, BUN 37 H, Creatinine 1.02, Estim Creat Clear Calc 79.52, Est GFR (MDRD) Af Amer 96, Est GFR (MDRD) Non-Af 79, BUN/Creatinine Ratio 36.3 H, Glucose 125 H, Calcium 8.8 12/15/21 05:31: PT 17.7 H, INR 1.5, APTT 45.3 H 12/15/21 05:31: Hemoglobin A1c 7.4 H 12/15/21 05:31: Magnesium 2.0 12/15/21 06:26: POC Glucose 125 H 12/15/21 11:23: POC Glucose 169 H 12/15/21 13:32: APTT 67.5 H Micro: Microbiology 12/13/21 12:40 Fluid - Thoracentesis Fluid Gram Stain - Final 12/13/21 12:40 Fluid - Thoracentesis Fluid Body Fluid Culture - Preliminary No growth-Final to follow Cardiology Labs/Tests 12/15/21 05:31: WBC 6.7, RBC 4.88, Hgb 12.5 L, Hct 38.6 L, MCV 79.1 L, MCH 25.6 L, MCHC 32.4, Plt Count 198, MPV 10.7, Immature Gran % (Auto) 0.400, Neut % (Auto) 70.4 H, Lymph % (Auto) 16.0 L, [place] % (Auto) 12.6 H, Eos % (Auto) 0.0, Baso % (Auto) 0.6, Absolute Neuts (auto) 4.7, Nucleated RBC % 0 12/15/21 05:31: Sodium 132 L, Potassium 4.6, Chloride 100, Carbon Dioxide 25.0, Anion Gap 7, BUN 37 H, Creatinine 1.02, Est GFR (MDRD) Af Amer 96, Est GFR (MDRD) Non-Af 79, BUN/Creatinine Ratio 36.3 H, Glucose 125 H, Calcium 8.8 12/15/21 05:31: PT 17.7 H, INR 1.5, APTT 45.3 H 12/15/21 05:31: Hemoglobin A1c 7.4 H 12/15/21 05:31: Magnesium 2.0 12/15/21 13:32: APTT 67.5 H Rhythm: EKG: ECHO: Stress Test: Cardiac Cath: PCI: CT Surgery: Holter monitor: EPS: PPM: CXR: Chest CT Scan: Physical Exam Narrative Alert orientated x3, cooperative Cardiovascular examination; regular rate, regular rhythm S1-S2 normal with systolic murmur heard in the aortic valve area Chest examination; diminished air entry on the right lung base with right [id number] pleural effusion. Examination lower extremity +2 lower extremity edema Assessment & Plan Assessment/Plan (1) Pleural effusion on right: (2) CONNOR (dyspnea on exertion): (3) HTN (hypertension): (4) HLD (hyperlipidemia): (5) Left ventricular thrombus: (6) Cardiomyopathy: (7) Heart failure with reduced ejection fraction: PLAN: 61-year-old patient acute on chronic systolic heart failure/nonischemic cardiomyopathy Echocardiogram on this admission revealed ejection fraction of around 15-20% with severe LV systolic dysfunction and global LV hypokinesia as well as apical LV thrombus Symptoms mainly dyspnea on exertion shortness of breath difficulty lying flat with bilateral lower extremity swelling Symptoms has been improving on the current diuretic therapy. Noted currently diuretic Lasix has been changed to oral 40 mg twice daily. And patient is on CHF protocol Cardiac care plan recommendations; 1. Patient with acute on chronic systolic heart failure. Patient declined follow-up with desk pen set assembler for PATIENT SERVICE REPRESENTATIVE-D. I discussed the current cardiac medication with the nursing staff. 2. Dr. Dominguez will resume cardiac care plan and discuss further recommendation. 3. We will continue anticoagulation with Coumadin as patient had LV thrombus/target INR 2?3
[2021-12-15 17:20] LABS: Bedside Glucose 118 mg/dL (74-106)
[2021-12-15] MEDS: Losartan Potassium 25 MG Tablet 12.5 MG PO (20:26)
[2021-12-16] VITALS (11 sets, daily range): BP systolic 89–126; BP diastolic 73–81; PULSE 71–85; RESP 14–20; TEMP 36.4–36.8; O2SAT 92–98
[2021-12-16 01:06] LABS: Bedside Glucose 146 mg/dL (74-106)
[2021-12-16] MEDS: Benzonatate 100 MG Capsule PO ×5 (03:03→22:46)
[2021-12-16] MEDS: HEPARIN/D5w 25,000 UNITS 25,000 UNITS/250 ML IV.SOLN. 12 UNITS CONT INF ×2 (04:25→22:47)
[2021-12-16 05:37] LABS: International Normalized Ratio 1.5; Prothrombin Time (Protime)PT. 18.2 SECONDS (11.7-14.9)
[2021-12-16 05:39] LABS: Partial Thromboplast Time 57.6 Seconds (24.1-36.2)
[2021-12-16 06:36] LABS: Bedside Glucose 111 mg/dL (74-106)
--- NOTE | 2021-12-16 08:04 | PCM.PN.CARD ---
Subjective Subjective The patient is awake and alert. He denies any ongoing chest pain. He continues with his chronic shortness of breath and cough. He notes his left lower extremity edema has improved somewhat. Overall, since his thoracentesis, he states he feels somewhat better. Objective Data Vital Signs: Vital Signs Temp Pulse Resp BP Pulse Ox 97.8 F 75 14 93/75 92 12/16/21 06:00 12/16/21 07:01 12/16/21 06:00 12/16/21 06:00 12/16/21 07:43 Oxygen Flow Rate (L/min) 2 Oxygen Delivery Method [5] Room Air Oxygen Delivery Method [4] Room Air Oxygen Delivery Method [3] Room Air Oxygen Delivery Method [2] Room Air Oxygen Delivery Method [1 ( Room Air Initial Baseline)] Oxygen Delivery Method Room Air Weight: 211 lb 13.828 oz Body Mass Index (BMI) 29.2 Intake & Output: Intake and Output for Last 24 Hours 12/14/21 12/15/21 12/16/21 23:59 23:59 23:59 Intake Total 928.97 / 1048.97 1250.03 / 1750.03 1064.6 / 1064.6 Output Total 700 / 900 600 / 1050 900 / 900 Balance 228.97 / 148.97 650.03 / 700.03 164.6 / 164.6 Lab / Micro Data Result Diagrams: 12/15/21 05:31 12/15/21 05:31 Labs: Laboratory Results - last 24 hr 12/15/21 05:31: Magnesium 2.0 12/15/21 11:23: POC Glucose 169 H 12/15/21 13:32: APTT 67.5 H 12/15/21 17:10: POC Glucose 118 H 12/15/21 19:35: APTT 66.0 H 12/15/21 20:23: POC Glucose 146 H 12/16/21 05:00: PT 18.2 H, INR 1.5, APTT 57.6 H 12/16/21 06:32: POC Glucose 111 H Micro: Microbiology 12/13/21 12:40 Fluid - Thoracentesis Fluid Gram Stain - Final 12/13/21 12:40 Fluid - Thoracentesis Fluid Body Fluid Culture - Preliminary No growth-Final to follow Cardiology Labs/Tests 12/15/21 05:31: Magnesium 2.0 06/12/22 13:32: APTT 67.5 H 12/15/21 19:35: APTT 66.0 H 12/16/21 05:00: PT 18.2 H, INR 1.5, APTT 57.6 H Rhythm: Sinus rhythm; PVCs Radiography Diagnostic Testing: Radiology Impression Chest X-Ray 12/15/21 13:12 IMPRESSION: No significant change in the appearance of the chest from reference exam. Electronically Signed: Keith Patricia MD at 17:53 EDT , Physical Exam Const alert and oriented x3 General Appearance: ill appearing Positive for acutely and frail Orientation / Consciousness: awake HEENT normocephalic, head/scalp atraumatic and hearing grossly normal bilaterally Eyes PERRL, EOMs intact bilaterally and conjunctivae normal Neck full ROM and supple Resp Auscultation: rhonchi throughout and diminished lung sounds bilateral lower Cardio regular rate, regular rhythm, S1 normal heart sound and S2 normal heart sound Rhythm: abnormal rhythm ectopic beats GI GI Narrative: Distended appearing; positive bowel sounds Extremity Extremity Narrative: Right lower extremity: Positive John wrap General Extremity: edema left lower extremity trace Skin Skin Narrative: Mildly jaundice. Psych mental status grossly normal Assessment & Plan Assessment/Plan (1) Heart failure with reduced ejection fraction: PLAN: The patient continues with a history of left ventricular systolic dysfunction with heart failure with reduced ejection fraction with acute on chronic related issues. He continues medical management this time with a combination of his beta-blockers, dual diuretics, and afterload reducing agents. Based upon his lower systolic blood pressures there is caution with respect to additional agents such as nitrates or advancing the dose of his current medications. He is pending future [facility] EP evaluation/care with a biventricular ICD. (2) Cardiomyopathy: PLAN: Again he does have an underlying non-CAD related cardiomyopathy. He continues with medical management. Depending upon his hyperglycemia hypoglycemia state consideration be given as to whether or not he is a candidate for an SGLT2 inhibitor. Otherwise he is pending future [facility] EP evaluation/care with a biventricular ICD. He has declined referral to a tertiary/quaternary type care center for consideration for advanced heart failure evaluation and/or therapies. (3) CONNOR (dyspnea on exertion): PLAN: He continues with his shortness of breath and dyspnea and cough. He is continuing medical therapy. He has undergone a right-sided thoracentesis. (4) Left ventricular thrombus: PLAN: He does have a left ventricular thrombus. He continues bridging anticoagulant therapy with IV heparin while his warfarin/Coumadin has been reintroduced/pending elevation of his INR level. (5) HLD (hyperlipidemia): PLAN: He will continue medical management as deemed appropriate. (6) HTN (hypertension): PLAN: His systolic blood pressure read as low. Again this does create some issues with advancing the dose of his other medications. Addt'l Comments The above was discussed with the patient. At the present time he is agreeable to continuing his medication adjustment and continuing future evaluation by [facility] for consideration for biventricular ICD therapy. As noted above he has declined referral to/transfer to an advanced heart failure center for additional evaluation and/or care. This note was generated using a voice recognition system and there may be incorrect words, spelling or punctuation that were not noted when reviewing the office note prior to saving. Procedure Criteria Type of Procedure Procedure Type: Elective Elective Risks - COVID COVID Risk Discussion: The surgeon/proceduralist and patient have discussed in detail the risk of exposure to and/or potential harm posed by the COVID-19 virus with having a surgery/procedure at this time versus the risk of delaying the surgery/procedure. It is not possible to know either the risk of delaying the surgery or procedure or chance of getting an infection with perfect accuracy, but a joint decision was made between the patient and the surgeon/proceduralist to proceed at this time with the scheduled surgery/procedure as indicated on the consent form.
[2021-12-16] MEDS: Aspirin E.C. 81 MG Tablet PO (08:45)
[2021-12-16] MEDS: Furosemide 40 MG Tablet PO ×2 (08:45→16:54)
[2021-12-16] MEDS: Carvedilol 3.125 MG TABLET PO ×2 (08:45→16:53)
[2021-12-16] MEDS: Ascorbic Acid 500 MG Tablet PO (08:45)
[2021-12-16] MEDS: Spironolactone 25 MG Tablet PO (08:45)
[2021-12-16] MEDS: Potassium Chloride Oral Tablet 10 MEQ PO (08:45)
[2021-12-16] MEDS: guaiFENesin 1,200 MG Tablet 1200 MG PO ×2 (08:46→21:54)
--- NOTE | 2021-12-16 10:29 | WOUNDNOTE ---
wound photo: right medial foot
--- NOTE | 2021-12-16 10:30 | WOUNDNOTE ---
wound photo: right lower leg
--- NOTE | 2021-12-16 11:05 | PN.HOSP_ITS ---
Subjective Subjective Patient seen and examined today. He had no active complaints and had an uneventful night. Review of systems is otherwise negative. His INR is still subtherapeutic at 1.5. Objective Data Objective Data Vital Signs: Vital Signs Temp Pulse Resp BP Pulse Ox 97.5 F L 78 17 98/73 95 12/16/21 08:39 12/16/21 08:39 12/16/21 08:39 12/16/21 08:39 12/16/21 08:39 Oxygen Flow Rate (L/min) 2 Oxygen Delivery Method [5] Room Air Oxygen Delivery Method [4] Room Air Oxygen Delivery Method [3] Room Air Oxygen Delivery Method [2] Room Air Oxygen Delivery Method [1 ( Room Air Initial Baseline)] Oxygen Delivery Method Room Air Weight: 211 lb 13.828 oz Body Mass Index (BMI) 29.2 Intake & Output: Intake and Output for Last 24 Hours 12/14/21 12/15/21 12/16/21 23:59 23:59 23:59 Intake Total 928.97 / 1048.97 1250.03 / 1750.03 1064.6 / 1064.6 Output Total 700 / 900 600 / 1050 900 / 900 Balance 228.97 / 148.97 650.03 / 700.03 164.6 / 164.6 Lab / Micro Data Result Diagrams: 12/15/21 05:31 12/15/21 05:31 Labs: Laboratory Results - last 24 hr 12/15/21 11:23: POC Glucose 169 H 12/15/21 13:32: APTT 67.5 H 12/15/21 17:10: POC Glucose 118 H 12/15/21 19:35: APTT 66.0 H 12/15/21 20:23: POC Glucose 146 H 12/16/21 05:00: PT 18.2 H, INR 1.5, APTT 57.6 H 12/16/21 06:32: POC Glucose 111 H Micro: Microbiology 12/13/21 12:40 Fluid - Thoracentesis Fluid Gram Stain - Final 12/13/21 12:40 Fluid - Thoracentesis Fluid Body Fluid Culture - Preliminary No growth-Final to follow 12/13/21 12:40 Fluid - Thoracentesis Fluid Anaerobic Culture - Preliminary No growth in 48 hours. 12/11/21 22:35 Nasal Secretion SARS-CoV-2 Antigen (Rapid) - Final Radiography Diagnostic Testing: Radiology Impression Chest X-Ray 12/15/21 13:12 IMPRESSION: No significant change in the appearance of the chest from reference exam. Electronically Signed: Keith Patricia MD at 17:53 EDT , Physical Exam Const alert, oriented x3 and no apparent distress Exam Limitations: no limitations HEENT head/scalp atraumatic and moist oral mucous membranes Head and Scalp: normocephalic Eyes PERRL, EOMs intact bilaterally and conjunctivae normal Neck no lymphadenopathy, supple and no JVD Resp Resp Narrative: diminished breath sounds bibasally, no wheezes or crackles. On room air. Cardio regular rate, regular rhythm, S1 normal heart sound, S2 normal heart sound and no murmurs GI normal to inspection, nondistended, normoactive bowel sounds, soft to palpation, non-tender and non-distended Extremity normal to inspection and full ROM Extremity Narrative: RLE wrapped in bandage Peripheral Pulses: Yes pulses 2+ throughout Skin no rashes or lesions noted Neuro oriented x3, CN's II-XII intact bilaterally and moves all extremities Sensorium / Orientation: awake and alert Psych affect normal Assessment & Plan Assessment/Plan (1) Heart failure with reduced ejection fraction: (2) Pleural effusion on right: (3) Left ventricular thrombus: PLAN: #Acute on chronic HFrEF * has known EF of 15% with severe LV systolic dysfunction and global LV hypokinesis, as well as an apical LV thrombus. * on carvedilol, entresto, losartan and aldactone * on PO lasix 40mg bid * to follow up at [facility] on outpatient basis for evaluation for ICD placement * cardiology on board * #Right sided pleural effusion * had a loculcated right pleural effusion. * had thoracentesis with removal of 350cc of fluid. * stable * #Type 2 diabetes mellitus with hypoglycemia * glimepiride discontinued due to risk of hypoglycemia * on iSS. * A2C is 7.4 * #History of PE, with left apical thrombus * on coumadin. INR today is 1.5 * continue bridging with heparin drip until INR is therapeutic * #Hypertension * BP has been running low as well due to ischemic cardiomyopathy * on losartan, carvedilol and aldactone * #Hyperlipidemia: on statin #JES: noncompliant. on CPAP qhs #RLE wounds * wound care on board. * #GIlbert syndrome: stable DVT prophylaxis: on coumadin, and being bridged with heparin drip Charges/Coding Visit Charges Inpatient E&M: 32023 Subs Hosp L2
[2021-12-16 11:16] LABS: Bedside Glucose 178 mg/dL (74-106)
--- NOTE | 2021-12-16 12:27 | CASEMGMT ---
Per palliative, pt declined their services at this time. Antonio MCMANUS CM
[2021-12-16 12:56] LABS: Pathologist Comment/Body Fluid Reviewed
[2021-12-16] MEDS: Insulin Lispro 100 UNIT/ML INSULN.PEN SC ×2 (16:53→21:52)
[2021-12-16 17:00] LABS: Bedside Glucose 157 mg/dL (74-106)
[2021-12-16 22:45] LABS: Bedside Glucose 216 mg/dL (74-106)
[2021-12-17] VITALS (9 sets, daily range): BP systolic 94–101; BP diastolic 68–79; PULSE 72–88; RESP 16–18; TEMP 36.2–37.1; O2SAT 97–100
[2021-12-17] MEDS: Benzonatate 100 MG Capsule PO ×4 (05:40→21:21)
[2021-12-17 06:43] LABS: Absolute Lymphocyte Count 1.25 X10^3/uL (0.83-4.51); Absolute Neutrophil Count 4.2 X10^3/uL (2.0-7.7); Basophil# 0.06 X10^3/uL; Eosinophil# 0.02 X10^3/uL; Eosinophils% 0.3 % (0-5); Hemoglobin 12.8 g/dL (13.0-16.5); Lymphocyte # 1.25 X10^3/ul (0.83-4.51); Lymphocyte % 20.1 % (19-41); Mean Corp Hgb Conc 32.8 g/dL (32-36); Mean Corpuscular Hgb 25.8 pg (27.0-32.0); Mean Corpuscular Volume 78.6 fL (80-94); Mean Platelet Vol. 10.5 fl (6.2-12.0); Monocyte# 0.72 X10^3/uL; Monocyte% 11.6 % (0-10); NRBC Flagged by Analyzer 0 % (0-5); Neutrophil # 4.15 X10^3/uL (2.7-7.7); Neutrophil % 66.7 % (47-70); POSITIVE MORPHOLOGY YES; Platelet Count 202 K/mm3 (150-450); RBC Distribution Width CV 19.2 % (11.6-14.6); RBC Distribution Width SD 53.3 fl (35.1-43.9); Red Blood Count 4.96 M/mm3 (4.6-6.2); White Blood Count 6.2 K/mm3 (4.4-11.0)
[2021-12-17 06:50] LABS: Differential Indicated SCAN CRITERIA MET
[2021-12-17 06:55] LABS: International Normalized Ratio 1.6; Partial Thromboplast Time 43.6 Seconds (24.1-36.2); Prothrombin Time (Protime)PT. 18.3 SECONDS (11.7-14.9)
[2021-12-17 06:56] LABS: Bedside Glucose 140 mg/dL (74-106)
[2021-12-17] MEDS: Heparin Injection (Vial) 5,000 UNIT/ML VIAL IV ×2 (07:03→13:17)
[2021-12-17 07:09] LABS: Anion Gap 6 (5-15); BUN 31 mg/dL (7-18); BUN/Creat Ratio 36.3 RATIO (10-20); Calcium,Total 8.7 mg/dL (8.5-10.1); Chloride 101 mmol/L (98-107); Creatinine, Serum 0.86 mg/dL (0.70-1.30); EST Glomerular Filtration Rate 97 mL/min (>60); Est Glom Filt Rate - Afr Amer 117 mL/min (>60); Estimated Creatinine Clearance 94.32 ml/min; Glucose 142 mg/dL (74-106); Potassium 4.2 mmol/L (3.5-5.1); Sodium Level 134 mmol/L (136-145)
[2021-12-17 07:10] LABS: Anisocytosis 1+; Microcytosis 1+
--- NOTE | 2021-12-17 08:55 | PN.CARD_ITS ---
Subjective Subjective The patient is awake and alert. He believes his shortness of breath and cough is somewhat improved. Objective Data Vital Signs: Vital Signs Temp Pulse Resp BP Pulse Ox 98.8 F 81 16 96/77 97 12/17/21 08:14 12/17/21 08:14 12/17/21 08:14 12/17/21 08:14 12/17/21 08:14 Oxygen Flow Rate (L/min) 2 Oxygen Delivery Method [5] Room Air Oxygen Delivery Method [4] Room Air Oxygen Delivery Method [3] Room Air Oxygen Delivery Method [2] Room Air Oxygen Delivery Method [1 ( Room Air Initial Baseline)] Oxygen Delivery Method Room Air Weight: 209 lb 14.081 oz Body Mass Index (BMI) 29.2 Intake & Output: Intake and Output for Last 24 Hours 12/15/21 12/16/21 12/17/21 23:59 23:59 23:59 Intake Total 1250.03 / 1750.03 1895.0 / 1895.0 199.8 / 199.8 Output Total 600 / 1050 1475 / 1475 675 / 675 Balance 650.03 / 700.03 420.0 / 420.0 -475.2 / -475.2 Lab / Micro Data Result Diagrams: 12/17/21 06:16 12/17/21 06:16 Labs: Laboratory Results - last 24 hr 12/13/21 12:40: Fl Pathologist Comment Reviewed 12/13/21 12:40: Miscellaneous Cytology SEE PATHOLOGY REPORT 12/16/21 11:13: POC Glucose 178 H 12/16/21 16:50: POC Glucose 157 H 12/16/21 21:49: POC Glucose 216 H 12/17/21 06:16: PT 18.3 H, INR 1.6, APTT 43.6 H 12/17/21 06:16: WBC 6.2, RBC 4.96, Hgb 12.8 L, Hct 39.0 L, MCV 78.6 L, MCH 25.8 L, MCHC 32.8, RDW Std Deviation 53.3 H, RDW Coeff of Tony 19.2 H, Plt Count 202, MPV 10.5, Immature Gran % (Auto) 0.300, Neut % (Auto) 66.7, Lymph % (Auto) 20.1, Ogle % (Auto) 11.6 H, Eos % (Auto) 0.3, Baso % (Auto) 1.0, Absolute Neuts (auto) 4.2, Absolute Lymphs (auto) 1.25, Nucleated RBC % 0, Anisocytosis 1+, Microcytosis 1+ 12/17/21 06:16: Sodium 134 L, Potassium 4.2, Chloride 101, Carbon Dioxide 27.0, Anion Gap 6, BUN 31 H, Creatinine 0.86, Estim Creat Clear Calc 94.32, Est GFR (MDRD) Af Amer 117, Est GFR (MDRD) Non-Af 97, BUN/Creatinine Ratio 36.3 H, Glucose 142 H, Calcium 8.7 12/17/21 06:39: POC Glucose 140 H Micro: Microbiology 12/13/21 12:40 Fluid - Thoracentesis Fluid Gram Stain - Final 12/13/21 12:40 Fluid - Thoracentesis Fluid Body Fluid Culture - Final Culture exhibits no growth. 12/13/21 12:40 Fluid - Thoracentesis Fluid Anaerobic Culture - Preliminary No growth in 48 hours. Cardiology Labs/Tests 12/17/21 06:16: PT 18.3 H, INR 1.6, APTT 43.6 H 12/17/21 06:16: WBC 6.2, RBC 4.96, Hgb 12.8 L, Hct 39.0 L, MCV 78.6 L, MCH 25.8 L, MCHC 32.8, Plt Count 202, MPV 10.5, Immature Gran % (Auto) 0.300, Neut % (Auto) 66.7, Lymph % (Auto) 20.1, Ogle % (Auto) 11.6 H, Eos % (Auto) 0.3, Baso % (Auto) 1.0, Absolute Neuts (auto) 4.2, Nucleated RBC % 0 12/17/21 06:16: Sodium 134 L, Potassium 4.2, Chloride 101, Carbon Dioxide 27.0, Anion Gap 6, BUN 31 H, Creatinine 0.86, Est GFR (MDRD) Af Amer 117, Est GFR (MDRD) Non-Af 97, BUN/Creatinine Ratio 36.3 H, Glucose 142 H, Calcium 8.7 Rhythm: Sinus rhythm; PVCs; nonsustained wide-complex tachycardia compatible with episodes of nonsustained VT Physical Exam Const alert and oriented x3 General Appearance: ill appearing Positive for acutely and frail Orientation / Consciousness: awake HEENT normocephalic, head/scalp atraumatic and hearing grossly normal bilaterally Eyes PERRL, EOMs intact bilaterally and conjunctivae normal Neck full ROM and supple Resp Auscultation: diminished lung sounds bilateral (Improved compared to previous evaluation) lower Cardio regular rate, regular rhythm, S1 normal heart sound and S2 normal heart sound Rhythm: abnormal rhythm ectopic beats GI GI Narrative: Distended appearing; positive bowel sounds Extremity Extremity Narrative: Right lower extremity: Positive John wrap General Extremity: edema left lower extremity trace Skin Skin Narrative: Mildly jaundice. Psych mental status grossly normal Assessment & Plan Assessment/Plan (1) Heart failure with reduced ejection fraction: PLAN: The patient continues with a history of left ventricular systolic dysfunction with heart failure with reduced ejection fraction with acute on chronic related issues. He continues medical management this time with a combination of his beta- blockers, dual diuretics, and afterload reducing agents. Based upon his lower systolic blood pressures there is caution with respect to additional agents such as nitrates or advancing the dose of his current medications. He is pending future [facility] EP evaluation/care with a biventricular ICD. (2) Cardiomyopathy: PLAN: Again he does have an underlying non-CAD related cardiomyopathy. He continues with medical management. Depending upon his hyperglycemia hypoglycemia state consideration be given as to whether or not he is a candidate for an SGLT2 inhibitor. Otherwise he is pending future [facility] EP evaluation/care with a biventricular ICD. He has declined referral to a tertiary/quaternary type care center for consideration for advanced heart failure evaluation and/or therapies. (3) Paroxysmal ventricular tachycardia: PLAN: He does have findings compatible with ventricular ectopy with PVCs as well as episodes of nonsustained wide-complex tachycardia compatible with nonsustained VT. At the present time he will continue his medical management with his beta- anthony. It may be reasonable to consider antiarrhythmic therapy which based upon his diminished LV systolic function, etc., may include agents such as amiodarone. He is pending evaluation at [facility] for placement of biventricular ICD (4) CONNOR (dyspnea on exertion): PLAN: He continues with his shortness of breath and dyspnea and cough. He is continuing medical therapy. He has undergone a right-sided thoracentesis. (5) Left ventricular thrombus: PLAN: He does have a left ventricular thrombus. He continues bridging anticoagulant therapy with IV heparin while his warfarin/Coumadin has been reintroduced/pending elevation of his INR level. (6) HLD (hyperlipidemia): PLAN: He will continue medical management as deemed appropriate. (7) HTN (hypertension): PLAN: His systolic blood pressure read as low. Again this does create some issues with advancing the dose of his other me dications. Addt'l Comments A call has been placed to his deck mate at [facility] to discuss his case with respect to timing of his future biventricular ICD placement. This note was generated using a voice recognition system and there may be incorrect words, spelling or punctuation that were not noted when reviewing the office note prior to saving. Procedure Criteria Type of Procedure Procedure Type: Elective Elective Risks - COVID COVID Risk Discussion: The surgeon/proceduralist and patient have discussed in detail the risk of exposure to and/or potential harm posed by the COVID-19 virus with having a surgery/procedure at this time versus the risk of delaying the surgery/procedure. It is not possible to know either the risk of delaying the surgery or procedure or chance of getting an infection with perfect accuracy, but a joint decision was made between the patient and the surgeon/proceduralist to proceed at this time with the scheduled surgery/procedure as indicated on the consent form.
--- NOTE | 2021-12-17 08:58 | NURSING ---
Gave report to Roxanne BELTRÁN
[2021-12-17] MEDS: Ascorbic Acid 500 MG Tablet PO (09:23)
[2021-12-17] MEDS: Aspirin E.C. 81 MG Tablet PO (09:23)
[2021-12-17] MEDS: Carvedilol 3.125 MG TABLET PO ×2 (09:23→16:40)
[2021-12-17] MEDS: Furosemide 40 MG Tablet PO ×2 (09:23→17:47)
[2021-12-17] MEDS: Potassium Chloride Oral Tablet 10 MEQ PO (09:23)
[2021-12-17] MEDS: Spironolactone 25 MG Tablet PO (09:24)
[2021-12-17] MEDS: guaiFENesin 1,200 MG Tablet 1200 MG PO ×2 (09:25→21:23)
[2021-12-17] MEDS: Amiodarone 200 MG Tablet PO ×3 (09:27→21:22)
--- NOTE | 2021-12-17 10:21 | PN.HOSP_ITS ---
Subjective Subjective Patient seen and examined. He has no active complaints and feels well. Review of systems is otherwise negative. INR today is 1.7. He has remained hemodynamically stable. Objective Data Objective Data Vital Signs: Vital Signs Temp Pulse Resp BP Pulse Ox 98.8 F 81 16 96/77 97 12/17/21 08:14 12/17/21 08:14 12/17/21 08:14 12/17/21 08:14 12/17/21 08:14 Oxygen Flow Rate (L/min) 2 Oxygen Delivery Method [5] Room Air Oxygen Delivery Method [4] Room Air Oxygen Delivery Method [3] Room Air Oxygen Delivery Method [2] Room Air Oxygen Delivery Method [1 ( Room Air Initial Baseline)] Oxygen Delivery Method Room Air Weight: 209 lb 14.081 oz Body Mass Index (BMI) 29.2 Intake & Output: Intake and Output for Last 24 Hours 12/15/21 12/16/21 12/17/21 23:59 23:59 23:59 Intake Total 1250.03 / 1750.03 1895.0 / 1895.0 199.8 / 199.8 Output Total 600 / 1050 1475 / 1475 675 / 675 Balance 650.03 / 700.03 420.0 / 420.0 -475.2 / -475.2 Lab / Micro Data Result Diagrams: 12/17/21 06:16 12/17/21 06:16 Labs: Laboratory Results - last 24 hr 12/13/21 12:40: Fl Pathologist Comment Reviewed 12/13/21 12:40: Miscellaneous Cytology SEE PATHOLOGY REPORT 12/16/21 11:13: POC Glucose 178 H 12/16/21 16:50: POC Glucose 157 H 12/16/21 21:49: POC Glucose 216 H 12/17/21 06:16: PT 18.3 H, INR 1.6, APTT 43.6 H 12/17/21 06:16: WBC 6.2, RBC 4.96, Hgb 12.8 L, Hct 39.0 L, MCV 78.6 L, MCH 25.8 L, MCHC 32.8, RDW Std Deviation 53.3 H, RDW Coeff of Tony 19.2 H, Plt Count 202, MPV 10.5, Immature Gran % (Auto) 0.300, Neut % (Auto) 66.7, Lymph % (Auto) 20.1, [place] % (Auto) 11.6 H, Eos % (Auto) 0.3, Baso % (Auto) 1.0, Absolute Neuts (auto) 4.2, Absolute Lymphs (auto) 1.25, Nucleated RBC % 0, Anisocytosis 1+, Microcytosis 1+ 12/17/21 06:16: Sodium 134 L, Potassium 4.2, Chloride 101, Carbon Dioxide 27.0, Anion Gap 6, BUN 31 H, Creatinine 0.86, Estim Creat Clear Calc 94.32, Est GFR (MDRD) Af Amer 117, Est GFR (MDRD) Non-Af 97, BUN/Creatinine Ratio 36.3 H, Glucose 142 H, Calcium 8.7 12/17/21 06:39: POC Glucose 140 H Micro: Microbiology 12/13/21 12:40 Fluid - Thoracentesis Fluid Gram Stain - Final 12/13/21 12:40 Fluid - Thoracentesis Fluid Body Fluid Culture - Final Culture exhibits no growth. 12/13/21 12:40 Fluid - Thoracentesis Fluid Anaerobic Culture - Preliminary No growth in 48 hours. 12/11/21 22:35 Nasal Secretion SARS-CoV-2 Antigen (Rapid) - Final Physical Exam Const alert, oriented x3 and no apparent distress Exam Limitations: no limitations Nutritional Appearance: overweight HEENT head/scalp atraumatic and moist oral mucous membranes Head and Scalp: normocephalic Eyes PERRL, EOMs intact bilaterally and conjunctivae normal Eyes Narrative: Scleral icterus Neck no lymphadenopathy, supple and no JVD Resp normal respiratory effort, no retractions and no use of accessory muscles Resp Narrative: diminished breath sounds bibasally, no wheezes or crackles. On room air. Auscultation: crackles; Negative for rales, rhonchi or wheezes Cardio regular rate, regular rhythm, S1 normal heart sound, S2 normal heart sound, no murmurs, no rub, no gallops, no clicks and no JVD GI normal to inspection, nondistended, normoactive bowel sounds, soft to palpation, non-tender and non-distended Extremity normal to inspection and full ROM Extremity Narrative: RLE wrapped in bandage Peripheral Pulses: Yes pulses 2+ throughout Skin no rashes or lesions noted Neuro oriented x3, CN's II-XII intact bilaterally, moves all extremities, no focal m otor deficits and no sensory deficits noted Sensorium / Orientation: awake and alert Speech: speech normal Psych affect normal Assessment & Plan Assessment/Plan (1) Heart failure with reduced ejection fraction: (2) Pleural effusion on right: (3) Left ventricular thrombus: PLAN: #Acute on chronic HFrEF * has known EF of 15% with severe LV systolic dysfunction and global LV hypokinesis, as well as an apical LV thrombus. * on carvedilol, entresto, losartan and aldactone * on PO lasix 40mg bid * to follow up at [facility] on outpatient basis for evaluation for ICD placement * cardiology on board * #Right sided pleural effusion * had a loculcated right pleural effusion. * had thoracentesis with removal of 350cc of fluid. * stable * #Type 2 diabetes mellitus with hypoglycemia * glimepiride discontinued due to risk of hypoglycemia * on iSS. * A2C is 7.4 * #History of PE, with left apical thrombus * on coumadin. INR today is 1.7 * continue bridging with heparin drip until INR is therapeutic * will give coumadin 10mg x 1 today * #Hypertension * BP has been running low as well due to ischemic cardiomyopathy; BP today is 96/77 * on losartan, carvedilol and aldactone * #Hyperlipidemia: on statin #JES: noncompliant. on CPAP qhs #RLE wounds * wound care on board. * #GIlbert syndrome: stable DVT prophylaxis: on coumadin, and being bridged with heparin drip Disposition: to dc home once INR is within therapeutic range Charges/Coding Visit Charges Inpatient E&M: 04315 Subs Hosp L2
[2021-12-17] MEDS: Insulin Lispro 100 UNIT/ML INSULN.PEN SC ×3 (11:23→21:22)
[2021-12-17 11:31] LABS: Bedside Glucose 238 mg/dL (74-106)
[2021-12-17 13:10] LABS: Partial Thromboplast Time 49.4 Seconds (24.1-36.2)
[2021-12-17] MEDS: 0.9% Saline Lock 10 ML Syringe IV (13:18)
[2021-12-17 15:52] LABS: pH, Body Fluid 11254 7.2 (Not Estab.)
[2021-12-17 16:45] LABS: Bedside Glucose 187 mg/dL (74-106)
[2021-12-17] MEDS: HEPARIN/D5w 25,000 UNITS 25,000 UNITS/250 ML IV.SOLN. 14 UNITS CONT INF (19:40)
[2021-12-17 20:15] LABS: Partial Thromboplast Time 54.6 Seconds (24.1-36.2)
[2021-12-17] MEDS: Losartan Potassium 25 MG Tablet 12.5 MG PO (21:22)
[2021-12-17] MEDS: Calcium Carbonate 500 MG Tablet 1000 MG PO (22:51)
[2021-12-18] VITALS (11 sets, daily range): BP systolic 92–94; BP diastolic 68–77; PULSE 69–81; RESP 16–22; TEMP 36.3–36.6; O2SAT 96–99
[2021-12-18 00:01] LABS: Bedside Glucose 239 mg/dL (74-106)
[2021-12-18] MEDS: Benzonatate 100 MG Capsule PO ×4 (01:26→19:57)
[2021-12-18 05:47] LABS: Partial Thromboplast Time 60.5 Seconds (24.1-36.2)
[2021-12-18 06:25] LABS: Absolute Lymphocyte Count 1.27 X10^3/uL (0.83-4.51); Absolute Neutrophil Count 4.7 X10^3/uL (2.0-7.7); Basophil# 0.04 X10^3/uL; Basophil% 0.6 % (0-1); Eosinophil# 0.02 X10^3/uL; Eosinophils% 0.3 % (0-5); Hematocrit 40.1 % (40-54); Lymphocyte # 1.27 X10^3/ul (0.83-4.51); Lymphocyte % 18.3 % (19-41); Mean Corp Hgb Conc 32.4 g/dL (32-36); Mean Corpuscular Hgb 25.9 pg (27.0-32.0); Mean Corpuscular Volume 79.9 fL (80-94); Mean Platelet Vol. 10.7 fl (6.2-12.0); Monocyte# 0.85 X10^3/uL; Monocyte% 12.2 % (0-10); NRBC Flagged by Analyzer 0 % (0-5); Neutrophil # 4.74 X10^3/uL (2.7-7.7); Neutrophil % 68.3 % (47-70); POSITIVE MORPHOLOGY YES; Platelet Count 209 K/mm3 (150-450); RBC Distribution Width CV 19.4 % (11.6-14.6); RBC Distribution Width SD 53.6 fl (35.1-43.9); Red Blood Count 5.02 M/mm3 (4.6-6.2); White Blood Count 6.9 K/mm3 (4.4-11.0)
[2021-12-18 06:35] LABS: International Normalized Ratio 1.6; Prothrombin Time (Protime)PT. 19.1 SECONDS (11.7-14.9)
[2021-12-18 06:39] LABS: Differential Indicated SCAN CRITERIA MET
[2021-12-18] MEDS: Amiodarone 200 MG Tablet PO ×3 (06:55→21:52)
[2021-12-18 06:59] LABS: Anion Gap 7 (5-15); BUN 29 mg/dL (7-18); BUN/Creat Ratio 31.3 RATIO (10-20); Calcium,Total 8.9 mg/dL (8.5-10.1); Chloride 101 mmol/L (98-107); Creatinine, Serum 0.93 mg/dL (0.70-1.30); EST Glomerular Filtration Rate 88 mL/min (>60); Est Glom Filt Rate - Afr Amer 107 mL/min (>60); Estimated Creatinine Clearance 87.22 ml/min; Glucose 142 mg/dL (74-106); Potassium 4.3 mmol/L (3.5-5.1); Sodium Level 133 mmol/L (136-145)
[2021-12-18 07:05] LABS: Bedside Glucose 145 mg/dL (74-106)
[2021-12-18 07:17] LABS: Differential Comment SCANNED
[2021-12-18] MEDS: Aspirin E.C. 81 MG Tablet PO (09:53)
[2021-12-18] MEDS: Potassium Chloride Oral Tablet 10 MEQ PO (09:54)
[2021-12-18] MEDS: Spironolactone 25 MG Tablet PO (09:54)
[2021-12-18] MEDS: guaiFENesin 1,200 MG Tablet 1200 MG PO ×2 (09:54→21:52)
[2021-12-18] MEDS: Carvedilol 3.125 MG TABLET PO ×2 (09:54→16:47)
[2021-12-18] MEDS: Ascorbic Acid 500 MG Tablet PO (09:54)
--- NOTE | 2021-12-18 10:09 | PCM.PN.CARD ---
Subjective Subjective The patient is awake and alert. He states he has had some intermittent episodes of being able to lie supine and breathe comfortably. He also believes his lower extremity edema may be somewhat more prominent now on the right side. Objective Data Vital Signs: Vital Signs Temp Pulse Resp BP Pulse Ox 97.7 F L 69 18 92/73 97 12/18/21 09:15 12/18/21 09:15 12/18/21 09:15 12/18/21 09:15 12/18/21 09:15 Oxygen Flow Rate (L/min) 2 Oxygen Delivery Method [5] Room Air Oxygen Delivery Method [4] Room Air Oxygen Delivery Method [3] Room Air Oxygen Delivery Method [2] Room Air Oxygen Delivery Method [1 ( Room Air Initial Baseline)] Oxygen Delivery Method Room Air Weight: 209 lb 3.499 oz Body Mass Index (BMI) 29.2 Intake & Output: Intake and Output for Last 24 Hours 12/16/21 12/17/21 12/18/21 23:59 23:59 23:59 Intake Total 1895.0 / 1895.0 1100.00 / 1340.00 240 / 240 Output Total 1475 / 1475 1150 / 1400 550 / 550 Balance 420.0 / 420.0 -50.00 / -60.00 -310 / -310 Lab / Micro Data Result Diagrams: 12/18/21 05:32 12/18/21 05:32 Labs: Laboratory Results - last 24 hr 12/13/21 12:40: Fluid pH 7.2 12/17/21 11:22: POC Glucose 238 H 12/17/21 12:46: APTT 49.4 H 12/17/21 16:36: POC Glucose 187 H 12/17/21 19:45: APTT 54.6 H 12/17/21 21:16: POC Glucose 239 H 12/18/21 01:40: APTT 60.5 H 12/18/21 05:32: PT 19.1 H, INR 1.6 12/18/21 05:32: WBC 6.9, RBC 5.02, Hgb 13.0, Hct 40.1, MCV 79.9 L, MCH 25.9 L, MCHC 32.4, RDW Std Deviation 53.6 H, RDW Coeff of Tony 19.4 H, Plt Count 209, MPV 10.7, Immature Gran % (Auto) 0.300, Neut % (Auto) 68.3, Lymph % (Auto) 18.3 L, Grainger % (Auto) 12.2 H, Eos % (Auto) 0.3, Baso % (Auto) 0.6, Absolute Neuts (auto) 4.7, Absolute Lymphs (auto) 1.27, Nucleated RBC % 0, Differential Comment SCANNED 12/18/21 05:32: Sodium 133 L, Potassium 4.3, Chloride 101, Carbon Dioxide 25.0, Anion Gap 7, BUN 29 H, Creatinine 0.93, Estim Creat Clear Calc 87.22, Est GFR (MDRD) Af Amer 107, Est GFR (MDRD) Non-Af 88, BUN/Creatinine Ratio 31.3 H, Glucose 142 H, Calcium 8.9 12/18/21 06:54: POC Glucose 145 H Micro: Microbiology 12/13/21 12:40 Fluid - Thoracentesis Fluid Gram Stain - Final 12/13/21 12:40 Fluid - Thoracentesis Fluid Body Fluid Culture - Final Culture exhibits no growth. 12/13/21 12:40 Fluid - Thoracentesis Fluid Anaerobic Culture - Final No growth in 5 days. Rhythm Strip Rhythm Strip: Sinus Rhythm Ectopy: PVC(s) and - (Episodes appearing compatible with nonsustained wide-complex tachycardia/nonsustained VT) Cardiology Labs/Tests 12/17/21 12:46: APTT 49.4 H 12/17/21 19:45: APTT 54.6 H 12/18/21 01:40: APTT 60.5 H 12/18/21 05:32: PT 19.1 H, INR 1.6 12/18/21 05:32: WBC 6.9, RBC 5.02, Hgb 13.0, Hct 40.1, MCV 79.9 L, MCH 25.9 L, MCHC 32.4, Plt Count 209, MPV 10.7, Immature Gran % (Auto) 0.300, Neut % (Auto) 68.3, Lymph % (Auto) 18.3 L, Grainger % (Auto) 12.2 H, Eos % (Auto) 0.3, Baso % (Auto) 0.6, Absolute Neuts (auto) 4.7, Nucleated RBC % 0 12/18/21 05:32: Sodium 133 L, Potassium 4.3, Chloride 101, Carbon Dioxide 25.0, Anion Gap 7, BUN 29 H, Creatinine 0.93, Est GFR (MDRD) Af Amer 107, Est GFR (MDRD) Non-Af 88, BUN/Creatinine Ratio 31.3 H, Glucose 142 H, Calcium 8.9 Physical Exam Const alert, oriented x3 and no apparent distress HEENT head/scalp atraumatic Head and Scalp: normocephalic Eyes PERRL, EOMs intact bilaterally and conjunctivae normal Eyes Narrative: Scleral icterus Neck full ROM, no lymphadenopathy, supple and no JVD Resp Resp Narrative: diminished breath sounds bibasally, no wheezes or crackles. On room air. Auscultation: breath sounds absent right Cardio regular rate, regular rhythm, S1 normal heart sound and S2 normal heart sound GI normal to inspection, nondistended, normoactive bowel sounds, soft to palpation, non-tender and non-distended Extremity normal to inspection and full ROM Extremity Narrative: RLE wrapped in bandage General Extremity: edema right lower extremity (Right lower extremity: Positive John wrap) moderate Skin no rashes or lesions noted Neuro oriented x3, moves all extremities, no focal motor deficits and no sensory deficits noted Sensorium / Orientation: awake and alert Speech: speech normal Psych affect normal Assessment & Plan Assessment/Plan (1) Heart failure with reduced ejection fraction: PLAN: The patient continues with a history of left ventricular systolic dysfunction with heart failure with reduced ejection fraction with acute on chronic related issues. He continues medical management this time with a combination of his beta-blockers, dual diuretics, and afterload reducing agents. Based upon his lower systolic blood pressures there is caution with respect to additional agents such as nitrates or advancing the dose of his current medications. He is pending future [facility] EP evaluation/care with a biventricular ICD. (2) Cardiomyopathy: PLAN: Again he does have an underlying non-CAD related cardiomyopathy. He continues with medical management. Depending upon his hyperglycemia hypoglycemia state consideration be given as to whether or not he is a candidate for an SGLT2 inhibitor. Otherwise he is pending future [facility] EP evaluation/care with a biventricular ICD. He has declined referral to a tertiary/quaternary type care center for consideration for advanced heart failure evaluation and/or therapies. (3) Paroxysmal ventricular tachycardia: PLAN: He does have findings compatible with ventricular ectopy with PVCs as well as episodes of nonsustained wide-complex tachycardia compatible with nonsustained VT. At the present time he will continue his medical management with his beta-anthony. He has been started on amiodarone therapy. He is pending evaluation at [facility] for placement of biventricular ICD (4) CONNOR (dyspnea on exertion): PLAN: He continues with his shortness of breath and dyspnea and cough. He is continuing medical therapy. He has undergone a right-sided thoracentesis. (5) Left ventricular thrombus: PLAN: He does have a left ventricular thrombus. He continues bridging anticoagulant therapy with IV heparin while his warfarin/Coumadin has been reintroduced/pending elevation of his INR level. (6) HLD (hyperlipidemia): PLAN: He will continue medical management as deemed appropriate. (7) HTN (hypertension): PLAN: His systolic blood pressure read as low. Again this does create some issues with advancing the dose of his other medications. Addt'l Comments Overall, at the present time, the patient continues at [facility]. He will continue medical therapy. An attempt was made to increase his diuretics to assist with his volume related issues. He continues on bridging anticoagulation therapy with IV heparin. His case is also been discussed with his pawn broker Dr. Watters at [facility]. At the present time [facility] is unable to accept the patient in transfer to continue his EP evaluation and care barring a change in their availability. Thus he will continue his local cardiovascular evaluation and care. [facility] will contact him in the future to arrange his biventricular ICD procedure. Above has been discussed and reviewed with the patient. This note was generated using a voice recognition system and there may be incorrect words, spelling or punctuation that were not noted when reviewing the office note prior to saving. Procedure Criteria Type of Procedure Procedure Type: Elective Elective Risks - COVID COVID Risk Discussion: The surgeon/proceduralist and patient have discussed in detail the risk of exposure to and/or potential harm posed by the COVID-19 virus with having a surgery/procedure at this time versus the risk of delaying the surgery/procedure. It is not possible to know either the risk of delaying the surgery or procedure or chance of getting an infection with perfect accuracy, but a joint decision was made between the patient and the surgeon/proceduralist to proceed at this time with the scheduled surgery/procedure as indicated on the consent form.
--- NOTE | 2021-12-18 10:25 | PN.HOSP_ITS ---
Subjective Subjective Patient seen and examined. He has no complaints this morning and feels well. Review of systems otherwise negative. INR was still subtherapeutic at 1.6. Review of systems is otherwise negative. Objective Data Objective Data Vital Signs: Vital Signs Temp Pulse Resp BP Pulse Ox 97.7 F L 69 18 92/73 97 12/18/21 09:15 12/18/21 09:15 12/18/21 09:15 12/18/21 09:15 12/18/21 09:15 Oxygen Flow Rate (L/min) 2 Oxygen Delivery Method [5] Room Air Oxygen Delivery Method [4] Room Air Oxygen Delivery Method [3] Room Air Oxygen Delivery Method [2] Room Air Oxygen Delivery Method [1 ( Room Air Initial Baseline)] Oxygen Delivery Method Room Air Weight: 209 lb 3.499 oz Body Mass Index (BMI) 29.2 Intake & Output: Intake and Output for Last 24 Hours 12/16/21 12/17/21 12/18/21 23:59 23:59 23:59 Intake Total 1895.0 / 1895.0 1100.00 / 1340.00 240 / 240 Output Total 1475 / 1475 1150 / 1400 550 / 550 Balance 420.0 / 420.0 -50.00 / -60.00 -310 / -310 Lab / Micro Data Result Diagrams: 12/18/21 05:32 12/18/21 05:32 Labs: Laboratory Results - last 24 hr 12/13/21 12:40: Fluid pH 7.2 12/17/21 11:22: POC Glucose 238 H 12/17/21 12:46: APTT 49.4 H 12/17/21 16:36: POC Glucose 187 H 12/17/21 19:45: APTT 54.6 H 12/17/21 21:16: POC Glucose 239 H 12/18/21 01:40: APTT 60.5 H 12/18/21 05:32: PT 19.1 H, INR 1.6 12/18/21 05:32: WBC 6.9, RBC 5.02, Hgb 13.0, Hct 40.1, MCV 79.9 L, MCH 25.9 L, MCHC 32.4, RDW Std Deviation 53.6 H, RDW Coeff of Tony 19.4 H, Plt Count 209, MPV 10.7, Immature Gran % (Auto) 0.300, Neut % (Auto) 68.3, Lymph % (Auto) 18.3 L, Thurston % (Auto) 12.2 H, Eos % (Auto) 0.3, Baso % (Auto) 0.6, Absolute Neuts (auto) 4.7, Absolute Lymphs (auto) 1.27, Nucleated RBC % 0, Differential Comment SCANNED 12/18/21 05:32: Sodium 133 L, Potassium 4.3, Chloride 101, Carbon Dioxide 25.0, Anion Gap 7, BUN 29 H, Creatinine 0.93, Estim Creat Clear Calc 87.22, Est GFR (MDRD) Af Amer 107, Est GFR (MDRD) Non-Af 88, BUN/Creatinine Ratio 31.3 H, Glucose 142 H, Calcium 8.9 12/18/21 06:54: POC Glucose 145 H Micro: Microbiology 12/13/21 12:40 Fluid - Thoracentesis Fluid Gram Stain - Final 12/13/21 12:40 Fluid - Thoracentesis Fluid Body Fluid Culture - Final Culture exhibits no growth. 12/13/21 12:40 Fluid - Thoracentesis Fluid Anaerobic Culture - Final No growth in 5 days. 12/11/21 22:35 Nasal Secretion SARS-CoV-2 Antigen (Rapid) - Final Rhythm Strip Rhythm Strip: Sinus Rhythm Ectopy: PVC(s) and - (Episodes appearing compatible with nonsustained wide- complex tachycardia/nonsustained VT) Physical Exam Const alert, oriented x3 and no apparent distress Exam Limitations: no limitations Nutritional Appearance: overweight HEENT head/scalp atraumatic and moist oral mucous membranes Eyes PERRL, EOMs intact bilaterally and conjunctivae normal Eyes Narrative: Scleral icterus Neck no lymphadenopathy, supple and no JVD Resp normal respiratory effort, no retractions and no use of accessory muscles Auscultation: crackles; Negative for rales, rhonchi or wheezes Cardio regular rate, regular rhythm, S1 normal heart sound, S2 normal heart sound, no murmurs, no rub, no gallops, no clicks and no JVD GI normal to inspection, nondistended, normoactive bowel sounds, soft to palpation, non-tender and non-distended Extremity normal to inspection and full ROM Extremity Narrative: RLE wrapped in bandage Skin no rashes or lesions noted Neuro oriented x3, CN's II-XII intact bilaterally, moves all extremities, no focal motor deficits and no sensory deficits noted Sensorium / Orientation: awake and alert Speech: speech normal Psych affect normal Assessment & Plan Assessment/Plan (1) Heart failure with reduced ejection fraction: (2) Pleural effusion on right: (3) Left ventricular thrombus: PLAN: Plan #Acute on chronic HFrEF * has known EF of 15% with severe LV systolic dysfunction and global LV hypokinesis, as well as an apical LV thrombus. * on carvedilol, entresto, losartan and aldactone * on PO lasix 40mg bid * to follow up at [facility] on outpatient basis for evaluation for ICD placement * cardiology on board * #Right sided pleural effusion * had a loculcated right pleural effusion. * had thoracentesis with removal of 350cc of fluid. * stable * #Type 2 diabetes mellitus with hypoglycemia * glimepiride discontinued due to risk of hypoglycemia * on iSS. * A2C is 7.4 * #History of PE, with left apical thrombus * on coumadin. INR today is 1.6 * continue bridging; will switch to therapeutic lovenox for bridging. * will give another dose of 10mg of coumadin today. Bp today remains in the 90s systolic. * on losartan, carvedilol and aldactone * #Hyperlipidemia: on statin #JES: noncompliant. on CPAP qhs #RLE wounds * wound care on board. * #GIlbert syndrome: stable DVT prophylaxis: on coumadin, and being bridged with lovenox Disposition: to dc home once INR is within therapeutic range Charges/Coding Visit Charges Inpatient E&M: 56635 Subs Hosp L2
[2021-12-18] MEDS: Furosemide 40 MG Tablet 60 MG PO ×2 (11:46→16:47)
[2021-12-18] MEDS: Insulin Lispro 100 UNIT/ML INSULN.PEN SC ×3 (11:50→21:51)
[2021-12-18 12:01] LABS: Bedside Glucose 249 mg/dL (74-106)
--- NOTE | 2021-12-18 13:11 | CHAPLAIN ---
Type of Pastoral Visit ___ Initial Visit _x__ Follow-up Visit ___ On-call Visit ___ General Patient Visit ___ Spiritual Assessment ___ Family Conference ___ Bereavement ___ Rapid Response ___ Code Blue ___ Other (describe below) Pastoral Care Referral From _x__ Patient ___ Family ___ Nurse ___ Physician ___ Screen Printing Stencil Preparer ___ Bulk Receiver ___ Other (describe below) Sacrament/Intervention ___ Active listening ___ Anointing ___ Hindu ___ Bereavement ___ Communion ___ Isabel exploration ___ ___ Life review ___ Prayer ___ Reconciliation ___ Sacrament of Sick _x__ Supportive presence ___ Wedding ___ Other (describe below) Pastoral Comments stopped in for a follow up visit and found visitor also there in room; offered support or if something is needed; pt states he is fine and wishes he can go home in a couple of days
[2021-12-18] MEDS: Enoxaparin 100 MG/ML Syringe SC (16:46)
[2021-12-18 17:56] LABS: Bedside Glucose 210 mg/dL (74-106)
[2021-12-18] MEDS: Losartan Potassium 25 MG Tablet 12.5 MG PO (21:52)
[2021-12-18 22:35] LABS: Bedside Glucose 243 mg/dL (74-106)
[2021-12-19] MEDS: Benzonatate 100 MG Capsule PO ×2 (00:23→06:29)
[2021-12-19 03:19] VITALS: PULSE 72
[2021-12-19 03:32] VITALS: BP 98/87; PULSE 72; RESP 16; TEMP 36.8; O2SAT 97
[2021-12-19 06:02] LABS: Absolute Lymphocyte Count 1.03 X10^3/uL (0.83-4.51); Basophil# 0.04 X10^3/uL; Basophil% 0.5 % (0-1); Eosinophil# 0.02 X10^3/uL; Eosinophils% 0.2 % (0-5); Hematocrit 39.9 % (40-54); Hemoglobin 12.8 g/dL (13.0-16.5); Lymphocyte # 1.03 X10^3/ul (0.83-4.51); Lymphocyte % 12.8 % (19-41); Mean Corp Hgb Conc 32.1 g/dL (32-36); Mean Corpuscular Hgb 25.2 pg (27.0-32.0); Mean Corpuscular Volume 78.5 fL (80-94); Mean Platelet Vol. 10.1 fl (6.2-12.0); Monocyte# 0.98 X10^3/uL; Monocyte% 12.2 % (0-10); NRBC Flagged by Analyzer 0 % (0-5); Neutrophil # 5.96 X10^3/uL (2.7-7.7); Neutrophil % 74.1 % (47-70); Platelet Count 221 K/mm3 (150-450); RBC Distribution Width CV 19.4 % (11.6-14.6); RBC Distribution Width SD 53.6 fl (35.1-43.9); Red Blood Count 5.08 M/mm3 (4.6-6.2); White Blood Count 8.1 K/mm3 (4.4-11.0)
[2021-12-19] MEDS: Enoxaparin 100 MG/ML Syringe SC (06:29)
[2021-12-19] MEDS: Insulin Lispro 100 UNIT/ML INSULN.PEN SC ×2 (06:29→11:23)
[2021-12-19] MEDS: Amiodarone 200 MG Tablet PO ×2 (06:29→14:01)
[2021-12-19 06:36] LABS: Anion Gap 7 (5-15); BUN 29 mg/dL (7-18); BUN/Creat Ratio 31.2 RATIO (10-20); Calcium,Total 8.7 mg/dL (8.5-10.1); Chloride 100 mmol/L (98-107); Creatinine, Serum 0.93 mg/dL (0.70-1.30); EST Glomerular Filtration Rate 88 mL/min (>60); Est Glom Filt Rate - Afr Amer 106 mL/min (>60); Estimated Creatinine Clearance 87.22 ml/min; Glucose 196 mg/dL (74-106); Potassium 4.2 mmol/L (3.5-5.1); Sodium Level 132 mmol/L (136-145)
[2021-12-19 06:59] VITALS: PULSE 68
[2021-12-19 07:06] LABS: Bedside Glucose 212 mg/dL (74-106)
[2021-12-19 09:18] VITALS: BP 101/65; PULSE 73; RESP 18; TEMP 36.7; O2SAT 97
[2021-12-19] MEDS: Furosemide 40 MG Tablet 60 MG PO (09:24)
[2021-12-19] MEDS: guaiFENesin 1,200 MG Tablet 1200 MG PO (09:25)
[2021-12-19] MEDS: Aspirin E.C. 81 MG Tablet PO (09:25)
[2021-12-19] MEDS: Potassium Chloride Oral Tablet 10 MEQ PO (09:25)
[2021-12-19] MEDS: Carvedilol 3.125 MG TABLET PO (09:25)
[2021-12-19] MEDS: Spironolactone 25 MG Tablet PO (09:25)
[2021-12-19] MEDS: Ascorbic Acid 500 MG Tablet PO (09:25)
[2021-12-19 10:59] VITALS: PULSE 72
--- NOTE | 2021-12-19 11:39 | DS.PCM_ITS ---
Providers Date of Admission: 12/11/21 Primary Care Physician: Dr. Gil Sevilla MD Consultations 12/11/21 21:12 Consult: Onc/Wound/credentialing assistant Routine Comment: Reason for Consult:: ulcer on ruiz leg 12/12/21 14:41 Consult: Cardiology Routine Consulting Provider: Le Saenz Reason for Consult: heart failure EMERGENT Consult: No MD Notified: Yes Date Notified: 12/12/21 Time Notified: 14:42 Method of Notification: Verbal Reason For Visit: ACUTE EXAC OF HEART FAILURE WITH REDUCED EJECTION Diagnosis Discharge Diagnosis (1) Heart failure with reduced ejection fraction: Status: Acute Code(s): I50.20 - Unspecified systolic (congestive) heart failure (2) Pleural effusion on right: Status: Acute Code(s): J90 - Pleural effusion, not elsewhere classified (3) Left ventricular thrombus: Status: Acute Code(s): I51.3 - Intracardiac thrombosis, not elsewhere classified Medications at Discharge Home Medications ascorbic acid (vitamin C) 500 mg tablet (Vitamin C) 500 mg PO DAILY@0800 vitamin 05/30/13 aspirin 81 mg tablet,delayed release 81 mg PO DAILY@0800 #30 TABLETS 06/01/13 metformin 500 mg tablet,extended release 24 hr 1,000 mg PO BID DM 06/10/21 glimepiride 4 mg tablet 4 mg PO DAILY DM 10/03/21 carvedilol 3.125 mg tablet 3.125 mg PO BID #60 tabs 10/07/21 sacubitril 24 mg-valsartan 26 mg tablet (Entresto) 1 tab PO BID #60 tabs 10/21/21 spironolactone 25 mg tablet 25 mg PO DAILY FLUID 10/21/21 amiodarone 200 mg tablet 200 mg PO UD #90 tabs 12/19/21 furosemide 40 mg tablet 60 mg PO BIDLX #120 tabs 12/19/21 potassium chloride 20 mEq tablet,extended release(part/cryst) (Klor-Con M) 40 meq PO DAILY #60 tabs 12/19/21 warfarin 7.5 mg tablet 7.5 mg PO DAILY #30 tabs 12/19/21 Hospital Course Procedures 2-D Echocardiogram Summary of Care Provided Minutes Spent on Discharge: 45 Hospital Course: Patient is a 61 y/o male with an extensive PMH as outlined who was admitted via the ED on 12/11/2021 with a complaint of shortness of breath which started the day before admission. He had associated orthopnea and PND also had a dry cough. He also complained of extreme fatigue. He was also noted swelling in his lower extremities. He went to see his PCP and was counseled to come to the hospital. He had not been using his CPAP for his sleep apnea. Chest CT done showed large right pleural effusion with abdominal ascites and a small left pleural effusion as well as right lung pneumonia. He was admitted and managed for acute e xacerbation of heart failure with reduced ejection fraction. He was diuresed with Lasix and cardiology was consulted. Patient was on Coumadin and INR was therapeutic. He was on Coumadin on account of left ventricular thrombus and pulmonary embolism. Patient had right-sided thoracentesis with drainage of about 350 mils of fluid. 2D echo showed EF of 15 to 20% with severe left ventricular systolic dysfunction and left ventricular global hypokinesis as well as an apical left ventricular thrombus which had been there previously. He was continued on his carvedilol and Entresto as well as losartan and Aldactone. Lasix was switched to oral dose and dose increased to 60 mg twice daily.. Couma din was resumed. Patient had to be bridged with heparin drip and Lovenox. INR eventually came up to 2. Patient was due to follow-up at [facility] with electrophysiology for evaluation for ICD placement. Coumadin was increased to 7.5 mg daily as well. He was discharged on amiodarone 200 mg 3 times daily for a week, to continue with 200 mg twice daily for the second week and then to continue with 200 mg daily. He is to follow-up at [facility] with electrophysiology for evaluation for ICD. Patient seen and examined prior to discharge. He felt much better and had no complaints. He had an uneventful night and review of systems otherwise negative. Labs and vitals reviewed. Home medication reviewed and reconciled. Physical Exam Const alert, oriented x3 and no apparent distress General Appearance: cooperative, comfortable and well kempt Exam Limitations: no limitations Nutritional Appearance: overweight HEENT normocephalic, head/scalp atraumatic, hearing grossly normal bilaterally and m oist oral mucous membranes Eyes PERRL, EOMs intact bilaterally and conjunctivae normal Eyes Narrative: Scleral icterus Neck no lymphadenopathy, supple and no JVD Resp normal respiratory effort, no retractions and no use of accessory muscles Resp Narrative: diminished breath sounds bibasally, no wheezes or crackles. On room air. Auscultation: crackles; Negative for rales, rhonchi or wheezes Cardio regular rate, regular rhythm, S1 normal heart sound, S2 normal heart sound, no murmurs, no rub, no gallops, no clicks and no JVD GI normal to inspection, nondistended, normoactive bowel sounds, soft to palpation, non-tender and non-distended Extremity normal to inspection and full ROM Extremity Narrative: RLE wrapped in bandage Skin no rashes or lesions noted Neuro oriented x3, CN's II-XII intact bilaterally, moves all extremities, no focal motor deficits and no sensory deficits noted Sensorium / Orientation: awake and alert Speech: speech normal Psych affect normal Weight / BMI Weight Weight: 209 lb 3.499 oz Body Mass Index (BMI) 29.2 ABG / Lab / Microbiology Data Result Diagrams: 12/19/21 05:51 12/19/21 05:51 Laboratory: Laboratory Results - last 24 hr 12/18/21 11:49: POC Glucose 249 H 12/18/21 16:42: POC Glucose 210 H 12/18/21 21:48: POC Glucose 243 H 12/19/21 05:51: PT 22.0 H, INR 2.0 12/19/21 05:51: WBC 8.1, RBC 5.08, Hgb 12.8 L, Hct 39.9 L, MCV 78.5 L, MCH 25.2 L, MCHC 32.1, RDW Std Deviation 53.6 H, RDW Coeff of Tony 19.4 H, Plt Count 221, MPV 10.1, Immature Gran % (Auto) 0.200, Neut % (Auto) 74.1 H, Lymph % (Auto) 12.8 L, Edwards % (Auto) 12.2 H, Eos % (Auto) 0.2, Baso % (Auto) 0.5, Absolute Neuts (auto) 6.0, Absolute Lymphs (auto) 1.03, Nucleated RBC % 0 12/19/21 05:51: Sodium 132 L, Potassium 4.2, Chloride 100, Carbon Dioxide 25.0, Anion Gap 7, BUN 29 H, Creatinine 0.93, Estim Creat Clear Calc 87.22, Est GFR (MDRD) Af Amer 106, Est GFR (MDRD) Non-Af 88, BUN/Creatinine Ratio 31.2 H, Glucose 196 H, Calcium 8.7 12/19/21 06:28: POC Glucose 212 H Microbiology: Microbiology 12/13/21 12:40 Fluid - Thoracentesis Fluid Gram Stain - Final 12/13/21 12:40 Fluid - Thoracentesis Fluid Body Fluid Culture - Final Culture exhibits no growth. 12/13/21 12:40 Fluid - Thoracentesis Fluid Anaerobic Culture - Final No growth in 5 days. 12/11/21 22:35 Nasal Secretion SARS-CoV-2 Antigen (Rapid) - Final D/C Instructions Discharge Diet: Low fat / Low cholesterol Discharge Activity: Return to Normal Activity Weight Bearing Status: Weight bearing as tolerated Call your doctor if you observe: Fever of 101 or Higher, Shortness of breath, Dizziness, Swelling in the ankles, Chest pain and Increased palpitations (irregular heartbeat) Meaningful Use Info Meaningful Use Diagnoses (Choose all that apply): CHF CHF BECKA/ARB ordered at discharge?: Yes Documented LVEF (%): 15 Discharge Plan Admission Admit Date/Time: 12/11/21 20:19 Primary Reason for Your Visit: acute on chronic heart failure Attending Provider: Alison Barr Primary Care Provider: Gil Sevilla Consulting Providers: Dipak Ryan ; Le Saenz ; Sonya Fuentes ; Jameson Maradiaga Instructions Patient Instructions: ED Heart Disease Risk Factors Additional Instructions / Restrictions: follow up with PCP to check INR within 1 week. To follow up at [facility] for evaluation for ICD placement as scheduled Discharge Orders/Prescriptions Prescriptions: New furosemide 40 mg Tablet 60 mg PO BIDLX Qty: 120 2RF warfarin 7.5 mg tablet 7.5 mg PO DAILY Qty: 30 1RF amiodarone 200 mg tablet 200 mg PO UD Qty: 90 0RF Rx Instructions: take one tab three times daily for one week Till 12/23) then one tab two times daily for one week (from 12/24 to ) then continue with one tab daily potassium chloride [Klor-Con M20] 20 mEq tablet,ER particles/crystals 40 meq PO DAILY Qty: 60 1RF Continued spironolactone 25 mg tablet 25 mg PO DAILY Entresto 24-26 mg tablet 1 tab PO BID Qty: 60 6RF Hold Instructions: waiting for copay card-will start losartan in the mean johana e ascorbic acid (vitamin C) [Vitamin C] 500 MG tablet 500 mg PO DAILY@0800 Label Comments: supplement aspirin 81 MG tablet 81 mg PO DAILY@0800 Qty: 30 0RF Label Comments: heart health metformin 500 mg tablet extended release 24 hr 1,000 mg PO BID glimepiride 4 mg tablet 4 mg PO DAILY Label Comments: TAKE 1 TABLET BY MOUTH ONCE DAILY WITH BREAKFAST carvedilol 3.125 mg Tablet 3.125 mg PO BID Qty: 60 0RF Discontinued furosemide 40 mg tablet 40 mg PO DAILY Qty: 60 0RF Label Comments: fluid retention warfarin 5 mg tablet 5 mg PO DAILY Qty: 30 0RF losartan 25 mg tablet 12.5 mg PO QHS Qty: 30 3RF Referrals / Follow Up: Gil Sevilla MD [Primary Care Provider] - Within 2 Weeks ([facility] financial counselor will call to set up follow up appointment with Dr. Sevilla office. If you don't hear from them in 48 to 72 hours, give the office a call at [phone].) Jorge A Stoddard NP, [employer] [Nurse Practitioner] - 12/25/21 9:00 am Disposition Disposition (needs filled in before D/C Order can be placed): Home, Self Care Charges/Coding Visit Charges Inpatient E&M: 73559 Disch Hosp
[2021-12-19 11:46] LABS: Bedside Glucose 250 mg/dL (74-106)
--- NOTE | 2021-12-19 13:22 | CASEMGMT ---
Pt is still up ad stefan in room and states no concerns with going home at time of discharge. Pt voices no further concerns/needs at this time. Antonio MCMANUS CM
[2021-12-19 14:00] VITALS: BP 95/65; PULSE 72; RESP 18; O2SAT 100
== END 2021-12-19 14:26 | disposition home or self-care (01) | DRG 291 ==
LOC: ED 20:12 → PCU 20:36
PROVIDERS: Internal Medicine; Internal Medicine Cardiovascular Disease; Admitting Provider Hospitalist; Emergency Provider Emergency Medicine; PCP Internal Medicine; Visit Provider Student in an Organized Health Care Education/Training Program
DX: I11.0 Hypertensive heart disease with heart failure (principal); I50.23 Acute on chronic systolic (congestive) heart failure; I26.99 Other pulmonary embolism without acute cor pulmonale; J18.9 Pneumonia, unspecified organism; I47.2 Ventricular tachycardia; J90 Pleural effusion, not elsewhere classified; L97.911 Non-pressure chronic ulcer of unspecified part of right lower leg limited to breakdown of skin; R18.8 Other ascites; E11.649 Type 2 diabetes mellitus with hypoglycemia without coma; I27.22 Pulmonary hypertension due to left heart disease; I95.89 Other hypotension; I42.0 Dilated cardiomyopathy; Z79.4 Long term (current) use of insulin; I50.84 End stage heart failure; E11.622 Type 2 diabetes mellitus with other skin ulcer; G47.33 Obstructive sleep apnea (adult) (pediatric); E78.5 Hyperlipidemia, unspecified; I08.1 Rheumatic disorders of both mitral and tricuspid valves; E80.4 Gilbert syndrome; E66.3 Overweight; Z68.29 Body mass index [BMI] 29.0-29.9, adult; Z79.01 Long term (current) use of anticoagulants; Z79.82 Long term (current) use of aspirin; Z79.84 Long term (current) use of oral hypoglycemic drugs; Z79.899 Other long term (current) drug therapy; Z86.16 Personal history of COVID-19; Z86.711 Personal history of pulmonary embolism; Z87.891 Personal history of nicotine dependence
CPT/HCPCS: 32555; 36415; 71045; 71046; 71250; 80048; 80053; 80061; 80076; 80299; 82945; 82962; 83036; 83615; 83735; 83880; 83986; 84156; 84157; 84484; 85025; 85610; 85730; 87070; 87075; 87205; 87811; 88108; 88305; 88313; 89050; 93005; 93306; 94640; 99251; 99285; 99406; A4216; G0463; J1940; J2405

== ENCOUNTER → 2021-12-31 | Outpatient (CLI) | payer SELFPAY ==
[2021-12-31 11:33] LABS: International Normalized Ratio 4.7; Prothrombin Time (Protime)PT. 44.2 SECONDS (11.7-14.9)
== END | disposition home or self-care (01) ==
LOC: LABSPEC 11:16
PROVIDERS: PCP Internal Medicine; Referring Provider Nurse Practitioner; Visit Provider Nurse Practitioner
DX: Z86.711 Personal history of pulmonary embolism (principal)
CPT/HCPCS: 85610

== ENCOUNTER → 2022-01-22 | Outpatient (CLI) | payer SELFPAY ==
--- NOTE | 2022-01-22 11:05 | RAD_ITS ---
STUDY: X-RAY CHEST REASON FOR EXAM: Male, 61 years old. Assess rt effusion TECHNIQUE: PA and lateral views of the chest. COMPARISON: Comparison is made with prior study dated 12/13/2021. FINDINGS: Persistent pleural-parenchymal changes at the right lung base. Slightly smaller pleural effusion with the progressive atelectasis at the right lung base. Normal size heart. A left-sided dual-chamber pacemaker is seen. Normal mediastinum and adin. Normal visualized pulmonary arteries. There is atherosclerotic calcification of the aortic arch with tortuosity. There are diffuse degenerative changes of the visualized thoracic spine. Normal visualized ribs, clavicles, and shoulders. There is no demonstrated abnormality of the visualized soft tissue structures of the upper abdomen. RAD/Chest PA and Lateral IMPRESSION: Persistent pleural-parenchymal changes at the right lung base with slight decrease in the pleural effusion but progressive atelectasis at the right lung base. Improved aeration of the right mid lung. Electronically Signed: Inder Melendez MD at 10:04 EDT ,
== END | disposition home or self-care (01) ==
LOC: RAD 11:05
PROVIDERS: PCP Internal Medicine; Referring Provider Nurse Practitioner Family; Visit Provider Nurse Practitioner Family
DX: J90 Pleural effusion, not elsewhere classified (principal); R06.00 Dyspnea, unspecified
CPT/HCPCS: 71046

== ENCOUNTER → 2022-04-29 | Outpatient (CLI) | payer SELFPAY ==
--- NOTE | 2022-04-29 10:46 | ECHOL_ITS ---
Reason For Study: LV Thrombus, HFrEF Procedure This was a limited 2D transthoracic echocardiogram. Myocardial strain analysis was performed in this exam to aid in the assessment of cardiac function. Limited views were obtained. Exam performed in department. Left Ventricle Moderately dilated left ventricle. Apical false tendon noted. Severe global left ventricular systolic dysfunction. The estimated ejection fraction is 20 %. The global longitudinal strain = -10% (abnormal). Diastolic function is indeterminate. Right Ventricle Normal RV size. ICD or pacer leads identified within the right ventricle. Mild global right ventricular systolic dysfunction. Atria The left atrium is moderately enlarged. Normal right atrium. ICD or pacer leads identified within the right atrium. No doppler evidence for ASD. Mitral Valve There is no mitral annular calcification. Normal mitral valve. Mild-Moderate (1-2+) mitral valve insufficiency. Tricuspid Valve Normal tricuspid valve. Moderate (2+) tricuspid valve insufficiency. Right ventricular systolic pressure estimated to be 55 mmHg. Aortic Valve Trisinus/trileaflet aortic valve. Normal aortic valve. Pulmonic Valve The pulmonic valve is not well visualized. Great Vessels The aortic root is not well visualized. Pericardium/Pleural Trivial pericardial effusion. There are no echocardiographic indications of cardiac tamponade. MMode/2D Measurements & Calculations LVIDd: 6.0 cm IVSd: 0.99 cm LA dimension: 4.8 cm LVIDs: 5.3 cm LVPWd: 1.0 cm FS: 11.8 % LAV(MOD-bp): 112.6 ml LA A4 area: 33.1 cm2 RA A4 area: 23.4 cm2 LAV(MOD-bp) Indexed: 56.4 ml/m2 LAV(MOD-sp2): 94.3 ml LAV(MOD-sp4): 115.6 ml Doppler Measurements & Calculations Med Peak E' Nikolay: 5.2 cm/sec TR max nikolay: 359.5 cm/sec TR max P.8 mmHg ECHO/Echo, Limited Study Interpretation Summary Limited views were obtained. Moderately dilated left ventricle. Severe global left ventricular systolic dysfunction. The estimated ejection fraction is 20 %. The global longitudinal strain = -10% (abnormal). Apical false tendon noted. Mild global right ventricular systolic dysfunction. The left atrium is moderately enlarged. Mild-Moderate (1-2+) mitral valve insufficiency. Moderate (2+) tricuspid valve insufficiency. Trivial pericardial effusion. There are no echocardiographic indications of cardiac tamponade. Right ventricular systolic pressure estimated to be 55 mmHg. Diastolic function is indeterminate. ICD or pacer leads identified within the right atrium ICD or pacer leads identified within the right ventricle. Comment: 2D echocardiographic images demonstrate a small echodensity near the l eft ventricular apex appearing compatible with a left ventricular apical thrombus. Ordering Physician: Deedee Donaldson Referring Physician: Gil Sevilla M.D. Performed By: Eleuterio Villafuerte RCS
== END | disposition home or self-care (01) ==
LOC: CVS 10:45
PROVIDERS: PCP Internal Medicine; Referring Provider Nurse Practitioner Gerontology; Visit Provider Nurse Practitioner Gerontology
DX: I51.3 Intracardiac thrombosis, not elsewhere classified (principal); I42.8 Other cardiomyopathies; I50.20 Unspecified systolic (congestive) heart failure
CPT/HCPCS: 93308

== ENCOUNTER → 2023-01-12 | Outpatient (CLI) | payer SELFPAY ==
--- NOTE | 2023-01-12 15:30 | RAD_ITS ---
INDICATION: Amiodarone EXAMINATION: Frontal and lateral views of the chest. COMPARISON: Chest x-ray January 22, 2022. FINDINGS: Frontal and lateral views of the chest were obtained. A pacing device is in the left anterior chest wall. The cardiac silhouette is not enlarged. Scarring and atelectasis in the right mid and lower lung, similar to the prior exam. No pneumothorax. Small right pleural effusion, mildly decreased since the prior exam. RAD/Chest PA and Lateral IMPRESSION: Scarring and atelectasis in the right mid and lower lung, similar to the prior exam. Small right pleural effusion. Electronically Signed: Michael Andrade MD at 2:58 EDT ,
[2023-01-12 18:26] LABS: ALB/GLOB Ratio 0.7 RATIO (0.9-2.4); AST(SGOT) 13 U/L (15-37); Alanine Aminotransfer ALT/SGPT 24 U/L (16-61); Albumin, Serum 3.1 g/dL (3.2-5.0); Alkaline Phosphatase 93 U/L (45-117); Anion Gap 8 (5-15); BUN 26 mg/dL (7-18); BUN/Creat Ratio 14.1 RATIO (10-20); Chloride 93 mmol/L (98-107); Creatinine, Serum 1.84 mg/dL (0.70-1.30); EST Glomerular Filtration Rate 40 mL/min (>60); Est Glom Filt Rate - Afr Amer 48 mL/min (>60); Free T3 2.2 pg/mL (2.18-3.98); Globulin 4.4 g/dL (2.2-4.2); Glucose 670 mg/dL (74-106); Potassium 4.6 mmol/L (3.5-5.1); Protein, Total 7.5 g/dL (6.4-8.2); Sodium Level 127 mmol/L (136-145); T4 Free Direct 1.36 ng/dL (0.76-1.46); Thyroid Stim Hormone (TSH) 1.34 uIU/mL (0.358-3.74)
== END | disposition home or self-care (01) ==
LOC: RAD 15:25
PROVIDERS: PCP Internal Medicine; Referring Provider Nurse Practitioner Gerontology; Visit Provider Nurse Practitioner Gerontology
DX: Z79.899 Other long term (current) drug therapy (principal)
CPT/HCPCS: 36415; 71046; 80053; 84439; 84443; 84481

== ENCOUNTER 2024-05-06 10:47 | Inpatient (IN) | payer MEDICARE, SELFPAY ==
[2024-05-06] VITALS (22 sets, daily range): BP systolic 65–104; BP diastolic 48–87; PULSE 70–103; RESP 16–25; TEMP 35.9–36.7; O2SAT 87–100; BMI 29.1; BMI 28.7
--- NOTE | 2024-05-06 11:05 | EKG12_ITS ---
Test Reason : SOB Blood Pressure : */* mmHG Vent. Rate : 71 BPM Atrial Rate : 71 BPM P-R Int : 142 ms QRS Dur : 162 ms QT Int : 510 ms P-R-T Axes : 73 246 74 degrees QTcB Int : 554 ms Atrial-sensed ventricular-paced rhythm with occasional Premature ventricular complexes Biventricular pacemaker detected Abnormal ECG When compared with ECG of 11-Dec-2021 17:58, Electronic ventricular pacemaker has replaced Sinus rhythm Confirmed by Anders Quinn ([id number]), film or videotape editor GARTH ERVIN ([id number]) on 05/10/2024 9:30:33 AM Referred By: CAMMY/KANE Confirmed By: Anders Quinn
[2024-05-06 11:15] LABS: Absolute Neutrophil Count 3.7 X10^3/uL (2.0-7.7); Basophil# 0.07 X10^3/uL; Basophil% 1.2 % (0-1); Eosinophil# 0.09 X10^3/uL; Eosinophils% 1.6 % (0-5); Hematocrit 42.7 % (40-54); Hemoglobin 13.6 g/dL (13.0-16.5); Lymphocyte % 19.6 % (19-41); Mean Corp Hgb Conc 31.9 g/dL (32-36); Mean Corpuscular Hgb 25.9 pg (27.0-32.0); Mean Corpuscular Volume 81.2 fL (80-94); Mean Platelet Vol. 11.3 fl (6.2-12.0); Monocyte# 0.61 X10^3/uL; Monocyte% 10.9 % (0-10); NRBC Flagged by Analyzer 0 % (0-5); Neutrophil # 3.74 X10^3/uL (2.7-7.7); Neutrophil % 66.5 % (47-70); Platelet Count 175 K/mm3 (150-450); RBC Distribution Width CV 15.3 % (11.6-14.6); RBC Distribution Width SD 44.8 fl (35.1-43.9); Red Blood Count 5.26 M/mm3 (4.6-6.2); White Blood Count 5.6 K/mm3 (4.4-11.0)
--- NOTE | 2024-05-06 11:15 | RAD_ITS ---
STUDY: X-RAY CHEST REASON FOR EXAM: Male, 64 years old. 2 week history of shortness of breath. TECHNIQUE: Single AP portable view of the chest. COMPARISON: Comparison is made with prior study dated January 12, 2023. FINDINGS: Infiltrate in the right lower lobe. Questionable nodular density in the right hilum. Blunting of the right costophrenic angle. Normal size heart. A left-sided dual-chamber pacemaker is seen. Normal mediastinum and adin. Normal visualized pulmonary arteries. Normal visualized aortic arch and descending thoracic aorta. There are degenerative changes of the visualized thoracic spine. There is degenerative osteoarthritis of the bilateral shoulders. There is no demonstrated abnormality of the visualized soft tissue structures of the upper abdomen. RAD/Chest 1 View (Portable) IMPRESSION: Pleural parenchymal changes at the right lung base with prominence of the right hilum. Radiographic follow-up recommended. Electronically Signed: Inder Melendez MD at 12:14 EDT ,
[2024-05-06] MEDS: 0.9% Normal Saline (500mL Bag) 500 ML 1000 ML IV (11:19)
[2024-05-06 11:25] LABS: Prothrombin Time (Protime)PT. 54.4 SECONDS (11.7-14.9)
[2024-05-06 11:41] LABS: ALB/GLOB Ratio 0.9 RATIO (0.9-2.4); AST(SGOT) 13 U/L (15-37); Alanine Aminotransfer ALT/SGPT 11 U/L (16-61); Alkaline Phosphatase 95 U/L (45-117); Anion Gap 8 (5-15); BUN 22 mg/dL (7-18); BUN/Creat Ratio 15.8 RATIO (10-20); Calcium,Total 9.2 mg/dL (8.5-10.1); Chloride 103 mmol/L (98-107); Creatinine, Serum 1.39 mg/dL (0.70-1.30); EST Glomerular Filtration Rate 55 mL/min (>60); Est Glom Filt Rate - Afr Amer 66 mL/min (>60); Estimated Creatinine Clearance 62.04 ml/min; Globulin 3.5 g/dL (2.2-4.2); Glucose 187 mg/dL (74-106); Potassium 3.7 mmol/L (3.5-5.1); Protein, Total 6.5 g/dL (6.4-8.2); Sodium Level 136 mmol/L (136-145); Troponin-I HS 14 pg/mL (3.0-78.0)
[2024-05-06] MEDS: Ceftriaxone 2 GM in 0.9% Normal Saline (50mL MB+) 50 ML IV (11:42)
[2024-05-06 11:48] LABS: D-Dimer Quantitative (DVT/PE) 0.42 FEU/ug/m (0.27-0.49)
[2024-05-06 11:50] LABS: International Normalized Ratio 6.2
--- NOTE | 2024-05-06 11:53 | ED.VIS.DYS ---
HPI History of Present Illness Chief Complaint: Shortness of Breath Detail of Chief Complaint: Shortness of breath with cough. Informant: patient and family Onset/Context/Timing Onset: Days Context: sudden Timing: Continuous and Waxes and wanes Quality: Positive for Dyspnea on exertion; Negative for Orthopnea, PND or Wheezing Current Severity: Mild Maximum Severity: Moderate Worsened by: Exertion and Coughing; Not Worsened By Lying flat Relieved by: Nothing Associated Symptoms cough, rhinorrhea, chills and white sputum; Negative for ear pain, fever, sore throat, subjective, sweats or clear sputum Chest Pain: Positive for None Narrative Narrative: Patient is a 62-year-old male. Patient is not a good informant. He does have shortness of breath, dyspnea on exertion and cough. Cough is productive. He denies orthopnea or PND. He states he has a normally low blood pressure. He does report problems with his heart. Patient had an echo last admission which revealed an ejection fraction of 15 to 20%. This also revealed severe left ventricular systolic dysfunction and left ventricular global hypokinesis as well as an apical thrombus. This would explain why patient is on Coumadin. Patient does endorse chills. Denies fever. He denies headache, visual, ocular auditory symptoms. Nuys ringing his ears or decreased hearing. Does report mild nasal congestion. Patient denies abdominal pain, nausea, vomit or diarrhea. Nuys black or maroon-colored stool. Denies dysuria, frequency, urgency or hematuria. Denies hesitancy. Patient has not checked his blood sugars recently. He does admit that he is on warfarin. PE Risk Factors: Positive for Recent immobilization; Negative for Cancer, OCP + Smoking + > 35, Prior DVT or PE, Recent surgery or Recent travel Prior similar symptoms: Yes Recent Illness/Hospitalization: No (Last hospitalization was December 19, 2021.) [facility] Medical History (Updated 05/06/24 @ 12:[address] Shine Estrada MD) Paroxysmal ventricular tachycardia Nonischemic cardiomyopathy Heart failure with reduced ejection fraction Pleural effusion on right CONNOR (dyspnea on exertion) HTN (hypertension) HLD (hyperlipidemia) Left ventricular thrombus Cardiomyopathy Former smoker CPAP (continuous positive airway pressure) dependence Sleep apnea Loculated pleural effusion Pulmonary embolism Coagulopathy Gilbert's syndrome Hepatomegaly Jaundice Diabetes Congestive heart failure (CHF) Hyperlipidemia Tobacco dependence Home Medications ?Medication ?Instructions ?Recorded ?Last Taken ?Type ascorbic acid (vitamin C) 500 mg 500 mg PO DAILY@0800 vitamin 05/30/13 10/02/21 History tablet (Vitamin C) 500 mg aspirin 81 mg tablet,delayed 81 mg PO DAILY@0800 #30 TABLETS 06/01/13 10/02/21 Rx release 81 mg metformin 500 mg tablet,extended 1,000 mg PO BID DM 06/10/21 10/02/21 History release 24 hr 500 mg glimepiride 4 mg tablet 4 mg PO DAILY DM 10/03/21 10/02/21 History 4 mg spironolactone 25 mg tablet 25 mg PO DAILY FLUID 10/21/21 Unknown History warfarin 5 mg tablet 5 mg PO DAILY #30 tabs 01/23/22 Unknown Rx empagliflozin 10 mg tablet 10 mg PO DAILY #90 tabs 09/09/22 Unknown Rx (Jardiance) amiodarone 200 mg tablet 200 mg PO DAILY #90 tabs 06/18/23 Unknown Rx furosemide 40 mg tablet 40 mg PO BIDLX #180 tabs 06/18/23 Unknown Rx losartan 25 mg tablet 12.5 mg (1/2 x 25 mg) PO QHS #45 06/18/23 Unknown Rx tabs carvedilol 25 mg tablet 25 mg PO BID #180 tabs 09/28/23 Unknown Rx Allergy/AdvReac Type Severity Reaction Status Date / Time No Known Allergies Allergy Verified 05/06/24 10:52 Family History Other COPD (chronic obstructive pulmonary disease) Hypertension Parkinson's disease TIA (transient ischemic attack) Surgical History Cardiac defibrillator in place (~01/10/22) History of rectal abscess Social History housing: house Smoking Status: Former smoker how long ago did patient quit smokin months ago alcohol intake: never substance use type: does not use caffeine: No ROS ROS ED Constitutional Constitutional ED: Reports chills and sweats; Denies fever(s) or weight loss Eyes Eyes: Denies blurry vision, change in vision or diplopia ENT ENT ED: Reports rhinorrhea; Denies ear pain or sore throat Cardiovascular Cardiovascular: Denies chest pain, orthopnea, palpitations, paroxysmal nocturnal dyspnea or racing heartbeat Respiratory/Chest Respiratory/Chest: Reports cough, dyspnea, dyspnea on exertion and sputum; Denies orthopnea or paroxysmal nocturnal dyspnea Gastrointestinal Gastrointestinal: Denies abdominal pain, diarrhea, melena, nausea or vomiting Genitourinary Genitourinary ED: Denies dysuria, hematuria or urinary frequency Musculoskeletal Musculoskeletal: Denies arthralgias, back pain or myalgias Integumentary Denies rash Neurologic Neurologic: Denies headache(s), paresthesias or weakness Endocrine Endocrinology: Denies cold intolerance or heat intolerance Hematologic/Lymphatic Hematologic/Lymphatic: Denies easy bleeding or easy bruising EXAM Physical Exam Const Vital Signs: 05/06/24 10:50 05/06/24 11:03 05/06/24 11:52 Temperature 97.5 F L 98 F Temperature Source Oral Oral Pulse Rate 72 96 Respiratory Rate 22 H 16 Respiratory Effort Short of Breath Labored Respiratory Depth Normal Respiratory Pattern Normal Blood Pressure 83/58 L 93/63 Blood Pressure Mean 66 73 Pulse Ox 93 98 Oxygen Delivery Method Room Air Room Air Room Air 05/06/24 12:00 Temperature 98.1 F Temperature Source Oral Pulse Rate 70 Respiratory Rate 16 Respiratory Effort Respiratory Depth Respiratory Pattern Blood Pressure 92/75 Blood Pressure Mean 80 Pulse Ox 98 Oxygen Delivery Method Room Air Positive well nourished, well developed and obese Constitutional Narrative: Patient appears ill and pale. Blood pressure is low. Patient states his blood pressure is normally low. Most recent records for blood pressure reveals systolic in the mid 90s to approximately 110. He now states is not abnormal for his pressure to be in the 80s. General Appearance ED: well developed and NAD Nutritional Appearance: obese HEENT Reports TM's clear and dry mucous membranes atraumatic; Negative for tenderness Tympanic Membrane ED: Yes TM's clear Mouth ED: Yes dry mucous membranes Mouth: dry mucous membranes Eyes PERRL and EOMs intact bilaterally General Eye ED: Yes scleral icterus; Negative for pale conjunctiva Neck no lymphadenopathy, supple, no meningeal signs and no JVD Chest Wall Chest Narrative: Patient is noted to have a pacemaker scar left subclavian region. There is a palpable pacemaker. Resp normal respiratory effort and No clear to auscultation bilaterally Resp Narrative: Rales right lower lobe. Scattered expiratory wheezing bilaterally. Cardio regular rate, regular rhythm, S1 normal heart sound, S2 normal heart sound and no murmurs GI non-tender, non-distended and no masses Auscultation: normoactive bowel sounds Palpation: soft Back/Spine no CVA tenderness and normal to inspection Extremity Negative for normal to inspection Extremity Narrative: Patient has evidence of dry skin. There are stigmata of peripheral arterial disease. There is lack of hair on his toes and dorsum of his foot. There is thickening of his toenails. Neuro oriented x3, CN's II-XII intact bilaterally and no sensory deficits noted Jaqueline Coma Scale: document GCS findings Spontaneous Obeys Commands Oriented 15 Sensorium / Orientation: alert Skin no wounds and skin turgor normal Skin Narrative: Dry skin. Sepsis Attestation Sepsis Alert: Yes Sepsis Attestation: Agree w/Sepsis Date exam was performed: 05/06/24 Time exam was performed: 12:00 Possible Source of Sepsis: Pulmonary Sepsis Organ Dysfunction Criteria Present: SBP < 90 mmHg or MAP < 65 mmHg and Lactic Acid > 2 mmol/L Supportive Findings: Patient has a coagulopathy due to Coumadin. Lactate elevated 2.2. Total bilirubin is up at 3.7. AST and ALT are normal. Fluid Resuscitation Fluid resuscitation indicated?: Yes Fluid Resuscitation ordered: Lesser volume fluid bolus ordered Amount of fluid ordered: 500 Reason for lesser fluid bolus:: Concern for fluid overload, Renal Failure, BP Responded to a lesser volume and Other (Patient has a cardiomyopathy with an ejection fraction of 15 to 20%.) MDM MDM MDM Narrative Medical decision making narrative: Differential diagnosis would include CHF, pneumonia specially since patient's findings are asymmetric on auscultation. Since he is hypotensive he did receive a fluid bolus. Reluctant to give more than initial bolus because patient has a cardiomyopathy with an ejection fraction between 15 to 20% on last echo obtained December 2021. Because he is on Coumadin for a mural thrombus of the left ventricle will obtain PT/INR. Sepsis workup was initiated. After I reviewed the chest x-ray and saw that patient had pneumonia he was started on azithromycin and Rocephin for community-acquired pneumonia. Lab Data Attestation: I reviewed the patient's lab results. Lab results narrative: CBC is essentially unchanged from prior. PT and INR are elevated 54.4 and 6.2. D-dimer is normal. Electrolyte panel is marked for creatinine of 1.39. Prior creatinine obtained January 2023 was 1.84 and prior December 2021 was 0.93. Glucose is elevated 187 with normal CO2 anion gap. Labs: Laboratory Results - last 24 hr 05/06/24 05/06/24 11:00 11:13 WBC 5.6 RBC 5.26 Hgb 13.6 Hct 42.7 MCV 81.2 MCH 25.9 L MCHC 31.9 L RDW Std Deviation 44.8 H RDW Coeff of Tony 15.3 H Plt Count 175 MPV 11.3 Immature Gran % (Auto) 0.200 Neut % (Auto) 66.5 Lymph % (Auto) 19.6 [place] % (Auto) 10.9 H Eos % (Auto) 1.6 Baso % (Auto) 1.2 H Absolute Neuts (auto) 3.7 Absolute Lymphs (auto) 1.10 Nucleated RBC % 0 PT 54.4 H INR 6.2 H* D-Dimer Quant (PE/DVT) 0.42 Sodium 136 Potassium 3.7 Chloride 103 Carbon Dioxide 26.0 Anion Gap 8 BUN 22 H Creatinine 1.39 H Estim Creat Clear Calc 62.04 Est GFR (MDRD) Af Amer 66 Est GFR (MDRD) Non-Af 55 L BUN/Creatinine Ratio 15.8 Glucose 187 H Lactic Acid 2.2 H* Calcium 9.2 Total Bilirubin 3.70 H AST 13 L ALT 11 L Alkaline Phosphatase 95 Troponin I High Sens 14 Total Protein 6.5 Albumin 3.0 L Globulin 3.5 Albumin/Globulin Ratio 0.9 Radiography Chest X-Ray - ED: 1 View (Independently reviewed interpreted by me at 1148.) and Read by ED Physician (Chest x-ray is independent reviewed interpreted by me as positive for right lower lobe infiltrate and fluid in the fissure in the right. Cardiac silhouette is unremarkable. Size is borderline. Hilum is unremarkable. Osseous structures unremarkable.) Diagnostic Testing: Clinical Impression(s) from Imaging Studies Chest X-Ray 05/06/24 11:15 IMPRESSION: Pleural parenchymal changes at the right lung base with prominence of the right hilum. Radiographic follow-up recommended. Electronically Signed: Inder Melendez MD at 12:14 EDT , EKG Initial EKG: Attestation: I personally reviewed and interpreted this EKG as follows: Interpretation: Paced (Rate is 71. This is atrial sensed pacemaker. There is an occasional premature beat noted. SD interval is under 42 ms. Cures duration 162 ms. QT duration 510 ms.) Management Discussion w/another healthcare provider: Hospitalist Treatment and Re-Evaluation :: Based on CMS classification patient has severe sepsis. He also is hypotensive which may be chronic in light of his history of significant cardiomyopathy. As previously documented fluids were administered below the 30 cc/kg bolus. Critical Care Time Critical Care Time: Yes Critical care time (excluding procedures): 30-74 minutes (33), Including time spent: (History, physical, documentation, review of prior records, independent rotation laboratory results and imaging and initiate treatment for severe sepsis due to pneumonia), Discussing w/Patient &/or Family/Deicer Finisher, Discussing w/Consultants and Arranging Admission or Transfer Discharge Plan Dx/Rx/DC Orders Clinical Impression: Right lower lobe pneumonia, Nonischemic cardiomyopathy, metal riveter current use of amiodarone, Severe sepsis with acute organ dysfunction, Acidosis, lactic, Warfarin-induced coagulopathy, Elevated serum creatinine, Acute hypotension Disposition Disposition: Acute Care Hospital [facility]
[2024-05-06 11:56] LABS: Lactic Acid 2.2 mmol/L (0.4-1.9)
[2024-05-06] MEDS: Azithromycin 500 MG in Dextrose 5%-Water (250mL Bag) 250 ML 250 MG IV (12:02)
--- NOTE | 2024-05-06 12:30 | HP.PCM.HOS_ITS ---
HPI - General General Date of Admission: 05/06/24 Date of Service: 05/06/24 HPI Narrative INDU ROD, is a 64 M with a PMH as outlined who presents via the ED on 05/06/2024 with a complaint of shortness of breath. His symptoms are started on the day of admission. He has a known history of heart failure with reduced ejection fraction with known EF of 20%. He said he had a cough which was productive as well. He did admit to some orthopnea though he denied PND and he denied any fever but admitted to chills. He does have a normally low blood pressure which usually runs in the 90s systolic. Vitals in the ED at time of review were temperature of 96.7 Fahrenheit, pulse rate of 70, blood pressure of 90/70 respiratory rate of 25. He was saturating at 95% on 4 L of oxygen. Of note patient's blood pressure had been as low as 65/48 when he initially came into the ED. He does usually run in the 90s systolic. He was hydrated with a bolus of normal saline 1L x 1. CBC showed WBC of 5.6 with hemoglobin of 13.6 and platelets of 175. INR 6.2. Chemistry showed sodium of 136 with potassium of 3.7 and bicarb of 26. Creatinine was 1.39. Lactic acid was 2.2 on admission, and trended up to 2.9. total bilirubin was 3.7 and CXR showed pleural parenchymal changes at the right lung base with prominence of the right hilum. EKG showed no acute ST changes. He has been admitted to be managed for sepsis due to pneumonia likely community- acquired. [facility] Medical History (Updated 05/06/24 @ 12:[address] Shine Estrada MD) Paroxysmal ventricular tachycardia Nonischemic cardiomyopathy Heart failure with reduced ejection fraction Pleural effusion on right CONNOR (dyspnea on exertion) HTN (hypertension) HLD (hyperlipidemia) Left ventricular thrombus Cardiomyopathy Former smoker CPAP (continuous positive airway pressure) dependence Sleep apnea Loculated pleural effusion Pulmonary embolism Coagulopathy Gilbert's syndrome Hepatomegaly Jaundice Diabetes Congestive heart failure (CHF) Hyperlipidemia Tobacco dependence Home Medications ?Medication ?Instructions ?Recorded ?Last Taken ?Type ascorbic acid (vitamin C) 500 mg 500 mg PO DAILY@0800 vitamin 05/30/13 10/02/21 History tablet (Vitamin C) 500 mg aspirin 81 mg tablet,delayed 81 mg PO DAILY@0800 #30 TABLETS 06/01/13 10/02/21 Rx release 81 mg metformin 500 mg tablet,extended 1,000 mg PO BID DM 06/10/21 10/02/21 History release 24 hr 500 mg glimepiride 4 mg tablet 4 mg PO DAILY DM 10/03/21 10/02/21 History 4 mg spironolactone 25 mg tablet 25 mg PO DAILY FLUID 10/21/21 Unknown History warfarin 5 mg tablet 5 mg PO DAILY #30 tabs 01/23/22 Unknown Rx empagliflozin 10 mg tablet 10 mg PO DAILY #90 tabs 09/09/22 Unknown Rx (Jardiance) amiodarone 200 mg tablet 200 mg PO DAILY #90 tabs 06/18/23 Unknown Rx furosemide 40 mg tablet 40 mg PO BIDLX #180 tabs 06/18/23 Unknown Rx losartan 25 mg tablet 12.5 mg (1/2 x 25 mg) PO QHS #45 06/18/23 Unknown Rx tabs carvedilol 25 mg tablet 25 mg PO BID #180 tabs 09/28/23 Unknown Rx Allergy/AdvReac Type Severity Reaction Status Date / Time No Known Allergies Allergy Verified 05/06/24 10:52 Family History Other COPD (chronic obstructive pulmonary disease) Hypertension Parkinson's disease TIA (transient ischemic attack) Surgical History Cardiac defibrillator in place (~01/10/22) History of rectal abscess Social History housing: house Smoking Status: Former smoker how long ago did patient quit smokin months ago alcohol intake: never substance use type: does not use caffeine: No ROS Review of Systems ROS Unobtainable: Denies due to encephalopathy Constitutional Constitutional: Reports anorexia, chills, fatigue, malaise and weakness; Denies change in weight or fever(s) Eyes Eyes: Denies change in vision ENT HEENT: Denies dysphagia, headache(s), nasal congestion, nasal discharge or sore throat Cardiovascular Cardiovascular: Reports dyspnea on exertion; Denies chest pain, edema, lightheadedness, orthopnea, palpitations, paroxysmal nocturnal dyspnea or rapid heart rate Respiratory/Chest Respiratory/Chest: Reports cough, dyspnea, productive cough, shortness of breath at rest and shortness of breath with exertion; Denies excessive phlegm production, hemoptysis or wheezing Gastrointestinal Gastrointestinal: Denies abdominal pain, constipation, diarrhea, melena, nausea or vomiting Genitourinary Genitourinary: Denies burning urination, dysuria or hematuria Musculoskeletal Musculoskeletal: Denies arthralgias or joint pain Neurologic Neurologic: Denies confusion, dizziness, focal weakness, headache(s), numbness, paresthesias or seizures Psychiatric Psychiatric: Denies anxiety or depression Vital Signs Vital Signs Vital Signs: 05/06/24 10:50 05/06/24 11:03 05/06/24 11:52 Temperature 97.5 F L 98 F Temperature Source Oral Oral Pulse Rate 72 96 Respiratory Rate 22 H 16 Respiratory Effort Short of Breath Labored Respiratory Depth Normal Respiratory Pattern Normal Blood Pressure 83/58 L 93/63 Blood Pressure Mean 66 73 Pulse Ox 93 98 Oxygen Delivery Method Room Air Room Air Room Air 05/06/24 12:00 Temperature 98.1 F Temperature Source Oral Pulse Rate 70 Respiratory Rate 16 Respiratory Effort Respiratory Depth Respiratory Pattern Blood Pressure 92/75 Blood Pressure Mean 80 Pulse Ox 98 Oxygen Delivery Method Room Air Weight Weight: 203 lb Body Mass Index (BMI) 29.1 Physical Exam Const alert Constitutional Narrative: very frail and weak, lethargic, has a tinge of jaundice HEENT normocephalic, head/scalp atraumatic and hearing grossly normal bilaterally HEENT Narrative: dry oral mucosa Eyes PERRL, EOMs intact bilaterally and conjunctivae normal Neck no lymphadenopathy and supple Resp Resp Narrative: mildly diminished breath sounds bibasally, few crackles, no wheezing. On 2L of oxygen by nasal canula Cardio regular rate, regular rhythm, S1 normal heart sound, S2 normal heart sound and no murmurs Cardio Narrative: pacemaker in situ GI normal to inspection, nondistended, normoactive bowel sounds, soft to palpation, non-tender and non-distended Extremity normal to inspection, full ROM and no clubbing, cyanosis or edema Skin Skin Narrative: jaundiced Neuro oriented x3, CN's II-XII intact bilaterally and moves all extremities Sensorium / Orientation: awake and alert Psych affect normal Psych Narrative: very weak Results Lab / Micro Data 05/06/24 11:00 05/06/24 11:00 Labs: Laboratory Results - last 24 hr 05/06/24 11:00: WBC 5.6, RBC 5.26, Hgb 13.6, Hct 42.7, MCV 81.2, MCH 25.9 L, M CHC 31.9 L, RDW Std Deviation 44.8 H, RDW Coeff of Tony 15.3 H, Plt Count 175, MPV 11.3, Immature Gran % (Auto) 0.200, Neut % (Auto) 66.5, Lymph % (Auto) 19.6, [place] % (Auto) 10.9 H, Eos % (Auto) 1.6, Baso % (Auto) 1.2 H, Absolute Neuts (auto) 3.7, Absolute Lymphs (auto) 1.10, Nucleated RBC % 0, PT 54.4 H, INR 6.2 H*, D-Dimer Quant (PE/DVT) 0.42, Sodium 136, Potassium 3.7, Chloride 103, Carbon Dioxide 26.0, Anion Gap 8, BUN 22 H, Creatinine 1.39 H, Estim Creat Clear Calc 62.04, Est GFR (MDRD) Af Amer 66, Est GFR (MDRD) Non-Af 55 L, BUN/Creatinine Ratio 15.8, Glucose 187 H, Calcium 9.2, Total Bilirubin 3.70 H, AST 13 L, ALT 11 L, Alkaline Phosphatase 95, Troponin I High Sens 14, Total Protein 6.5, Albumin 3.0 L, Globulin 3.5, Albumin/Globulin Ratio 0.9 05/06/24 11:13: Lactic Acid 2.2 H* Imaging Radiology Impression Chest X-Ray 05/06/24 11:15 IMPRESSION: Pleural parenchymal changes at the right lung base with prominence of the right hilum. Radiographic follow-up recommended. Electronically Signed: Inder Melendez MD at 12:14 EDT , Assessment & Plan Assessment/Plan (1) Acute hypotension: (2) Elevated serum creatinine: (3) Warfarin-induced coagulopathy: (4) Acidosis, lactic: (5) Severe sepsis with acute organ dysfunction: PLAN: Plan #Severe sepsis due to pneumonia * Patient's blood pressure usually runs in the 90s systolic being went as low as the 60s in the ED. He did respond to a bolus of IV fluids though. * Was admitted with a complaint of shortness of breath. He did receive ceftriaxone and azithromycin in the ED due to concerns for pneumonia but he had what appeared to be an allergic reaction to the azithromycin and became even more hypotensive. He therefore received Benadryl and famotidine in the ED. * Admit to the ICU. * Start on IV Zosyn. Breathing treatments bronchodilators. Get blood cultures and sputum cultures as well as urine for strep and Legionella. Check COVID, RSV and flu. * Will hold off on aggressive hydration due to his known EF of 15 to 20% as he may get fluid overloaded. * If he gets even more hypotensive then will start low-dose vasopressors to maintain a MAP of more than 65% * consult critical care * breathing treatment with bronchodilators. * Titrate oxygen to maintain saturation above 90% #Elevated INR * INR 6.2. No evidence of bleeding. * Hold Coumadin. He is on the Coumadin for apical LV thrombus * Trend INR. Hold off on vitamin K as there is no evidence of bleeding. * #Elevated liver enzymes * Total bilirubin is 3.7. He does have a history of elevated bilirubin * Will monitor closely for analysis and a 4 of his baseline. AST and ALT as well as ALP are not elevated. #Lactic acidosis: * Likely due to sepsis. Lactic acid was 2.2 on admission and trended up to 2.9. * I am hesitant about aggressive fluid hydration due to his EF of 15%. * Trend lactic acid and give vasopressors if blood pressure remains low * #Nonischemic cardiomyopathy * Has known EF of 15 to 20% and has a cardiac defibrillator in place. * On amiodarone. * On Coumadin due to a known left ventricular thrombus * #History of heart failure due to ejection fraction: EF as above at 15 to 20%. Hold Lasix and other BP meds due to hypotension and sepsis. #Type 2 diabetes mellitus: On Jardiance and metformin. Will hold these. Also hold glimepiride. Insulin sliding scale. Accu-Cheks ACHS. #Hyperlipidemia: On statin #History of Gilbert's syndrome: Less likely the cause of the elevated liver enzymes. DVT prophylaxis: SCDs. No anticoagulation in light of the elevated INR CODE STATUS: Full code * Patient counseled extensively about different types of CODE STATUS including full code, DNR CCA and DNR CCA. Patient elects to be full code. Total [id number] time 17 minutes. Charges/Coding Visit Charges Inpatient E&M: 63133 Init Hosp L3 Procedures Hospitalists Procedures: 89376 Advncd Care Plan 30 Min
[2024-05-06] MEDS: DiphenhydrAMINE 50 MG/ML Syringe 25 MG IV (12:33)
[2024-05-06] MEDS: Famotidine 200 MG/20 ML MDV 20 MG in 0.9% Normal Saline (Pres. free 8 ML 300 MG IV (12:38)
--- NOTE | 2024-05-06 12:52 | NURSING ---
pt began to complain of itchiness after administration of antibiotic. dr. trejo notified.
--- NOTE | 2024-05-06 12:53 | ED.RN ---
this nurse attempted to call report to icu at [phone].
[2024-05-06 15:20] LABS: Reflex Lactate? Y
[2024-05-06] MEDS: guaiFENesin Dm 10 ML UDC PO (15:21)
[2024-05-06 16:06] LABS: Lactic Acid 2.9 mmol/L (0.4-1.9)
--- NOTE | 2024-05-06 19:35 | PCMCONS.TICU ---
HPI Consult Data Date of Consult: 05/06/24 HPI Narrative Reason for Consultation: sepsis HPI Narrative: 64Y M PMH chronic hypotension, HFrEF sp ICD, AFib on amio, LV thrombus who presented with progressive SOB. ROS + orthopnea & chills. Neg for chest pain, N/V, abd pain. In the ED noted to have low BP & was saturating 95% on 4 L of oxygen. He received 1L NS bolus and empiric IV Abx for RLL PNA seen on CXR before admission to the ICU in the afternoon. This evening critical care consult was placed for sepsis. [facility] Medical History (Updated 05/06/24 @ 12:[address] Shine Estrada MD) Paroxysmal ventricular tachycardia Nonischemic cardiomyopathy Heart failure with reduced ejection fraction Pleural effusion on right CONNOR (dyspnea on exertion) HTN (hypertension) HLD (hyperlipidemia) Left ventricular thrombus Cardiomyopathy Former smoker CPAP (continuous positive airway pressure) dependence Sleep apnea Loculated pleural effusion Pulmonary embolism Coagulopathy Gilbert's syndrome Hepatomegaly Jaundice Diabetes Congestive heart failure (CHF) Hyperlipidemia Tobacco dependence Home Medications ?Medication ?Instructions ?Recorded ?Last Taken ?Type ascorbic acid (vitamin C) 500 mg 500 mg PO DAILY@0800 vitamin 05/30/13 10/02/21 History tablet (Vitamin C) 500 mg aspirin 81 mg tablet,delayed 81 mg PO DAILY@0800 #30 TABLETS 06/01/13 10/02/21 Rx release 81 mg metformin 500 mg tablet,extended 1,000 mg PO BID DM 06/10/21 10/02/21 History release 24 hr 500 mg glimepiride 4 mg tablet 4 mg PO DAILY DM 10/03/21 10/02/21 History 4 mg spironolactone 25 mg tablet 25 mg PO DAILY FLUID 10/21/21 Unknown History warfarin 5 mg tablet 5 mg PO DAILY #30 tabs 01/23/22 Unknown Rx empagliflozin 10 mg tablet 10 mg PO DAILY #90 tabs 09/09/22 Unknown Rx (Jardiance) amiodarone 200 mg tablet 200 mg PO DAILY #90 tabs 06/18/23 Unknown Rx furosemide 40 mg tablet 40 mg PO BIDLX #180 tabs 06/18/23 Unknown Rx losartan 25 mg tablet 12.5 mg (1/2 x 25 mg) PO QHS #45 06/18/23 Unknown Rx tabs carvedilol 25 mg tablet 25 mg PO BID #180 tabs 09/28/23 Unknown Rx Allergy/AdvReac Type Severity Reaction Status Date / Time No Known Allergies Allergy Verified 05/06/24 10:52 Family History Other COPD (chronic obstructive pulmonary disease) Hypertension Parkinson's disease TIA (transient ischemic attack) Surgical History Cardiac defibrillator in place (~01/10/22) History of rectal abscess Social History housing: house Smoking Status: Former smoker how long ago did patient quit smokin months ago alcohol intake: never substance use type: does not use caffeine: No Objective Data Objective Data Vital Signs: Vital Signs Last response Temperature 35.9 C L 05/06/24 14:30 Temperature Source Temporal 05/06/24 14:30 Pulse Rate 71 05/06/24 19:00 Respiratory Rate 22 H 05/06/24 19:00 Respiratory Effort Normal, Non-Labored 05/06/24 16:15 Respiratory Depth Normal 05/06/24 16:15 Respiratory Pattern Normal 05/06/24 16:15 Blood Pressure 91/71 05/06/24 19:00 Blood Pressure Mean 77 05/06/24 19:00 Blood Pressure Source Monitor 05/06/24 19:00 Blood Pressure Position Semi-Fowlers 05/06/24 19:00 Blood Pressure Location Left Arm 05/06/24 19:00 Pulse Ox 96 05/06/24 19:00 Oxygen Delivery Method Nasal Cannula 05/06/24 19:00 Oxygen Flow Rate (L/min) 2 05/06/24 19:00 I&O: I&O Last 24 Hours 05/05/24 05/06/24 05/06/24 23:59 11:59 23:59 Intake Total 500 / 815 315 / 815 Output Total 150 / 150 Balance 500 / 665 165 / 665 I&O: Total Stay 05/06/24 10:47 thru 05/06/24 15:35 Intake Total 815 Output Total 150 Balance 665 Current Meds Ordered / Administered: Current meds ordered / Administered Generic Name Dose Route Start Last Admin Trade Name Freq PRN Reason Stop Dose Admin Acetaminophen 650 mg 05/06/24 14:04 Acetaminophen 325 Mg Tablet PO Q6H PRN PRN Pain 1-10 Or Fever >100.7 Amiodarone HCl 200 mg 05/07/24 10:00 Amiodarone 200 Mg Tablet PO DAILY YVROSE Guaifenesin 10 ml 05/06/24 14:04 05/06/24 15:21 Guaifenesin Dm 10 Ml Udc PO 10 ml Q6H PRN PRN Administration COUGH/CONGESTION Sodium Chloride 500 mls @ 15 mls/hr 05/06/24 13:33 IV .[id number] PRN Saline Flush Sodium Chloride 500 mls @ 15 mls/hr 05/06/24 13:33 IV .[id number] PRN Additional IVPB Infusion Piperacillin Sod/Tazobactam 50 mls @ 12.5 mls/hr 05/06/24 22:00 Sod 3.375 gm/ Sodium Chloride IV Q8 YVROSE Morphine Sulfate 2 - 4 mg 05/06/24 14:04 Morphine 2 Mg/Ml Syringe IV Q3H PRN PRN Pain Score 6-10 Nitroglycerin 0.4 mg 05/06/24 14:04 Nitroglycerin (Inpatient Use) 0.4 Mg Tab.Subl SL Q5M PRN CARDIAC/CHEST PAIN Ondansetron HCl 4 mg 05/06/24 14:04 Ondansetron 4 Mg/2 Ml Vial IV Q8H PRN PRN NAUSEA/VOMITING Sodium Chloride 10 - 40 ml 05/06/24 13:33 0.9% Saline Lock 10 Ml Syringe IV UD PRN SALINE FLUSH Lab / Micro Data 05/06/24 11:00 05/06/24 11:00 Labs: Laboratory Results - last 24 hr 05/06/24 11:00: WBC 5.6, RBC 5.26, Hgb 13.6, Hct 42.7, MCV 81.2, MCH 25.9 L, MCHC 31.9 L, RDW Std Deviation 44.8 H, RDW Coeff of Tony 15.3 H, Plt Count 175, MPV 11.3, Immature Gran % (Auto) 0.200, Neut % (Auto) 66.5, Lymph % (Auto) 19.6, [place] % (Auto) 10.9 H, Eos % (Auto) 1.6, Baso % (Auto) 1.2 H, Absolute Neuts (auto) 3.7, Absolute Lymphs (auto) 1.10, Nucleated RBC % 0, PT 54.4 H, INR 6.2 H*, D-Dimer Quant (PE/DVT) 0.42, Sodium 136, Potassium 3.7, Chloride 103, Carbon Dioxide 26.0, Anion Gap 8, BUN 22 H, Creatinine 1.39 H, Estim Creat Clear Calc 62.04, Est GFR (MDRD) Af Amer 66, Est GFR (MDRD) Non-Af 55 L, BUN/Creatinine Ratio 15.8, Glucose 187 H, Calcium 9.2, Total Bilirubin 3.70 H, AST 13 L, ALT 11 L, Alkaline Phosphatase 95, Troponin I High Sens 14, Total Protein 6.5, Albumin 3.0 L, Globulin 3.5, Albumin/Globulin Ratio 0.9 05/06/24 11:13: Lactic Acid 2.2 H* 05/06/24 15:35: Lactic Acid 2.9 H* Micro: Microbiology 05/06/24 14:40 Urine, Clean Catch Legionella Antigen - Final 05/06/24 14:40 Urine, Clean Catch Streptococcus pneumoniae Antigen (M - Final 05/06/24 13:01 Mucosa - Nose SARS-CoV-2, Influenza & RSV (PCR) - Final Imaging Radiology Impression Chest X-Ray 05/06/24 11:15 IMPRESSION: Pleural parenchymal changes at the right lung base with prominence of the right hilum. Radiographic follow-up recommended. Electronically Signed: Inder Melendez MD at 12:14 EDT , Assessment and Plan . Assessment and plan: General: Well developed, in no distress HEENT: anicteric Sclera, nl nose; supple neck, no masses Cardiovascular: S1/S2; No rubs, gallops; no displaced PM Respiratory: diminished; no crackles, wheezes, or rhonchi Abdominal: Non-tender; Non distended; hypoBS x 4; No Hepatosplenomegaly Extremities: Warm, well perfused; No clubbing, cyanosis; capillary refill < 2 sec Skin: intact, no rashes Neurological: no gross deficits appreciated A/P #Severe sepsis: sp limited fluid bolus due to severe HF; also chronically low BP with systolic 90s; start NEpi if needed to keep MAP > 65; add midodrine; sp emp IV Abx; F/U Cx #PNA: see above; titrate O2 to keep sats ~90% #Lactic acidosis: 2* to above + chronic low perfusion state; monitor #HFrEF: no evidence of decompensated HF at this time; hold diuresis & HF meds until BP improved #Afib on amio & warfarin: cont home meds #JERAMIE: sp limited fluid bolus; cont strict I/Os Warfarin Critical Care Time: 60 min The entirety of this encounter was done via Telemedicine
[2024-05-06] MEDS: Piperacil/Tazobactam 3.375 GM in 0.9% Normal Saline (50mL MB+) 50 ML IV (21:55)
[2024-05-06] MEDS: Insulin Lispro 100 UNIT/ML INSULN.PEN SC (21:58)
[2024-05-06 22:19] LABS: Bedside Glucose 217 mg/dL (74-106)
[2024-05-07] VITALS (19 sets, daily range): BP systolic 70–109; BP diastolic 57–81; PULSE 94–109; RESP 13–24; TEMP 36.3–37; O2SAT 92–100; BMI 28.3
[2024-05-07 03:40] LABS: Absolute Lymphocyte Count 1.16 X10^3/uL (0.83-4.51); Absolute Neutrophil Count 3.4 X10^3/uL (2.0-7.7); Basophil# 0.07 X10^3/uL; Basophil% 1.3 % (0-1); Eosinophil# 0.06 X10^3/uL; Eosinophils% 1.1 % (0-5); Hematocrit 41.1 % (40-54); Hemoglobin 13.5 g/dL (13.0-16.5); Lymphocyte # 1.16 X10^3/ul (0.83-4.51); Lymphocyte % 21.2 % (19-41); Mean Corp Hgb Conc 32.8 g/dL (32-36); Mean Corpuscular Hgb 26.3 pg (27.0-32.0); Mean Platelet Vol. 11.3 fl (6.2-12.0); Monocyte# 0.75 X10^3/uL; Monocyte% 13.7 % (0-10); NRBC Flagged by Analyzer 0 % (0-5); Neutrophil # 3.41 X10^3/uL (2.7-7.7); Neutrophil % 62.5 % (47-70); Platelet Count 167 K/mm3 (150-450); RBC Distribution Width CV 15.5 % (11.6-14.6); RBC Distribution Width SD 44.4 fl (35.1-43.9); Red Blood Count 5.14 M/mm3 (4.6-6.2); White Blood Count 5.5 K/mm3 (4.4-11.0)
[2024-05-07 03:55] LABS: Anion Gap 8 (5-15); BUN 23 mg/dL (7-18); BUN/Creat Ratio 15.2 RATIO (10-20); Calcium,Total 8.9 mg/dL (8.5-10.1); Chloride 104 mmol/L (98-107); Creatinine, Serum 1.51 mg/dL (0.70-1.30); EST Glomerular Filtration Rate 50 mL/min (>60); Est Glom Filt Rate - Afr Amer 60 mL/min (>60); Estimated Creatinine Clearance 56.76 ml/min; Glucose 174 mg/dL (74-106); Potassium 3.7 mmol/L (3.5-5.1); Sodium Level 136 mmol/L (136-145)
[2024-05-07] MEDS: Piperacil/Tazobactam 3.375 GM in 0.9% Normal Saline (50mL MB+) 50 ML IV ×3 (05:01→22:43)
--- NOTE | 2024-05-07 07:52 | PCM.PN.TICU ---
Objective Data Objective Data Vital Signs: Vital Signs Last response Temperature 36.3 C L 05/07/24 04:00 Temperature Source Temporal 05/07/24 04:00 Pulse Rate 95 05/07/24 07:00 Pulse Strength Weak (1+) 05/06/24 19:43 Respiratory Rate 18 05/07/24 07:00 Respiratory Effort Normal, Non-Labored 05/07/24 04:01 Respiratory Depth Normal 05/07/24 04:01 Respiratory Pattern Normal 05/07/24 04:01 Blood Pressure 109/77 05/07/24 07:00 Blood Pressure Mean 87 05/07/24 07:00 Blood Pressure Source Monitor 05/07/24 07:00 Blood Pressure Position Semi-Fowlers 05/07/24 07:00 Blood Pressure Location Left Arm 05/07/24 07:00 Pulse Ox 95 05/07/24 07:16 Oxygen Delivery Method Nasal Cannula 05/07/24 07:16 Oxygen Flow Rate (L/min) 2 05/07/24 07:16 I&O: I&O Last 24 Hours 05/06/24 05/06/24 05/07/24 11:59 23:59 11:59 Intake Total 500 / 1015 515 / 1015 50 / 50 Output Total 250 / 250 Balance 500 / 765 265 / 765 50 / 50 I&O: Total Stay 05/06/24 10:47 thru 05/07/24 04:02 Intake Total 1065 Output Total 250 Balance 815 Current Meds Ordered / Administered: Current meds ordered / Administered Generic Name Dose Route Start Last Admin Trade Name Freq PRN Reason Stop Dose Admin Acetaminophen 650 mg 05/06/24 14:04 Acetaminophen 325 Mg Tablet PO Q6H PRN PRN Pain 1-10 Or Fever >100.7 Amiodarone HCl 200 mg 05/07/24 10:00 Amiodarone 200 Mg Tablet PO DAILY YVROSE Guaifenesin 10 ml 05/06/24 14:04 05/06/24 15:21 Guaifenesin Dm 10 Ml Udc PO 10 ml Q6H PRN PRN Administration COUGH/CONGESTION Sodium Chloride 500 mls @ 15 mls/hr 05/06/24 13:33 IV .[id number] PRN Saline Flush Sodium Chloride 500 mls @ 15 mls/hr 05/06/24 13:33 IV .[id number] PRN Additional IVPB Infusion Piperacillin Sod/Tazobactam 50 mls @ 12.5 mls/hr 05/06/24 22:00 05/07/24 05:01 Sod 3.375 gm/ Sodium Chloride IV 12.5 mls/hr Q8 YVROSE Administration Insulin Human Lispro 0 unit 05/06/24 22:00 05/06/24 21:58 Insulin Lispro 100 Unit/Ml Insuln.Pen SC 1 u ACHS YVROSE Administration Protocol Morphine Sulfate 2 - 4 mg 05/06/24 14:04 Morphine 2 Mg/Ml Syringe IV Q3H PRN PRN Pain Score 6-10 Nitroglycerin 0.4 mg 05/06/24 14:04 Nitroglycerin (Inpatient Use) 0.4 Mg Tab.Subl SL Q5M PRN CARDIAC/CHEST PAIN Ondansetron HCl 4 mg 05/06/24 14:04 Ondansetron 4 Mg/2 Ml Vial IV Q8H PRN PRN NAUSEA/VOMITING Sodium Chloride 10 - 40 ml 05/06/24 13:33 0.9% Saline Lock 10 Ml Syringe IV UD PRN SALINE FLUSH Lab / Micro Data 05/07/24 03:34 05/07/24 03:34 Labs: Laboratory Results - last 24 hr 05/06/24 11:00: WBC 5.6, RBC 5.26, Hgb 13.6, Hct 42.7, MCV 81.2, MCH 25.9 L, MCHC 31.9 L, RDW Std Deviation 44.8 H, RDW Coeff of Tony 15.3 H, Plt Count 175, MPV 11.3, Immature Gran % (Auto) 0.200, Neut % (Auto) 66.5, Lymph % (Auto) 19.6, [place] % (Auto) 10.9 H, Eos % (Auto) 1.6, Baso % (Auto) 1.2 H, Absolute Neuts (auto) 3.7, Absolute Lymphs (auto) 1.10, Nucleated RBC % 0, PT 54.4 H, INR 6.2 H*, D-Dimer Quant (PE/DVT) 0.42, Sodium 136, Potassium 3.7, Chloride 103, Carbon Dioxide 26.0, Anion Gap 8, BUN 22 H, Creatinine 1.39 H, Estim Creat Clear Calc 62.04, Est GFR (MDRD) Af Amer 66, Est GFR (MDRD) Non-Af 55 L, BUN/Creatinine Ratio 15.8, Glucose 187 H, Calcium 9.2, Total Bilirubin 3.70 H, AST 13 L, ALT 11 L, Alkaline Phosphatase 95, Troponin I High Sens 14, Total Protein 6.5, Albumin 3.0 L, Globulin 3.5, Albumin/Globulin Ratio 0.9 05/06/24 11:13: Lactic Acid 2.2 H* 05/06/24 15:35: Lactic Acid 2.9 H* 05/06/24 21:53: POC Glucose 217 H 05/07/24 03:34: WBC 5.5, RBC 5.14, Hgb 13.5, Hct 41.1, MCV 80.0, MCH 26.3 L, MCHC 32.8, RDW Std Deviation 44.4 H, RDW Coeff of Tony 15.5 H, Plt Count 167, MPV 11.3, Immature Gran % (Auto) 0.200, Neut % (Auto) 62.5, Lymph % (Auto) 21.2, [place] % (Auto) 13.7 H, Eos % (Auto) 1.1, Baso % (Auto) 1.3 H, Absolute Neuts (auto) 3.4, Absolute Lymphs (auto) 1.16, Nucleated RBC % 0, Sodium 136, Potassium 3.7, Chloride 104, Carbon Dioxide 24.0, Anion Gap 8, BUN 23 H, Creatinine 1.51 H, Estim Creat Clear Calc 56.76, Est GFR (MDRD) Af Amer 60, Est GFR (MDRD) Non-Af 50 L, BUN/Creatinine Ratio 15.2, Glucose 174 H, Calcium 8.9 Micro: Microbiology 05/06/24 14:40 Urine, Clean Catch Legionella Antigen - Final 05/06/24 14:40 Urine, Clean Catch Streptococcus pneumoniae Antigen (M - Final 05/06/24 13:01 Mucosa - Nose SARS-CoV-2, Influenza & RSV (PCR) - Final Imaging Radiology Impression Chest X-Ray 05/06/24 11:15 IMPRESSION: Pleural parenchymal changes at the right lung base with prominence of the right hilum. Radiographic follow-up recommended. Electronically Signed: Inder Melendez MD at 12:14 EDT , Assessment and Plan . Assessment and plan: Critical Care Time: The entirety of this encounter was done via Telemedicine Subjective Subjective Pt seen and examined. No acute events over night. Feels better overall but does endorse dyspnea/heavy breathing sensation. Did not require additional fluid or pressor support over night. Assessment and plan: General: Well developed, in no distress HEENT: anicteric Sclera, nl nose; supple neck, no masses Cardiovascular: S1/S2; No rubs, gallops; no displaced PM Respiratory: diminished; no crackles, wheezes, or rhonchi Abdominal: Non-tender; Non distended; hypoBS x 4; No Hepatosplenomegaly Extremities: Warm, well perfused; No clubbing, cyanosis; capillary refill < 2 sec Skin: intact, no rashes Neurological: A&Ox3; no gross deficits appreciated A/P #Severe sepsis: sp limited fluid bolus due to severe HF; also chronically low BP with systolic 90s; start NEpi if needed to keep MAP > 65; sp emp IV Abx; F/U Cx --> BP improved #PNA: see above; titrate O2 to keep sats ~90% --> add nebs for bronchopulm hygiene, mobilize and encourage out of bed #Lactic acidosis: 2* to above + chronic low perfusion state; monitor #HFrEF: no evidence of decompensated HF at this time; hold diuresis & HF meds until BP improved --> would restart diuresis today #Afib on amio & warfarin: cont home meds #Supratherapeutic INR: hold warfarin and monitor #JERAMIE: sp limited fluid bolus; cont strict I/Os PO diet Warfarin on hold due to supratherapeutic INR Guarded prognosis Can downgrade from my stand point. Will sign off. The entirety of this encounter was done via Telemedicine
[2024-05-07] MEDS: Furosemide 40 MG/4 ML Vial IV (10:32)
[2024-05-07] MEDS: Amiodarone 200 MG Tablet PO (10:32)
[2024-05-07] MEDS: 0.9% Saline Lock 10 ML Syringe IV ×2 (10:40→22:15)
--- NOTE | 2024-05-07 10:40 | CASEMGMT ---
MARIETTA BUTLER Assessment: Face to Face with pt for initial transition planning/care coordination assessment. MARIETTA BUTLER introduced self and role at [facility], pt voices understanding and consents to assessment. Pt is A&O x4 and answers all questions appropriately at this time. Pt sitting up in chair in no distress. Care providers, pharmacy, and demographics verified/updated. Strata:2 Admitting Dx: Pneumonia PCP: Francisco Specialists: [facility] Preferred Pharmacy: [facility] Insurance: [employer] Prescription Benefit: GoodRx Card LNOK: , Mague; Sister, Aleta. Living Arrangements: Pt lives with and son. ADLs: Pt reports I at baseline. Transportation: Pt drives self and denies concerns with transportation. DME: Cane, Glucometer and supplies. HHC/SNF: Denies Hx of. Pt states no concerns with going home at time of dc. Discussed O2 needs with pt. provided list of local providers, if pt requires to go home with O2 he chose [facility] as DME provider of choice. Pt states no further concerns/needs. CM to follow. Advised pt to ask CM if any further question/concerns/needs arise, voices understanding. Pt Goal: Home Plan: Home with family support, follow for O2 needs. Damaso MCMANUS CM
[2024-05-07] MEDS: Insulin Lispro 100 UNIT/ML INSULN.PEN SC ×3 (10:42→22:16)
[2024-05-07 11:01] LABS: Bedside Glucose 212 mg/dL (74-106)
[2024-05-07 11:11] LABS: International Normalized Ratio 7.5; Prothrombin Time (Protime)PT. 62.9 SECONDS (11.7-14.9)
[2024-05-07 11:12] LABS: AST(SGOT) 11 U/L (15-37); Alanine Aminotransfer ALT/SGPT 9 U/L (16-61); Albumin, Serum 2.7 g/dL (3.2-5.0); Alkaline Phosphatase 89 U/L (45-117); Bilirubin, Direct 1.26 mg/dL (0.00-0.30); Globulin 3.2 g/dL (2.2-4.2); Protein, Total 5.9 g/dL (6.4-8.2)
--- NOTE | 2024-05-07 11:32 | PN_ITS ---
Subjective Subjective Patient seen and examined today. He looks much better and states he feels much better. He is however still coughing and says the cough is productive. He denies any fever or chills and review of symptoms otherwise negative. He is mildly tachycardic with pulse rate of 102 and blood pressure is running low at 81/76. However his blood pressure does run low due to his EF of 15 to 20%. INR is elevated even further at over 7 today. Objective Data Objective Data Vital Signs: Vital Signs Temp Pulse Resp BP Pulse Ox O2 Del Method O2 Flow Rate 98.6 F 102 H 22 H 81/76 L 92 Room Air 2 05/07/24 08:00 05/07/24 11:00 05/07/24 11:00 05/07/24 11:00 05/07/24 11:00 05/07/24 11:00 05/07/24 07:16 Oxygen Flow Rate (L/min) 2 Oxygen Delivery Method Room Air Weight: 198 lb 3.129 oz Body Mass Index (BMI) 28.3 Intake & Output: Intake and Output for Last 24 Hours 05/05/24 05/06/24 05/07/24 23:59 23:59 23:59 Intake Total 1015 / 1015 400 / 400 Output Total 250 / 250 50 / 50 Balance 765 / 765 350 / 350 Lab / Micro Data 05/07/24 03:34 05/07/24 03:34 Labs: Laboratory Results - last 24 hr 05/06/24 11:00: PT 54.4 H, INR 6.2 H*, D-Dimer Quant (PE/DVT) 0.42, Sodium 136, Potassium 3.7, Chloride 103, Carbon Dioxide 26.0, Anion Gap 8, BUN 22 H, C reatinine 1.39 H, Estim Creat Clear Calc 62.04, Est GFR (MDRD) Af Amer 66, Est GFR (MDRD) Non-Af 55 L, BUN/Creatinine Ratio 15.8, Glucose 187 H, Calcium 9.2, T otal Bilirubin 3.70 H, AST 13 L, ALT 11 L, Alkaline Phosphatase 95, Troponin I High Sens 14, Total Protein 6.5, Albumin 3.0 L, Globulin 3.5, Albumin/Globulin Ratio 0.9 05/06/24 11:13: Lactic Acid 2.2 H* 05/06/24 15:35: Lactic Acid 2.9 H* 05/06/24 21:53: POC Glucose 217 H 05/07/24 03:34: WBC 5.5, RBC 5.14, Hgb 13.5, Hct 41.1, MCV 80.0, MCH 26.3 L, MCHC 32.8, RDW Std Deviation 44.4 H, RDW Coeff of Tony 15.5 H, Plt Count 167, MPV 11.3, Immature Gran % (Auto) 0.200, Neut % (Auto) 62.5, Lymph % (Auto) 21.2, M se % (Auto) 13.7 H, Eos % (Auto) 1.1, Baso % (Auto) 1.3 H, Absolute Neuts (auto) 3.4, Absolute Lymphs (auto) 1.16, Nucleated RBC % 0, Sodium 136, Potassium 3.7, Chloride 104, Carbon Dioxide 24.0, Anion Gap 8, BUN 23 H, C reatinine 1.51 H, Estim Creat Clear Calc 56.76, Est GFR (MDRD) Af Amer 60, Est GFR (MDRD) Non-Af 50 L, BUN/Creatinine Ratio 15.2, Glucose 174 H, Calcium 8.9 05/07/24 10:30: PT 62.9 H, INR 7.5 H*, Total Bilirubin 2.60 H, Direct Bilirubin 1.26 H, AST 11 L, ALT 9 L, Alkaline Phosphatase 89, Total Protein 5.9 L, Albumin 2.7 L, Globulin 3.2 05/07/24 10:42: POC Glucose 212 H Micro: Microbiology 05/06/24 14:40 Urine, Clean Catch Legionella Antigen - Final 05/06/24 14:40 Urine, Clean Catch Streptococcus pneumoniae Antigen (M - Final 05/06/24 13:01 Mucosa - Nose SARS-CoV-2, Influenza & RSV (PCR) - Final Radiography Diagnostic Testing: Radiology Impression Chest X-Ray 05/06/24 11:15 IMPRESSION: Pleural parenchymal changes at the right lung base with prominence of the right hilum. Radiographic follow-up recommended. Electronically Signed: Inder Melendez MD at 12:14 EDT , Physical Exam Const alert Constitutional Narrative: looks much better today General Appearance: cooperative and well developed HEENT normocephalic, head/scalp atraumatic and hearing grossly normal bilaterally Eyes PERRL, EOMs intact bilaterally and conjunctivae normal Neck no lymphadenopathy and supple Resp Resp Narrative: mildly diminished breath sounds bibasally, few crackles, no wheezing. On 2L of oxygen by nasal canula Cardio regular rate, regular rhythm, S1 normal heart sound and S2 normal heart sound Cardio Narrative: pacemaker in situ GI normal to inspection, nondistended, normoactive bowel sounds, soft to palpation, non-tender and non-distended Extremity normal to inspection, full ROM and no clubbing, cyanosis or edema General Extremity: no tenderness to palpation of joints or extremities Skin Skin Narrative: jaundiced Neuro oriented x3, CN's II-XII intact bilaterally and moves all extremities Sensorium / Orientation: awake and alert Psych affect normal Psych Narrative: very weak Appearance: appropriate Assessment & Plan Assessment/Plan (1) Acute hypotension: (2) Elevated serum creatinine: (3) Warfarin-induced coagulopathy: (4) Acidosis, lactic: (5) Severe sepsis with acute organ dysfunction: PLAN: Plan #Severe sepsis due to pneumonia * BP has improved. It is still low, which is his hnorm of 80s-90s systolic. * on IV zosyn * critical care on board * blood and urine cultures pending * PT/OT On board. Fall precautions * Urine for strep and Legionella negative * Titrate oxygen to maintain saturation above 90% #Elevated INR * I INR today is trended up further at 7.5. No evidence of bleeding. Since his trending upwards will give a dose of p.o. vitamin K 2.5 mg x 1. * Hold Coumadin. He is on the Coumadin for apical LV thrombus * Trend INR. * #Elevated liver enzymes * Total bilirubin is down to 2.6 today. He does have a history of elevated bilirubin due to Gilbert's syndrome * AST and ALT are not elevated. * #Lactic acidosis: * Likely due to sepsis. Lactic acid was 2.2 on admission and trended up to 2.9. * I am hesitant about aggressive fluid hydration due to his EF of 15%. * Trend lactic acid and give vasopressors if blood pressure remains low * #Nonischemic cardiomyopathy * Has known EF of 15 to 20% and has a cardiac defibrillator in place. * On amiodarone. * On Coumadin due to a known left ventricular thrombus. Coumadin currently on hold * #?CKD III * Creatinine is 1.51 today. Was 1.39 yesterday. His baseline from 2021 was less than 1 but from January 2023 it was 1.84. * Unable to hydrate with IV fluids due to hypotension. Will trend creatinine. * #History of heart failure due to ejection fraction: EF as above at 15 to 20%. Hold Lasix and other BP meds due to hypotension and sepsis. #Type 2 diabetes mellitus: On Jardiance and metformin. Will hold these. Also hold glimepiride. Insulin sliding scale. Accu-Cheks ACHS. #Hyperlipidemia: On statin #History of Gilbert's syndrome: Less likely the cause of the elevated liver enzymes. DVT prophylaxis: SCDs. No anticoagulation in light of the elevated INR CODE STATUS: Full code * * Disposition: transfer out of ICU to PCU today. Charges/Coding Visit Charges Inpatient E&M: 88946 [facility] Hosp L3
[2024-05-07] MEDS: Phytonadione (Vit K) 10 MG/ML Ampul 2.5 MG PO (13:16)
[2024-05-07 17:04] LABS: Bedside Glucose 189 mg/dL (74-106)
[2024-05-07] MEDS: Bisacodyl 5 MG Tablet PO (17:09)
[2024-05-07] MEDS: Ipratropium/Albuterol Sulfate 3 ML AMPUL.NEB INHALATION (19:20)
[2024-05-07] MEDS: guaiFENesin Dm 10 ML UDC PO (22:15)
--- NOTE | 2024-05-07 22:36 | NURSING ---
1400 dose of Zosyn never got unclamped, so the med was never given. Called pharmacy and they said to give the 2200 dose and skip 1400 dose.
[2024-05-08] VITALS (9 sets, daily range): BP systolic 81–97; BP diastolic 60–78; PULSE 66–98; RESP 18–20; TEMP 35.6–36.3; O2SAT 96–100; BMI 29.5
[2024-05-08 00:08] LABS: Bedside Glucose 210 mg/dL (74-106)
--- NOTE | 2024-05-08 01:06 | CT_ITS ---
STUDY: CT CHEST, ABDOMEN T PELVIS WITHOUT CONTRAST REASON FOR EXAM: Male, 64 years old. shortness of breath, abdominal distention. RADIATION DOSAGE (If Supplied By Facility): CTDIvol = ( 21.90 ) mGy, DLP = ( 1944.95 ) mGycm TECHNIQUE: Transaxial imaging was performed without the administration of intravenous contrast material. The protocol utilizes one or more of the following dose reduction techniques: automated exposure control, adjustment of mA and/or kV according to patient size,and/or use of iterative reconstruction technique. COMPARISON: No relevant prior comparison study available FINDINGS: ---CHEST LUNGS: Compressive atelectasis bilateral lower lobes greater on the left. Reticular opacities bilaterally likely subsegmental atelectasis. LARGE AIRWAYS: Unremarkable. PLEURA: Moderate left pleural effusion. [id number] right pleural effusion, including fluid loculated along the major fissure. No pneumothorax. MEDIASTINUM: Enlarged lymph nodes in the mediastinum, largest node precarinal is 1.5 cm in short axis. HEART: Enlarged. Small pericardial effusion. Pacemaker leads noted. CORONARY ARTERIES: Coronary artery calcifications are seen. AORTA/VESSELS: No aortic aneurysm. ESOPHAGUS: Unremarkable. BONES/SOFT TISSUES: No acute abnormality. OTHER/LINES: Central venous catheter tip in the SVC at the right atrial junction. ---ABDOMEN PELVIS LIVER: Heterogeneous. Nodular contour. GALLBLADDER AND BILIARY TREE: Gallstones in the gallbladder. PANCREAS: Grossly unremarkable. SPLEEN: Grossly unremarkable. ADRENAL GLANDS: Grossly unremarkable. KIDNEYS AND URETERS: No calculi demonstrated. No hydronephrosis. PERITONEUM: No free air. Moderate free fluid in the abdomen and pelvis. BOWEL: No bowel obstruction. Mild stranding throughout the mesentery. APPENDIX: Visualized and unremarkable. No evidence of acute appendicitis. VESSELS: Abdominal aorta is normal caliber. REPRODUCTIVE ORGANS: Grossly unremarkable URINARY BLADDER: Minimally distended. Prominent wall. ABDOMINAL WALL: Subcutaneous edema throughout the body wall. BONES: No acute abnormalities. Degenerative changes in the lumbar spine. CT/CT Chest, Abd, Pelvis WO Cont IMPRESSION: 1. Moderate bilateral pleural effusions greater on the left with basilar compressive atelectasis. 2. Mediastinal adenopathy. 3. Cardiomegaly. 4. Findings suggest hepatic cirrhosis. 5. Moderate ascites. 6. Anasarca. 7. Cholelithiasis. Electronically Signed: Jaz Goetz MD at 3:23 EST ,
[2024-05-08] MEDS: Ipratropium/Albuterol Sulfate 3 ML AMPUL.NEB INHALATION ×4 (01:13→19:40)
[2024-05-08 02:33] LABS: Lactic Acid 2.6 mmol/L (0.4-1.9)
[2024-05-08] MEDS: Albumin Human 25% (50 mL) 12.5 GM/50 ML IV.SOLN IV (04:21)
[2024-05-08] MEDS: 0.9% Saline Lock 10 ML Syringe IV (04:22)
[2024-05-08] MEDS: Furosemide 40 MG/4 ML Vial IV (04:22)
[2024-05-08] MEDS: Piperacil/Tazobactam 3.375 GM in 0.9% Normal Saline (50mL MB+) 50 ML IV ×3 (05:22→21:11)
[2024-05-08 05:54] LABS: Reflex Lactate? Y
[2024-05-08 06:24] LABS: Absolute Neutrophil Count 3.8 X10^3/uL (2.0-7.7); Basophil# 0.11 X10^3/uL; Basophil% 1.7 % (0-1); Eosinophil# 0.09 X10^3/uL; Eosinophils% 1.4 % (0-5); Hematocrit 45.5 % (40-54); Hemoglobin 14.3 g/dL (13.0-16.5); Lymphocyte % 25.8 % (19-41); Mean Corp Hgb Conc 31.4 g/dL (32-36); Mean Corpuscular Hgb 25.7 pg (27.0-32.0); Mean Corpuscular Volume 81.7 fL (80-94); Mean Platelet Vol. 10.7 fl (6.2-12.0); Monocyte# 0.89 X10^3/uL; Monocyte% 13.5 % (0-10); NRBC Flagged by Analyzer 0 % (0-5); Neutrophil # 3.79 X10^3/uL (2.7-7.7); Neutrophil % 57.4 % (47-70); Platelet Count 187 K/mm3 (150-450); RBC Distribution Width CV 15.7 % (11.6-14.6); RBC Distribution Width SD 45.9 fl (35.1-43.9); Red Blood Count 5.57 M/mm3 (4.6-6.2); White Blood Count 6.6 K/mm3 (4.4-11.0)
[2024-05-08 06:41] LABS: International Normalized Ratio 3.1; Prothrombin Time (Protime)PT. 31.4 SECONDS (11.7-14.9)
[2024-05-08 06:51] LABS: Anion Gap 11 (5-15); BUN 27 mg/dL (7-18); BUN/Creat Ratio 12.7 RATIO (10-20); Chloride 103 mmol/L (98-107); Creatinine, Serum 2.12 mg/dL (0.70-1.30); EST Glomerular Filtration Rate 34 mL/min (>60); Est Glom Filt Rate - Afr Amer 41 mL/min (>60); Estimated Creatinine Clearance 40.98 ml/min; Glucose 156 mg/dL (74-106); Potassium 3.8 mmol/L (3.5-5.1); Sodium Level 137 mmol/L (136-145)
[2024-05-08 07:02] LABS: Lactic Acid 3.1 mmol/L (0.4-1.9)
[2024-05-08 07:29] LABS: Bedside Glucose 160 mg/dL (74-106)
[2024-05-08] MEDS: Insulin Lispro 100 UNIT/ML INSULN.PEN SC (07:55)
[2024-05-08] MEDS: Ondansetron 4 MG/2 ML Vial IV (08:02)
[2024-05-08] MEDS: Furosemide 40 MG Tablet PO (09:15)
[2024-05-08] MEDS: Carvedilol 25 MG Tablet PO ×2 (09:15→21:40)
[2024-05-08] MEDS: Aspirin E.C. 81 MG Tablet PO (09:16)
[2024-05-08] MEDS: Amiodarone 200 MG Tablet PO (09:16)
[2024-05-08] MEDS: Bisacodyl 5 MG Tablet PO (09:18)
--- NOTE | 2024-05-08 10:05 | PCM.PROGNOTE ---
Subjective Subjective Patient seen and examined. He had had 1 episode of vomiting this morning but had no other complaints. Review of systems otherwise negative. He has remained hemodynamically stable. Blood pressure is at his baseline of 90s systolic. Objective Data Objective Data Vital Signs: Vital Signs Temp Pulse Resp BP Pulse Ox O2 Del Method O2 Flow Rate 97.4 F L 90 18 92/76 97 Room Air 2 05/08/24 08:52 05/08/24 08:52 05/08/24 08:52 05/08/24 08:52 05/08/24 08:52 05/08/24 08:52 05/08/24 04:00 Oxygen Flow Rate (L/min) 2 Oxygen Delivery Method Room Air Weight: 206 lb 5.643 oz Body Mass Index (BMI) 29.5 Intake & Output: Intake and Output for Last 24 Hours 05/06/24 05/07/24 05/08/24 23:59 23:59 22:59 Intake Total 1015 / 1015 550 / 550 150 / 150 Output Total 250 / 250 50 / 50 Balance 765 / 765 500 / 500 150 / 150 Lab / Micro Data 05/08/24 05:57 05/08/24 05:57 Labs: Laboratory Results - last 24 hr 05/07/24 10:30: PT 62.9 H, INR 7.5 H*, Total Bilirubin 2.60 H, Direct Bilirubin 1.26 H, AST 11 L, ALT 9 L, Alkaline Phosphatase 89, Total Protein 5.9 L, Albumin 2.7 L, Globulin 3.2 05/07/24 16:40: POC Glucose 189 H 05/07/24 21:56: POC Glucose 210 H 05/08/24 01:45 EST: Lactic Acid 2.6 H*, B-Natriuretic Peptide 1446.0 H 05/08/24 05:57: WBC 6.6, RBC 5.57, Hgb 14.3, Hct 45.5, MCV 81.7, MCH 25.7 L, MCHC 31.4 L, RDW Std Deviation 45.9 H, RDW Coeff of Tony 15.7 H, Plt Count 187, MPV 10.7, Immature Gran % (Auto) 0.200, Neut % (Auto) 57.4, Lymph % (Auto) 25.8, [place] % (Auto) 13.5 H, Eos % (Auto) 1.4, Baso % (Auto) 1.7 H, Absolute Neuts (auto) 3.8, Absolute Lymphs (auto) 1.70, Nucleated RBC % 0, PT 31.4 H, INR 3.1, Sodium 137, Potassium 3.8, Chloride 103, Carbon Dioxide 24.0, Anion Gap 11, BUN 27 H, Creatinine 2.12 H, Estim Creat Clear Calc 40.98, Est GFR (MDRD) Af Amer 41 L, Est GFR (MDRD) Non-Af 34 L, BUN/Creatinine Ratio 12.7, Glucose 156 H, Lactic Acid 3.1 H*, Calcium 9.0 05/08/24 06:50: POC Glucose 160 H Micro: Microbiology 05/06/24 11:35 Blood Culture (Wb) - Left Forearm Blood Culture - Preliminary No growth in 48 hours. 05/06/24 14:40 Urine, Clean Catch Legionella Antigen - Final 05/06/24 14:40 Urine, Clean Catch Streptococcus pneumoniae Antigen (M - Final 05/06/24 13:01 Mucosa - Nose SARS-CoV-2, Influenza & RSV (PCR) - Final Radiography Diagnostic Testing: Radiology Impression Chest/Abdomen/Pelvis CT 05/08/24 01:06 EST IMPRESSION: 1. Moderate bilateral pleural effusions greater on the left with basilar compressive atelectasis. 2. Mediastinal adenopathy. 3. Cardiomegaly. 4. Findings suggest hepatic cirrhosis. 5. Moderate ascites. 6. Anasarca. 7. Cholelithiasis. Electronically Signed: Jaz Goetz MD at 3:23 EST , Physical Exam Const alert Constitutional Narrative: looks much better today General Appearance: cooperative and well developed HEENT normocephalic, head/scalp atraumatic and hearing grossly normal bilaterally Eyes PERRL, EOMs intact bilaterally and conjunctivae normal Neck no lymphadenopathy and supple Resp Resp Narrative: mildly diminished breath sounds bibasally, few crackles, no wheezing. On room air. Cardio regular rate, regular rhythm, S1 normal heart sound, S2 normal heart sound and no murmurs Cardio Narrative: pacemaker in situ GI normal to inspection, nondistended, normoactive bowel sounds, soft to palpation, non-tender and non-distended Extremity normal to inspection, full ROM and no clubbing, cyanosis or edema General Extremity: no tenderness to palpation of joints or extremities Skin Skin Narrative: jaundiced General Skin Exam: no breakdown Neuro oriented x3, CN's II-XII intact bilaterally and moves all extremities Sensorium / Orientation: awake and alert Psych affect normal Psych Narrative: very weak Appearance: appropriate Assessment & Plan Assessment/Plan (1) Acute hypotension: (2) Elevated serum creatinine: (3) Warfarin-induced coagulopathy: (4) Acidosis, lactic: (5) Severe sepsis with acute organ dysfunction: PLAN: Plan #Severe sepsis due to pneumonia on IV zosyn critical care on board blood and urine cultures are negative PT/OT On board. Fall precautions Urine for strep and Legionella negative Titrate oxygen to maintain saturation above 90% complete a 5 day course of antibiotics #Elevated INR INR today is down to 3.1. he did receive oral vitamin K yesterday trend INR and continue holding coumadin for today. #Elevated liver enzymes Total bilirubin is down to 2.6 today. He does have a history of elevated bilirubin due to Gilbert's syndrome AST and ALT are not elevated. #Lactic acidosis: Likely due to sepsis. Lactic acid was 2.2 on admission and trended up to 2.9. I am hesitant about aggressive fluid hydration due to his EF of 15%. Trend lactic acid and give vasopressors if blood pressure remains low #Nonischemic cardiomyopathy Has known EF of 15 to 20% and has a cardiac defibrillator in place. On amiodarone. On Coumadin due to a known left ventricular thrombus. Coumadin currently on hold #?CKD III Cr is further up to 2.12 from 1.5 yesterday likely pre renal due to low EF. unable to hydrate due to EF of 15-20% #Acute exacerbation of heart failure with reduced ejection fraction: EF as above at 15 to 20%. lasix resumed due to elevated BNP. Will resume carvedilol also as BP is at baseline will monitor #Type 2 diabetes mellitus: On Jardiance and metformin. Will hold these. Also hold glimepiride. Insulin sliding scale. Accu-Cheks ACHS. #Hyperlipidemia: On statin #History of Gilbert's syndrome: Less likely the cause of the elevated liver enzymes. DVT prophylaxis: SCDs. No anticoagulation in light of the elevated INR CODE STATUS: Full code Charges/Coding Visit Charges Inpatient E&M: 40013 [facility] Hosp L2
[2024-05-08 10:58] LABS: AST(SGOT) 17 U/L (15-37); Alanine Aminotransfer ALT/SGPT 11 U/L (16-61); Albumin, Serum 3.3 g/dL (3.2-5.0); Alkaline Phosphatase 88 U/L (45-117); Bilirubin, Direct 1.38 mg/dL (0.00-0.30); Globulin 3.2 g/dL (2.2-4.2); Protein, Total 6.5 g/dL (6.4-8.2)
[2024-05-08 11:46] LABS: Bedside Glucose 122 mg/dL (74-106)
[2024-05-08 16:30] LABS: Bedside Glucose 138 mg/dL (74-106)
[2024-05-08] MEDS: Temazepam 15 MG Capsule PO (21:40)
[2024-05-08 21:56] LABS: Bedside Glucose 149 mg/dL (74-106)
[2024-05-09] VITALS (16 sets, daily range): BP systolic 69–91; BP diastolic 51–70; PULSE 85–95; RESP 14–26; TEMP 35.6–36.6; O2SAT 89–99; BMI 30.9
--- NOTE | 2024-05-09 04:38 | CPS ---
At 1939May 08, 2024 RT was called down to a baby resuscitation and did not scan medication in SEP.
[2024-05-09] MEDS: Piperacil/Tazobactam 3.375 GM in 0.9% Normal Saline (50mL MB+) 50 ML IV ×3 (05:07→20:51)
--- NOTE | 2024-05-09 05:36 | CPS ---
Patient stated he in non-compliant with home PAP therapy, but willing to try it here
[2024-05-09 06:08] LABS: Absolute Lymphocyte Count 1.51 X10^3/uL (0.83-4.51); Absolute Neutrophil Count 5.8 X10^3/uL (2.0-7.7); Basophil# 0.07 X10^3/uL; Basophil% 0.8 % (0-1); Eosinophil# 0.08 X10^3/uL; Hematocrit 49.6 % (40-54); Hemoglobin 15.1 g/dL (13.0-16.5); Lymphocyte # 1.51 X10^3/ul (0.83-4.51); Lymphocyte % 18.1 % (19-41); Mean Corp Hgb Conc 30.4 g/dL (32-36); Mean Corpuscular Hgb 25.5 pg (27.0-32.0); Mean Corpuscular Volume 83.9 fL (80-94); Mean Platelet Vol. 11.4 fl (6.2-12.0); Monocyte% 9.6 % (0-10); NRBC Flagged by Analyzer 0.2 % (0-5); Neutrophil # 5.82 X10^3/uL (2.7-7.7); Neutrophil % 69.7 % (47-70); Platelet Count 187 K/mm3 (150-450); RBC Distribution Width CV 16.1 % (11.6-14.6); RBC Distribution Width SD 47.4 fl (35.1-43.9); Red Blood Count 5.91 M/mm3 (4.6-6.2); White Blood Count 8.4 K/mm3 (4.4-11.0)
[2024-05-09 06:42] LABS: Anion Gap 14 (5-15); BUN 31 mg/dL (7-18); Calcium,Total 9.2 mg/dL (8.5-10.1); Chloride 102 mmol/L (98-107); Creatinine, Serum 2.81 mg/dL (0.70-1.30); EST Glomerular Filtration Rate 24 mL/min (>60); Est Glom Filt Rate - Afr Amer 29 mL/min (>60); Estimated Creatinine Clearance 31.57 ml/min; Glucose 85 mg/dL (74-106); Potassium 5.7 mmol/L (3.5-5.1); Sodium Level 132 mmol/L (136-145)
[2024-05-09] MEDS: Ipratropium/Albuterol Sulfate 3 ML AMPUL.NEB INHALATION ×3 (07:02→19:23)
[2024-05-09 07:10] LABS: Bedside Glucose 88 mg/dL (74-106)
[2024-05-09 07:10] LABS: Bedside Glucose 84 mg/dL (74-106)
[2024-05-09 08:46] LABS: Anion Gap 14 (5-15); BUN 33 mg/dL (7-18); BUN/Creat Ratio 12.7 RATIO (10-20); Calcium,Total 9.1 mg/dL (8.5-10.1); Chloride 103 mmol/L (98-107); EST Glomerular Filtration Rate 27 mL/min (>60); Est Glom Filt Rate - Afr Amer 32 mL/min (>60); Estimated Creatinine Clearance 34.12 ml/min; Glucose 92 mg/dL (74-106); Potassium 4.4 mmol/L (3.5-5.1); Sodium Level 135 mmol/L (136-145)
[2024-05-09] MEDS: Furosemide 500 MG in Empty Viaflex 50 mL 1 EACH CONT INF (08:53)
[2024-05-09] MEDS: Aspirin E.C. 81 MG Tablet PO (08:54)
[2024-05-09] MEDS: Amiodarone 200 MG Tablet PO (08:55)
[2024-05-09] MEDS: Bisacodyl 5 MG Tablet PO (08:57)
--- NOTE | 2024-05-09 09:48 | PN_ITS ---
Subjective Subjective Patient seen and examined. He was quite lethargic and on BIPAP, though he was subsequently switched to room air. Unable to do comprehensive review of systems due to lethargy. Objective Data Objective Data Vital Signs: Vital Signs Temp Pulse Resp BP Pulse Ox O2 Del Method O2 Flow Rate 97.2 F L 94 20 H 91/65 98 Room Air 3 05/09/24 08:48 05/09/24 08:48 05/09/24 08:48 05/09/24 08:48 05/09/24 08:48 05/09/24 09:43 05/09/24 07:04 Oxygen Flow Rate (L/min) 3 Oxygen Delivery Method Room Air Weight: 215 lb 13.321 oz Body Mass Index (BMI) 30.9 Intake & Output: Intake and Output for Last 24 Hours 05/07/24 05/08/24 05/09/24 23:59 22:59 23:59 Intake Total 550 / 550 700 / 700 450 / 450 Output Total 50 / 50 Balance 500 / 500 700 / 700 450 / 450 Lab / Micro Data 05/09/24 05:30 05/09/24 08:14 Labs: Laboratory Results - last 24 hr 05/08/24 05:57: Total Bilirubin 3.10 H, Direct Bilirubin 1.38 H, AST 17, ALT 11 L, Alkaline Phosphatase 88, Total Protein 6.5, Albumin 3.3, Globulin 3.2 05/08/24 11:28: POC Glucose 122 H 05/08/24 16:10: POC Glucose 138 H 05/08/24 21:09: POC Glucose 149 H 05/09/24 04:46: POC Glucose 84 05/09/24 05:30: WBC 8.4, RBC 5.91, Hgb 15.1, Hct 49.6, MCV 83.9, MCH 25.5 L, M CHC 30.4 L, RDW Std Deviation 47.4 H, RDW Coeff of Tony 16.1 H, Plt Count 187, MPV 11.4, Immature Gran % (Auto) 0.800, Neut % (Auto) 69.7, Lymph % (Auto) 18.1 L, [place] % (Auto) 9.6, Eos % (Auto) 1.0, Baso % (Auto) 0.8, Absolute Neuts (auto) 5.8, Absolute Lymphs (auto) 1.51, Nucleated RBC % 0.2, Sodium 132 L, Potassium 5.7 H, Chloride 102, Carbon Dioxide 16.0 L, Anion Gap 14, BUN 31 H, Creatinine 2.81 H, Estim Creat Clear Calc 31.57, Est GFR (MDRD) Af Amer 29 L, Est GFR (MDRD) Non-Af 24 L, BUN/Creatinine Ratio 11.0, Glucose 85, Calcium 9.2 05/09/24 06:51: POC Glucose 88 05/09/24 08:14: Sodium 135 L, Potassium 4.4, Chloride 103, Carbon Dioxide 18.0 L , Anion Gap 14, BUN 33 H, Creatinine 2.60 H, Estim Creat Clear Calc 34.12, Est GFR (MDRD) Af Amer 32 L, Est GFR (MDRD) Non-Af 27 L, BUN/Creatinine Ratio 12.7, Glucose 92, Calcium 9.1 Micro: Microbiology 05/06/24 11:35 Blood Culture (Wb) - Left Forearm Blood Culture - Preliminary No growth in 48 hours. 05/06/24 14:40 Urine, Clean Catch Legionella Antigen - Final 05/06/24 14:40 Urine, Clean Catch Streptococcus pneumoniae Antigen (M - Final 05/06/24 13:01 Mucosa - Nose SARS-CoV-2, Influenza & RSV (PCR) - Final Physical Exam Const Constitutional Narrative: lethargic, weak Orientation / Consciousness: lethargic HEENT normocephalic, head/scalp atraumatic and hearing grossly normal bilaterally Eyes PERRL, EOMs intact bilaterally and conjunctivae normal Neck no lymphadenopathy and supple Resp Resp Narrative: mildly diminished breath sounds bibasally, few crackles, no wheezing. On BIPAP, now on room air. Cardio regular rate, regular rhythm, S1 normal heart sound, S2 normal heart sound and no murmurs Cardio Narrative: pacemaker in situ GI normal to inspection, nondistended, normoactive bowel sounds, soft to palpation, non-tender and non-distended Extremity normal to inspection, full ROM and no clubbing, cyanosis or edema General Extremity: no tenderness to palpation of joints or extremities Skin Skin Narrative: jaundiced General Skin Exam: no breakdown Neuro Neuro Narrative: weak, lethargic Sensorium / Orientation: awake and alert Psych Psych Narrative: very weak , frail Assessment & Plan Assessment/Plan (1) Acute hypotension: (2) Elevated serum creatinine: (3) Warfarin-induced coagulopathy: (4) Acidosis, lactic: (5) Severe sepsis with acute organ dysfunction: PLAN: Plan #Severe sepsis due to pneumonia * remains on IV zosyn * critical care on board * blood and urine cultures are negative * PT/OT On board. Fall precautions * Urine for strep and Legionella negative * Titrate oxygen to maintain saturation above 90% * complete a 5 day course of antibiotics #Acute on chronic HFrEF * was requiring BIPAP this morning, but was switched to room air. * BNP was elevated. * Cr is trending up today, and was up to 2.81 * will place on lasix drip today * CT chest/abdomen/pelvis showed moderate bilateral pleural effusions greater on the left with basilar compressive atelectasis as well as moderate anasarca and finding ssuggesting hepatic cirrhosis as well as cardiomegaly * also on carvedilol * #Elevated INR * INR pending today. * #Elevated liver enzymes * Total bilirubin is down to 2.6 today. * He does have a history of elevated bilirubin due to Gilbert's syndrome * AST and ALT are not elevated. * CT abdomen and pelvis also shwoing hepatic cirrhosis as above, likely due to acute herat failure. #Lactic acidosis: * Likely due to sepsis. Lactic acid was 2.2 on admission and trended up to 2.9. * I am hesitant about aggressive fluid hydration due to his EF of 15%. * Trend lactic acid and give vasopressors if blood pressure remains low * #Nonischemic cardiomyopathy * Has known EF of 15 to 20% and has a cardiac defibrillator in place. * On amiodarone. * On Coumadin due to a known left ventricular thrombus. Coumadin currently on hold * #JERAMIE on ?CKD III with pseudohyperkalemia * Cr is further up to 2.81 today. * likely pre renal due to low EF. * unable to hydrate due to EF of 15-20% * nephrology consulted; will insert tobar catheter to monitor urine intake and output * Potassium was 5.7 today but on repeat it was down to 4.4. * #None anion gap metabolic acidosis * Bicarb is 18 today and anion gap is 14. * This is likely due to to the worsening kidney function. Nephrology consulted. Await recs. Lactic acid was also elevated and this may also be playing a role. * #Type 2 diabetes mellitus: On Jardiance and metformin. Will hold these. Also hold glimepiride. Insulin sliding scale. Accu-Cheks ACHS. #Hyperlipidemia: On statin DVT prophylaxis: SCDs. No anticoagulation in light of the elevated INR CODE STATUS: Full code * * Charges/Coding Visit Charges Inpatient E&M: 73753 Subs Hosp L3
[2024-05-09 10:10] LABS: International Normalized Ratio 3.9
[2024-05-09] MEDS: Carvedilol 25 MG Tablet PO (10:49)
[2024-05-09 11:21] LABS: Bedside Glucose 155 mg/dL (74-106)
--- NOTE | 2024-05-09 12:09 | CON.PCM.RE_ITS ---
Assessment & Plan Assessment/Plan (1) JERAMIE (acute kidney injury): (2) Acute hypotension: (3) Right lower lobe pneumonia: PLAN: Plan - JERAMIE with unknown baseline creatinine. Baseline creatinine had been around 1 to 1.2 mg/dL up until December 2021. January 12, 2023 creatinine 1.84. Gap in lab work until this hospitalization. Serum creatinine 1.3 on admission peaked to 2.8 with early labs today, repeat labs 3 hours labs SCr 2.6 mg/dL. Patient has good urine output (Barragan has been placed). JERAMIE possibly in the setting of pneumonia with decreased renal perfusion from hypotension and cardiorenal syndrome physiology. EF 15 to 20%. No acute indication for renal placement therapy. Labs early this morning potassium 5.7, repeat labs potassium 4.4. Lasix drip started today. Will monitor clinical response and follow serum creatinine trends. Will obtain UA and urine lytes. Noncontrast CT of chest/abdomen /pelvis, no hydronephrosis, no calculi demonstrated; moderate ascites, anasarca, findings suggest hepatic cirrhosis, bilateral pleural effusions. Oxygen requirements have improved and patient is now on room air. Patient is on IV antibiotics for pneumonia, Zosyn, blood cultures so far no growth. COVID, flu, RSV all negative. Further orders forthcoming as hospitalization evolves, thank you for letting us participate in the care of Mr. Rod. HPI Consult Data Date of Consult: 05/09/24 HPI Narrative HPI Narrative: INDU ROD, is a 64 M with past medical history significant for nonischemic coronary artery disease related cardiomyopathy, chronic systolic heart failure, valvular heart disease, left ventricular apical thrombus, JES on CPAP therapy, hypertension, history of thromboembolic disease with pulmonary emboli, hyperlipidemia who presented to the emergency room on 05/06 with complaints of shortness of breath. Patient noted to be hypotensive in the emergency room systolic as low as 60s in the ED, work-up concerning for sepsis from pneumonia and patient was admitted for further evaluation and treatment. Nephrology consulted in view of rising serum creatinine. 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 Reviewing past serum creatinine levels, baseline creatinine has been around 1 to 1.2 mg/dL from 2011 to 2021. However on January 12, 2023 creatinine 1.84 mg/dL. No current lab work to review until his hospitalization. On admission, 05/06 creatinine 1.39, at 530 this morning creatinine 2.81 and repeat lab work at 0815 this morning creatinine 2.60. Patient denies any diarrhea, he does report he had some vomiting. Denies feeling thirsty. Does not take NSAIDs. Today he was started on Lasix drip. [facility] Medical History (Updated 05/09/24 @ 12:15 by Santa Gomez NP-Andrae) Paroxysmal ventricular tachycardia Nonischemic cardiomyopathy Heart failure with reduced ejection fraction Pleural effusion on right CONNOR (dyspnea on exertion) HTN (hypertension) HLD (hyperlipidemia) Left ventricular thrombus Cardiomyopathy Former smoker CPAP (continuous positive airway pressure) dependence Sleep apnea Loculated pleural effusion Pulmonary embolism Coagulopathy Gilbert's syndrome Hepatomegaly Jaundice Diabetes Congestive heart failure (CHF) Hyperlipidemia Tobacco dependence Home Medications ?Medication ?Instructions ?Recorded ?Last Taken ?Type ascorbic acid (vitamin C) 500 mg 500 mg PO DAILY@0800 vitamin 05/30/13 10/02/21 History tablet (Vitamin C) 500 mg aspirin 81 mg tablet,delayed 81 mg PO DAILY@0800 #30 TABLETS 06/01/13 10/02/21 Rx release 81 mg metformin 500 mg tablet,extended 1,000 mg PO BID DM 06/10/21 10/02/21 History release 24 hr 500 mg glimepiride 4 mg tablet 4 mg PO DAILY DM 10/03/21 10/02/21 History 4 mg spironolactone 25 mg tablet 25 mg PO DAILY FLUID 10/21/21 Unknown History warfarin 5 mg tablet 5 mg PO DAILY #30 tabs 01/23/22 Unknown Rx empagliflozin 10 mg tablet 10 mg PO DAILY #90 tabs 09/09/22 Unknown Rx (Jardiance) amiodarone 200 mg tablet 200 mg PO DAILY #90 tabs 06/18/23 Unknown Rx furosemide 40 mg tablet 40 mg PO BIDLX #180 tabs 06/18/23 Unknown Rx losartan 25 mg tablet 12.5 mg (1/2 x 25 mg) PO QHS #45 06/18/23 Unknown Rx tabs carvedilol 25 mg tablet 25 mg PO BID #180 tabs 09/28/23 Unknown Rx Allergy/AdvReac Type Severity Reaction Status Date / Time temazepam (From Restoril) Allergy Other Verified 05/09/24 05:16 Family History Other COPD (chronic obstructive pulmonary disease) Hypertension Parkinson's disease TIA (transient ischemic attack) Surgical History Cardiac defibrillator in place (~01/10/22) History of rectal abscess Social History housing: house Smoking Status: Former smoker how long ago did patient quit smokin months ago alcohol intake: never substance use type: does not use caffeine: No ROS ROS Narrative As in HPI Physical Exam Narrative Alert and orient x 3, no apparent distress S1, S2, RRR Diminished breath sounds with faint rales Abdomen rounded, soft Trace peripheral edema Indwelling Barragan with clear yellow urine Lab / Micro Data 05/09/24 05:30 05/09/24 08:14 Labs: Laboratory Results - last 24 hr 05/08/24 16:10: POC Glucose 138 H 05/08/24 21:09: POC Glucose 149 H 05/09/24 04:46: POC Glucose 84 05/09/24 05:30: WBC 8.4, RBC 5.91, Hgb 15.1, Hct 49.6, MCV 83.9, MCH 25.5 L, M CHC 30.4 L, RDW Std Deviation 47.4 H, RDW Coeff of Tony 16.1 H, Plt Count 187, MPV 11.4, Immature Gran % (Auto) 0.800, Neut % (Auto) 69.7, Lymph % (Auto) 18.1 L, [place] % (Auto) 9.6, Eos % (Auto) 1.0, Baso % (Auto) 0.8, Absolute Neuts (auto) 5.8, Absolute Lymphs (auto) 1.51, Nucleated RBC % 0.2, Sodium 132 L, Potassium 5.7 H, Chloride 102, Carbon Dioxide 16.0 L, Anion Gap 14, BUN 31 H, Creatinine 2.81 H, Estim Creat Clear Calc 31.57, Est GFR (MDRD) Af Amer 29 L, Est GFR (MDRD) Non-Af 24 L, BUN/Creatinine Ratio 11.0, Glucose 85, Calcium 9.2 05/09/24 06:51: POC Glucose 88 05/09/24 08:14: Sodium 135 L, Potassium 4.4, Chloride 103, Carbon Dioxide 18.0 L , Anion Gap 14, BUN 33 H, Creatinine 2.60 H, Estim Creat Clear Calc 34.12, Est GFR (MDRD) Af Amer 32 L, Est GFR (MDRD) Non-Af 27 L, BUN/Creatinine Ratio 12.7, Glucose 92, Calcium 9.1 05/09/24 08:43: PT 38.0 H, INR 3.9 05/09/24 11:01: POC Glucose 155 H
[2024-05-09] MEDS: Acetaminophen 325 MG Tablet 650 MG PO (12:40)
[2024-05-09] MEDS: Insulin Lispro 100 UNIT/ML INSULN.PEN SC ×3 (12:51→20:48)
[2024-05-09 14:31] LABS: Mucous, Urine 0 SEEN /hpf (<or=2+)
[2024-05-09 14:37] LABS: Color, Urine Yellow (Yellow); Glucose, Dipstick Normal (Normal); Ketone-Dipstick 5 mg/dl (Negative); Leukocyte Esterase-Dipstick 100 /ul (Negative); Nitrite-Dipstick Negative (Negative); Occult Blood-Urine 250 /ul (Negative); Protein-Dipstick 100 mg/dl (Negative); Urine Bilirubin Dipstick Negative (Negative); Urine Clarity Cloudy (Clear); Urine Urobilinogen Normal (Normal)
[2024-05-09 14:44] LABS: Bacteria 2+ /hpf (None Seen); Red Blood Cells-Urine 25-50 SEEN /hpf (0-5); Squamous Epithelial Cells - UA 0-5 SEEN /hpf (0-5)
[2024-05-09 14:45] LABS: White Blood Cells 5-10 SEEN /hpf (0-5)
--- NOTE | 2024-05-09 15:58 | ECHOCS_ITS ---
Reason For Study: HEART FAILURE Procedure This was a 2D Doppler, Color Flow transthoracic echocardiogram. Contrast injection was performed. The study was technically difficult. Patient was scanned in the upright position during exam. Exam performed portable in patient room. Left Ventricle Mildly dilated left ventricle. Severe global LV systolic dysfunction. Estimated LVEF 5%. Suspect LV apical thrombus. Right Ventricle Normal RV size. ICD or pacer leads identified within the right ventricle. Moderate global right ventricular systolic dysfunction. Atria There is severe biatrial dilatation. ICD or pacer leads identified within the right atrium. Mitral Valve Mild diffuse mitral valve thickening. Mild (1+) mitral valve insufficiency. Tricuspid Valve Moderate (2+) tricuspid valve insufficiency. Right ventricular systolic pressure estimated to be 50 mmHg. Aortic Valve Aortic sclerosis, no stenosis. Pulmonic Valve The pulmonic valve is not well visualized. Great Vessels Normal sized aortic root. Pericardium/Pleural Trace to small pericardial effusion. Left pleural effusion noted. Medication Diluted definity 3ml given slow IV push to enhance endocardial definition. MMode/2D Measurements & Calculations LVIDd: 5.6 cm IVSd: 0.93 cm LVOT diam: 1.9 cm LVIDs: 5.4 cm LVPWd: 0.97 cm RVDd: 4.3 cm FS: 4.2 % LVOT area: 2.9 cm2 asc Aorta Diam: 2.7 cm LAV(MOD-bp): 76.3 ml LVAd ap4: 47.6 cm2 LAV(MOD-bp) Indexed: 35.5 ml/m2 LVLd ap4: 9.6 cm LAV(MOD-sp2): 78.8 ml EDV(MOD-sp4): 198.2 ml LAV(MOD-sp4): 73.7 ml EDV(sp4-el): 201.0 ml LVAs ap4: 43.0 cm2 LVLs ap4: 8.8 cm ESV(MOD-sp4): 173.6 ml ESV(sp4-el): 179.0 ml EF(MOD-sp4): 12.4 % EF(sp4-el): 10.9 % LVAd ap2: 49.3 cm2 SV(MOD-sp4): 24.6 ml SV(MOD-sp2): 27.3 ml LVLd ap2: 9.1 cm SI(MOD-sp4): 11.4 ml/m2 SI(MOD-sp2): 12.7 ml/m2 EDV(MOD-sp2): 219.0 ml EDV(sp2-el): 225.4 ml LVAs ap2: 46.2 cm2 LVLs ap2: 9.2 cm ESV(MOD-sp2): 191.7 ml ESV(sp2-el): 197.6 ml EF(MOD-sp2): 12.4 % SV(sp4-el): 21.9 ml Ao sinus diam: 3.[address] Junction: 2.5 cm LA dimension(2D): 4.6 cm LA A4 area: 23.6 cm2 RA A4 area: 21.8 cm2 TAPSE: 0.71 cm Time Measurements MV dec time: 0.10 sec Doppler Measurements & Calculations MV E max nikolay: 81.3 cm/sec Lat Peak E' Nikolay: 5.2 cm/sec Med Peak E' Nikolay: 6.1 cm/sec E/E' lat: 15.5 E/E' med: 13.4 Ao V2 max: 76.4 cm/sec LV V1 max: 50.1 cm/sec SV(LVOT): 19.6 ml Ao max P.3 mmHg LV V1 max P.0 mmHg Ao V2 mean: 56.2 cm/sec LV V1 mean P.60 mmHg Ao mean P.4 mmHg LV V1 mean: 37.0 cm/sec Ao V2 VTI: 9.8 cm LV V1 VTI: 6.8 cm AV (velocity ratio): 0.69 RENAY(I,D): 2.0 cm2 RENAY(V,D): 1.9 cm2 PA V2 max: 35.6 cm/sec TR max nikolay: 298.2 cm/sec PA max PG (full): 0.11 mmHg TR max P.6 mmHg ECHO/Echo Complete W/ Contrast Interpretation Summary Mildly dilated left ventricle. Severe global LV systolic dysfunction. Estimated LVEF 5%. Suspect LV apical thr ombus. Moderate global right ventricular systolic dysfunction. There is severe biatrial dilatation. Moderate (2+) tricuspid valve insufficiency. Right ventricular systolic pressure estimated to be 50 mmHg. Trace to small pericardial effusion Left pleural effusion noted. Ordering Physician: Alison Barr Referring Physician: GYA VASQUEZ Performed By: Miguelina Hope RDCS
--- NOTE | 2024-05-09 15:58 | CHAPLAIN ---
Type of Pastoral Visit _x__ Initial Visit ___ Follow-up Visit ___ On-call Visit ___ General Patient Visit ___ Spiritual Assessment ___ Family Conference ___ Bereavement ___ Rapid Response ___ Code Blue ___ Other (describe below) Pastoral Care Referral From _x__ Patient ___ Family ___ Nurse ___ Physician ___ Outside Machinist Apprentice ___ Heat Transfer Technician ___ Other (describe below) Sacrament/Intervention _x__ Active listening ___ Anointing ___ Holiness ___ Bereavement ___ Communion ___ Isabel exploration ___ ___ Life review _x__ Prayer ___ Reconciliation ___ Sacrament of Sick _x__ Supportive presence ___ Wedding ___ Other (describe below) Pastoral Comments patient and his sister were in the room; pt states that the really doesn't need anything but then talks about missing his work and about welcoming a prayer; pt answers questions but doesn't engage much in a conversation
[2024-05-09] MEDS: 0.9% Normal Saline (500mL Bag) 500 ML 250 ML IV ×2 (16:08→18:30)
[2024-05-09] MEDS: 0.9% Saline Lock 10 ML Syringe IV ×2 (16:09→22:42)
[2024-05-09 16:22] LABS: Bedside Glucose 314 mg/dL (74-106)
--- NOTE | 2024-05-09 20:57 | CPS ---
Patient refused PAP therapy for night time use.
[2024-05-09 22:25] LABS: Bedside Glucose 258 mg/dL (74-106)
[2024-05-09] MEDS: guaiFENesin Dm 10 ML UDC PO (22:30)
[2024-05-09] MEDS: Albumin Human 25% (100 mL) 25 GM/100 ML BAG IV (22:41)
[2024-05-10] VITALS (24 sets, daily range): BP systolic 59–106; BP diastolic 46–83; PULSE 88–121; RESP 17–24; TEMP 35.9–36.8; O2SAT 91–100; BMI 30.9
[2024-05-10] MEDS: Ipratropium/Albuterol Sulfate 3 ML AMPUL.NEB INHALATION ×4 (01:16→19:05)
[2024-05-10] MEDS: MethylPREDNISolone 125 MG/2 ML Vial IV (01:25)
[2024-05-10] MEDS: Albumin Human 25% (100 mL) 25 GM/100 ML BAG IV ×2 (02:19→14:05)
[2024-05-10] MEDS: 0.9% Saline Lock 10 ML Syringe IV ×2 (02:19→05:22)
[2024-05-10] MEDS: Piperacil/Tazobactam 3.375 GM in 0.9% Normal Saline (50mL MB+) 50 ML IV ×3 (05:23→22:19)
[2024-05-10 06:14] LABS: Absolute Lymphocyte Count 0.99 X10^3/uL (0.83-4.51); Basophil# 0.06 X10^3/uL; Basophil% 0.6 % (0-1); Eosinophil# 0.01 X10^3/uL; Eosinophils% 0.1 % (0-5); Hematocrit 43.3 % (40-54); Hemoglobin 14.1 g/dL (13.0-16.5); Lymphocyte # 0.99 X10^3/ul (0.83-4.51); Lymphocyte % 10.4 % (19-41); Mean Corp Hgb Conc 32.6 g/dL (32-36); Mean Corpuscular Hgb 26.4 pg (27.0-32.0); Mean Corpuscular Volume 81.1 fL (80-94); Mean Platelet Vol. 11.8 fl (6.2-12.0); Monocyte# 0.43 X10^3/uL; Monocyte% 4.5 % (0-10); NRBC Flagged by Analyzer 0 % (0-5); Neutrophil # 7.97 X10^3/uL (2.7-7.7); Neutrophil % 83.9 % (47-70); Platelet Count 164 K/mm3 (150-450); RBC Distribution Width CV 15.9 % (11.6-14.6); RBC Distribution Width SD 45.6 fl (35.1-43.9); Red Blood Count 5.34 M/mm3 (4.6-6.2); White Blood Count 9.5 K/mm3 (4.4-11.0)
[2024-05-10] MEDS: Insulin Lispro 100 UNIT/ML INSULN.PEN SC ×4 (06:28→22:22)
[2024-05-10 06:41] LABS: Anion Gap 14 (5-15); BUN 40 mg/dL (7-18); BUN/Creat Ratio 11.6 RATIO (10-20); Calcium,Total 9.2 mg/dL (8.5-10.1); Chloride 101 mmol/L (98-107); Creatinine, Serum 3.46 mg/dL (0.70-1.30); EST Glomerular Filtration Rate 19 mL/min (>60); Est Glom Filt Rate - Afr Amer 23 mL/min (>60); Estimated Creatinine Clearance 25.62 ml/min; Glucose 174 mg/dL (74-106); Potassium 4.7 mmol/L (3.5-5.1); Sodium Level 132 mmol/L (136-145)
[2024-05-10 06:54] LABS: Bedside Glucose 172 mg/dL (74-106)
[2024-05-10] MEDS: Aspirin E.C. 81 MG Tablet PO (08:38)
[2024-05-10 09:45] LABS: International Normalized Ratio 3.4
[2024-05-10] MEDS: Bisacodyl 5 MG Tablet PO (10:50)
[2024-05-10 12:35] LABS: Bedside Glucose 250 mg/dL (74-106)
--- NOTE | 2024-05-10 12:54 | PN_ITS ---
Subjective Subjective Patient seen and examined. He looks very weak and frail. He had just finished having 2D echo. He denies shortness of breath. His blood pressure bottomed out yesterday in the 60s systolic so he was given 2 doses of albumin. Blood pressure in the 80s and 90s systolic this morning which is around his baseline. His kidney function is worsening with creatinine trended up to 3.46. Objective Data Objective Data Vital Signs: Vital Signs Temp Pulse Resp BP Pulse Ox O2 Del Method O2 Flow Rate 97.2 F L 98 20 H 89/67 L 97 Room Air 2 05/10/24 12:00 05/10/24 12:00 05/10/24 12:00 05/10/24 12:00 05/10/24 12:00 05/10/24 12:00 05/10/24 07:50 Oxygen Flow Rate (L/min) 2 Oxygen Delivery Method Room Air Weight: 215 lb 6.266 oz Body Mass Index (BMI) 30.9 Intake & Output: Intake and Output for Last 24 Hours 05/08/24 05/09/24 05/10/24 22:59 23:59 23:59 Intake Total 700 / 700 1557.09 / 1557.09 300 / 300 Output Total 260 / 260 Balance 700 / 700 1297.09 / 1297.09 300 / 300 Lab / Micro Data 05/10/24 05:51 05/10/24 05:51 Labs: Laboratory Results - last 24 hr 05/09/24 14:21: Urine Color Yellow, Urine Clarity Cloudy, Urine pH 5.0, Ur Specific [place] 1.020, Urine Protein 100 H, Urine Glucose (UA) Normal, Urine Ketones 5 H, Urine Occult Blood 250 H, Urine Nitrite Negative, Urine Bilirubin Negative, Urine Urobilinogen Normal, Ur Leukocyte Esterase 100 H, Urine RBC 25- 50 SEEN, Urine WBC 5-10 SEEN, Ur Squamous Epith Cells 0-5 SEEN, Urine Bacteria 2+, Urine Mucus 0 SEEN 05/09/24 16:03: POC Glucose 314 H 05/09/24 20:47: POC Glucose 258 H 05/10/24 05:51: WBC 9.5, RBC 5.34, Hgb 14.1, Hct 43.3, MCV 81.1, MCH 26.4 L, M CHC 32.6 D, RDW Std Deviation 45.6 H, RDW Coeff of Tony 15.9 H, Plt Count 164, MPV 11.8, Immature Gran % (Auto) 0.500, Neut % (Auto) 83.9 H, Lymph % (Auto) 10.4 L, [place] % (Auto) 4.5, Eos % (Auto) 0.1, Baso % (Auto) 0.6, Absolute Neuts (auto) 8.0 H, Absolute Lymphs (auto) 0.99, Nucleated RBC % 0, Sodium 132 L, Potassium 4.7, Chloride 101, Carbon Dioxide 17.0 L, Anion Gap 14, BUN 40 H, C reatinine 3.46 H, Estim Creat Clear Calc 25.62, Est GFR (MDRD) Af Amer 23 L, Est GFR (MDRD) Non-Af 19 L, BUN/Creatinine Ratio 11.6, Glucose 174 H, Calcium 9.2 05/10/24 06:27: POC Glucose 172 H 05/10/24 09:12: PT 34.0 H, INR 3.4 05/10/24 12:11: POC Glucose 250 H Micro: Microbiology 05/06/24 11:35 Blood Culture (Wb) - Left Forearm Blood Culture - Preliminary No growth in 48 hours. 05/06/24 14:40 Urine, Clean Catch Legionella Antigen - Final 05/06/24 14:40 Urine, Clean Catch Streptococcus pneumoniae Antigen (M - Final 05/06/24 13:01 Mucosa - Nose SARS-CoV-2, Influenza & RSV (PCR) - Final Physical Exam Const alert Constitutional Narrative: lethargic, weak General Appearance: cooperative HEENT normocephalic, head/scalp atraumatic and hearing grossly normal bilaterally Eyes PERRL, EOMs intact bilaterally and conjunctivae normal Neck no lymphadenopathy and supple Resp Resp Narrative: mildly diminished breath sounds bibasally, few crackles, no wheezing. On room air Cardio regular rate, regular rhythm, S1 normal heart sound, S2 normal heart sound and no murmurs Cardio Narrative: pacemaker in situ GI normal to inspection, nondistended, normoactive bowel sounds, soft to palpation, non-tender and non-distended Extremity normal to inspection, full ROM and no clubbing, cyanosis or edema General Extremity: no tenderness to palpation of joints or extremities Skin Skin Narrative: jaundiced General Skin Exam: no breakdown Neuro oriented x3, CN's II-XII intact bilaterally and moves all extremities Neuro Narrative: weak, lethargic Sensorium / Orientation: awake and alert Psych affect normal Psych Narrative: very weak , frail Appearance: appropriate Assessment & Plan Assessment/Plan (1) Acute hypotension: (2) Elevated serum creatinine: (3) Warfarin-induced coagulopathy: (4) Acidosis, lactic: (5) Severe sepsis with acute organ dysfunction: PLAN: Plan #Severe sepsis due to pneumonia * remains on IV zosyn * critical care on board * blood and urine cultures are negative * PT/OT On board. Fall precautions * Urine for strep and Legionella negative * Titrate oxygen to maintain saturation above 90% * dc zosyn today as it is day 5 #Acute on chronic HFrEF * Remains on room air. * Creatinine has trended up further to 3.46 so unable to give Lasix. * CT chest/abdomen/pelvis showed moderate bilateral pleural effusions greater on the left with basilar compressive atelectasis as well as moderate anasarca and finding suggesting hepatic cirrhosis as well as cardiomegaly * also on carvedilol * Consult gastroenterology in light of CT findings of hepatic cirrhosis. Patient likely has cardiorenal or hepatorenal syndrome thus leading to the worsening JERAMIE. * Repeat 2D echo is pending. * #Elevated INR * INR remains elevated and is 3.4 today. This may be due to the coagulopathy from the impaired liver function from the cirrhosis. * #Elevated liver enzymes * Liver enzymes pending today. * He does have a history of elevated bilirubin due to Gilbert's syndrome * AST and ALT are not elevated. * CT abdomen and pelvis did show hepatic cirrhosis which is likely due to the worsening heart failure. Will consult gastroenterology to get their input about the cirrhosis as he is likely having hepatorenal and cardiorenal syndrome. * CT abdomen and pelvis also shwoing hepatic cirrhosis as above, likely due to acute herat failure. #Lactic acidosis: * Likely due to sepsis. Lactic acid was 2.2 on admission and trended up to 2.9. * I am hesitant about aggressive fluid hydration due to his EF of 15%. * Trend lactic acid and give vasopressors if blood pressure remains low * #Nonischemic cardiomyopathy * Has known EF of 15 to 20% and has a cardiac defibrillator in place. * On amiodarone. * On Coumadin due to a known left ventricular thrombus. Coumadin currently on hold due to elevated INR * #JERAMIE on ?CKD III with pseudohyperkalemia * Cr is further up to 3.46 * likely pre renal due to low EF as well as cardiorenal and hepatorenal syndrome * unable to hydrate due to EF of 15-20% * nephrology consulted; will insert tobar catheter to monitor urine intake and output * Potassium today is 4.7 * #Non-anion gap metabolic acidosis * Bicarb is 17 today and anion gap remains 14. * This is likely due to to the worsening kidney function. * Nephrology on board; concern is for hepatorenal syndrome * #Type 2 diabetes mellitus: On Jardiance and metformin. Will hold these. Also hold glimepiride. Insulin sliding scale. Accu-Cheks ACHS. #Hyperlipidemia: On statin DVT prophylaxis: SCDs. No anticoagulation in light of the elevated INR CODE STATUS: Full code * Prognosis: prognosis is poor in light of the worsening kidney function and cirrhosis in the setting of HFrEF. Charges/Coding Visit Charges Inpatient E&M: 75239 Subs Hosp L3
--- NOTE | 2024-05-10 12:56 | PN.RENAL_ITS ---
Subjective Subjective no new events somewhat confused Objective Data Objective Data Vital Signs: Vital Signs Temp Pulse Resp BP Pulse Ox O2 Del Method O2 Flow Rate 97.2 F L 98 20 H 89/67 L 97 Room Air 2 05/10/24 12:00 05/10/24 12:00 05/10/24 12:00 05/10/24 12:00 05/10/24 12:00 05/10/24 12:00 05/10/24 07:50 Oxygen Flow Rate (L/min) 2 Oxygen Delivery Method Room Air Weight: 97.7 kg Body Mass Index (BMI) 30.9 Intake & Output: Intake and Output for Last 24 Hours 05/08/24 05/09/24 05/10/24 22:59 23:59 23:59 Intake Total 700 / 700 1557.09 / 1557.09 300 / 300 Output Total 260 / 260 Balance 700 / 700 1297.09 / 1297.09 300 / 300 Lab / Micro Data 05/10/24 05:51 05/10/24 05:51 Labs: Laboratory Results - last 24 hr 05/09/24 14:21: Urine Color Yellow, Urine Clarity Cloudy, Urine pH 5.0, Ur Specific [place] 1.020, Urine Protein 100 H, Urine Glucose (UA) Normal, Urine Ketones 5 H, Urine Occult Blood 250 H, Urine Nitrite Negative, Urine Bilirubin Negative, Urine Urobilinogen Normal, Ur Leukocyte Esterase 100 H, Urine RBC 25- 50 SEEN, Urine WBC 5-10 SEEN, Ur Squamous Epith Cells 0-5 SEEN, Urine Bacteria 2+, Urine Mucus 0 SEEN 05/09/24 16:03: POC Glucose 314 H 05/09/24 20:47: POC Glucose 258 H 05/10/24 05:51: WBC 9.5, RBC 5.34, Hgb 14.1, Hct 43.3, MCV 81.1, MCH 26.4 L, M CHC 32.6 D, RDW Std Deviation 45.6 H, RDW Coeff of Tony 15.9 H, Plt Count 164, MPV 11.8, Immature Gran % (Auto) 0.500, Neut % (Auto) 83.9 H, Lymph % (Auto) 10.4 L, [place] % (Auto) 4.5, Eos % (Auto) 0.1, Baso % (Auto) 0.6, Absolute Neuts (auto) 8.0 H, Absolute Lymphs (auto) 0.99, Nucleated RBC % 0, Sodium 132 L, Potassium 4.7, Chloride 101, Carbon Dioxide 17.0 L, Anion Gap 14, BUN 40 H, C reatinine 3.46 H, Estim Creat Clear Calc 25.62, Est GFR (MDRD) Af Amer 23 L, Est GFR (MDRD) Non-Af 19 L, BUN/Creatinine Ratio 11.6, Glucose 174 H, Calcium 9.2 05/10/24 06:27: POC Glucose 172 H 05/10/24 09:12: PT 34.0 H, INR 3.4 05/10/24 12:11: POC Glucose 250 H Micro: Microbiology 05/06/24 11:35 Blood Culture (Wb) - Left Forearm Blood Culture - Preliminary No growth in 48 hours. 05/06/24 14:40 Urine, Clean Catch Legionella Antigen - Final 05/06/24 14:40 Urine, Clean Catch Streptococcus pneumoniae Antigen (M - Final 05/06/24 13:01 Mucosa - Nose SARS-CoV-2, Influenza & RSV (PCR) - Final Physical Exam Narrative Alert and orient x 3, no apparent distress S1, S2, RRR Diminished breath sounds with faint rales Abdomen rounded, soft ++ edema Assessment & Plan Assessment/Plan (1) JERAMIE (acute kidney injury): (2) Acute hypotension: (3) Right lower lobe pneumonia: PLAN: Plan - JERAMIE with unknown baseline creatinine. Baseline creatinine had been around 1 to 1.2 mg/dL up until December 2021. January 12, 2023 creatinine 1.84. Gap in lab work until this hospitalization. Serum creatinine 1.[address] abdomen without any hydronephrosis Urine analysis with protein and blood but this is a Barragan sample Urine sodium pending Hypotensive. Has features of cirrhosis including ascites, pleural effusions, peripheral edema. Discussed with hospitalist. He has known history of Gilbert's disease hence LFTs have always been abnormal. Question is if he developed new onset cardiogenic cirrhosis on top. History of congestive heart failure with low ejection fraction, previous echocardiogram with ejection fraction of 20%. Was on maximum medical therapy. Echocardiogram being repeated. Clinically looks like hepatorenal syndrome physiology. We will go ahead and start albumin, octreotide, midodrine. DC Lasix for now. Discussed with hospitalist. Will get gastroenterology consult to comment on cirrhosis.
[2024-05-10 13:37] LABS: AST(SGOT) 275 U/L (15-37); Alanine Aminotransfer ALT/SGPT 180 U/L (16-61); Albumin, Serum 3.7 g/dL (3.2-5.0); Alkaline Phosphatase 64 U/L (45-117); Bilirubin, Direct 1.82 mg/dL (0.00-0.30); Protein, Total 6.7 g/dL (6.4-8.2)
[2024-05-10] MEDS: Octreotide 0.1 MG/ML ML SC ×2 (15:30→22:26)
[2024-05-10] MEDS: Midodrine HCl 5 MG Tablet 10 MG PO (18:15)
--- NOTE | 2024-05-10 19:37 | NURSING ---
Patient educated about tobar cath insertion and that doctor is requesting that it be reinserted. Explained importance of accurate output to assess kidney function. Patient continues to refuse tobar insertion at this time.
[2024-05-10] MEDS: DOBUTamine IV 500 MG in Dextrose 5%-Water (250mL Bag) 210 ML 29.3 MG IV (19:46)
[2024-05-10] MEDS: Calcium Carbonate 500 MG Tablet PO (19:56)
--- NOTE | 2024-05-10 20:02 | EX.PCM.CON.G ---
HPI Consult Data Date of Consult: 05/10/24 HPI Narrative Reason for Consultation: Cirrhosis HPI Narrative: INDU ROD, is a 64 yo with a history of non-CAD related cardiomyopathy, chronic systolic CHF, valvular heart disease, a left ventricular apical thrombus, pleural effusion, thromboembolic disease with pulmonary emboli, hyperlipidemia, hypertension, JES/CPAP therapy. He presented to the ED on 05/06/2024 with a complaint of shortness of breath. He has a known history of heart failure with reduced ejection fraction with known EF of 20%. He said he had a cough which was productive as well. Vitals in the ED at time of review were temperature of 96.7 Fahrenheit, pulse rate of 70, blood pressure of 90/70 respiratory rate of 25. He was saturating at 95% on 4 L of oxygen. Of note patient's blood pressure had been as low as 65/48 when he initially came into the ED. He does usually run in the 90s systolic. He was hydrated with a bolus of normal saline 1L x 1. CBC showed WBC of 5.6 with hemoglobin of 13.6 and platelets of 175. INR 6.2. Chemistry showed sodium of 136 with potassium of 3.7 and bicarb of 26. Creatinine was 1.39. Lactic acid was 2.2 on admission, and trended up to 2.9. total bilirubin was 3.7 and CXR showed pleural parenchymal changes at the right lung base with prominence of the right hilum. EKG showed no acute ST changes. He is being seen by securities consultant, insurance agents supervisor and count team member. I was consulted because of his CT scan of the abdomen pelvis that it showed cirrhosis. Official reading of a CT scan abdomen pelvis: 1. Moderate bilateral pleural effusions greater on the left with basilar compressive atelectasis. 2. Mediastinal adenopathy. 3. Cardiomegaly. 4. Findings suggest hepatic cirrhosis. 5. Moderate ascites. 6. Anasarca. 7. Cholelithiasis. [facility] Medical History (Updated 05/10/24 @ 20:[address] Xiao Friend, DO) Paroxysmal ventricular tachycardia Nonischemic cardiomyopathy Heart failure with reduced ejection fraction Pleural effusion on right CONNOR (dyspnea on exertion) HTN (hypertension) HLD (hyperlipidemia) Left ventricular thrombus Cardiomyopathy Former smoker CPAP (continuous positive airway pressure) dependence Sleep apnea Loculated pleural effusion Pulmonary embolism Coagulopathy Gilbert's syndrome Hepatomegaly Jaundice Diabetes Congestive heart failure (CHF) Hyperlipidemia Tobacco dependence Home Medications ?Medication ?Instructions ?Recorded ?Last Taken ?Type ascorbic acid (vitamin C) 500 mg 500 mg PO DAILY@0800 vitamin 05/30/13 10/02/21 History tablet (Vitamin C) 500 mg aspirin 81 mg tablet,delayed 81 mg PO DAILY@0800 #30 TABLETS 06/01/13 10/02/21 Rx release 81 mg metformin 500 mg tablet,extended 1,000 mg PO BID DM 06/10/21 10/02/21 History release 24 hr 500 mg glimepiride 4 mg tablet 4 mg PO DAILY DM 10/03/21 10/02/21 History 4 mg spironolactone 25 mg tablet 25 mg PO DAILY FLUID 10/21/21 Unknown History warfarin 5 mg tablet 5 mg PO DAILY #30 tabs 01/23/22 Unknown Rx empagliflozin 10 mg tablet 10 mg PO DAILY #90 tabs 09/09/22 Unknown Rx (Jardiance) amiodarone 200 mg tablet 200 mg PO DAILY #90 tabs 06/18/23 Unknown Rx furosemide 40 mg tablet 40 mg PO BIDLX #180 tabs 06/18/23 Unknown Rx losartan 25 mg tablet 12.5 mg (1/2 x 25 mg) PO QHS #45 06/18/23 Unknown Rx tabs carvedilol 25 mg tablet 25 mg PO BID #180 tabs 09/28/23 Unknown Rx Allergy/AdvReac Type Severity Reaction Status Date / Time temazepam (From Restoril) Allergy Other Verified 05/09/24 05:16 Family History Other COPD (chronic obstructive pulmonary disease) Hypertension Parkinson's disease TIA (transient ischemic attack) Surgical History Cardiac defibrillator in place (~01/10/22) History of rectal abscess Social History housing: house Smoking Status: Former smoker how long ago did patient quit smokin months ago alcohol intake: never substance use type: does not use caffeine: No ROS ROS Narrative As in HPI Physical Exam Narrative Alert and orient x 3, no apparent distress S1, S2, RRR Diminished breath sounds with faint rales Abdomen rounded, soft ++ edema Lab / Micro Data 05/10/24 05:51 05/10/24 05:51 Labs: Laboratory Results - last 24 hr 05/09/24 20:47: POC Glucose 258 H 05/10/24 05:51: WBC 9.5, RBC 5.34, Hgb 14.1, Hct 43.3, MCV 81.1, MCH 26.4 L, MCHC 32.6 D, RDW Std Deviation 45.6 H, RDW Coeff of Tony 15.9 H, Plt Count 164, MPV 11.8, Immature Gran % (Auto) 0.500, Neut % (Auto) 83.9 H, Lymph % (Auto) 10.4 L, Whitman % (Auto) 4.5, Eos % (Auto) 0.1, Baso % (Auto) 0.6, Absolute Neuts (auto) 8.0 H, Absolute Lymphs (auto) 0.99, Nucleated RBC % 0, Sodium 132 L, Potassium 4.7, Chloride 101, Carbon Dioxide 17.0 L, Anion Gap 14, BUN 40 H, Creatinine 3.46 H, Estim Creat Clear Calc 25.62, Est GFR (MDRD) Af Amer 23 L, Est GFR (MDRD) Non-Af 19 L, BUN/Creatinine Ratio 11.6, Glucose 174 H, Calcium 9.2, Total Bilirubin 3.40 H, Direct Bilirubin 1.82 H, AST 275 H, ALT 180 H, Alkaline Phosphatase 64, Total Protein 6.7, Albumin 3.7, Globulin 3.0 05/10/24 06:27: POC Glucose 172 H 05/10/24 09:12: PT 34.0 H, INR 3.4 05/10/24 12:11: POC Glucose 250 H Imaging Radiology Impression Echocardiogram 05/09/24 15:58 Interpretation Summary Mildly dilated left ventricle. Severe global LV systolic dysfunction. Estimated LVEF 5%. Suspect LV apical thrombus. Moderate global right ventricular systolic dysfunction. There is severe biatrial dilatation. Moderate (2+) tricuspid valve insufficiency. Right ventricular systolic pressure estimated to be 50 mmHg. Trace to small pericardial effusion Left pleural effusion noted. Ordering Physician: Alison Barr Referring Physician: GAY VASQUEZ Performed By: Miguelina Hope, ALETA Assessment & Plan Assessment/Plan (1) JERAMIE (acute kidney injury): (2) Acute hypotension: (3) Elevated serum creatinine: (4) Warfarin-induced coagulopathy: (5) Acidosis, lactic: (6) Cirrhosis: PLAN: 64 yo with a history of non-CAD related cardiomyopathy, chronic systolic CHF with ejection fraction of 5%, valvular heart disease, a left ventricular apical thrombus (on Coumadin-with supratherapeutic INR), pleural effusion, thromboembolic disease with pulmonary emboli, hyperlipidemia, hypertension, JES/CPAP therapy. He was discovered to have cirrhosis with acute renal failure. He has no history of hepatitis C or alcoholism. He was also discovered to have acute kidney injury with baseline creatinine unknown. CT abdomen pelvis did not show any signs of hydronephrosis or obstruction. CT scan abdomen pelvis also shows pleural effusions consistent with a hepatic hydrothorax a very small nodular liver, mild ascites and peripheral edema. His INR is very high so we cannot do a diagnostic paracentesis to calculate his SAAG gradient to determine if this is cirrhosis secondary to his severe cardiomyopathy and congestive heart failure. The NT pro-BNP was measured at 1400 suggesting a cardiomyopathic component associated. His MELD cannot be calculated due to the fact that he is on Coumadin and is significantly elevated INR. He would be a child Ugalde class C. 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 HRS type I is typically not associated with severe heart failure. Besides treatment of underlying conditions and improvement of liver function, approach to therapy attempts to reverse the acute kidney injury associated with HRS. Current recommendation is treatment with an intravenous infusion of norepinephrine at 0.5 to 3mg/hr, aiming to raise the mean arterial pressure by 10mmHg, and albumin is given for at least two days as an intravenous bolus (1mg/kg per day, up to 100mg). Vasopressin at 0.01 units/min titrated may be an alternative. He is not in the ICU, therefore options are a combination of octreotide (subcutaneously 100 to 200mcg three times daily or continuous intravenous infusion at 50mcg/hr), midodrine (starting at 7.5mg three times a day, up to 45mg daily), and albumin. He is already on dobutamine which hopefully will provide some splanchnic vasoconstriction and allow for some renal perfusion. Very poor prognosis at this time. If he does not respond to vasopressors therapy then he may need renal replacement therapy. He would not be a good candidate for liver transplant because he would need combination liver, kidney and heart transplant. He would not be a eligible for a TIPS procedure due to a cardiac ejection fraction of 5%. Charges/Coding Visit Charges Inpatient E&M: 33710 Init Hosp L3
[2024-05-10] MEDS: Carvedilol 25 MG Tablet PO (21:05)
[2024-05-10 22:50] LABS: Bedside Glucose 338 mg/dL (74-106)
--- NOTE | 2024-05-10 23:58 | NURSING ---
Pt refusing urethral tobar after explaining the reason to place tobar catheter. Pt was explained benefits to placing catheter. Pt states he had a bad experience with last catheter.
[2024-05-11] VITALS (26 sets, daily range): BP systolic 82–104; BP diastolic 63–81; PULSE 97–110; RESP 16–21; TEMP 36.3–36.6; O2SAT 91–97
[2024-05-11 00:43] LABS: Bedside Glucose 306 mg/dL (74-106)
[2024-05-11] MEDS: Piperacil/Tazobactam 3.375 GM in 0.9% Normal Saline (50mL MB+) 50 ML IV ×2 (05:15→16:36)
[2024-05-11] MEDS: Octreotide 0.1 MG/ML ML SC ×3 (05:15→22:19)
[2024-05-11 05:26] LABS: Absolute Lymphocyte Count 0.54 X10^3/uL (0.83-4.51); Absolute Neutrophil Count 7.5 X10^3/uL (2.0-7.7); Basophil# 0.01 X10^3/uL; Basophil% 0.1 % (0-1); Hematocrit 41.3 % (40-54); Hemoglobin 13.6 g/dL (13.0-16.5); Lymphocyte # 0.54 X10^3/ul (0.83-4.51); Lymphocyte % 6.4 % (19-41); Mean Corp Hgb Conc 32.9 g/dL (32-36); Mean Corpuscular Hgb 26.2 pg (27.0-32.0); Mean Corpuscular Volume 79.6 fL (80-94); Mean Platelet Vol. 11.8 fl (6.2-12.0); Monocyte# 0.34 X10^3/uL; Monocyte% 4.1 % (0-10); NRBC Flagged by Analyzer 0 % (0-5); Neutrophil # 7.45 X10^3/uL (2.7-7.7); Neutrophil % 88.8 % (47-70); POSITIVE DIFFERENTIAL YES; Platelet Count 158 K/mm3 (150-450); RBC Distribution Width SD 44.3 fl (35.1-43.9); Red Blood Count 5.19 M/mm3 (4.6-6.2); White Blood Count 8.4 K/mm3 (4.4-11.0)
[2024-05-11] MEDS: Ondansetron 4 MG/2 ML Vial IV ×2 (05:28→13:24)
[2024-05-11] MEDS: Insulin Lispro 100 UNIT/ML INSULN.PEN SC ×4 (06:28→22:23)
[2024-05-11 06:36] LABS: Anion Gap 15 (5-15); BUN 57 mg/dL (7-18); BUN/Creat Ratio 14.5 RATIO (10-20); Calcium,Total 8.9 mg/dL (8.5-10.1); Chloride 97 mmol/L (98-107); Creatinine, Serum 3.92 mg/dL (0.70-1.30); EST Glomerular Filtration Rate 17 mL/min (>60); Est Glom Filt Rate - Afr Amer 20 mL/min (>60); Estimated Creatinine Clearance 22.61 ml/min; Glucose 414 mg/dL (74-106); Potassium 5.1 mmol/L (3.5-5.1); Sodium Level 128 mmol/L (136-145)
--- NOTE | 2024-05-11 07:22 | PCM.CONS.C ---
Assessment & Plan Assessment/Plan (1) Heart failure with reduced ejection fraction: PLAN: Patient has a 2-year history of nonischemic dilated cardiomyopathy with a chronic left ventricular apical thrombus. The patient has been treated with aggressive medical therapy limited somewhat by his longstanding systolic hypotension. He does have TACTICAL DEBRIEFER-D in place and is appropriately biventricular pacing and tracking his atrial rate. The patient is now developed endorgan disease with elevated liver function test consistent with hepatic congestion as well as worsening renal insufficiency with a creatinine clearance now down to 17. The patient was instituted on inotropic drugs at a moderate dose yesterday which precipitated increasing ventricular ectopy. Therefore his dobutamine was turned down to 5 mics. He seems to be tolerating that regimen. I did discuss with the patient options that are left including consideration for left ventricular assist device and/or transplantation. However, given his current medical situation with his worsening renal failure his liver failure with a persistent INR of 3.4 and elevated liver enzymes in the face of a recent ongoing pneumonia he is not a candidate for implantation at this point in time. However, if he is or does decide that he might be interested in the future it may be worth considering transferring him to a heart failure center for further aggressive therapy considerations. At this point in time the patient was not interested in transferring and he has refused this in the past back in 2021 when he was initially evaluated. (2) JERAMIE (acute kidney injury): PLAN: The patient has been followed by nephrology. Hopefully with addition of the inotropic support he will get a little better renal perfusion. Will continue to monitor his labs. He has developed hyponatremia consistent with his volume overload. (3) Cardiac defibrillator in place: PLAN: Patient has a TACTICAL DEBRIEFER-D implant in place placed in January 2022 at [facility] by Dr. Sukumra Watters. This appears to be working appropriately he is almost totally BiV paced which is expected with TACTICAL DEBRIEFER-D implants. (4) Nonischemic cardiomyopathy: PLAN: The patient was cathed remotely and revealed minimal coronary artery disease with severe global LV dysfunction and an LV thrombus. The etiology of his nonischemic cardiomyopathy is uncertain. PLAN: Plan 1. Recommend continuing dobutamine infusion. 2. Will await input from nephrology concerning other options to assist with his worsening renal insufficiency. 3. Continue to hold his Coumadin his he is auto anticoagulated given his hepatic congestion and his persistent INR of 3.4 as of yesterday. 4. Would recommend further discussion with the patient and family concerning end-of-life expectations. 5. I will follow-up with you as directed. HPI Consult Data Date of Consult: 05/11/24 HPI Narrative Reason for Consultation: Acute on chronic CHF HPI Narrative: INDU ROD, is a 64 M who presents with progressive shortness of breath. He has been evaluated through the emergency department and admitted to [facility]. Initial trending diagnosis was pneumonia. The patient has a history of chronic nonischemic dilated cardiomyopathy with an ejection fraction in the 15 to 20% range. Since his hospitalization the patient's renal function and liver functions have deteriorated and a repeat echocardiogram was read as a left ventricular ejection fraction of 5%. There is a chronic left ventricular apical thrombus the patient has been on Coumadin to treat this since 2021. Patient also has a history of paroxysmal ventricular tachycardia which has been suppressed with amiodarone 200 mg daily. He also has TACTICAL DEBRIEFER?D implant by Dr. Watters in 2021. The patient's device is controlling his ventricular rate appropriately. He is BiV paced. The patient is LFTs and creatinine continue to increase. In 2021 when the patient was evaluated at [facility] and received his TACTICAL DEBRIEFER-D implant he had refused further evaluation for transplant or LVAD. The patient says he is still not interested in pursuing that and at this point in time given his worsening renal failure and liver issues he is probably not a candidate. We instituted dobutamine 10 mcg/min last evening and the patient developed runs of ventricular tachycardia did not reach significance for ICD treatment. We decreased to the dobutamine to 5 mics and the patient's ectopy has markedly decreased. He is still having occasional couplets. The patient reports that he has been nauseated and vomited this morning. He does report he has been able to eat he reports that his abdomen is bloated and his lower extremities are about normal for him and around tense 2+ peripheral edema. The patient was sleeping upright in the chair at the time I walked into the room. In addition to his cardiac issues above the patient has a history of recurrent right pleural effusions pulmonary emboli, hyperlipidemia, remote history of hypertension and most recent evaluations he is systolic blood pressure runs in the 90-95 range. He has a history of obstructive sleep apnea and had COVID in June 2021. Shortly after this is when he was diagnosed with his nonischemic dilated cardiomyopathy. His EF was documented to be 15% in October 2021. This is when he was initially diagnosed with a left ventricular apical thrombus right ventricular systolic function biatrial enlargement moderate mitral regurgitation moderate to severe tricuspid regurgitation with a right ventricular systolic pressure estimated 56. He simply was transferred to [facility] he underwent TACTICAL DEBRIEFER-D implantation by Dr. Watters January 2022. [facility] Medical History (Updated 05/11/24 @ 07:[address] Anders Quinn MD) Paroxysmal ventricular tachycardia Nonischemic cardiomyopathy Heart failure with reduced ejection fraction Pleural effusion on right CONNOR (dyspnea on exertion) HTN (hypertension) HLD (hyperlipidemia) Left ventricular thrombus Cardiomyopathy Former smoker CPAP (continuous positive airway pressure) dependence Sleep apnea Loculated pleural effusion Pulmonary embolism Coagulopathy Gilbert's syndrome Hepatomegaly Jaundice Diabetes Congestive heart failure (CHF) Hyperlipidemia Tobacco dependence Home Medications ?Medication ?Instructions ?Recorded ?Last Taken ?Type ascorbic acid (vitamin C) 500 mg 500 mg PO DAILY@0800 vitamin 05/30/13 10/02/21 History tablet (Vitamin C) 500 mg aspirin 81 mg tablet,delayed 81 mg PO DAILY@0800 #30 TABLETS 06/01/13 10/02/21 Rx release 81 mg metformin 500 mg tablet,extended 1,000 mg PO BID DM 06/10/21 10/02/21 History release 24 hr 500 mg glimepiride 4 mg tablet 4 mg PO DAILY DM 10/03/21 10/02/21 History 4 mg spironolactone 25 mg tablet 25 mg PO DAILY FLUID 10/21/21 Unknown History warfarin 5 mg tablet 5 mg PO DAILY #30 tabs 01/23/22 Unknown Rx empagliflozin 10 mg tablet 10 mg PO DAILY #90 tabs 09/09/22 Unknown Rx (Jardiance) amiodarone 200 mg tablet 200 mg PO DAILY #90 tabs 06/18/23 Unknown Rx furosemide 40 mg tablet 40 mg PO BIDLX #180 tabs 06/18/23 Unknown Rx losartan 25 mg tablet 12.5 mg (1/2 x 25 mg) PO QHS #45 06/18/23 Unknown Rx tabs carvedilol 25 mg tablet 25 mg PO BID #180 tabs 09/28/23 Unknown Rx Allergy/AdvReac Type Severity Reaction Status Date / Time temazepam (From Restoril) Allergy Other Verified 05/09/24 05:16 Family History Other COPD (chronic obstructive pulmonary disease) Hypertension Parkinson's disease TIA (transient ischemic attack) Surgical History Cardiac defibrillator in place (~01/10/22) History of rectal abscess Social History housing: house Smoking Status: Former smoker how long ago did patient quit smokin months ago alcohol intake: never substance use type: does not use caffeine: No ROS Constitutional Constitutional: Reports as per HPI Eyes Eyes: Reports systems reviewed and no addt'l complaints, except as documented ENT HEENT: Reports systems reviewed and no addt'l complaints, except as documented Cardiovascular Cardiovascular: Reports as per HPI Respiratory/Chest Respiratory/Chest: Reports as per HPI Gastrointestinal Gastrointestinal: Reports as per HPI Genitourinary Genitourinary: Reports as per HPI Musculoskeletal Musculoskeletal: Reports systems reviewed and no addt'l complaints, except as documented Integumentary Integumentary: Reports systems reviewed and no addt'l complaints, except as documented Neurologic Neurologic: Reports systems reviewed and no addt'l complaints, except as documented Psychiatric Psychiatric: Reports systems reviewed and no addt'l complaints, except as documented Endocrine Endocrinology: Reports systems reviewed and no addt'l complaints, except as documented Hematologic/Lymphatic Hematologic/Lymphatic: Reports systems reviewed and no addt'l complaints, except as documented Allergic/Immunologic Allergic/Immunologic: Reports systems reviewed and no addt'l complaints, except as documented Physical Exam Const alert and oriented x3 HEENT normocephalic Neck Neck Narrative: JVD noted at 90 degrees. Chest Chest Narrative: Patient has an ICD pocket in his left infraclavicular area there is a small bruise on the very superior aspect of the pocket. No evidence of infection. Resp normal respiratory effort Auscultation: rales bilateral lower and diminished lung sounds right lower Cardio Rate: regular rate Rhythm: regular rhythm Heart Sounds: S1 normal, S2 normal, gallop S3 gallop and murmur systolic I/ soft right sternal border; Negative for click GI soft to palpation and non-tender GI Narrative: Patient reports his abdomen has been bloated recently and it is distended. Extremity General Extremity: edema bilateral lower extremity Details: moderate Skin no rashes or lesions noted Neuro Neuro Narrative: Patient is alert and oriented x 3. Psych mental status grossly normal Risk Stratification Risk Stratification Applicable: No Charges/Coding Visit Charges Inpatient E&M: 02539 Init Hosp L3 Objective Data Vital Signs: Vital Signs Temp Pulse Resp BP Pulse Ox O2 Del Method O2 Flow Rate 97.3 F L 99 20 H 91/74 95 Room Air 2 05/11/24 06:00 05/11/24 06:00 05/11/24 06:00 05/11/24 06:00 05/11/24 06:00 05/11/24 06:00 05/10/24 07:50 Oxygen Flow Rate (L/min) 2 Oxygen Delivery Method Room Air Weight: 215 lb 6.266 oz Body Mass Index (BMI) 30.9 Intake & Output: Intake and Output for Last 24 Hours 05/09/24 05/10/24 05/11/24 23:59 23:59 23:59 Intake Total 1557.09 / 1557.09 517.82 / 519.29 139.67 / 139.67 Output Total 260 / 260 0 / 0 400 / 400 Balance 1297.09 / 1297.09 517.82 / 519.29 -260.33 / -260.33 Lab / Micro Data Attestation: I reviewed the patient's lab results. 05/11/24 05:05 05/11/24 05:05 Labs: Laboratory Results - last 24 hr 05/10/24 05:51: Total Bilirubin 3.40 H, Direct Bilirubin 1.82 H, AST 275 H, ALT 180 H, Alkaline Phosphatase 64, Total Protein 6.7, Albumin 3.7, Globulin 3.0 05/10/24 09:12: PT 34.0 H, INR 3.4 05/10/24 12:11: POC Glucose 250 H 05/10/24 17:48: POC Glucose 306 H 05/10/24 22:22: POC Glucose 338 H 05/11/24 05:05: WBC 8.4, RBC 5.19, Hgb 13.6, Hct 41.3, MCV 79.6 L, MCH 26.2 L, MCHC 32.9, RDW Std Deviation 44.3 H, RDW Coeff of Tony 16.0 H, Plt Count 158, MPV 11.8, Immature Gran % (Auto) 0.600, Neut % (Auto) 88.8 H, Lymph % (Auto) 6.4 L, Bennett % (Auto) 4.1, Eos % (Auto) 0.0, Baso % (Auto) 0.1, Absolute Neuts (auto) 7.5, Absolute Lymphs (auto) 0.54 L, Nucleated RBC % 0, Sodium 128 L, Potassium 5.1, Chloride 97 L, Carbon Dioxide 16.0 L, Anion Gap 15, BUN 57 H, Creatinine 3.92 H, Estim Creat Clear Calc 22.61, Est GFR (MDRD) Af Amer 20 L, Est GFR (MDRD) Non-Af 17 L, BUN/Creatinine Ratio 14.5, Glucose 414 H, Calcium 8.9 Rhythm Strip Rhythm Strip: Sinus Rhythm Rate: 98 Ectopy: PVC(s) and - (BiV paced) Cardiology Labs/Tests 05/10/24 05:51: Total Bilirubin 3.40 H, Direct Bilirubin 1.82 H 05/10/24 09:12: PT 34.0 H, INR 3.4 05/11/24 05:05: WBC 8.4, RBC 5.19, Hgb 13.6, Hct 41.3, MCV 79.6 L, MCH 26.2 L, MCHC 32.9, Plt Count 158, MPV 11.8, Immature Gran % (Auto) 0.600, Neut % (Auto) 88.8 H, Lymph % (Auto) 6.4 L, Bennett % (Auto) 4.1, Eos % (Auto) 0.0, Baso % (Auto) 0.1, Absolute Neuts (auto) 7.5, Nucleated RBC % 0, Sodium 128 L, Potassium 5.1, Chloride 97 L, Carbon Dioxide 16.0 L, Anion Gap 15, BUN 57 H, Creatinine 3.92 H, Est GFR (MDRD) Af Amer 20 L, Est GFR (MDRD) Non-Af 17 L, BUN/Creatinine Ratio 14.5, Glucose 414 H, Calcium 8.9 Rhythm: EKG: ECHO: Stress Test: Cardiac Cath: PCI: CT Surgery: Holter monitor: EPS: PPM: CXR: Chest CT Scan: Radiography Diagnostic Testing: Radiology Impression Echocardiogram 05/09/24 15:58 Interpretation Summary Mildly dilated left ventricle. Severe global LV systolic dysfunction. Estimated LVEF 5%. Suspect LV apical thrombus. Moderate global right ventricular systolic dysfunction. There is severe biatrial dilatation. Moderate (2+) tricuspid valve insufficiency. Right ventricular systolic pressure estimated to be 50 mmHg. Trace to small pericardial effusion Left pleural effusion noted. Ordering Physician: Alison Barr Referring Physician: GAY VASQUEZ Performed By: Miguelina Hope RDCS
[2024-05-11 08:34] LABS: International Normalized Ratio 3.6; Prothrombin Time (Protime)PT. 35.8 SECONDS (11.7-14.9)
[2024-05-11 08:41] LABS: AST(SGOT) 114 U/L (15-37); Alanine Aminotransfer ALT/SGPT 146 U/L (16-61); Albumin, Serum 3.6 g/dL (3.2-5.0); Alkaline Phosphatase 53 U/L (45-117); Globulin 3.1 g/dL (2.2-4.2); Protein, Total 6.7 g/dL (6.4-8.2)
[2024-05-11] MEDS: Midodrine HCl 5 MG Tablet 10 MG PO ×3 (08:41→22:19)
[2024-05-11] MEDS: Amiodarone 200 MG Tablet PO (08:41)
[2024-05-11] MEDS: Carvedilol 25 MG Tablet PO ×2 (08:41→22:19)
[2024-05-11] MEDS: Aspirin E.C. 81 MG Tablet PO (08:41)
[2024-05-11 11:49] LABS: Bedside Glucose 422 mg/dL (74-106)
[2024-05-11] MEDS: DOBUTamine IV 500 MG in Dextrose 5%-Water (250mL Bag) 210 ML 14.7 MG IV (13:08)
[2024-05-11] MEDS: Albumin Human 25% (100 mL) 25 GM/100 ML BAG IV (13:59)
--- NOTE | 2024-05-11 14:45 | PN_ITS ---
Subjective Subjective Patient seen and examined. He was alert and sitting up in a chair eating breakfast. He had no active complaints. He was started on p.o. dobutamine drip yesterday due to hypotension. Review of systems otherwise negative. He still hypotensive with blood pressure in the 80s systolic today. Objective Data Objective Data Vital Signs: Vital Signs Temp Pulse Resp BP Pulse Ox O2 Del Method O2 Flow Rate 97.6 F L 97 18 82/63 L 97 Room Air 2 05/11/24 14:00 05/11/24 14:00 05/11/24 14:00 05/11/24 14:00 05/11/24 14:00 05/11/24 14:00 05/10/24 07:50 Oxygen Flow Rate (L/min) 2 Oxygen Delivery Method Room Air Weight: 215 lb 6.266 oz Body Mass Index (BMI) 30.9 Intake & Output: Intake and Output for Last 24 Hours 05/09/24 05/10/24 05/11/24 23:59 23:59 23:59 Intake Total 1557.09 / 1557.09 517.82 / 519.29 534.93 / 534.93 Output Total 260 / 260 0 / 0 900 / 900 Balance 1297.09 / 1297.09 517.82 / 519.29 -365.07 / -365.07 Lab / Micro Data 05/11/24 05:05 05/11/24 05:05 Labs: Laboratory Results - last 24 hr 05/10/24 17:48: POC Glucose 306 H 05/10/24 22:22: POC Glucose 338 H 05/11/24 05:05: WBC 8.4, RBC 5.19, Hgb 13.6, Hct 41.3, MCV 79.6 L, MCH 26.2 L, MCHC 32.9, RDW Std Deviation 44.3 H, RDW Coeff of Tony 16.0 H, Plt Count 158, MPV 11.8, Immature Gran % (Auto) 0.600, Neut % (Auto) 88.8 H, Lymph % (Auto) 6.4 L, Bowie % (Auto) 4.1, Eos % (Auto) 0.0, Baso % (Auto) 0.1, Absolute Neuts (auto) 7.5, Absolute Lymphs (auto) 0.54 L, Nucleated RBC % 0, Sodium 128 L, Potassium 5.1, Chloride 97 L, Carbon Dioxide 16.0 L, Anion Gap 15, BUN 57 H, Creatinine 3.92 H, Estim Creat Clear Calc 22.61, Est GFR (MDRD) Af Amer 20 L, Est GFR (MDRD) Non-Af 17 L, BUN/Creatinine Ratio 14.5, Glucose 414 H, Calcium 8.9 05/11/24 08:12: PT 35.8 H, INR 3.6, Total Bilirubin 3.00 H, Direct Bilirubin 1.80 H, AST 114 H, ALT 146 H, Alkaline Phosphatase 53, Total Protein 6.7, Albumin 3.6, Globulin 3.1 05/11/24 11:13: POC Glucose 422 H Micro: Microbiology 05/06/24 11:35 Blood Culture (Wb) - Left Forearm Blood Culture - Final No growth in 5 days. 05/06/24 14:40 Urine, Clean Catch Legionella Antigen - Final 05/06/24 14:40 Urine, Clean Catch Streptococcus pneumoniae Antigen (M - Final 05/06/24 13:01 Mucosa - Nose SARS-CoV-2, Influenza & RSV (PCR) - Final Rhythm Strip Rhythm Strip: Sinus Rhythm Rate: 98 Ectopy: PVC(s) and - (BiV paced) Physical Exam Const alert and oriented x3 Constitutional Narrative: lethargic, weak General Appearance: cooperative and well developed Orientation / Consciousness: lethargic HEENT normocephalic, head/scalp atraumatic and hearing grossly normal bilaterally Eyes PERRL, EOMs intact bilaterally and conjunctivae normal Neck no lymphadenopathy and supple Resp Resp Narrative: mildly diminished breath sounds bibasally, few crackles, no wheezing. On room air Cardio regular rate, regular rhythm, S1 normal heart sound, S2 normal heart sound and no murmurs Cardio Narrative: pacemaker in situ GI normal to inspection, nondistended, normoactive bowel sounds, soft to palpation, non-tender and non-distended Extremity normal to inspection, full ROM and no clubbing, cyanosis or edema General Extremity: no tenderness to palpation of joints or extremities Skin Skin Narrative: jaundiced General Skin Exam: no breakdown Neuro oriented x3, CN's II-XII intact bilaterally and moves all extremities Neuro Narrative: weak, lethargic Sensorium / Orientation: awake and alert Psych affect normal Psych Narrative: very weak , frail Appearance: appropriate Assessment & Plan Assessment/Plan (1) Acute hypotension: (2) Elevated serum creatinine: (3) Warfarin-induced coagulopathy: (4) Acidosis, lactic: (5) Severe sepsis with acute organ dysfunction: PLAN: Plan #Severe sepsis due to pneumonia * critical care on board * blood and urine cultures are negative * PT/OT On board. Fall precautions * Urine for strep and Legionella negative * Titrate oxygen to maintain saturation above 90% * completed a course of IV zosyn #Acute on chronic HFrEF * Remains on room air. * Creatinine has trended up further to 3.92; unable to give Lasix. * CT chest/abdomen/pelvis showed moderate bilateral pleural effusions greater on the left with basilar compressive atelectasis as well as moderate anasarca and finding suggesting hepatic cirrhosis as well as cardiomegaly * also on carvedilol * Consult gastroenterology in light of CT findings of hepatic cirrhosis. Patient likely has cardiorenal or hepatorenal syndrome thus leading to the worsening JERAMIE. * 2D echo showed EF of 5% with severe global left ventricular systolic dysfunction and mildly dilated left ventricle with ICD or pacer leads identified within the right ventricle and moderate global right ventricular systolic dysfunction * Patient started on dobutamine drip yesterday per discussion with cardiology. Cardiology consulted. * Dobutamine drip at titrated down today due to patient having a few runs of VTACH. * #Elevated INR * INR remains elevated and is 3.6 today. * This may be due to the coagulopathy from the impaired liver function from the cirrhosis. * #Elevated liver enzymes * Liver enzymes remain elevated with bilirubin of 3 today as well as direct bilirubin of 1.8. AST and ALT are elevated but seem to be trending downwards. ALP not elevated. 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 Will consult gastroenterology to get their input about the cirrhosis as he is likely having hepatorenal and cardiorenal syndrome. * CT abdomen and pelvis also shwoing hepatic cirrhosis as above, likely due to acute heart failure. #Lactic acidosis: * Likely due to sepsis. Lactic acid was 2.2 on admission and trended up to 2.9. * I am hesitant about aggressive fluid hydration due to his EF of 15%. * Trend lactic acid and give vasopressors if blood pressure remains low * #Nonischemic cardiomyopathy * Has known EF of 15 to 20% and has a cardiac defibrillator in place. * On amiodarone. * On Coumadin due to a known left ventricular thrombus. Coumadin currently on hold due to elevated INR * #JERAMIE on ?CKD III with pseudohyperkalemia * Cr is further up to 3.92 * likely pre renal due to low EF as well as cardiorenal and hepatorenal syndrome * unable to hydrate due to EF of 15-20% * nephrology consulted; will insert tobar catheter to monitor urine intake and output * Potassium today is 4.7 * #Non-anion gap metabolic acidosis * Bicarb is 17 today and anion gap remains 14. * This is likely due to to the worsening kidney function. * Nephrology on board; concern is for hepatorenal syndrome * #Type 2 diabetes mellitus: On Jardiance and metformin. Will hold these. Also hold glimepiride. Insulin sliding scale. Accu-Cheks ACHS. #Hyperlipidemia: On statin DVT prophylaxis: SCDs. No anticoagulation in light of the elevated INR CODE STATUS: Full code * Prognosis: prognosis is poor in light of the worsening kidney function and cirrhosis in the setting of HFrEF. I discussed with cardiology today and per cardiology, patient will benefit from being transferred for evaluation for cardiac transplant. It is unlikely he will be a candidate for cardiac transplant in light of his renal and hepatic impairment.. I discussed with patient and his about his condition and prognosis. Patient is adamant that he does not want any CPR or intubation. I explained to him that he does have an ICD in place already and so he would be is medically defibrillated if he went into an arrhythmia. He is understanding of this but is inquiring about the device being turned off eventually. He is amenable to hospice consult and wants to be DNR CC. CODE STATUS switched to DNR CC and hospice consulted. Time spent on code status discussion: 20 mins. Charges/Coding Visit Charges Inpatient E&M: 99257 Subs Hosp L3 Procedures Hospitalists Procedures: 98657 Advncd Care Plan 30 Min
[2024-05-11 16:57] LABS: Bedside Glucose 396 mg/dL (74-106)
[2024-05-11] MEDS: proCHLORPERazine 10 MG/2 ML Vial 5 MG IV (18:20)
--- NOTE | 2024-05-11 18:55 | EX.PCM.PN.GI ---
Subjective Subjective Patient is not having any chest pain or shortness of breath. He continues to be persistently hypotensive. Objective Data Objective Data Vital Signs: Vital Signs Temp Pulse Resp BP Pulse Ox O2 Del Method O2 Flow Rate 97.6 F L 101 H 18 91/75 97 Room Air 2 05/11/24 14:00 05/11/24 17:00 05/11/24 17:00 05/11/24 17:00 05/11/24 17:00 05/11/24 14:00 05/10/24 07:50 Oxygen Flow Rate (L/min) 2 Oxygen Delivery Method Room Air Weight: 215 lb 6.266 oz Body Mass Index (BMI) 30.9 Intake & Output: Intake and Output for Last 24 Hours 05/09/24 05/10/24 05/11/24 23:59 23:59 23:59 Intake Total 1557.09 / 1557.09 517.82 / 519.29 706.53 / 706.53 Output Total 260 / 260 0 / 0 1300 / 1300 Balance 1297.09 / 1297.09 517.82 / 519.29 -593.47 / -593.47 Lab / Micro Data 05/11/24 05:05 05/11/24 05:05 Labs: Laboratory Results - last 24 hr 05/10/24 17:48: POC Glucose 306 H 05/10/24 22:22: POC Glucose 338 H 05/11/24 05:05: WBC 8.4, RBC 5.19, Hgb 13.6, Hct 41.3, MCV 79.6 L, MCH 26.2 L, MCHC 32.9, RDW Std Deviation 44.3 H, RDW Coeff of Tony 16.0 H, Plt Count 158, MPV 11.8, Immature Gran % (Auto) 0.600, Neut % (Auto) 88.8 H, Lymph % (Auto) 6.4 L, [place] % (Auto) 4.1, Eos % (Auto) 0.0, Baso % (Auto) 0.1, Absolute Neuts (auto) 7.5, Absolute Lymphs (auto) 0.54 L, Nucleated RBC % 0, Sodium 128 L, Potassium 5.1, Chloride 97 L, Carbon Dioxide 16.0 L, Anion Gap 15, BUN 57 H, Creatinine 3.92 H, Estim Creat Clear Calc 22.61, Est GFR (MDRD) Af Amer 20 L, Est GFR (MDRD) Non-Af 17 L, BUN/Creatinine Ratio 14.5, Glucose 414 H, Calcium 8.9 05/11/24 08:12: PT 35.8 H, INR 3.6, Total Bilirubin 3.00 H, Direct Bilirubin 1.80 H, AST 114 H, ALT 146 H, Alkaline Phosphatase 53, Total Protein 6.7, Albumin 3.6, Globulin 3.1 05/11/24 11:13: POC Glucose 422 H 05/11/24 16:35: POC Glucose 396 H Micro: Microbiology 05/06/24 11:35 Blood Culture (Wb) - Left Forearm Blood Culture - Final No growth in 5 days. 05/06/24 14:40 Urine, Clean Catch Legionella Antigen - Final 05/06/24 14:40 Urine, Clean Catch Streptococcus pneumoniae Antigen (M - Final 05/06/24 13:01 Mucosa - Nose SARS-CoV-2, Influenza & RSV (PCR) - Final Rhythm Strip Rhythm Strip: Sinus Rhythm Rate: 98 Ectopy: PVC(s) and - (BiV paced) Physical Exam Narrative Alert and orient x 3, no apparent distress S1, S2, RRR Diminished breath sounds with faint rales Abdomen rounded, soft ++ edema Assessment & Plan Assessment/Plan (1) JERAMIE (acute kidney injury): (2) Acute hypotension: (3) Elevated serum creatinine: (4) Warfarin-induced coagulopathy: (5) Acidosis, lactic: (6) Cirrhosis: PLAN: 64 yo with a history of non-CAD related cardiomyopathy, chronic systolic CHF with ejection fraction of 5%, valvular heart disease, a left ventricular apical thrombus (on Coumadin-with supratherapeutic INR), pleural effusion, thromboembolic disease with pulmonary emboli, hyperlipidemia, hypertension, JES/CPAP therapy. He was discovered to have cirrhosis with acute renal failure. He has no history of hepatitis C or alcoholism. He was also discovered to have acute kidney injury with baseline creatinine unknown. CT abdomen pelvis did not show any signs of hydronephrosis or obstruction. CT scan abdomen pelvis also shows pleural effusions consistent with a hepatic hydrothorax a very small nodular liver, mild ascites and peripheral edema. His INR is very high so we cannot do a diagnostic paracentesis to calculate his SAAG gradient to determine if this is cirrhosis secondary to his severe cardiomyopathy and congestive heart failure. The NT pro-BNP was measured at 1400 suggesting a cardiomyopathic component associated. His MELD cannot be calculated due to the fact that he is on Coumadin and is significantly elevated INR. He would be a child Ugalde class C. 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 HRS type I is typically not associated with severe heart failure. Besides treatment of underlying conditions and improvement of liver function, approach to therapy attempts to reverse the acute kidney injury associated with HRS. Current recommendation is treatment with an intravenous infusion of norepinephrine at 0.5 to 3mg/hr, aiming to raise the mean arterial pressure by 10mmHg, and albumin is given for at least two days as an intravenous bolus (1mg/kg per day, up to 100mg). Vasopressin at 0.01 units/min titrated may be an alternative. He is not in the ICU, therefore options are a combination of octreotide (subcutaneously 100 to 200mcg three times daily or continuous intravenous infusion at 50mcg/hr), midodrine (starting at 7.5mg three times a day, up to 45mg daily), and albumin. He is already on dobutamine which hopefully will provide some splanchnic vasoconstriction and allow for some renal perfusion. Very poor prognosis at this time. If he does not respond to vasopressors therapy then he may need renal replacement therapy. He would not be a good candidate for liver transplant because he would need combination liver, kidney and heart transplant. He would not be a eligible for a TIPS procedure due to a cardiac ejection fraction of 5%. 05/11/2024-patient's INR is still significantly elevated. 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 He is still maintained on treatment for hepatorenal syndrome. His kidney function continues to worsen. Patient is still significantly hypotensive. He was noted to have runs of ventricular tachycardia on dobutamine. Typically it is a 72-hour window to see if he has improvement in his kidney function for hepatorenal syndrome type II. If there is no improvement after 72 hours then there is less benefit to continuing vasopressor therapy. Charges/Coding Visit Charges Inpatient E&M: 44425 [facility] Hosp L3
--- NOTE | 2024-05-11 19:01 | PN.RENAL_ITS ---
Subjective Subjective looks better today/ started on inotropic support by cardiology says he is making some urine Objective Data Objective Data Vital Signs: Vital Signs Temp Pulse Resp BP Pulse Ox O2 Del Method O2 Flow Rate 97.6 F L 101 H 18 91/75 97 Room Air 2 05/11/24 14:00 05/11/24 17:00 05/11/24 17:00 05/11/24 17:00 05/11/24 17:00 05/11/24 14:00 05/10/24 07:50 Oxygen Flow Rate (L/min) 2 Oxygen Delivery Method Room Air Weight: 97.7 kg Body Mass Index (BMI) 30.9 Intake & Output: Intake and Output for Last 24 Hours 05/09/24 05/10/24 05/11/24 23:59 23:59 23:59 Intake Total 1557.09 / 1557.09 517.82 / 519.29 706.53 / 706.53 Output Total 260 / 260 0 / 0 1300 / 1300 Balance 1297.09 / 1297.09 517.82 / 519.29 -593.47 / -593.47 Lab / Micro Data 05/11/24 05:05 05/11/24 05:05 Labs: Laboratory Results - last 24 hr 05/10/24 17:48: POC Glucose 306 H 05/10/24 22:22: POC Glucose 338 H 05/11/24 05:05: WBC 8.4, RBC 5.19, Hgb 13.6, Hct 41.3, MCV 79.6 L, MCH 26.2 L, MCHC 32.9, RDW Std Deviation 44.3 H, RDW Coeff of Tony 16.0 H, Plt Count 158, MPV 11.8, Immature Gran % (Auto) 0.600, Neut % (Auto) 88.8 H, Lymph % (Auto) 6.4 L, Travis % (Auto) 4.1, Eos % (Auto) 0.0, Baso % (Auto) 0.1, Absolute Neuts (auto) 7.5, Absolute Lymphs (auto) 0.54 L, Nucleated RBC % 0, Sodium 128 L, Potassium 5.1, Chloride 97 L, Carbon Dioxide 16.0 L, Anion Gap 15, BUN 57 H, Creatinine 3.92 H, Estim Creat Clear Calc 22.61, Est GFR (MDRD) Af Amer 20 L, Est GFR (MDRD) Non-Af 17 L, BUN/Creatinine Ratio 14.5, Glucose 414 H, Calcium 8.9 05/11/24 08:12: PT 35.8 H, INR 3.6, Total Bilirubin 3.00 H, Direct Bilirubin 1.80 H, AST 114 H, ALT 146 H, Alkaline Phosphatase 53, Total Protein 6.7, Albumin 3.6, Globulin 3.1 05/11/24 11:13: POC Glucose 422 H 05/11/24 16:35: POC Glucose 396 H Micro: Microbiology 05/06/24 11:35 Blood Culture (Wb) - Left Forearm Blood Culture - Final No growth in 5 days. 05/06/24 14:40 Urine, Clean Catch Legionella Antigen - Final 05/06/24 14:40 Urine, Clean Catch Streptococcus pneumoniae Antigen (M - Final 05/06/24 13:01 Mucosa - Nose SARS-CoV-2, Influenza & RSV (PCR) - Final Rhythm Strip Rhythm Strip: Sinus Rhythm Rate: 98 Ectopy: PVC(s) and - (BiV paced) Physical Exam Narrative Alert and orient x 3, no apparent distress S1, S2, RRR Diminished breath sounds with faint rales Abdomen rounded, soft ++ edema Assessment & Plan Assessment/Plan (1) JERAMIE (acute kidney injury): (2) Acute hypotension: (3) Right lower lobe pneumonia: PLAN: Plan - JERAMIE with unknown baseline creatinine. Baseline creatinine had been around 1 to 1.2 mg/dL up until December 2021. January 12, 2023 creatinine 1.84. Gap in lab work until this hospitalization. Serum creatinine 1.[address] abdomen without any hydronephrosis Urine analysis with protein and blood but this is a Barragan sample Hypotensive. Has features of cirrhosis including ascites, pleural effusions, peripheral edema. Discussed with hospitalist. He has known history of Gilbert's disease hence LFTs have always been abnormal. Question is if he developed new onset cardiogenic cirrhosis on top. History of congestive heart failure with low ejection fraction, previous echocardiogram with ejection fraction of 20%. Was on maximum medical therapy. Clinically looks like hepatorenal syndrome physiology. on albumin, octreotide, midodrine. reviewed GI and cardiology note. not a candidate for dialysis currently on inotropes if no success may need hospice he declined transfer to tertiary [facility] for potential transplant eval
[2024-05-11] MEDS: Ipratropium/Albuterol Sulfate 3 ML AMPUL.NEB INHALATION (20:10)
[2024-05-11 23:47] LABS: Bedside Glucose 353 mg/dL (74-106)
[2024-05-12] VITALS (18 sets, daily range): BP systolic 86–105; BP diastolic 66–85; PULSE 98–110; RESP 14–21; TEMP 35.6–36.6; O2SAT 95–100; BMI 30.9
--- NOTE | 2024-05-12 05:23 | CPS ---
pt refuses bipap/cpap sleep lab machine
[2024-05-12] MEDS: DOBUTamine IV 500 MG in Dextrose 5%-Water (250mL Bag) 210 ML 14.7 MG IV (05:50)
[2024-05-12] MEDS: Octreotide 0.1 MG/ML ML SC ×2 (05:51→16:04)
[2024-05-12] MEDS: Insulin Lispro 100 UNIT/ML INSULN.PEN SC ×3 (06:28→16:51)
[2024-05-12 07:08] LABS: Bedside Glucose 334 mg/dL (74-106)
[2024-05-12] MEDS: Ipratropium/Albuterol Sulfate 3 ML AMPUL.NEB INHALATION ×2 (07:13→14:07)
--- NOTE | 2024-05-12 07:55 | PCM.PN.CARD ---
Subjective Subjective Patient reports that he slept in the chair which she does routinely. He did not have much in the way of urine output yesterday. He and his did decide that he would become DNR?[facility]. Hospice is to see the patient today. Objective Data Vital Signs: Vital Signs Temp Pulse Resp BP Pulse Ox O2 Del Method O2 Flow Rate 96.0 F L 102 H 15 95/80 100 Room Air 2 05/12/24 00:00 05/12/24 07:15 05/12/24 07:15 05/12/24 05:00 05/12/24 07:15 05/12/24 07:15 05/12/24 03:43 Oxygen Flow Rate (L/min) 2 Oxygen Delivery Method Room Air Weight: 215 lb 2.738 oz Body Mass Index (BMI) 30.9 Intake & Output: Intake and Output for Last 24 Hours 05/10/24 05/11/24 05/12/24 23:59 23:59 23:59 Intake Total 517.82 / 519.29 894.73 / 909.43 100.45 / 100.45 Output Total 0 / 0 1350 / 1350 Balance 517.82 / 519.29 -455.27 / -440.57 100.45 / 100.45 Lab / Micro Data Attestation: I reviewed the patient's lab results. 05/11/24 05:05 05/11/24 05:05 Labs: Laboratory Results - last 24 hr 05/11/24 08:12: PT 35.8 H, INR 3.6, Total Bilirubin 3.00 H, Direct Bilirubin 1.80 H, AST 114 H, ALT 146 H, Alkaline Phosphatase 53, Total Protein 6.7, Albumin 3.6, Globulin 3.1 05/11/24 11:13: POC Glucose 422 H 05/11/24 16:35: POC Glucose 396 H 05/11/24 22:21: POC Glucose 353 H 05/12/24 06:27: POC Glucose 334 H Micro: Microbiology 05/06/24 11:35 Blood Culture (Wb) - Left Forearm Blood Culture - Final No growth in 5 days. Rhythm Strip Rhythm Strip: Sinus Rhythm Rate: 105 Ectopy: PVC(s) and - (BiV paced) Cardiology Labs/Tests 05/11/24 08:12: PT 35.8 H, INR 3.6, Total Bilirubin 3.00 H, Direct Bilirubin 1.80 H Rhythm: EKG: ECHO: Stress Test: Cardiac Cath: PCI: CT Surgery: Holter monitor: EPS: PPM: CXR: Chest CT Scan: Physical Exam Const alert and oriented x3 HEENT normocephalic Eyes EOMs intact bilaterally Neck Neck Narrative: JVD noted at the midway point between clavicle and angle of the jaw at 90 degrees. Resp normal respiratory effort Auscultation: rales bilateral base and diminished lung sounds right lower Cardio Rate: regular rate Rhythm: regular rhythm Heart Sounds: S1 normal, S2 normal, gallop S3 gallop and murmur systolic II/ blowing holo right sternal border; Negative for click GI GI Narrative: Abdomen is distended and tense. Extremity General Extremity: edema bilateral lower extremity Details: moderate Neuro Neuro Narrative: Alert and oriented x 3 but lethargic but he was just awoken. Psych mental status grossly normal Assessment & Plan Assessment/Plan (1) Heart failure with reduced ejection fraction: PLAN: Patient has severe global LV systolic dysfunction. He is intolerant of any significant guideline directed medical therapy due to hypotension. The patient is also developed hepatic congestion and renal failure. He really has had not much of response to dobutamine at 5 mics. I would recommend we check a basic metabolic panel today if there is no improvement in his renal function then discontinuation of dobutamine would be indicated. I do not feel that it is facilitating any comfort. The patient does have a WELDER/FABRICATOR-D device. If he goes into hospice this device needs to be deactivated for the ICD function. The BiV pacing should be left alone as this may contribute to some comfort for the patient. I did discuss in detail end-of-life issues with this terminal heart failure with the patient and his in detail yesterday. If further assistance is needed please feel free to contact me. Charges/Coding Visit Charges Inpatient E&M: 88317 Subs Hosp L2
[2024-05-12 08:09] LABS: Anion Gap 13 (5-15); BUN 72 mg/dL (7-18); BUN/Creat Ratio 15.6 RATIO (10-20); Calcium,Total 8.7 mg/dL (8.5-10.1); Chloride 97 mmol/L (98-107); Creatinine, Serum 4.63 mg/dL (0.70-1.30); EST Glomerular Filtration Rate 14 mL/min (>60); Est Glom Filt Rate - Afr Amer 17 mL/min (>60); Estimated Creatinine Clearance 19.13 ml/min; Glucose 372 mg/dL (74-106); Sodium Level 128 mmol/L (136-145)
[2024-05-12 08:16] LABS: Bedside Glucose 393 mg/dL (74-106)
[2024-05-12 08:16] LABS: Bedside Glucose 445 mg/dL (74-106)
[2024-05-12] MEDS: Aspirin E.C. 81 MG Tablet PO (09:31)
[2024-05-12] MEDS: Amiodarone 200 MG Tablet PO (09:31)
[2024-05-12] MEDS: Midodrine HCl 5 MG Tablet 10 MG PO ×3 (09:31→16:04)
[2024-05-12] MEDS: Bisacodyl 5 MG Tablet PO (09:33)
--- NOTE | 2024-05-12 09:57 | PN.HOSP_ITS ---
Reason for Visit Reason for Visit: Diagnoses Sepsis, unspecified organism (05/06/24) Hemorrhagic disorder due to extrinsic circulating anticoagulants (05/06/24) Acidosis, unspecified (05/06/24) Other cardiomyopathies (05/06/24) Unspecified systolic (congestive) heart failure (05/06/24) Hypotension, unspecified (05/06/24) Pneumonia, unspecified organism (05/06/24) Unspecified cirrhosis of liver (05/06/24) Acute kidney failure, unspecified (05/06/24) Severe sepsis without septic shock (05/06/24) Other specified abnormal findings of blood chemistry (05/06/24) Adverse effect of anticoagulants, initial encounter (05/06/24) Presence of automatic (implantable) cardiac defibrillator (05/06/24) Objective Data Objective Data Vital Signs: Vital Signs Temp Pulse Resp BP Pulse Ox O2 Del Method O2 Flow Rate 96.0 F L 102 H 15 103/83 H 99 Room Air 2 05/12/24 00:00 05/12/24 07:15 05/12/24 07:15 05/12/24 07:00 05/12/24 08:45 05/12/24 08:45 05/12/24 03:43 Oxygen Flow Rate (L/min) 2 Oxygen Delivery Method Room Air Weight: 215 lb 2.738 oz Body Mass Index (BMI) 30.9 Intake & Output: Intake and Output for Last 24 Hours 05/10/24 05/11/24 05/12/24 23:59 23:59 23:59 Intake Total 517.82 / 519.29 894.73 / 909.43 217.60 / 217.60 Output Total 0 / 0 1350 / 1350 175 / 175 Balance 517.82 / 519.29 -455.27 / -440.57 42.60 / 42.60 Lab / Micro Data 05/11/24 05:05 05/12/24 07:31 Labs: Laboratory Results - last 24 hr 05/11/24 06:26: POC Glucose 445 H 05/11/24 06:28: POC Glucose 393 H 05/11/24 11:13: POC Glucose 422 H 05/11/24 16:35: POC Glucose 396 H 05/11/24 22:21: POC Glucose 353 H 05/12/24 06:27: POC Glucose 334 H 05/12/24 07:31: Sodium 128 L, Potassium 5.0, Chloride 97 L, Carbon Dioxide 19.0 L, Anion Gap 13, BUN 72 H, Creatinine 4.63 H, Estim Creat Clear Calc 19.13, Est GFR (MDRD) Af Amer 17 L, Est GFR (MDRD) Non-Af 14 L, BUN/Creatinine Ratio 15.6, Glucose 372 H, Calcium 8.7 Micro: Microbiology 05/06/24 11:35 Blood Culture (Wb) - Left Forearm Blood Culture - Final No growth in 5 days. 05/06/24 14:40 Urine, Clean Catch Legionella Antigen - Final 05/06/24 14:40 Urine, Clean Catch Streptococcus pneumoniae Antigen (M - Final 05/06/24 13:01 Mucosa - Nose SARS-CoV-2, Influenza & RSV (PCR) - Final Rhythm Strip Rhythm Strip: Sinus Rhythm Rate: 105 Ectopy: PVC(s) and - (BiV paced) Physical Exam Narrative Seen and examined. Patient very frail, short of breath even at rest. Generalized edema. Urine output very low. Complain of mild burning micturition. DNR CC, hospice consulted. On IV dobutamine fixed dose drip General: Awake, oriented x 3, fatigued and frail HEENT: Atraumatic, PERRLA, EOMI, Normocephalic Oral: Oral mucosa dry no Gingival or Mucosal Lesions/ Ulcerations Neck: Supple, No JVD, Negative Carotid Bruits Chest wall/Lungs: Air entry diminished in bilateral lung bases, left more than right. Cardiovascular: Muffled low intensity heart sounds, paced rhythm. Abdomen: Bowel Sounds sluggish, Soft, Non Tender, Non-Distended : No dysuria. Oliguria, dark-colored urine. Dysuria present no renal angle tenderness. No suprapubic tenderness. Extremities: Generalized anasarca, lower extremity up to thigh, interstitial edema with subcutaneous edema in the back and pelvic wall posteriorly Skin: No rashes, No breakdown Musculoskeletal: No Tenderness to Palpation of Joints or Extremities, ROM restricted. Frail muscle strength 4/5 at major extremity Neurological: Cranial nerves II-XII grossly intact, DTR 2+/4. No acute focal neurological deficit. Psych/Mental Status: Flat affect. Assessment & Plan Assessment/Plan (1) Acute hypotension: (2) Elevated serum creatinine: (3) Warfarin-induced coagulopathy: (4) Acidosis, lactic: (5) Severe sepsis with acute organ dysfunction: PLAN: Plan #Severe sepsis due to pneumonia * critical care on board * PT/OT On board. Fall precautions * Urine for strep and Legionella negative * Titrate oxygen to maintain saturation above 90% * completed a course of IV zosyn 05/22 blood culture shows no growth. Urine culture pending. Triple PCR for SARS-CoV-2, flu and RSV are negative #Acute on chronic HFrEF * Remains on room air. * Creatinine has trended up further to 3.92; unable to give Lasix. * CT chest/abdomen/pelvis showed moderate bilateral pleural effusions greater on the left with basilar compressive atelectasis as well as moderate anasarca and finding suggesting hepatic cirrhosis as well as cardiomegaly * also on carvedilol * 2D echo showed EF of 5% with severe global left ventricular systolic dysfunction and mildly dilated left ventricle with ICD or pacer leads identified within the right ventricle and moderate global right ventricular systolic dysfunction * Was started on dobutamine drip per discussion with cardiology. Cardiology consulted. * Dobutamine drip at titrated down due to patient having a few runs of VTACH. 05/12 cardiology is going to discontinue dobutamine drip.: #Elevated INR * INR remains elevated and is 3.6 05/12: INR not yet today. Patient was on warfarin. # Cirrhosis * Liver enzymes remain elevated with bilirubin of 3 as well as direct bilirubin of 1.8. AST and ALT are elevated but seem to be trending downwards. ALP not elevated. 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 * GI was consulted. 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 #Lactic acidosis: * Likely due to sepsis. Lactic acid was 2.2 on admission and trended up to 2.9. * Restricted fluid hydration due to his EF of 15%. #Nonischemic cardiomyopathy * Has known EF of 15 to 20% and has a cardiac defibrillator in place. * On amiodarone. * On Coumadin due to a known left ventricular thrombus. Coumadin currently on hold due to elevated INR 05/12: 2D echo was done and showed EF 5% with suspected LV apical thrombus, mildly dilated LV, severe biatrial dilatation, 2+ TR, RVSP 50 mmHg, left pleural effusion #JERAMIE on ?CKD III with pseudohyperkalemia * Cr is further up to 3.92 * likely pre renal due to low EF as well as cardiorenal and hepatorenal syndrome, possible type II * EF further low, reported about 5% * nephrology consulted; Barragan catheter probably was taken out as patient going for hospice 05/12: Potassium 5.0. BUN/creatinine 72/4.63 #Non-anion gap metabolic acidosis * Bicarb is 17 today and anion gap remains 14. * This is likely due to to the worsening kidney function. * Nephrology on board; concern is for hepatorenal syndrome * #Type 2 diabetes mellitus: On Jardiance and metformin. Will hold these. Also hold glimepiride. Insulin sliding scale. Accu-Cheks ACHS. #Hyperlipidemia: On statin DVT prophylaxis: SCDs. No anticoagulation in light of the elevated INR CODE STATUS: Full code Multiorgan dysfunction syndrome, mainly severe heart failure, JERAMIE on CKD, end- stage liver disease/cirrhosis, poor function with low energy. Patient and family elected for hospice, DNR CC. Hospice meeting today . Echo 05/2024 Interpretation Summary Mildly dilated left ventricle. Severe global LV systolic dysfunction. Estimated LVEF 5%. Suspect LV apical thrombus. Moderate global right ventricular systolic dysfunction. There is severe biatrial dilatation. Moderate (2+) tricuspid valve insufficiency. Right ventricular systolic pressure estimated to be 50 mmHg. Trace to small pericardial effusion Left pleural effusion noted. Microbiology Past 72 Hours 05/06/24 11:35 Blood Culture (Wb) - Left Forearm Blood Culture - Final No growth in 5 days. Laboratory Results 05/11/24 06:26: POC Glucose 445 H 05/11/24 06:28: POC Glucose 393 H 05/11/24 11:13: POC Glucose 422 H 05/11/24 16:35: POC Glucose 396 H 05/11/24 22:21: POC Glucose 353 H 05/12/24 06:27: POC Glucose 334 H 05/12/24 07:31: Sodium 128 L, Potassium 5.0, Chloride 97 L, Carbon Dioxide 19.0 L, Anion Gap 13, BUN 72 H, Creatinine 4.63 H, Estim Creat Clear Calc 19.13, Est GFR (MDRD) Af Amer 17 L, Est GFR (MDRD) Non-Af 14 L, BUN/Creatinine Ratio 15.6, Glucose 372 H, Calcium 8.7 Charges/Coding Visit Charges Inpatient E&M: 38675 Subs Hosp L3
--- NOTE | 2024-05-12 10:37 | SP.MBSS_ITS ---
Modified Barium Swallow Patient Information Study Date: 05/12/24 Study Time: 10:00 Direct Billable Minutes: 109 Total Minutes procedure & reportin Diagnosis: Right lower lobe PNA J18.9 Referring Physician: Alison Barr Reason for Referral: Objectively assess swallow function, assess risk for aspiration, and determine recommendations for least restrictive diet textures and compensatory strategies to improve safety of swallow. Medical History: Pt presented via the ED on 05/06/2024 with a complaint of shortness of breath which started on day of admission. He was admitted to be managed for severe sepsis due to pneumonia likely community-acquired. ST consulted for swallowing difficulty, which patient reports began ~2 weeks ago. The patient was seen for BSE 05/10/2024 and recommended for Regular textures / Thin liquids w/ plans for MBSS to further assess swallow function and aspirationrisk. 05/11/2024 pt had projectile vomiting 2X after meals and was not appropriate for MBSS. He was concerned his food was catching. RN CLINICAL COORDINATOR recommended NPO w/ plan for MBSS today to assess risk for aspiration and concern for esophageal dysphagia given pt reports of concern for food not going down well prior to vomiting. Of note, RN CLINICAL COORDINATOR was made aware by RN after MBSS that he is meeting w/ hospice this morning after MBSS. PMHx re: paroxysmal ventricular tachycardia, nonischemic cardiomyopathy, heart failure with reduced ejection fraction, pleural effusion on right, CONNOR, HTN, HLD, left ventricular thrombus, cardiomyopathy, CPAP (continuous positive airway pressure) dependence, sleep apnea, loculated pleural effusion, pulmonary embolism, coagulopathy, Gilbert's syndrome, hepatomegaly, jaundice, diabetes, CHF, hyperlipidemia. Current Diet Ordered: NPO Penetration-Aspiration Scale Penetration-Aspiration Scale: OBJECTIVE ASSESSMENT OF SWALLOW FUNCTION (QUANTITATIVE ? PER TRIAL): PENETRATION / ASPIRATION SCALE (MCDONOUGH): 1 = does not enter airway 2 = enters airway/above vocal folds/ejected 3 = enters airway/above vocal folds/not ejected 4 = enters airway/contacts vocal folds/ejected 5 = enters airway/contacts vocal folds/not ejected 6 = enters airway/below vocal folds/ejected 7 = enters airway/below vocal folds/not ejected despite effort 8 = enters airway/below vocal folds/no effort VIDEOFLOROSCOPIC SCALE SCORE (MCDONOUGH): Grade I = aspiration of material that has penetrated into the laryngeal vestibule, intact cough reflex Grade II = aspiration < 10 % of the bolus, intact cough reflex Grade III = aspiration of < 10 % of the bolus, reduced cough reflex or aspiration of > 10 % of the bolus, intact cough reflex Grade IV = aspiration of > 10 % of the bolus, reduced cough reflex Penetration-Aspiration Scale Score Thin Liquid via teaspoon: Result: 2= enter airway/above vocal folds/ejected Thin Liquid via teaspoon Trial 2: Result: 1= does not enter airway Thin Liquid via small single sip: cup: Result: 1= does not enter airway Thin Liquid via sequential sips: cup: Result: 2= enter airway/above vocal folds/ejected Comment: Trace post prandial penetration observed during subsequent trial Esophageal screen - complete clearance, trace barium coating along esophagus. [place] Thick Liquid via small single sip: cup: Result: 1= does not enter airway Pudding via teaspoon: Result: 1= does not enter airway Comment: Esophageal screen - Retention in upper esophagus. ~1/3 of bolus remained in pharynx after the first swallow with minimal additional clearance of bolus through UES w/ subsequent swallows w/ cued effortful swallow and cued chin tuck. Thin Liquid via single sip: straw: Result: 7= enters airways/below vocal folds/not ejected despite effort Comment: Weak, reflexive throat clear Thin Liquid via small single sip: cup Trial 2: Result: 5= enters airways/contacts vocal folds/not ejected Thin Liquid via small single sip: cup Effortful swallow: Result: 5= enters airways/contacts vocal folds/not ejected Thin Liquid via small single sip: cup Chin tuck: Result: 5= enters airways/contacts vocal folds/not ejected [place] Thick Liquid via small single sip: cup Trial 2: Result: 5= enters airways/contacts vocal folds/not ejected Oral Phase Labial Seal: Interlabial escape, no progression to anterior lip Tongue Control During Bolus Hold: Posterior escape of less than half of bolus Bolus Transport/Lingual Motion: Delayed initiation of tongue motion Oral Residue: Residue collection on oral structures Pharyngeal Phase Initiation of Pharyngeal Swallow: Bolus head at posterior laryngeal surgace of epiglottis Soft Palate Elevation: Trace column of contrast/air between soft palate and pharyngeal wall Laryngeal Elevation: Partial superior movement thyroid cart/partial apprx aryt- epig petiole Anterior Hyoid Excursion: Partial anterior movement (minimal) Epiglottic Movement: Partial inversion (inconsistent) Laryngeal Vestibule Closure at Height of Swallow: Incomplete; narrow column of air/contrast in laryngeal vestibule Pharyngeal Stripping Wave: Present - diminished Pharyngoesophageal Segment Opening: Parital distension and partial duration; parital obstruction of flow Tongue Base Retraction: Narrow column of contrast between tongue base & post. pharyngeal wall Pharyngeal Residue: Collection of residue within or on pharyngeal structures Esophageal Phase Esophageal Clearance: Esophageal retention Diagnosis/Impression Diagnosis: Oropharyngeal dysphagia R13.12; Esophageal dysphagia R13.14 Impression: The oral phase is marked by... -Mild oral residue. -Mildly decreased bolus control w/ premature posterior loss of <1/2 of thin l iquids to the posterior surface of the epiglottis prior to swallow onset. -Unable to assess mastication of cookie due to concerns for choking/regurgitation of solids d/t decreased pharyngeal clearance of pudding. The pharyngeal phase is primarily marked by... -Decreased airway closure due to decreased anterior hyoid excursion, decreased laryngeal elevation, and inconsistent epiglottic inversion. -Aspiration of thin liquids w/ weak and ineffective reflexive throat clear. Laryngeal penetration of thin and mildly thick liquids to the laryngeal vestibule w/ weak and ineffective reflexive throat clear. -Moderate pharyngeal residue due to decreased pharyngeal contraction and UES opening/duration observed w/ both liquids and pudding increasing risk for post prandial aspiration. The esophageal phase is primarily marked by... -Retention of pudding in upper esophagus. Recommendations Diet: Thin Liquids (Full Thin Liquid diet) Comment: Frequent oral care Compensatory Strategies: Small Sips (Cough and re-swallow after each sip), Slow Rate and Sitting upright (During and 60min after oral intake) Supervision: 1:1 Close Supervision Recommend Repeat Modified Barium Swallow: No Need for Skilled Speech Therapy Services: No Comment: RN CLINICAL COORDINATOR was recommending continued dysphagia therapy; however, patient has elected for hospice and furhter treatment is no longer warranted. Recommended Referrals: GI Consult (RN CLINICAL COORDINATOR was recommending GI consult; however, patient has elected for hospice and this consult is no longer warranted.) Education Completed: 1. Described result of evaluation. and 7. Pt requires further education on strategies & risks. Comment: This afternoon, RNTeressa, informed RN CLINICAL COORDINATOR that the patient met w/ hospice and has elected to discharge w/ hospice care. Status Active ST Patient: Active Contact Information [facility] Speech Therapy:: Betzaida Gee M.A. CCC-RN CLINICAL COORDINATOR? Speech-Language Pathologist?? [facility] [address] [place] [address]? [email or web address]?? [phone]
[2024-05-12] MEDS: Calcium Carbonate 500 MG Tablet PO (11:16)
[2024-05-12 12:15] LABS: Bedside Glucose 327 mg/dL (74-106)
--- NOTE | 2024-05-12 14:32 | CHAPLAIN ---
Type of Pastoral Visit ___ Initial Visit _x__ Follow-up Visit ___ On-call Visit ___ General Patient Visit ___ Spiritual Assessment _x__ Family Conference ___ Bereavement ___ Rapid Response ___ Code Blue ___ Other (describe below) Pastoral Care Referral From _x__ Patient _x__ Family _x__ Nurse ___ Physician ___ Political Reporter ___ Systems Librarian ___ Other (describe below) Sacrament/Intervention _x__ Active listening ___ Anointing ___ Islam ___ Bereavement ___ Communion _x__ Isabel exploration ___ _x__ Life review _x__ Prayer ___ Reconciliation ___ Sacrament of Sick _x__ Supportive presence ___ Wedding ___ Other (describe below) Pastoral Comments patient requested a visit from this government sales manager; spouse is in the room; pt states that reason for visit is that he has questions about forgoing any more treatment and finding assurance for life after ; hospice has been accepted and pt will transfer today to in patient unit; spouse is active in the discussion; pt is asked questions to clarify his concerns and needs; pt is given spiritual guidance and care to response to his questions; pt expresses thankfulness for time and attention given to his concerns and he states that it has been what he wanted; talk continues about hospice care and emotional feelings; pt also is making financial plans and is encouraged to give time and verbal expression to his family and loved ones; pt and spouse welcome prayer
--- NOTE | 2024-05-12 15:39 | NURSING ---
report called to Jennifer MCMANUS at hospice
--- NOTE | 2024-05-12 18:20 | DS.PCM_ITS ---
Providers Date of Admission: 05/06/24 Date of Discharge: 05/12/24 Primary Care Physician: TISH Fraser Consultations 05/06/24 16:28 Consult: Nursing Surgical Services Director / Pulmonary Medicine Routine Consulting Provider: Intensivists/Pulmonary Med Reason for Consult: sepsis due to pneumonia EMERGENT Consult: No Notified: Yes Date Notified: 05/06/24 Time Notified: 16:28 Method of Notification: Text 05/09/24 07:53 Consult: Nephrology Routine Consulting Provider: Austin Ma Reason for Consult: JERAMIE EMERGENT Consult: No Notified: Yes Date Notified: 05/09/24 Time Notified: 07:53 Method of Notification: Text 05/10/24 12:08 Consult: Gastroenterology Routine Consulting Provider: [facility] Reason for Consult: cirrhosis EMERGENT Consult: No Notified: Yes Date Notified: 05/10/24 Time Notified: 12:08 Method of Notification: Text 05/10/24 18:43 Consult: Cardiology Routine Consulting Provider: Anders Quinn Reason for Consult: acute on chronic heart failure with reduced EF EMERGENT Consult: No Notified: Yes Date Notified: 05/10/24 Time Notified: 18:43 Method of Notification: Verbal 05/11/24 17:01 Consult: Hospice / Palliative Care Routine Consulting Provider: [facility] Reason for Consult: end stage HFrEF EMERGENT Consult: No Notified: Yes Date Notified: 05/11/24 Time Notified: 17:28 Method of Notification: Answering Service Reason For Visit: PNEUMONIA Diagnosis Discharge Diagnosis (1) Acute hypotension: Status: Acute Code(s): I95.9 - Hypotension, unspecified (2) Elevated serum creatinine: Status: Acute Code(s): R79.89 - Other specified abnormal findings of blood chemistry (3) Warfarin-induced coagulopathy: Status: Acute Code(s): D68.32 - Hemorrhagic disorder due to extrinsic circulating anticoagulants; T45.515A - Adverse effect of anticoagulants, initial encounter (4) Acidosis, lactic: Status: Acute Code(s): E87.20 - Acidosis, unspecified (5) Severe sepsis with acute organ dysfunction: Status: Acute Code(s): A41.9 - Sepsis, unspecified organism; R65.20 - Severe sepsis without septic shock Plan 64-year-old gentleman was admitted with shortness of breath started on the day of admission with history of chronic HFrEF EF 20%, cough productive in nature, orthopnea. Baseline BP is low 90s systolic but was 65/48 in the ED. #Severe sepsis due to pneumonia * critical care on board * PT/OT On board. Fall precautions * Urine for strep and Legionella negative * Titrate oxygen to maintain saturation above 90% * completed a course of IV zosyn 05/12 blood culture shows no growth. Urine culture pending. Triple PCR for SARS-CoV-2, flu and RSV are negative #Acute on chronic HFrEF * Remains on room air. * Creatinine has trended up further to 3.92; unable to give Lasix. * CT chest/abdomen/pelvis showed moderate bilateral pleural effusions greater on the left with basilar compressive atelectasis as well as moderate anasarca and finding suggesting hepatic cirrhosis as well as cardiomegaly * also on carvedilol * 2D echo showed EF of 5% with severe global left ventricular systolic dysfunction and mildly dilated left ventricle with ICD or pacer leads identified within the right ventricle and moderate global right ventricular systolic dysfunction * Was started on dobutamine drip per discussion with cardiology. Cardiology consulted. * Dobutamine drip at titrated down due to patient having a few runs of VTACH. 05/12 cardiology is going to discontinue dobutamine drip. Patient elected hospice care. #Elevated INR * INR remains elevated and is 3.6 05/12: INR not yet today. Patient was on warfarin. # Cirrhosis * Liver enzymes remain elevated with bilirubin of 3 as well as direct bilirubin of 1.8. AST and ALT are elevated but seem to be trending downwards. ALP not elevated. 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 * GI was consulted. 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 #Lactic acidosis: * Likely due to sepsis. Lactic acid was 2.2 on admission and trended up to 2.9. * Restricted fluid hydration due to his EF of 15%. #Nonischemic cardiomyopathy * Has known EF of 15 to 20% and has a cardiac defibrillator in place. * On amiodarone. * On Coumadin due to a known left ventricular thrombus. Coumadin currently on hold due to elevated INR 05/12: 2D echo was done and showed EF 5% with suspected LV apical thrombus, mildly dilated LV, severe biatrial dilatation, 2+ TR, RVSP 50 mmHg, left pleural effusion #JERAMIE on ?CKD III with pseudohyperkalemia * Cr is further up to 3.92 * likely pre renal due to low EF as well as cardiorenal and hepatorenal syndrome, possible type II * EF further low, reported about 5% * nephrology consulted; Barragan catheter probably was taken out as patient going for hospice 05/12: Potassium 5.0. BUN/creatinine 72/4.63 #Non-anion gap metabolic acidosis * Bicarb is 17 today and anion gap remains 14. * This is likely due to to the worsening kidney function. * Nephrology on board; concern is for hepatorenal syndrome * #Type 2 diabetes mellitus: On Jardiance and metformin. Will hold these. Also hold glimepiride. Insulin sliding scale. Accu-Cheks ACHS. #Hyperlipidemia: On statin DVT prophylaxis: SCDs. No anticoagulation in light of the elevated INR CODE STATUS: Full code Multiorgan dysfunction syndrome, mainly severe heart failure, JERAMIE on CKD, end- stage liver disease/cirrhosis, poor function with low energy. Patient and family elected for hospice, DNR CC. Hospice meeting today. Patient was discharged to inpatient hospice care in the evening. . Echo 05/2024 Interpretation Summary Mildly dilated left ventricle. Severe global LV systolic dysfunction. Estimated LVEF 5%. Suspect LV apical thrombus. Moderate global right ventricular systolic dysfunction. There is severe biatrial dilatation. Moderate (2+) tricuspid valve insufficiency. Right ventricular systolic pressure estimated to be 50 mmHg. Trace to small pericardial effusion Left pleural effusion noted. Microbiology Past 72 Hours 05/06/24 11:35 Blood Culture (Wb) - Left Forearm Blood Culture - Final No growth in 5 days. Laboratory Results 05/11/24 06:26: POC Glucose 445 H 05/11/24 06:28: POC Glucose 393 H 05/11/24 11:13: POC Glucose 422 H 05/11/24 16:35: POC Glucose 396 H 05/11/24 22:21: POC Glucose 353 H 05/12/24 06:27: POC Glucose 334 H 05/12/24 07:31: Sodium 128 L, Potassium 5.0, Chloride 97 L, Carbon Dioxide 19.0 L, Anion Gap 13, BUN 72 H, Creatinine 4.63 H, Estim Creat Clear Calc 19.13, Est GFR (MDRD) Af Amer 17 L, Est GFR (MDRD) Non-Af 14 L, BUN/Creatinine Ratio 15.6, Glucose 372 H, Calcium 8.7 Medications at Discharge Home Medications ascorbic acid (vitamin C) 500 mg tablet (Vitamin C) 500 mg PO DAILY@0800 vitamin 05/30/13 aspirin 81 mg tablet,delayed release 81 mg PO DAILY@0800 #30 TABLETS 06/01/13 metformin 500 mg tablet,extended release 24 hr 1,000 mg PO BID DM 06/10/21 glimepiride 4 mg tablet 4 mg PO DAILY DM 10/03/21 spironolactone 25 mg tablet 25 mg PO DAILY FLUID 10/21/21 warfarin 5 mg tablet 5 mg PO DAILY #30 tabs 01/23/22 empagliflozin 10 mg tablet (Jardiance) 10 mg PO DAILY #90 tabs 09/09/22 amiodarone 200 mg tablet 200 mg PO DAILY #90 tabs 06/18/23 furosemide 40 mg tablet 40 mg PO BIDLX #180 tabs 06/18/23 losartan 25 mg tablet 12.5 mg (1/2 x 25 mg) PO QHS #45 tabs 06/18/23 carvedilol 25 mg tablet 25 mg PO BID #180 tabs 09/28/23 Physical Exam Narrative Please see physical exam on the progress note of the same date Weight / BMI Weight Weight: 215 lb 2.738 oz Body Mass Index (BMI) 30.9 ABG / Lab / Microbiology Data 05/11/24 05:05 05/12/24 07:31 Laboratory: Laboratory Results - last 24 hr 05/09/24 : Ur Random Sodium Cancelled, Urine Potassium Cancelled, Urine Chloride Cancelled 05/12/24 16:48: POC Glucose 385 H Microbiology: Microbiology 05/12/24 08:15 Urine, Clean Catch Urine Culture - Preliminary Culture exhibits no growth. 05/06/24 11:35 Blood Culture (Wb) - Left Forearm Blood Culture - Final No growth in 5 days. 05/06/24 14:40 Urine, Clean Catch Legionella Antigen - Final 05/06/24 14:40 Urine, Clean Catch Streptococcus pneumoniae Antigen (M - Final 05/06/24 13:01 Mucosa - Nose SARS-CoV-2, Influenza & RSV (PCR) - Final Meaningful Use Info Meaningful Use Meaningful Use Diagnoses (Choose all that apply): None applicable Ischemic Stroke Statin Dosing Therapy Reference: STATIN DOSE THERAPY REFERENCE: * Patients > 75 years receive moderate or high dose statin therapy. * Patients 75 years or YOUNGER should receive HIGH intensity statin dose unless contraindicated. You will be required to document reason for non-treatment if statin daily dose does not meet guidelines. HIGH DOSE STATIN THERAPY DAILY Atorvastatin > than or = to 40 mg Rosuvastatin > than or = to 20 mg Amlodipine + Atorvastatin > than or = to 2.5/40 mg Ezetimibe + Simvastatin 10/80 mg Simvastatin 80mg Discharge Plan Admission Admit Date/Time: 05/06/24 12:25 Primary Reason for Your Visit: Multiple organ dysfunction syndrome, acute on chronic HFrEF, cirrhosis Attending Provider: Jameson Li Primary Care Provider: Teresita Singh NP Consulting Providers: Austin Ma; Anders Quinn; Bhupinder Miller; Celsa Gordon; Keyonna Lopez; Randa Crenshaw; Elizabeth Koroma APPEALS ASSISTANT; Zaida Solano; Alison Barr Discharge Orders/Prescriptions Prescriptions: No Action spironolactone 25 mg tablet 25 mg PO DAILY Jardiance 10 mg tablet 10 mg PO DAILY Qty: 90 3RF amiodarone 200 mg tablet 200 mg PO DAILY Qty: 90 3RF furosemide 40 mg tablet 40 mg PO BIDLX Qty: 180 3RF losartan 25 mg tablet 12.5 mg PO QHS Qty: 45 3RF ascorbic acid (vitamin C) [Vitamin C] 500 MG tablet 500 mg PO DAILY@0800 Patient Comments: supplement aspirin 81 MG tablet 81 mg PO DAILY@0800 Qty: 30 0RF Patient Comments: heart health metformin 500 mg tablet extended release 24 hr 1,000 mg PO BID glimepiride 4 mg tablet 4 mg PO DAILY Patient Comments: TAKE 1 TABLET BY MOUTH ONCE DAILY WITH BREAKFAST warfarin 5 mg tablet 5 mg PO DAILY Qty: 30 1RF carvedilol 25 mg tablet 25 mg PO BID Qty: 180 3RF Referrals / Follow Up: Teresita Singh APPEALS ASSISTANT, APPEALS ASSISTANT-C [Primary Care Provider] - Disposition Disposition (needs filled in before D/C Order can be placed): Hospice in Medical Facility Charges/Coding Addendum Addendum: Please cancel the billing charge of the progress note of the same day. Visit Charges Inpatient E&M: 89640 Disch Hosp >30min
[2024-05-12 23:40] LABS: Bedside Glucose 385 mg/dL (74-106)
== END 2024-05-12 18:00 | disposition hospice, inpatient (51) | DRG 871 ==
LOC: ED 12:07 → PCU 05-09 09:00 → ICU 05-09 11:18 → PCU 05-11 00:50
PROVIDERS: Internal Medicine; Internal Medicine Cardiovascular Disease; Internal Medicine Pulmonary Disease; Nurse Practitioner Adult Health; Admitting Provider Student in an Organized Health Care Education/Training Program; Emergency Provider Emergency Medicine; PCP Nurse Practitioner; Visit Provider Internal Medicine
DX: A41.9 Sepsis, unspecified organism (principal); J18.9 Pneumonia, unspecified organism; K76.7 Hepatorenal syndrome; I50.23 Acute on chronic systolic (congestive) heart failure; D68.8 Other specified coagulation defects; E87.20 Acidosis, unspecified; I42.0 Dilated cardiomyopathy; I13.0 Hypertensive heart and chronic kidney disease with heart failure and stage 1 through stage 4 chronic kidney disease, or unspecified chronic kidney disease; I47.20 Ventricular tachycardia, unspecified; E87.1 Hypo-osmolality and hyponatremia; I42.8 Other cardiomyopathies; N17.9 Acute kidney failure, unspecified; R18.8 Other ascites; N18.30 Chronic kidney disease, stage 3 unspecified; E11.22 Type 2 diabetes mellitus with diabetic chronic kidney disease; I48.91 Unspecified atrial fibrillation; E78.5 Hyperlipidemia, unspecified; E80.4 Gilbert syndrome; R65.20 Severe sepsis without septic shock; K74.60 Unspecified cirrhosis of liver; K76.1 Chronic passive congestion of liver; K72.10 Chronic hepatic failure without coma; Z87.891 Personal history of nicotine dependence; Z79.82 Long term (current) use of aspirin; R79.1 Abnormal coagulation profile; Z79.84 Long term (current) use of oral hypoglycemic drugs; Z79.01 Long term (current) use of anticoagulants; Z11.52 Encounter for screening for COVID-19; Z51.5 Encounter for palliative care; Z66 Do not resuscitate
CPT/HCPCS: 36415; 36569; 71045; 71250; 74176; 74230; 80048; 80053; 80076; 81001; 82962; 83605; 83880; 84484; 85025; 85379; 85610; 87040; 87086; 87449; 87631; 92610; 92611; 93005; 93306; 94640; 94660; 97110; 97116; 97162; 97166; 97530; 97535; 99285; J7040; P9047; Q9957; A4216; C8929; J0696; J1940; J2354; J2405; J3490